=== PATIENT | male | born 1940 | race Caucasian/White ===

== ENCOUNTER → 2020-06-27 11:19 | Outpatient (BNVA) | payer OTHER, SELFPAY | PROVIDERS: PCP Emergency Medicine Emergency Medical Services; Visit Provider Surgery | DX: Z11.59 Encounter for screening for other viral diseases (principal); R10.9 Unspecified abdominal pain | CPT/HCPCS: 87635 ==

== ENCOUNTER 2020-07-01 06:14 | Day surgery (SDC) | payer OTHER, SELFPAY ==
[2020-06-26 10:47] VITALS: BMI 17.9
[2020-07-01 06:24] VITALS: BP 120/80; PULSE 84; RESP 18; TEMP 36.4; O2SAT 96
--- NOTE | 2020-07-01 06:37 | W.PM.OPSUD ---
Surgery/Procedure H&P Update DATE OF PROCEDURE: July 01, 2020 DATE H&P PERFORMED: 06/13/20 H&P UPDATE INFORMATION: I have reviewed H&P completed within last 30 days, I have examined patient prior to procedure and Changes to prior documentation as noted here CHANGES TO PREVIOUS DOCUMENTATION: Patient's spouse is reporting that her lost 20 pounds over the short period of time and he had history of nausea and vomiting and that is completely abnormal for the patient. PREOP DIAGNOSIS: Abdominal cramps PRIMARY INDICATION FOR PROCEDURE: In addition to nonintentional weight loss PLANNED PROCEDURE: Operation Date: 07/01/20 07:00 Proposed Procedures p Colonoscopy 11683 R10.9(Not Applicable) - Noah Davidson MD
[2020-07-01] MEDS: sodium chloride 0.9% 1,000 ML 30 ML IV (06:44)
--- NOTE | 2020-07-01 06:47 | P.ANESASSM_ITS ---
Pre-Anesthetic Assessment Pre-Anesthetic Assessment: Height/Weight: Height 1.78 m Weight 56.699 kg Temp Pulse Resp BP Pulse Ox 97.5 F L 84 18 120/80 96 07/01/20 06:24 07/01/20 06:24 07/01/20 06:24 07/01/20 06:24 07/01/20 06:24 Preop Diagnosis: Abdominal cramps Proposed Procedure: Operation Date: 07/01/20 07:00 Proposed Procedures p Colonoscopy 17249 R10.9(Not Applicable) - Noah Davidson MD Familial anesthetic complications: None Was Beta Dejon taken within 24 hours: N/A Last intake: Intake Last Liquid Date 06/30/20 Last Liquid Time 20:00 Last Solid Date 06/29/20 Last Solid Time 20:00 Social: Social History: No alcohol and No tobacco Exam: Pre-Anes Outpt Exam: alert, oriented x 3, clear to auscultation b ilaterally and regular rate & rhythm Airway: Cervical ROM: WNL MP: 2 Dentition: False Pulmonary: Pulmonary: COPD CV/HEM: Comments: patient has mitral valve repair In December he states he had fainting episode and wore 10-day holter monitor thereafter with no events other than some tachycardia while working on his deck. patient denies any further episodoes of SOB, chest pain, syncope Anesthetic Plan: ASA status: 3 Anesthesia: MAC Risk of > 500 ml blood loss (7ml/kg in children): No Meds/Allergies Current Medications: Current Medications Generic Name Dose Route Start Last Admin Trade Name Freq PRN Reason Stop Dose Admin Sodium Chloride 1,000 mls @ 30 ml s/hr 07/01/20 06:30 07/01/20 06:44 Sodium Chloride 0.9% IV 07/02/20 06:29 30 mls/hr .Q24H BALTA Administration PFSH Anesthesia PFSH: Family History Denies family history of Anesthesia complication Bleeding disorder Social History Smoking and tobacco status: former smoker Alcohol intake: never Data Anesthesia Cardiac Studies: No Data to Display
--- NOTE | 2020-07-01 06:50 | ECG_ITS ---
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 Measurements Intervals Stites Rate: 79 P: -84 DE: 149 QRS: 71 QRSD: 92 T: 80 QT: 402 QTc: 462 Interpretive Statements ECTOPIC ATRIAL RHYTHM WITH OCCASIONAL SUPRAVENTRICULAR PREMATURE COMPLEXES POSSIBLE RIGHT VENTRICULAR CONDUCTION DELAY [RSR (QR) IN V1/V2] ABNORMAL RHYTHM ECG No previous ECG available for comparison Electronically Signed On 07-01-2020 18:34:42 ALCOHOL AND DRUG COUNSELOR by Jah Valle M.D. [id number]
[2020-07-01 07:36] VITALS: BP 92/61; PULSE 78; RESP 18; TEMP 36.7; O2SAT 100
[2020-07-01 07:46] VITALS: BP 109/65; PULSE 81; RESP 18; O2SAT 97
[2020-07-01 08:09] LABS: Hematocrit 39.9 % (42.0-52.0); Mean Corpuscular HGB Conc 32.6 g/dL (30.0-36.0); Mean Corpuscular Volume 89.1 fL (80-94); Platelet Count 291 10^3/cmm (130-400); Red Blood Count 4.48 10^6/uL (4.1-5.3); Red Cell Distribution Width 13.8 % (12.1-15.1); White Blood Count 6.7 10^3/uL (4.0-10.0)
[2020-07-01 08:36] LABS: Carcinoembryonic Antigen 8.3 ng/mL (0.0-4.7)
[2020-07-01 08:39] LABS: Absolute Eosinophils 0.1 10^3/cmm (0.0-0.7); Absolute Segmented Neutrophil 5.2 10/cmm (1.6-7.1); Eosinophils 2 %; Lymphocytes 13 %; Monocytes Absolute 0.5 10^3/cmm (0.1-0.6); Segmented Neutrophils 78 %; Total Cells Counted 100 (0-100)
[2020-07-01 08:40] LABS: Platelet Estimate Normal (Normal)
[2020-07-01 08:47] LABS: Alanine Aminotransferase 14 U/L (0-41); Albumin Level 3.6 g/dL (3.5-5.2); Alkaline Phosphatase 49 IU/L (40-130); Anion Gap 10.9 (5-19); Aspartate Amino Transferase 19 U/L (0-40); Blood Urea Nitrogen 6 mg/dL (8-23); Calcium 8.8 mg/dL (8.5-10.5); Carbon Dioxide 28 mmol/L (22-29); Chloride 99 mmol/L (98-107); Globulin 2.2 g/dL (1.3-4.6); Glucose 94 mg/dL (65-115); Osmolality Calculated 275 mOsm/kg (285-295); Potassium 3.9 mmol/L (3.5-5.1); Sodium 134 mmol/L (136-145); Total Bilirubin 0.5 mg/dL (0.15-1.2); Total Protein 5.8 g/dL (6.6-8.7)
[2020-07-01 08:56] LABS: Absolute Neutrophil 5.2 10^3/cmm (1.4-6.5)
--- NOTE | 2020-07-01 14:11 | ANE.PACU2 ---
Inpatient post-anesthesia follow up: Airway intact: Yes Vital signs: Temperature 98.0 F Pulse Rate 81 Respiratory Rate 18 Blood Pressure 109/65 Pulse Oximetry 97 Oxygen Delivery Me thod Room Air Oxygen Flow Rate 3 Fraction of Inspir ed Oxygen Hydration adequate: Yes Nausea and vomiting: No Pain level: 1 Mental status: Baseline
[2020-07-02 07:03] LABS: H. Pylori / CLO Test Positive
--- NOTE | 2020-07-02 07:12 | PC.NURSE ---
Positive H Pylori results given verbally to Dr Davidson and called to ORESTES Daniels at clinic.
[2020-07-09 10:15] LABS: Miscellaneous Test See Scanned Lab Rpt
== END 2020-07-01 08:09 | disposition home or self-care (01) ==
PROVIDERS: PCP Emergency Medicine Emergency Medical Services; Visit Provider Surgery
PROC: 0DJD8ZZ Inspection of Lower Intestinal Tract, Via Natural or Artificial Opening Endoscopic (ICD-10-PCS; CPT 45378; principal; 2020-07-01 07:00)
PROC: 0DJ08ZZ Inspection of Upper Intestinal Tract, Via Natural or Artificial Opening Endoscopic (ICD-10-PCS; CPT 43235; 2020-07-01 07:00)
DX: C18.6 Malignant neoplasm of descending colon (principal); D12.8 Benign neoplasm of rectum; R10.9 Unspecified abdominal pain; R63.4 Abnormal weight loss; Z68.1 Body mass index [BMI] 19.9 or less, adult; J44.9 Chronic obstructive pulmonary disease, unspecified; Z87.891 Personal history of nicotine dependence; K57.30 Diverticulosis of large intestine without perforation or abscess without bleeding; K21.9 Gastro-esophageal reflux disease without esophagitis; K29.70 Gastritis, unspecified, without bleeding; Z79.82 Long term (current) use of aspirin
CPT/HCPCS: 12345; 43239; 45380; 45381; 45385; 80053; 82378; 85007; 85027; 87077; 88305; 93005; J2704; J7030

== ENCOUNTER 2020-07-02 12:57 | Outpatient (CLI) | payer OTHER, SELFPAY ==
[2020-07-02] MEDS: iohexol 300 mg/mL 50 mL Btl PO (13:10)
--- NOTE | 2020-07-02 14:30 | CT_ITS ---
WS: [id number] Exam: CT abdomen pelvis w con* [id number] Date/Time of Exam: 07/02/2020 1:02 PM Reason For Exam: K63.89 - Other specified diseases of intestine DLP: 838.[address] scans at [facility] use at least one of these dose optimization techniques: automat ed exposure control; mA and/or kV adjustment per patient size (includes targeted exams where dose is matched to clinical indication); or iterative reconstruction. Emphysematous changes noted in the lower lung zones. 1 cm cyst in the left lobe of the liver. Additio nal subcentimeter low-attenuation nodule in the right hepatic lobe too small to characterize. No calc ified stones in the gallbladder. The spleen and pancreas are unremarkable. There is marked wall thick ening of the stomach suggesting gastritis. The abdominal aorta is normal in caliber. The portal vein and IVC are patent. Unremarkable kidneys and adrenal glands. Small bowel loops are not dilated. No fr ee air. No lymphadenopathy. Retained stool throughout the large bowel. The visualized appendix is unr emarkable. No mass or lymphadenopathy in the pelvis. Intact urinary bladder. Large amount of stool in the rectum. Soft tissue calcifications are seen in the region of the scrotum. No destructive bone le sions. Marked degenerative changes at the lower lumbar spine. CT/CT abdomen pelvis w con* [id number] IMPRESSION: 1. No mass, lymphadenopathy or acute finding. 2. Marked wall thickening of the stomach suggesting gastritis. 3. Large amount retained stool in the colon.
[2020-07-02] MEDS: iohexol 300 mg/mL 100 mL Btl IV (14:37)
== END 2020-07-02 12:58 | disposition home or self-care (01) ==
LOC: RADWPI 13:00
PROVIDERS: PCP Emergency Medicine Emergency Medical Services; Visit Provider Surgery
DX: K63.89 Other specified diseases of intestine (principal)
CPT/HCPCS: 74177; Q9967

== ENCOUNTER → 2020-07-19 12:30 | Outpatient (BNVA) | payer OTHER, SELFPAY | PROVIDERS: PCP Emergency Medicine Emergency Medical Services; Visit Provider Surgery | DX: Z20.828 Contact with and (suspected) exposure to other viral communicable diseases (principal); C18.9 Malignant neoplasm of colon, unspecified | CPT/HCPCS: 87635 ==

== ENCOUNTER 2020-07-21 19:16 | Inpatient (IN) | payer OTHER, MEDICARE, SELFPAY ==
[2020-07-21] VITALS (30 sets, daily range): BP systolic 103–142; BP diastolic 60–100; PULSE 93–120; RESP 17–24; TEMP 36.4; O2SAT 87–100; BMI 15.5
--- NOTE | 2020-07-21 20:06 | CTR_ITS ---
PROCEDURE INFORMATION: Exam: CT Abdomen And Pelvis With Contrast Exam date and time: 07/21/2020 9:15 PM Age: 80 years old Clinical indication: Abdominal pain; Generalized; Prior surgery; Surgery date: 6+ months; Surgery type: Valve, appy; Patient HX: C/O abd pain and distention w HX of colon CA TECHNIQUE: Imaging protocol: Computed tomography of the abdomen and pelvis with intravenous contrast. Radiation optimization: All CT scans at this facility use at least one of these dose optimization techniques: automated exposure control; mA and/or kV adjustment per patient size (includes targeted exams where dose is matched to clinical indication); or iterative reconstruction. Contrast material: OMNI 300; Contrast volume: 75 ml; Contrast route: INTRAVENOUS (IV); COMPARISON: CT abdomen pelvis w con* [id number] 07/02/2020 2:34 PM RADIATION DOSE METRICS: Total DLP (mGy-cm): 183.57 FINDINGS: Lungs: Lung bases are clear. Liver: There is a simple hepatic cyst in the left lobe. There is an indeterminate 11 mm nodule in the right lobe. Gallbladder and bile ducts: The gallbladder is normal. There is no biliary dilation. Pancreas: There is marked atrophy of the pancreas. Spleen: Splenic size is normal. There are scattered calcifications consistent with healed granulomas. Adrenal glands: The adrenal glands are unremarkable. Kidneys and ureters: The kidneys are unremarkable. No hydronephrosis or stones. No ureteral dilation. Stomach and bowel: There is high-grade focal narrowing of the colon at the splenic flexure associated with short segment circumferential wall thickening consistent with a malignant neoplastic stricture (see axial series 2, image 19 through 29 and sagittal series 601, image 16). Proximal to the stricture the colon is dilated and fluid and gas filled. Distal to the stricture, the colon is decompressed. The stomach is unremarkable. The small bowel is diffusely dilated and filled with gas and fluid. Appendix: The appendix is not visible. Intraperitoneal space: There is no free air or significant intraperitoneal free fluid. Vasculature: There is moderate aortic atherosclerotic disease. The portal, splenic and superior mesenteric veins are patent. Lymph nodes: There is no lymphadenopathy in the retroperitoneum, mesentery, pelvis or inguinal regions. Urinary bladder: The urinary bladder is distended and thin walled. Reproductive: The prostate and seminal vesicles are unremarkable. Bones/joints: Bones are unremarkable. There is moderate degenerative disease in the lumbar spine. Soft tissues: The abdominal wall is intact. CT/CT abdomen pelvis w con* [id number] IMPRESSION: 1. 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 2. 11 mm nodule in the right lobe of the liver. Nonspecific. Possible metastasis. Radiation Dose CTDIVOL = (mGy): DLP = 183.57 (mGy-cm)
[2020-07-21] MEDS: sodium chloride 0.9% 1,000 ML 999 ML IV (20:25)
[2020-07-21] MEDS: morphine 4 mg/mL SDV 1 mL IVP (20:32)
[2020-07-21] MEDS: ondansetron 2 mg/ML SDV 2 mL 4 MG IVP (20:32)
--- NOTE | 2020-07-21 20:37 | PC.NURSE ---
PT TO ROOM 2 with
--- NOTE | 2020-07-21 20:40 | PC.NURSE ---
Pt received Morphine, noted a drop in 02 sat Placed 02 at 2L
[2020-07-21 20:43] LABS: Basophils % 0.5 %; Hematocrit 46.4 % (42.0-52.0); Hemoglobin 15.6 g/dL (11.7-16.6); Lymphocytes # 0.4 10^3/uL (0.8-4.8); Lymphocytes % 10.4 %; Mean Corpuscular HGB Conc 33.6 g/dL (30.0-36.0); Mean Corpuscular Hemoglobin 29.5 pg (28.0-34.0); Mean Corpuscular Volume 87.7 fL (80-94); Mean Platelet Volume 9.4 fL (7.4-10.4); Monocytes # 0.6 10^3/uL (0.2-0.9); Neutrophils # 2.89 10^3/uL (1.8-7.7); Neutrophils % 73.6 %; Nucleated Red Blood Cells % 0 %; Platelet Count 405 10^3/cmm (130-400); Red Blood Count 5.29 10^6/uL (4.1-5.3); White Blood Count 3.9 10^3/uL (4.0-10.0)
--- NOTE | 2020-07-21 20:43 | PC.NURSE ---
provider at bedside. Urinal at bedside
[2020-07-21 21:21] LABS: Lactate (Lactic Acid level) 2.1 mmol/L (0.5-2.2)
[2020-07-21 21:24] LABS: Alanine Aminotransferase 11 U/L (0-41); Albumin Level 3.8 g/dL (3.5-5.2); Alkaline Phosphatase 50 IU/L (40-130); Anion Gap 14.3 (5-19); Aspartate Amino Transferase 17 U/L (0-40); Blood Urea Nitrogen 36 mg/dL (8-23); C Reactive Protein 41.6 mg/L (0.0-4.9); Calcium 9.3 mg/dL (8.5-10.5); Carbon Dioxide 37 mmol/L (22-29); Chloride 91 mmol/L (98-107); Creatinine Clr Calc Pharmacy 47.0444; Globulin 2.8 g/dL (1.3-4.6); Glucose 167 mg/dL (65-115); Lipase 12 U/L (13-60); Osmolality Calculated 298 mOsm/kg (285-295); Potassium 4.3 mmol/L (3.5-5.1); Sodium 138 mmol/L (136-145); Total Bilirubin 0.6 mg/dL (0.15-1.2); Total Protein 6.6 g/dL (6.6-8.7)
[2020-07-21] MEDS: iohexol 300 mg/mL 100 mL Btl IV (21:56)
--- NOTE | 2020-07-21 22:36 | PC.NURSE ---
waiting for Urine sample
--- NOTE | 2020-07-21 22:58 | XR_ITS ---
WS: [id number] XR chest 1V portable [id number] REASON FOR EXAM: ng tube FINDINGS: Previous thoracotomy. Nasogastric tube in place the tip overlies the fundus of the stomach. A fractured segment of wire ove rlies the heart in the left chest. No prior examination for comparison. Mild tortuosity thoracic aorta. Normal heart size. No active pulmonary parenchymal or pleural disease noted. XR/XR chest 1V portable [id number] IMPRESSION: No acute chest abnormality.
--- NOTE | 2020-07-21 23:20 | PC.NURSE ---
NG placed and pt's stated No complaint
[2020-07-21 23:32] LABS: Add Urine Microscopic? NO
[2020-07-21 23:35] LABS: Bilirubin Urine 1+ (Negative); Blood Urine Neg (Negative); Glucose Urine UA Norm (Normal); Ketones Urine 1+ (Negative); Leukocyte Esterase Urine Negative (Negative); Nitrate Urine Negative (Negative); Protein Urine Neg (Negative); Urine Appearance Clear (CLEAR); Urine Color Dark Yellow (Yellow); Urobilinogen Urine 1 mg/dL (Negative); pH Urine 5 (5-7)
[2020-07-22] VITALS (28 sets, daily range): BP systolic 113–143; BP diastolic 59–91; PULSE 80–116; RESP 14–24; TEMP 36.2–36.7; O2SAT 93–99
--- NOTE | 2020-07-22 00:48 | W.ED.ABDPA2 ---
HPI - Abdominal Pain General: Chief Complaint: Abdominal Pain Stated Complaint: abd pain/swelling/has colon cancer Time Seen by Provider: 07/21/20 20:06 History of Present Illness: HPI narrative: 80-year-old gentleman with a history of a known mass to his splenic flexure of the colon. Has a surgery planned for Wednesday for colectomy with reanastomosis. He has been constipated for several days, and has had increased abdominal bloating and pain today. No fever. He has vomited. MD elicited complaint: abdominal pain Pertinent past history: constipation and other Onset (ago): day(s) Pain Consistency: constant Location: Diffuse Severity: moderate Quality: cramping and aching Radiation: none Migration to: no migration Associated Symptoms: Reports nausea and vomiting; Denies chills, fever(s) and hematuria Review of Systems Const: Denies: fever(s) or chills Eyes: Denies: change in vision ENMT: Denies: odynophagia or sinus pain Card: Denies: chest pain, palpitations or irregular heart rhythm Resp: Denies: dyspnea, productive cough, non-productive cough or wheezing GI: Reports: abdominal pain, nausea and vomiting; Denies: rectal pain : Denies: difficulty urinating or hematuria Musc: Reports: back pain; Denies: neck pain Skin/Breast: Denies: rash or erythema Neuro: Denies: headache(s), dizziness or vertigo Psych: Denies: anxiety PFSH ED PFSH: Family History Denies family history of Anesthesia complication Bleeding disorder Social History Smoking and tobacco status: former smoker Alcohol intake: never Physical Exam Const: GENERAL APPEARANCE: cooperative, ill appearing and frail appearing ORIENTATION/CONSCIOUSNESS: Yes oriented to person, Yes oriented to place and Yes oriented to time HENMT: COMMON NORMALS: normocephalic, external ears normal and Normal external nose present HEAD & SCALP: normocephalic FACE & SINUS: normal facial exam NOSE: Normal external nose present and No nasal discharge present EXTERNAL EAR: Yes external ears normal Eye: COMMON NORMALS: Equal, round and reactive pupils present, EOMs intact bilaterally and conjunctivae normal EYELID: eyelids normal CONJUNCTIVA: Yes conjunctivae normal PUPIL: Yes Equal, round and reactive pupils present Neck/C-Spine: GENERAL: No tracheal deviation Chest: COMMONS NORMALS: normal inspection of the chest CHEST: No tenderness Resp: COMMON NORMALS: clear to auscultation bilaterally EFFORT & INSPECTION: No tachypneic, No respiratory distress, No retractions, No uses accessory muscles and No tracheal deviation AUSCULTATION: clear to auscultation bilaterally, no rhonchi, no wheezes and lung sounds not diminished Cardio: COMMON NORMALS: regular rate and regular rhythm RATE: regular rate RHYTHM: regular rhythm HEART SOUNDS: no murmurs PERIPHERAL PULSES: radial pulses present GI: INSPECTION: No abdominal distension AUSCULTATION: No Hyperactive bowel sounds present and No Hypoactive bowel sounds present PALPATION: No Guarding due to palpation present (GI) and No Rigid due to palpation PERCUSSION: no dullness to percussion and no tympanic to percussion : COMMON NORMALS: Yes no CVA tenderness BLADDER/KIDNEY EXAM: Yes no CVA tenderness Back/Pelvis: COMMON NORMALS: no CVA tenderness Neuro: SENSORIUM/ORIENTATION: Yes oriented to person, Yes oriented to place and Yes oriented to time Psych: COMMON NORMALS: mental status grossly normal Skin: COMMON NORMALS: no rashes or lesions noted GENERAL SKIN EXAM: no rashes or lesions noted Course Consultations: Consultation #1: tim Consultation #2: donna Vital Signs: Vital signs: Vital Signs Temperature 97.6 F 07/21/20 19:28 Pulse Rate 99 07/22/20 01:20 Respiratory Rate 16 07/22/20 01:20 Blood Pressure 121/79 07/22/20 01:20 Pulse Oximetry 95 07/22/20 01:20 MDM - Abdominal Pain MDM Narrative: Medical decision making narrative: 80-year-old male with a known colonic mass. He presents with colonic obstruction. He has received IV fluid and some pain medication and is feeling better. His obstruction appears complete by CT. He has a surgery scheduled for Wednesday, but will be admitted currently. He has an NG tube in place, and is feeling better after it is placed to suction. Hospitalist is aware, surgery has been consulted. Lab Data: Labs: Lab Results 07/21/20 07/21/20 07/21/20 Range/Units 20:27 20:27 20:27 WBC 3.9 L (4.0-10.0) 10^3/ uL RBC 5.29 (4.1-5.3) 10^6/u L Hgb 15.6 (11.7-16.6) g/dL Hct 46.4 (42.0-52.0) % MCV 87.7 (80-94) fL MCH 29.5 (28.0-34.0) pg MCHC 33.6 (30.0-36.0) g/dL RDW 14.0 (12.1-15.1) % Plt Count 405 H (130-400) 10^3/c mm MPV 9.4 (7.4-10.4) fL Neut % (Auto) 73.6 % Lymph % (Auto) 10.4 % [place] % (Auto) 15.0 % Eos % (Auto) 0.0 % Baso % (Auto) 0.5 % Neut # (Auto) 2.89 (1.8-7.7) 10^3/u L Lymph # (Auto) 0.4 L (0.8-4.8) 10^3/u L [place] # (Auto) 0.6 (0.2-0.9) 10^3/u L Eos # (Auto) 0.0 (0.0-0.8) 10^3/u L Baso # (Auto) 0.0 (0.0-0.1) 10^3/u L Nucleated RBC % (a uto) 0 % Nucleated RBCs # 0.0 /100WBC Sodium 138 (136-145) mmol/L Potassium 4.3 (3.5-5.1) mmol/L Chloride 91 L (98-107) mmol/L Carbon Dioxide 37 H (22-29) mmol/L Anion Gap 14.3 (5-19) BUN 36 H (8-23) mg/dL Creatinine 0.9 (0.7-1.2) mg/dL GFR Calculation Not Reportable Glucose 167 H (65-115) mg/dL Calculated Osmolal ity 298 H (285-295) mOsm/k g Lactate 2.1 (0.5-2.2) mmol/L Calcium 9.3 (8.5-10.5) mg/dL Total Bilirubin 0.6 (0.15-1.2) mg/dL AST 17 (0-40) U/L ALT 11 (0-41) U/L Alkaline Phosphata se 50 (40-130) IU/L C-Reactive Protein 41.6 H (0.0-4.9) mg/L Total Protein 6.6 (6.6-8.7) g/dL Albumin 3.8 (3.5-5.2) g/dL Globulin 2.8 (1.3-4.6) g/dL Lipase 12 L (13-60) U/L Urine Color (Yellow) Urine Appearance (CLEAR) Urine pH (5-7) Ur Specific Gravit y (1.005-1.030) Urine Protein (Negative) Urine Glucose (UA) (Normal) Urine Ketones (Negative) Urine Blood (Negative) Urine Nitrate (Negative) Urine Bilirubin (Negative) Urine Urobilinogen (Negative) mg/dL Ur Leukocyte Carmenc[place] ase (Negative) 07/21/20 Range/Units 23:04 WBC (4.0-10.0) 10^3/ uL RBC (4.1-5.3) 10^6/u L Hgb (11.7-16.6) g/dL Hct (42.0-52.0) % MCV (80-94) fL MCH (28.0-34.0) pg MCHC (30.0-36.0) g/dL RDW (12.1-15.1) % Plt Count (130-400) 10^3/c mm MPV (7.4-10.4) fL Neut % (Auto) % Lymph % (Auto) % [place] % (Auto) % Eos % (Auto) % Baso % (Auto) % Neut # (Auto) (1.8-7.7) 10^3/u L Lymph # (Auto) (0.8-4.8) 10^3/u L [place] # (Auto) (0.2-0.9) 10^3/u L Eos # (Auto) (0.0-0.8) 10^3/u L Baso # (Auto) (0.0-0.1) 10^3/u L Nucleated RBC % (a uto) % Nucleated RBCs # /100WBC Sodium (136-145) mmol/L Potassium (3.5-5.1) mmol/L Chloride (98-107) mmol/L Carbon Dioxide (22-29) mmol/L Anion Gap (5-19) BUN (8-23) mg/dL Creatinine (0.7-1.2) mg/dL GFR Calculation Glucose (65-115) mg/dL Calculated Osmolal ity (285-295) mOsm/k g Lactate (0.5-2.2) mmol/L Calcium (8.5-10.5) mg/dL Total Bilirubin (0.15-1.2) mg/dL AST (0-40) U/L ALT (0-41) U/L Alkaline Phosphata se (40-130) IU/L C-Reactive Protein (0.0-4.9) mg/L Total Protein (6.6-8.7) g/dL Albumin (3.5-5.2) g/dL Globulin (1.3-4.6) g/dL Lipase (13-60) U/L Urine Color Dark yellow (Yellow) Urine Appearance Clear (CLEAR) Urine pH 5 (5-7) Ur Specific Gravit y 1.020 (1.005-1.030) Urine Protein Neg (Negative) Urine Glucose (UA) Norm (Normal) Urine Ketones 1+ H (Negative) Urine Blood Neg (Negative) Urine Nitrate Negative (Negative) Urine Bilirubin 1+ H (Negative) Urine Urobilinogen 1 H (Negative) mg/dL Ur Leukocyte Carmencita ase Negative (Negative) Discharge Plan Discharge Patient Disposition: Admitted As Inpatient Admit Provider: Sami Epps Clinical Impression: Colonic obstruction Condition: Stable Coding Level of Care Code ED Safety Relief Valve Technician for Alondra Fwd Exam Comprehensive
--- NOTE | 2020-07-22 01:22 | PC.NURSE ---
Pt waiting for admission physician. No needs.
--- NOTE | 2020-07-22 01:27 | PM.HP ---
Providers/Chief Complaint Primary Care Provider: Renard Elias DO Chief Complaint: abd pain/swelling/has colon cancer History of Present Illness Shabbir Galdamez is a 80 year old male with past medical history of H. pylori gastric, completed antibiotic course as well as known mass to his splenic flexure of the colon came in with chief complaint of worsening constipation for several days, as well as increasing generalized abdominal pain and bloating.He denies any nausea vomiting, fever, shortness of breath.He is giving history of significant weight loss in the last couple of months. He is planned for colectomy by Dr. Davidson on Wednesday. CT abdomen and pelvis was done today: 1. 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 2. 11 mm nodule in the right lobe of the liver. Nonspecific. Possible metastasis. Prior pertinent studies: left colonic mass , biopsy: ?Invasive adenocarcinoma, moderately differentiated. Prior EGD : Gastritis prior colonoscopy: In the distal descending colon partially obstructing large sized fungating friable malignant appearing 4 into 6 cm mass. ECA course: NG tube was placed, patient was kept n.p.o, was started on IV fluids. Review of Systems Const: Denies: fever(s), chills, body aches or diaphoresis Card: Denies: palpitations, edema, swelling of feet/ankles, dyspnea on exertion, orthopnea or leg pain with exertion Resp: Denies: productive cough, wheezing or pain on inspiration : Denies: flank pain or difficulty urinating Musc: Denies: back pain, extremity pain or extremity swelling Neuro: Denies: headache(s), difficulty walking or confusion Medications/Allergies Home Medications Medication Instructions Recorded Confirmed Last Taken Type pantoprazole [Protonix] 40 mg PO DAILY 30 Days #30 tab 07/01/20 07/22/20 1 Day Ago Rx ~07/21/20 Symbicort 80 mcg INHALATION PRN PRN 07/19/20 07/22/20 Unknown History Allergies Allergy/AdvReac Type Severity Reaction Status Date / Time No Known Allergies Allergy Verified 07/22/20 07:58 PFSH Acute PFSH: Family History Denies family history of Anesthesia complication Bleeding disorder Social History Smoking and tobacco status: former smoker Alcohol intake: never Vitals/I&O/Wt Last Vital Signs Temp 97.6 F 07/21/20 19:28 Pulse 99 07/22/20 01:20 Resp 16 07/22/20 01:20 BP 121/79 07/22/20 01:20 Pulse Ox 95 07/22/20 01:20 Weight last 48 hrs Weight 49.169 kg Physical Exam Const: COMMON NORMALS: patient oriented x3 HENMT: COMMON NORMALS: normocephalic and atraumatic HEAD & SCALP: normocephalic and atraumatic EXTERNAL EAR: Yes external ears normal Chest: COMMONS NORMALS: normal inspection of the chest CHEST: Yes Symmetrical chest wall rise Resp: COMMON NORMALS: normal respiratory effort and clear to auscultation bilaterally EFFORT & INSPECTION: Yes symmetric chest movement AUSCULTATION: clear to auscultation bilaterally Cardio: COMMON NORMALS: regular rate, regular rhythm, S1 normal heart sound present, S2 normal heart sound present, No gallops present (Cardio), No murmurs present (Cardio), No rub (Cardio) and Peripheral pulses 2+ throughout RATE: regular rate RHYTHM: regular rhythm HEART SOUNDS: S1 normal heart sound present and S2 normal heart sound present PERIPHERAL PULSES: Peripheral pulses 2+ throughout GI: INSPECTION: Yes abdominal distension AUSCULTATION: Yes Hyperactive bowel sounds present PALPATION: Yes Firmness to palpation present (GI) and Yes Rigid due to palpation RECTAL EXAM: Yes deferred Extremity: COMMON NORMALS: no clubbing, cyanosis or edema and no pedal edema Neuro: COMMON NORMALS: patient oriented x3 Data : 07/22/20 04:52 07/22/20 04:52 A&P Assessment and plan (1) 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 NG tube to suction Surgery consult: Due for: colectomy with reanastomosis. Status: Acute (2) Gastritis: H. pylori gastritis: Completed 14 day course of clarithromycin, amoxicillin, On Protonix for 30 days Status: Acute Additional A&P Information #DVT prophylaxis:On lovenox 40 mg sc daily #Code Status :Full code Attestations Medical Necessity Statement*: Patient needs to be in hospital for the management of large Bowel obstruction 2/2 to colonic mass.Anticipated length of stay greater then 2 midnights. Coding Level of Care Code Acute Offset Press Assistant for Chg Fwd Exam Detailed Diagnoses Colonic obstruction K56.609 Gastritis K29.70
--- NOTE | 2020-07-22 01:48 | PC.NURSE ---
Hospitalist at bedside.
[2020-07-22] MEDS: enoxaparin 40 mg/0.4 mL Syringe SUBCUT (02:13)
[2020-07-22] MEDS: sodium chloride 0.9% 1,000 ML 75 ML IV (02:14)
[2020-07-22] MEDS: pantoprazole 40 mg SDV IVP (02:14)
--- NOTE | 2020-07-22 02:23 | PC.NURSE ---
ADMIT NOTE Pt received to room from ER. Alert and oriented. NG tube intact via right nare. Hooked to LIS with immediate return of dark greem/brown liquid. Nurse from ER stated tube had not been draining like that in the ER. Position was verified by xray. Pt denies pain or nausea at present. Was given first doses of SQ Lovenox and IV Protonix. IV fluids started at 75ml/hr rate. Says he had known about mass for couple of weeks and was scheduled for surgery on this Wednesday. Started prep for surgery and bloating, abd distention and pain just kept getting worse. Abdomen is quite distended and firm. Some gen tenderness. Says last BM was this past Wednesday. Says couple episodes of nausea with dry heaves. O2 in place at 2l per NC. Reports his normal SOB with his COPD. RN completing admission assessment. VS check done. Oriented to room. Call light in reach. HOB up at 45 degrees
[2020-07-22 05:30] LABS: Basophils % 0.5 %; Eosinophils % 1.5 %; Hematocrit 43.1 % (42.0-52.0); Hemoglobin 14.1 g/dL (11.7-16.6); Lymphocytes # 0.6 10^3/uL (0.8-4.8); Lymphocytes % 27.6 %; Mean Corpuscular HGB Conc 32.7 g/dL (30.0-36.0); Mean Corpuscular Hemoglobin 28.9 pg (28.0-34.0); Mean Corpuscular Volume 88.3 fL (80-94); Mean Platelet Volume 9.5 fL (7.4-10.4); Monocytes # 0.4 10^3/uL (0.2-0.9); Monocytes % 18.2 %; Neutrophils # 1.06 10^3/uL (1.8-7.7); Neutrophils % 52.2 %; Nucleated Red Blood Cells % 0 %; Platelet Count 365 10^3/cmm (130-400); Red Blood Count 4.88 10^6/uL (4.1-5.3); Red Cell Distribution Width 14.1 % (12.1-15.1)
[2020-07-22] MEDS: morphine 4 mg/mL SDV 1 mL 2 MG IVP ×2 (05:46→18:53)
[2020-07-22 06:01] LABS: Alanine Aminotransferase 9 U/L (0-41); Albumin Level 3.5 g/dL (3.5-5.2); Alkaline Phosphatase 46 IU/L (40-130); Anion Gap 11.3 (5-19); Aspartate Amino Transferase 16 U/L (0-40); Blood Urea Nitrogen 34 mg/dL (8-23); Calcium 8.6 mg/dL (8.5-10.5); Carbon Dioxide 40 mmol/L (22-29); Chloride 94 mmol/L (98-107); Creatinine Clr Calc Pharmacy 47.0444; Globulin 2.5 g/dL (1.3-4.6); Glucose 130 mg/dL (65-115); Osmolality Calculated 301 mOsm/kg (285-295); Potassium 4.3 mmol/L (3.5-5.1); Sodium 141 mmol/L (136-145); Total Bilirubin 0.5 mg/dL (0.15-1.2)
--- NOTE | 2020-07-22 07:54 | P.CONIM_ITS ---
Providers/Reason For Consult Consulting Physican/Specialty*: Noah Davidson MD Reason for Consult*: Bowel obstruction associated with colonic mass Attending Physician: Karen Jonas Primary Care Provider: Renard Elias DO History of Present Illness History of Present Illness Chief Complaint: Abdominal pain History of present illness: Mr. 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 Patient was admitted to the hospitalist service after CT scan of the abdomen pelvis was done and showed: Liver: There is a simple hepatic cyst in the left lobe. There is an indeterminate 11 mm nodule in the right lobe. Gallbladder and bile ducts: The gallbladder is normal. There is no biliary dilation. Pancreas: There is marked atrophy of the pancreas. Spleen: Splenic size is normal. There are scattered calcifications consistent with healed granulomas. Adrenal glands: The adrenal glands are unremarkable. Kidneys and ureters: The kidneys are unremarkable. No hydronephrosis or stones. No ureteral dilation. Stomach and bowel: There is high-grade focal narrowing of the colon at the splenic flexure associated with short segment circumferential wall thickening consistent with a malignant neoplastic stricture (see axial series 2, image 19 through 29 and sagittal series 601, image 16). Proximal to the stricture the colon is dilated and fluid and gas filled. Distal to the stricture, the colon is decompressed. The stomach is unremarkable. The small bowel is diffusely dilated and filled with gas and fluid. Appendix: The appendix is not visible. Intraperitoneal space: There is no free air or significant intraperitoneal free fluid. Vasculature: There is moderate aortic atherosclerotic disease. The portal, splenic and superior mesenteric veins are patent. Lymph nodes: There is no lymphadenopathy in the retroperitoneum, mesentery, pelvis or inguinal regions. Urinary bladder: The urinary bladder is distended and thin walled. Reproductive: The prostate and seminal vesicles are unremarkable. Bones/joints: Bones are unremarkable. There is moderate degenerative disease in the lumbar spine. Soft tissues: The abdominal wall is intact. CT/CT abdomen pelvis w con* [id number] IMPRESSION: 1. 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 2. 11 mm nodule in the right lobe of the liver. Nonspecific. Possible metastasis. General surgery was consulted for further evaluation and management Patient was seen and evaluated as an inpatient, patient gives no history of vomiting yet he did have nausea and last bowel movement he did have was last Wednesday and his not passing gas. NG is placed to low intermittent wall suction and a total of 200 mL so far in the canister. Review of Systems General: Reports: 10 or more systems reviewed and unremarkable except in HPI and below Meds/Allergies Home Medications and Allergies Home Medications Medication Instructions Recorded Confirmed Last Taken Type pantoprazole [Protonix] 40 mg PO DAILY 30 Days #30 tab 07/01/20 07/22/20 1 Day Ago Rx ~07/21/20 Symbicort 80 mcg INHALATION PRN PRN 07/19/20 07/22/20 Unknown History Allergies Allergy/AdvReac Type Severity Reaction Status Date / Time No Known Allergies Allergy Verified 07/22/20 07:58 Current Medications Current Medications Generic Name Dose Route Start Last Admin Trade Name Freq PRN Reason Stop Dose Admin Enoxaparin Sodium 40 mg 07/22/20 02:00 07/22/20 02:13 Enoxaparin 40 Mg/0.4 Ml Syringe SUBCUT 40 mg Q24H BALTA Administration Morphine Sulfate 2 mg 07/22/20 01:02 07/22/20 05:46 Morphine 4 Mg/Ml Sdv 1 Ml IVP 2 mg Q4H PRN Administration SEVERE PAIN Pantoprazole Sodium 40 mg 07/22/20 02:00 07/22/20 02:14 Pantoprazole 40 Mg Sdv IVP 40 mg Q24H BALTA Administration PFSH Acute PFSH: Family History Denies family history of Anesthesia complication Bleeding disorder Social History Smoking and tobacco status: former smoker Alcohol intake: never Vitals/I&O/Wt Last Vital Signs Temp 97.1 F L 07/22/20 07:15 Pulse 97 07/22/20 07:15 Resp 18 07/22/20 07:16 BP 143/80 07/22/20 07:15 Pulse Ox 98 07/22/20 07:15 07/21/20 07/22/20 07/22/20 22:59 06:59 14:59 Intake Total 57.5 / 57.5 Output Total 200 / 200 Balance -142.5 / -142.5 Weight last 48 hrs Weight 108 lb 6.4 oz Physical Exam Narrative: EXAM NARRATIVE: Patient is conscious alert oriented X3 BMI 15.6 Patient looks cachectic Head and neck examination PERRLA no masses no cervical lymphadenopathy no jaundice, NG in place with gastric content Cardiac examination audible S1-S2 no murmurs no gallops no arrhythmias Chest is clear bilateral,abscence of Rhonchi or wheezes,no surgical emphysema Abdomen mildly tender moderately distended soft no organomegaly guarding or rigidity/no signs of peritonitis Extremities no cyanosis no clubbing no edema A&P Assessment and plan (1) Colonic obstruction: After further history taking physical examination and reviewing the CT scan images with my personal interpretation, we will plan to proceed tomorrow with surgery as scheduled in the form of laparoscopic left hemicolectomy possible open with possible flex sigmoidoscopy and possible colostomy. I did explain for the patient and his spouse at this point given the clinical picture of bowel obstruction there will be a lower threshold for conversion to open and because of the suboptimal colon prep if any likely the patient with antibiotic colostomy and a long Tanmay's. Patient and his both expressed their understanding and are willing to proceed accordingly Informed consent per chart Status: Acute Consult Attestations Medical Necessity Statement: Inpatient hospitalization for medical and surgical care Time Spent in Patient Care: (>than 50% of time spent in counselling and/or direct pt care on unit) . 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
--- NOTE | 2020-07-22 09:01 | PC.CHAP ---
Pastoral Care Encounter/Spiritual Assessment Type of Contact [] Declined rodeo performer visit [] Patient/Family/Request visit [] Outpatient visit [] Follow-up visit [] Physician referral [] Code/Alert [] Routine visit [] Staff referral [] Actively dying [] Patient sleeping [] Family support [] [] Out of room [] Palliative care [] [] Receiving care in room [] Pre-surgical visit [] Trauma [] Long length of stay [] ICU visit [] Other: Relational/Emotional Strength [x] Patient feels connected with others/family/visitors/staff [] Distress [] Loneliness/isolation [] Abandonment Spirituality of Patient [x] Person of Keri [] Attends Baptism of their Keri [] Believes in Prayer [] Reads Bible or Jehovah'S Witness materials [] There are Spiritual issues to be addressed Car Deliverer Interventions [x] Prayer [] Active listening [] Non-anxious presence [] Spiritual/emotional support [] Crisis/trauma care [] Spiritual counseling [] Bereavement support [] Provided bereavement packet [] Provided Bible/devotional materials [] Provided toy/stuffed animal, coloring book to patient or family member [] Provided Communion [] Anointing/[place] [] Salvation [x] Completed spiritual assessment [] Other: Impact on Illness or Injury [] Angry [] Fearful [] Anxious [] Often cries [] Exhaustion [] Unable to work [] Unable to attend taoism [] Unable to walk/stand [] Unable to read [] Unable to drive [] Unable to eat/drink [] Unable to sleep [] Unable to be with family [] Patient intubated [] Other: Summary lots of pain Time spent with patient 20 min
[2020-07-22] MEDS: sodium chloride 0.9% 1,000 ML 120 ML IV ×2 (12:04→19:44)
[2020-07-23] VITALS (37 sets, daily range): BP systolic 93–132; BP diastolic 52–98; PULSE 66–110; RESP 15–29; TEMP 34.7–37.2; O2SAT 91–100
[2020-07-23] MEDS: pantoprazole 40 mg SDV IVP (01:03)
[2020-07-23] MEDS: enoxaparin 40 mg/0.4 mL Syringe SUBCUT (01:03)
[2020-07-23] MEDS: sodium chloride 0.9% 1,000 ML 120 ML IV ×3 (05:10→22:01)
[2020-07-23 05:16] LABS: Hematocrit 42.2 % (42.0-52.0); Hemoglobin 13.5 g/dL (11.7-16.6); Mean Corpuscular Hemoglobin 29.2 pg (28.0-34.0); Mean Corpuscular Volume 91.3 fL (80-94); Mean Platelet Volume 9.7 fL (7.4-10.4); Platelet Count 347 10^3/cmm (130-400); Red Blood Count 4.62 10^6/uL (4.1-5.3); Red Cell Distribution Width 14.6 % (12.1-15.1); White Blood Count 2.3 10^3/uL (4.0-10.0)
[2020-07-23 05:25] LABS: INR 1.07 (0.8-1.2)
[2020-07-23 05:26] LABS: Partial Thromboplastin Time 33.8 SECONDS (23.9-36.7)
[2020-07-23 05:30] LABS: Alanine Aminotransferase 10 U/L (0-41); Albumin Level 3.4 g/dL (3.5-5.2); Alkaline Phosphatase 45 IU/L (40-130); Anion Gap 15.4 (5-19); Aspartate Amino Transferase 14 U/L (0-40); Blood Urea Nitrogen 34 mg/dL (8-23); Calcium 8.4 mg/dL (8.5-10.5); Carbon Dioxide 27 mmol/L (22-29); Chloride 103 mmol/L (98-107); Globulin 2.2 g/dL (1.3-4.6); Glucose 111 mg/dL (65-115); Magnesium 3.4 mg/dL (1.7-2.3); Osmolality Calculated 300 mOsm/kg (285-295); Phosphorus 3.6 mg/dL (2.5-4.5); Potassium 4.4 mmol/L (3.5-5.1); Sodium 141 mmol/L (136-145); Total Bilirubin 0.4 mg/dL (0.15-1.2); Total Protein 5.6 g/dL (6.6-8.7)
[2020-07-23 06:10] LABS: Slide Review Slide Review Perform
[2020-07-23 06:11] LABS: Absolute Neutrophil 1.5 10^3/cmm (1.4-6.5); Absolute Segmented Neutrophil 0.8 10/cmm (1.6-7.1); Band Neutrophils Absolute 0.7 10^3/cmm (0.0-1.2); Eosinophils 0 %; Lymphocytes 20 %; Monocytes Absolute 0.4 10^3/cmm (0.1-0.6); Platelet Estimate Normal (Normal); Segmented Neutrophils 34 %; Total Cells Counted 50 (0-100)
[2020-07-23] MEDS: sodium chloride 0.9% 1,000 ML 30 ML IV (06:54)
--- NOTE | 2020-07-23 07:06 | PC.NURSE ---
Report received from Jordin CARLISLE. Patient is currently in surgery.
--- NOTE | 2020-07-23 07:45 | P.PN_ITS ---
Subjective Subjective: Interval history: Patient overall is about the same, continues to have bowel obstruction no evidence of passage of flatus or bowel movements. Vitals/I&O/Wt Last Vital Signs Temp 98.3 F 07/23/20 06:43 Pulse 98 07/23/20 06:43 Resp 16 07/23/20 06:43 BP 132/98 07/23/20 06:43 Pulse Ox 99 07/23/20 06:43 07/22/20 07/23/20 07/23/20 22:59 06:59 14:59 Intake Total 920 / 1912.5 1000 / 2912.5 100 / 100 Output Total 250 / 550 250 / 800 Balance 670 / 1362.5 750 / 2112.5 100 / 100 Weight last 48 hrs Weight 108 lb 6.4 oz Physical Exam Narrative: EXAM NARRATIVE: Patient is conscious alert oriented X3 BMI 15.6 Head and neck examination PERRLA no masses no cervical lymphadenopathy no jaundice NG in place Abdomen mildly tender moderately distended soft no organomegaly guarding or rigidity/no signs of peritonitis Extremities no cyanosis no clubbing no edema Data : 07/23/20 04:58 07/23/20 04:58 A&P Assessment and plan (1) Colonic obstruction: We will plan to take the patient for surgery today in the form of laparoscopic left hemicolectomy possible open with possible colostomy and possible flexible endoscopy dingly Informed consent per chart Status: Acute Attestations Medical Necessity Statement*: Ongoing inpatient hospitalization for medical and surgical care Time Spent in Patient Care: (>than 50% of time spent in counselling and/or direct pt care on unit) . Coding Level of Care Code Acute Accounts Receivable Representative for Alondra Phillip Diagnoses Colonic obstruction K56.609
--- NOTE | 2020-07-23 07:49 | P.ANESUD_ITS ---
Pre-Anesthetic Update Pre-Anesthetic Assessment: Date of Surgery/Procedure: 07/23/20 Preop Kaia gnosis: Colon cancer Proposed Procedure: Operation Date: 07/23/20 07:20 Proposed Procedures p Laparoscopic Sigmoidectomy poss open [id number] C18.9(Not Applicable) - Noah Davidson MD s flex Sigmoidoscopy poss colectomy(Not Applicable) - Noah Davidson MD Any changes to Pre-Anesthetic Assessment?: Yes Changes from Pre-Anesthetic Assessment: Admitted for worsening bowel obstruction. NG placed. No significant changes otherwise Last Intake: Last Liquid Date 07/21/20 Last Liquid Time 19:00 Last Solid Date 07/17/20 Last Solid Time 19:00 Labs Last 48hrs: Laboratory Results - last 48 hr 07/21/20 07/21/20 07/21/20 20:27 20:27 20:27 WBC 3.9 L RBC 5.29 Hgb 15.6 Hct 46.4 MCV 87.7 MCH 29.5 MCHC 33.6 RDW 14.0 Plt Count 405 H MPV 9.4 Neut % (Auto) 73.6 Lymph % (Auto) 10.4 [place] % (Auto) 15.0 Eos % (Auto) 0.0 Baso % (Auto) 0.5 Neut # (Auto) 2.89 Lymph # (Auto) 0.4 L [place] # (Auto) 0.6 Eos # (Auto) 0.0 Baso # (Auto) 0.0 Nucleated RBC % (a uto) 0 Total Counted Atypical Lymphs % Absolute Neutrophi ls Segmented Neutroph ils Abs Segm Neuts (Ma n) Band Neutrophils Abs Band Neuts (Ma n) Lymphocytes (Manua l) Monocytes (Manual) Absolute Monocytes Eosinophils (Manua l) Absolute Eosinophi ls Basophils (Manual) Absolute Basophils Nucleated RBCs # 0.0 Platelet Estimate PT INR APTT Sodium 138 Potassium 4.3 Chloride 91 L Carbon Dioxide 37 H Anion Gap 14.3 BUN 36 H Creatinine 0.9 GFR Calculation Not Reportable Glucose 167 H Calculated Osmolal ity 298 H Lactic Acid Lactate 2.1 Calcium 9.3 Phosphorus Magnesium Total Bilirubin 0.6 AST 17 ALT 11 Alkaline Phosphata se 50 C-Reactive Protein 41.6 H Total Protein 6.6 Albumin 3.8 Globulin 2.8 Lipase 12 L Urine Color Urine Appearance Urine pH Ur Specific Gravit y Urine Protein Urine Glucose (UA) Urine Ketones Urine Blood Urine Nitrate Urine Bilirubin Urine Urobilinogen Ur Leukocyte Carmencita ase 07/21/20 07/22/20 07/22/20 23:04 04:52 04:52 WBC 2.0 L RBC 4.88 Hgb 14.1 Hct 43.1 MCV 88.3 MCH 28.9 MCHC 32.7 RDW 14.1 Plt Count 365 MPV 9.5 Neut % (Auto) 52.2 Lymph % (Auto) 27.6 [place] % (Auto) 18.2 Eos % (Auto) 1.5 Baso % (Auto) 0.5 Neut # (Auto) 1.06 L Lymph # (Auto) 0.6 L [place] # (Auto) 0.4 Eos # (Auto) 0.0 Baso # (Auto) 0.0 Nucleated RBC % (a uto) 0 Total Counted Atypical Lymphs % Absolute Neutrophi ls Segmented Neutroph ils Abs Segm Neuts (Ma n) Band Neutrophils Abs Band Neuts (Ma n) Lymphocytes (Manua l) Monocytes (Manual) Absolute Monocytes Eosinophils (Manua l) Absolute Eosinophi ls Basophils (Manual) Absolute Basophils Nucleated RBCs # 0.0 Platelet Estimate PT INR APTT Sodium 141 Potassium 4.3 Chloride 94 L Carbon Dioxide 40 H Anion Gap 11.3 BUN 34 H Creatinine 0.9 GFR Calculation Not Reportable Glucose 130 H Calculated Osmolal ity 301 H Lactic Acid Lactate Calcium 8.6 Phosphorus Magnesium Total Bilirubin 0.5 AST 16 ALT 9 Alkaline Phosphata se 46 C-Reactive Protein Total Protein 6.0 L Albumin 3.5 Globulin 2.5 Lipase Urine Color Dark yellow Urine Appearance Clear Urine pH 5 Ur Specific Gravit y 1.020 Urine Protein Neg Urine Glucose (UA) Norm Urine Ketones 1+ H Urine Blood Neg Urine Nitrate Negative Urine Bilirubin 1+ H Urine Urobilinogen 1 H Ur Leukocyte Carmencita ase Negative 07/23/20 07/23/20 07/23/20 04:58 04:58 04:58 WBC 2.3 L RBC 4.62 Hgb 13.5 Hct 42.2 MCV 91.3 MCH 29.2 MCHC 32.0 RDW 14.6 Plt Count 347 MPV 9.7 Neut % (Auto) Lymph % (Auto) Not Reportable [place] % (Auto) Not Reportable Eos % (Auto) Baso % (Auto) Neut # (Auto) Lymph # (Auto) Not Reportable [place] # (Auto) Not Reportable Eos # (Auto) Baso # (Auto) Nucleated RBC % (a uto) Total Counted 50 Atypical Lymphs % 0.0 Absolute Neutrophi ls 1.5 Segmented Neutroph ils 34 Abs Segm Neuts (Ma n) 0.8 L Band Neutrophils 30.0 Abs Band Neuts (Ma n) 0.7 Lymphocytes (Manua l) 20 Monocytes (Manual) 16.0 Absolute Monocytes 0.4 Eosinophils (Manua l) 0 Absolute Eosinophi ls 0.0 Basophils (Manual) 0.0 Absolute Basophils 0.0 Nucleated RBCs # Platelet Estimate Normal PT 14.20 INR 1.07 APTT 33.8 Sodium 141 Potassium 4.4 Chloride 103 Carbon Dioxide 27 Anion Gap 15.4 BUN 34 H Creatinine 0.8 GFR Calculation Not Reportable Glucose 111 Calculated Osmolal ity 300 H Lactic Acid Lactate Calcium 8.4 L Phosphorus 3.6 Magnesium 3.4 H Total Bilirubin 0.4 AST 14 ALT 10 Alkaline Phosphata se 45 C-Reactive Protein Total Protein 5.6 L Albumin 3.4 L Globulin 2.2 Lipase Urine Color Urine Appearance Urine pH Ur Specific Gravit y Urine Protein Urine Glucose (UA) Urine Ketones Urine Blood Urine Nitrate Urine Bilirubin Urine Urobilinogen Ur Leukocyte Carmencita ase 07/23/20 04:58 WBC RBC Hgb Hct MCV MCH MCHC RDW Plt Count MPV Neut % (Auto) Lymph % (Auto) [place] % (Auto) Eos % (Auto) Baso % (Auto) Neut # (Auto) Lymph # (Auto) [place] # (Auto) Eos # (Auto) Baso # (Auto) Nucleated RBC % (a uto) Total Counted Atypical Lymphs % Absolute Neutrophi ls Segmented Neutroph ils Abs Segm Neuts (Ma n) Band Neutrophils Abs Band Neuts (Ma n) Lymphocytes (Manua l) Monocytes (Manual) Absolute Monocytes Eosinophils (Manua l) Absolute Eosinophi ls Basophils (Manual) Absolute Basophils Nucleated RBCs # Platelet Estimate PT INR APTT Sodium Potassium Chloride Carbon Dioxide Anion Gap BUN Creatinine GFR Calculation Glucose Calculated Osmolal ity Lactic Acid 1.0 Lactate Calcium Phosphorus Magnesium Total Bilirubin AST ALT Alkaline Phosphata se C-Reactive Protein Total Protein Albumin Globulin Lipase Urine Color Urine Appearance Urine pH Ur Specific Gravit y Urine Protein Urine Glucose (UA) Urine Ketones Urine Blood Urine Nitrate Urine Bilirubin Urine Urobilinogen Ur Leukocyte Carmencita ase Vitals: Temperature 98.3 F 07/23/20 06:43 Temperature Source Temporal Artery S can 07/23/20 06:43 Pulse Rate 98 07/23/20 06:43 Pulse Rhythm 07/22/20 18:54 Pulse Strength 2+ Slightly Dimin ished 07/22/20 18:54 Respiratory Rate 16 07/23/20 06:43 Respiratory Effort Non-Labored 07/22/20 18:54 Respiratory Depth Normal 07/22/20 18:54 Respiratory Patter n 07/22/20 18:54 Blood Pressure 132/98 07/23/20 06:43 Blood Pressure Fifi n 109 07/23/20 06:43 Blood Pressure Pos ition Semi Fowlers 07/23/20 04:00 Pulse Oximetry 99 07/23/20 06:43 Oxygen Delivery Me thod 07/23/20 06:43 Oxygen Flow Rate 1 07/22/20 20:16 Sepsis Recent Feve r Within 48 Hours No 07/21/20 19:28 Sepsis New/Unexpla ined Change in Men molly Status No 07/21/20 19:28 Exam: Pre-Anes Outpt Exam: alert, oriented x 3, clear to auscultation bilaterally and regular rate & rhythm Cardiac Studies: No Data to Display
--- NOTE | 2020-07-23 07:51 | ANES.PROC ---
Anesthesia Procedures Procedure/Date: 07/23/20 Epidural: Time Out Performed: Yes Consents Signed: Procedure Consent Consent: requested by attending/covering physician, from patient, risks and benefits reviewed and patient agrees to proceed Lumbar Level: L3-L4 Epidural position: sitting Epidural procedure: sterile prep of area, 1% lidocaine to numb the area, 18 g needle, neg for paresthesia, test dose given, 1.5% xylocaine 1:200k epi, placed PCEA, no systemic response and sterile dressing applied Additional Comments: PASTORA at [address] place 2 cm into epid space. Test dose neg. Pt richelle well
[2020-07-23] MEDS: heparin 5,000 unit/mL INJ 1 mL 3000 UNIT SUBCUT (07:58)
[2020-07-23] MEDS: piperacillin-tazobactam 3.375 GM in sodium chloride 0.9% (plus) 50 ML IV ×2 (08:30→18:47)
--- NOTE | 2020-07-23 08:53 | PC.CHAP ---
Pastoral Care Encounter/Spiritual Assessment Type of Contact [] Declined cattery operator visit [] Patient/Family/Request visit [] Outpatient visit [] Follow-up visit [] Physician referral [] Code/Alert [] Routine visit [] Staff referral [] Actively dying [] Patient sleeping [] Family support [] [x] Out of room [] Palliative care [] [] Receiving care in room [] Pre-surgical visit [] Trauma [] Long length of stay [] ICU visit [] Other: Relational/Emotional Strength [] Patient feels connected with others/family/visitors/staff [] Distress [] Loneliness/isolation [] Abandonment Spirituality of Patient [] Person of Keri [] Attends Temple of their Keri [] Believes in Prayer [] Reads Bible or Scientology materials [] There are Spiritual issues to be addressed Wheel Of Fortune Dealer Interventions [] Prayer [] Active listening [] Non-anxious presence [] Spiritual/emotional support [] Crisis/trauma care [] Spiritual counseling [] Bereavement support [] Provided bereavement packet [] Provided Bible/devotional materials [] Provided toy/stuffed animal, coloring book to patient or family member [] Provided Communion [] Anointing/[place] [] Salvation [] Completed spiritual assessment [] Other: Impact on Illness or Injury [] Angry [] Fearful [] Anxious [] Often cries [] Exhaustion [] Unable to work [] Unable to attend yazidism [] Unable to walk/stand [] Unable to read [] Unable to drive [] Unable to eat/drink [] Unable to sleep [] Unable to be with family [] Patient intubated [] Other: Summary Time spent with patient
--- NOTE | 2020-07-23 09:40 | SUR.OPER ---
Failed attempt at inserting good catheter x2 per Adelfo Dunlap and Dr. Davidson. Dr. Pickett notified and came to OR. Cystoscopy performed and catheter placed per Dr. Pickett.
--- NOTE | 2020-07-23 11:23 | PC.NURSE ---
Report received that patient will be going to ICU.
--- NOTE | 2020-07-23 11:28 | PM.OP ---
Operative Report Date of procedure: July 23, 2020 Pre-op Diagnosis: Colon cancer Post-op diagnosis: other (Left colonic obstructive colon mass) Post-op Findings: Distended small bowel loops and proximal colon all the way to the splenic flexure Procedure Done: Attempted diagnostic laparoscopy converted to exploratory laparotomy Open left colectomy with long Tanmay's pouch and left-sided abdominal distal transverse colostomy Placement of intra-abdominal drain Implants: Large piece of Surgicel at the splenic bed Nathan-Schuster drain left upper quadrant Specimens removed/disposition: Left colectomy with suture marked proximal Staple line Surgeon: Noah Davidson Estimated blood loss (mL): 100 IV fluids (mL): 2,600 IV fluids: 250 mL of 5% albumin Urine output (mL): 40 Complications: Hematuria on attempt of placement of Wing catheter Condition: stable Disposition: ICU Procedure: The patient was brought to the operating room and was placed in a supine position on the operating room table. General endotracheal anesthesia was induced. Time-out was done verifying the patient's name/date of /planned procedure and destination after the procedure, all were in agreement. SCDs confirmed to be functioning, preoperative antibiotics administered per protocol, and beta lizbeth protocol was confirmed. The patient was then moved to a modified lithotomy position and all pressure points were padded appropriately.an attempt to place A Wing catheter was not successful by the circulating nurse followed that I attempted to place a coud? catheter but there was hematuria at that point. I did stop and consulted urology service Dr. Pickett and he was able to insert under direct visualization 18 [place] catheter please see separate dictation for urology service. Following the prep of the rectum with Betadine flushes was achieved,The abdomen and perineum were prepped and draped in a sterile fashion. Started by longitudinal skin incision supraumbilical using a Hughes trocar technique safe entry to the abdominal cavity was achieved verified by using 10 mm zero degree laparoscopy except for an inadvertent small enterotomy of a distended jejunal loop that I was able to recognize and fix with [id number]-ba-[id number] 3-0 silk with no contamination obviously appreciated. At that point I decided because of the bowel loops are remarkably distended that laparoscopic attempt would not be successful so I decided to convert to exploratory laparotomy where I extended the incision cephalad and caudad the direct visualization were safe entry into the abdominal cavity was achieved, it was pretty obvious that the patient has an obstructive lesion at the splenic flexure and distal to it the tattooing diana that was previously done by colonoscopy was evident. I started mobilizing the transverse colon distal part by opening the lesser sac and took down the splenic flexure and followed that mobilizing the descending colon, including the inked portion that signifies the site of the cancer proximally located towards the splenic flexure,through the line of Toldt using the Voyant energy device. There was no evidence of peritoneal carcinomatosis otherwise or malignant ascites or liver involvement. I was able to use sharp dissection to mobilize the descending colon, with the countertraction was achieved I was able to take down the mesentery of the involved segment of the colon using Vooyant device as a high ligation to maximize the lymph node basins of the specimen. At that point I continued dissection and mobilizing the left side of the colon up to the splenic flexure and distal transverse colon by opening the lesser sac At that point dissection was continued towards the proximal sigmoid colon, left ureter and retroperitoneal vasculature were intact. and I was able to free the splenic flexure completely without injuring the spleen. A blue Profilepasser RAFA 55 mm staplers were used to divide proximal and distal to the tumor with appropriate safety margin, 3-0 silk was applied to diana proximally the specimen. 3-0 Prolene suture were placed to identify along Carias's pouch followed by that I continue to free the distal part of the transverse colon was remarkably distended. Noticed to have some oozing from the retrogastric region and multiple [id number] 3-0 silk sutures were placed for hemostasis. The specimen was passed to the circulating nurse and gloves were changed Copious and thorough irrigation was achieved to the abdominal cavity with several liters of warm saline followed by application of a large piece of Surgicel at the bed of the spleen and I elected to leave a drain behind in the form of Nathan-Schuster that was brought about from the left lower quadrant. And was secured to the skin using 2-0 nylon. I ran the bowel from the ileocecal junction to the ligament of Treitz and the inadvertent enterotomy was revisited by additional seromuscular interrupted 3-0 silk and milking of the enteric content was done in a retrograde fashion towards the stomach were a drainage was appreciated per NG.was secured in place after I adjusted the in the stomach.The remaining of the viscera were normal I elected at this point to perform a colostomy and I was able to bring distal part of the transverse colon at appropriate spot towards the left side of the abdomen after excising a [place] of the skin and that portion was removed all the way to the subcutaneous layer and muscle-splitting was achieved, the opening allowed my 2 fingers to pass through with ease and then the distal part of the transverse colon was brought out for future fashioning of the colostomy. Appropriate irrigation was achieved and hemostasis and under direct visualization and after the count being completed I started closing the fascia under direct vision by looped PDS.Followed by skin candido and packing of the wound in between the candido using 1 inch Nu Gauze. Bilateral TAP (transversus abdominous plain peripheral nerve block )block using Exparel 20 mL Exparel 40 ml Normal saline 20 ml bupivacaine 0.25% 30 mL on each side injected 20 mL injected the port sites At this point I fashioned the colostomy in the form of interrupted 3-0 Vicryl from each port were from the mucosal to serosal and then subdermal stitch were applied at the 4 corners followed by interrupted 3-0 Vicryl and Natali scissor was used to remove the staple line was sent for permanent pathology the colostomy was then fashioned appropriately following that digitalization with my examining finger showed well patent stoma and maintained to be viable and a colostomy bag was applied by me at the end of the procedure. Appropriate and double counts of sponges,needles and instruments were completed at the end of the procedure. Patient tolerated the procedure well and got extubated and was taken to the ICU to continue resuscitation I was present for the whole entire procedure.
--- NOTE | 2020-07-23 12:38 | ANE.PACU2 ---
Inpatient post-anesthesia follow up: Airway intact: Yes Vital signs: Temperature 98.3 F Pulse Rate [Right Radial] 112 Pulse Rate 66 Respiratory Rate 16 Blood Pressure [Le ft Arm] 116/85 Blood Pressure 127/71 Pulse Oximetry 100 Oxygen Delivery Me thod Simple Mask Oxygen Flow Rate 8 Fraction of Inspir ed Oxygen Hydration adequate: No Nausea and vomiting: No Pain level: 2 Mental status: Altered Additional Comments: Sedated
--- NOTE | 2020-07-23 12:49 | PC.NURSE ---
1210 Placed warming blanket on patient next to skin.
[2020-07-23] MEDS: albumin 12.5 GM/250 ML VIAL IV (13:06)
[2020-07-23 13:35] LABS: Hematocrit 43.8 % (42.0-52.0); Hemoglobin 13.3 g/dL (11.7-16.6)
--- NOTE | 2020-07-23 14:26 | P.PN_ITS ---
Subjective Subjective: Interval history: 80-year-old male with a past medical history significant for gastritis, H pylori infection, and recent notation of left-sided colonic mass the biopsy which has shown invasive adenocarcinoma, moderately differentiated who was scheduled for a colectomy however after taking in the prep was readmitted for colonic obstruction. Upon admission CT abdomen pelvis was performed which showed high-grade colonic obstruction at the neoplastic stricture in the splenic flexure in addition to 11 mm nodule in the right lobe of liver. Patient did have a nasogastric tube placed. On 07/23/2020 was taken to the OR. Attempted diagnostic laparoscopy was converted to exploratory laparotomy. Open left colectomy with long Tanmay's pouch and left sided abdominal distal transverse colostomy placement. During procedure patient had a difficult Good insertion during which time Dr. Pickett was consulted an 18 Citizen Of [place] catheter was placed. In addition to this patient had epidural placed and continued postop. This is per Pain control. Subjective 07/23 Patient was seen in the postop. Transferred ICU. Extubated the time of my evaluation. Patient did have a colostomy placed. Good catheter was also inserted by Urology. This was due to difficult insertion. Additionally patient had epidural in place. Was awake alert. Vitals/I&O/Wt Last Vital Signs Temp 97.7 F 07/23/20 13:10 Pulse 81 07/23/20 14:00 Resp 15 07/23/20 14:00 BP 94/53 07/23/20 14:00 Pulse Ox 91 07/23/20 14:00 07/22/20 07/23/20 07/23/20 22:59 06:59 14:59 Intake Total 920 / 1912.5 1000 / 2912.5 2090 / 2090 Output Total 250 / 550 250 / 800 240 / 240 Balance 670 / 1362.5 750 / 2112.5 1850 / 1850 Weight last 48 hrs Weight 49.169 kg Physical Exam Narrative: EXAM NARRATIVE: General-awake alert HEENT -grossly unremarkable - NG in place Chest- nonlabored respiration CVS: Normal rate Abdomen- postop colostomy Extremities-no edema Urinary Catheter Management^: Good: Cath Placed During This Visit: yes Urinary Catheter Date of Insertion: 07/23/20 Urinary Catheter Time of Insertion: 08:57 Data : 07/23/20 13:30 07/23/20 04:58 A&P Assessment and plan (1) Colonic obstruction: Status: Acute (2) Colon cancer: Status: Acute (3) GERD (gastroesophageal reflux disease): Status: Acute 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 - POD 0 - NPO - Post op management per surgery - Monitor h/h - Repeat CBC in am - Epidural in place - management per anesthesia - NG tube in place - Will need close follow up with oncology - Monitoring in ICU Urinary obstruction - Urology consulted - 18 Citizen Of [place] Good placement - Flomax once resumed on oral intake - Will likely need to be discharge with good Leukopenia - WBC 2.3 - Likely malignancy related - Will monitor for infection Recent H-pylori infection - Dx on 06/21/2020 - Completed 14 course of clarithromycin/amoxicillin - Continue Protonix 40 mg IV BID DVT ppx - SCDS - Will start heparin once ok with surgery Attestations Medical Necessity Statement*: Will require further hospitalization for tiffany gement of postoperative care Time Spent in Patient Care: Greater than 35 minutes (>than 50% of time spent in counselling and/or direct pt care on unit) . Coding Level of Care Code Acute Tip Bander for Chg Fwd Diagnoses Colonic obstruction K56.609 Colon cancer C18.9 GERD (gastroesophageal reflux disease) K21.9
--- NOTE | 2020-07-23 14:58 | PC.NURSE ---
1158 Received patient via bed from surgery. Patient shakes head no when ask if he is in pain. Recovery vitals done, Abd dressing dry with pale drainage starting to show through, marked with pen. JUDSON drain present and compressed.
[2020-07-23] MEDS: morphine 4 mg/mL SDV 1 mL 2 MG IVP ×2 (16:55→21:27)
--- NOTE | 2020-07-23 17:04 | PM.CONSULT ---
Providers/Reason For Consult Consulting Physican/Specialty*: Urology/Daniel Reason for Consult*: Traumatic catheterization preoperatively Attending Physician: Karen Jonas Primary Care Provider: Renard Elias DO History of Present Illness History of Present Illness Shabbir Galdamez is a 80 year old male who I evaluated her emergently today while he was being prepared for colon surgery. Routine prep had been undertaken and anesthesia had been administered. Attempts at passing the Wing catheter were unsuccessful and bleeding was encountered. In order to avoid further trauma urology was consulted for evaluation. There was no preceding reports of TURP or significant voiding dysfunction. Review of Systems General: Reports: ROS unobtainable due to endotracheal tube and Other (Chart was reviewed) Meds/Allergies Home Medications and Allergies Home Medications Medication Instructions Recorded Confirmed Last Taken Type pantoprazole [Protonix] 40 mg PO DAILY 30 Days #30 tab 07/01/20 07/22/20 1 Day Ago Rx ~07/21/20 Symbicort 80 mcg INHALATION PRN PRN 07/19/20 07/22/20 Unknown History Allergies Allergy/AdvReac Type Severity Reaction Status Date / Time No Known Allergies Allergy Verified 07/22/20 07:58 Current Medications Current Medications Generic Name Dose Route Start Last Admin Trade Name Freq PRN Reason Stop Dose Admin Sodium Chloride 1,000 mls @ 120 mls/hr 07/22/20 02:18 07/23/20 13:00 Sodium Chloride 0.9% IV 120 mls/hr .Q8H20M BALTA Administration Morphine Sulfate 2 mg 07/22/20 01:02 07/23/20 16:55 Morphine 4 Mg/Ml Sdv 1 Ml IVP 2 mg Q4H PRN Administration SEVERE PAIN Pantoprazole Sodium 40 mg 07/22/20 02:00 07/23/20 01:03 Pantoprazole 40 Mg Sdv IVP 40 mg Q24H BALTA Administration PFSH Acute PFSH: Family History Denies family history of Anesthesia complication Bleeding disorder Social History Smoking and tobacco status: former smoker Alcohol intake: never Vitals/I&O/Wt Last Vital Signs Temp 97.7 F 07/23/20 15:00 Pulse 79 07/23/20 16:00 Resp 20 H 07/23/20 16:55 BP 108/52 07/23/20 16:00 Pulse Ox 94 07/23/20 16:55 07/23/20 07/23/20 07/23/20 06:59 14:59 22:59 Intake Total 1000 / 2912.5 2089 Output Total 250 / 800 330 / 330 160 / 490 Balance 750 / 2112.5 1760 / 1760 -160 / 1600 Weight last 48 hrs Weight 108 lb 6.4 oz Physical Exam Narrative: EXAM NARRATIVE: Upon arrival the patient was on the operating room intubated. He was in dorsal lithotomy position. Abdominal exam showed some distention. Bladder was nonpalpable. : No bloody discharge. Normal circumcised phallus. Normal-appearing scrotum with bilateral descended testicles. No masses. Normal perineum and anus. Skin no obvious jaundice rashes or lesions Urinary Catheter Management^: Wing: Cath Placed During This Visit: yes Urinary Catheter Date of Insertion: 07/23/20 Urinary Catheter Time of Insertion: 08:57 A&P Assessment and plan (1) Colon cancer: Status: Acute (2) Colonic mass: Status: Acute (3) Colonic obstruction: Status: Acute (4) Urethral bleeding: Catheter placement resulting in urethral trauma. Able to negotiate cystoscope past the false passage into the bladder. Catheter was placed. See operative report Status: Acute Consult Attestations Medical Necessity Statement: See attending Coding Level of Care Code Acute Director Of Instrumental Music for [facility] Fwd Diagnoses Colon cancer C18.9 Colonic mass K63.89 Colonic obstruction K56.609 Urethral bleeding N36.8
--- NOTE | 2020-07-23 17:14 | P.OP_ITS ---
Operative Report Date of procedure: July 23, 2020 Pre-op Diagnosis: Urethral injury, difficult catheter placement Post-op diagnosis: same Procedure Done: 1. Cystoscopy 2. Difficult catheter placement (over guidewire) Pathology: none sent Surgeon: Nieves Anesthesia: General Estimated blood loss: Minimal Urine output: Not measured Complications: None Findings: 1. Posterior false passage in the bulbar urethra. 2. Bypassed by cystoscopy with guidewire placement into the bladder and Wing catheter ([place] tip) passed over the guidewire 2. Chronic bladder light obstructive changes Condition: stable Disposition: other (Turned over to Dr. Davidson for his procedure) Brief History: The patient is a 80-year-old white male who I evaluated for the first time today emergently at the request of Dr. Davidson who was preparing for abdominal exploration from bowel obstruction. Placing the catheter were unsuccessful with significant bleeding. I was consulted for evaluation and treatment. Procedure: After emergent evaluation and examination the patient was already positioned in dorsolithotomy position. Prepped and draped in usual sterile fashion paying careful attention to avoiding pressure points. A 17 [place] cystoscope was advanced into the urethra. There was minimal bleeding within the urethra. In the deep bulbar urethra posteriorly and to the patient's right there was a false passage. There appeared to be clot within that and no severe active bleeding. The true lumen was identifiable and the scope was then passed into the bladder. The bladder was systematically examined and showed chronic obstructive changes including cellule formation trabeculation and small diverticuli A guidewire was passed through the scope and curled into the bladder and the scope was removed An 18 [place] Wing catheter was converted to a [place] tip catheter. The catheter was passed over the guidewire into the bladder the balloon inflated confirmed to be functioning and the wire removed. Catheter was placed to dependent drainage. Tolerated the procedure well without complications. He was then turned over to Dr. Davidson who was to continue his planned procedure. PLANS: 1. Maintain Wing catheter through discharge. 2. I had like to see him in my office in 10 to 14 days for reevaluation of the urethra and likely catheter removal. 3. I will be available if you have any needs regarding these issues prior to his discharge
--- NOTE | 2020-07-23 17:21 | PC.NURSE ---
1700 Dr alexandre here, ask me to call Dr. Joe in anesthesia about patient being in pain in addition to epideral CADD pump that has Ropivacaine 0.2% running at 6ml/hr per cadd pump. Dr. Alexandre notified of output of LORNE drain since surgery and Abd dressing has some more drainage on it and drainage around lorne drain. 1710 Dr. Joe here, gave ok of Morphine 2mg IVP in addition to epideral. And increase the epideral from 6ml/hour to 10ml/hour. 1720 Epideral CADD pump settings changed from 6ml/hour to 10ml/hour with assistance of pharmacy in room.
[2020-07-24] VITALS (22 sets, daily range): BP systolic 101–162; BP diastolic 64–96; PULSE 97–120; RESP 18–40; TEMP 36.5–37.2; O2SAT 91–100
[2020-07-24] MEDS: morphine 4 mg/mL SDV 1 mL 2 MG IVP ×3 (02:42→13:07)
[2020-07-24] MEDS: piperacillin-tazobactam 3.375 GM in sodium chloride 0.9% (plus) 50 ML IV ×3 (02:42→16:46)
[2020-07-24 03:41] LABS: Hematocrit 38.6 % (42.0-52.0); Hemoglobin 12.3 g/dL (11.7-16.6); Mean Corpuscular HGB Conc 31.9 g/dL (30.0-36.0); Mean Platelet Volume 9.9 fL (7.4-10.4); Platelet Count 337 10^3/cmm (130-400); Red Blood Count 4.24 10^6/uL (4.1-5.3); Red Cell Distribution Width 14.7 % (12.1-15.1); White Blood Count 5.6 10^3/uL (4.0-10.0)
[2020-07-24 04:10] LABS: Alanine Aminotransferase 8 U/L (0-41); Albumin Level 2.6 g/dL (3.5-5.2); Alkaline Phosphatase 31 IU/L (40-130); Anion Gap 13.2 (5-19); Aspartate Amino Transferase 14 U/L (0-40); Blood Urea Nitrogen 24 mg/dL (8-23); Calcium 7.6 mg/dL (8.5-10.5); Carbon Dioxide 24 mmol/L (22-29); Chloride 111 mmol/L (98-107); Globulin 1.8 g/dL (1.3-4.6); Glucose 95 mg/dL (65-115); Osmolality Calculated 302 mOsm/kg (285-295); Potassium 4.2 mmol/L (3.5-5.1); Sodium 144 mmol/L (136-145); Total Bilirubin 0.4 mg/dL (0.15-1.2); Total Protein 4.4 g/dL (6.6-8.7)
[2020-07-24 04:56] LABS: Absolute Neutrophil 4.5 10^3/cmm (1.4-6.5); Band Neutrophils Absolute 0.6 10^3/cmm (0.0-1.2); Eosinophils 0 %; Hypochromasia Trace; Lymphocytes 15 %; Monocytes Absolute 0.2 10^3/cmm (0.1-0.6); Platelet Estimate Normal (Normal); Segmented Neutrophils 71 %; Total Cells Counted 100 (0-100)
--- NOTE | 2020-07-24 05:49 | PM.PN ---
Subjective Subjective: Interval history: Patient is are overall stable, and pain is under control. Urine output about 550 Lab work shows no significant findings and stable H&H No acute events overnight Colostomy is producing abundance of stools yet patient does not feel that he is passing gas. NG in place with minimal output. Vitals/I&O/Wt Last Vital Signs Temp 98.2 F 07/24/20 05:36 Pulse 101 H 07/24/20 05:45 Resp 21 H 07/24/20 05:36 BP 130/75 07/24/20 05:36 Pulse Ox 93 07/24/20 05:36 07/23/20 07/23/20 07/24/20 14:59 22:59 06:59 Intake Total 2090 / 2090 1050 / 3140 50 / 3190 Output Total 330 / 330 1215 / 1545 890 / 2435 Balance 1760 / 1760 -165 / 1595 -840 / 755 Physical Exam Narrative: EXAM NARRATIVE: Patient is conscious alert oriented X3 BMI 15.6 Head and neck examination PERRLA no masses no cervical lymphadenopathy no jaundice NG in place with minimal gastric output Abdomen mildly tender at the incision site, not distended soft no organomegaly guarding or rigidity/no signs of peritonitis. Incision is clean dry and intact and dressing was changed bedside by me Left-sided colostomy is pink patent and functioning with abundance of stools in the bag mostly soft brown Left-sided drain in place with garcia colored output Wing catheter in place with clear urine Extremities no cyanosis no clubbing no edema Urinary Catheter Management^: Wing: Cath Placed During This Visit: yes Reason for Continuing Indwelling Catheter: Perioperative Use in Selected Surgeries Urinary Catheter Date of Insertion: 07/23/20 Urinary Catheter Time of Insertion: 08:57 Data : 07/24/20 03:00 07/24/20 03:00 A&P Assessment and plan (1) Colonic obstruction: Patient is a status post exploratory laparotomy for left colectomy with long Tanmay's and distal transverse colostomy 07/23/2020. PLAN OF CARE: CVS: Continue continuous cardiac monitoring, heart rate tachycardic I will defer beta-lizbeth to hospitalist service, responding well to resuscitation stable H&H PULMONARY: Continue weaning from oxygen Continue Aggressive pulmonary toilet Continue Incentive spirometer every hour GI: We will continue NG to low intermittent wall suction We will start the patient on ice chips and popsicles NUTRITION: We will hold on p.o. nutrition till patient starts passing gas RENAL: Continue monitoring kidney functions Strict I's and O's Continue electrolyte protocols for replacement including calcium potassium and magnesium INFECTIOUS DISEASE: DC antibiotics after second dose of Zosyn after surgery NEUROLOGY: No evidence of neurological deficit GCS 15 out of 15 MOBILITY: Continue physical therapy SKIN AND WOUND: Daily wet to dry dressing change for abdominal incision Continue colostomy care Continue left upper abdominal drain care Pain control; epidural catheter and IV analgesia in addition to IV Tylenol Family updated with regard to long-term rehabilitation if patient were to qualify,rehabilitation caseworker are and is looking into different options and continued to discuss with the patient and the family. Status: Resolved Attestations Medical Necessity Statement*: Ongoing inpatient hospitalization for medical and surgical care Time Spent in Patient Care: 16 - 35 minutes (>than 50% of time spent in counselling and/or direct pt care on unit). Coding Level of Care Code Acute Grades 9 Thru 12 Visiting Teacher for Alondra Phillip Diagnoses Colonic obstruction K56.609
--- NOTE | 2020-07-24 05:50 | XR_ITS ---
WS: [id number] CHEST, 1 view. HISTORY: Post-Op COMPARISON: 07/21/2020 Prior median sternotomy. Nasogastric tube is present with tip terminating in the stomach. Marked pulmonary hyperinflation. Minimal atelectasis at the lung bases. No pleural effusion or pneumo thorax. Cardiac size: Normal. Mediastinum/Aorta: Normal mediastinum. No osseous abnormality seen. XR/XR chest 1V [id number] IMPRESSION: 1. Nasogastric tube in good position. 2. Minimal bilateral subsegmental atelectasis.
--- NOTE | 2020-07-24 06:34 | ANE.PACU2 ---
Inpatient post-anesthesia follow up: Airway intact: Yes Vital signs: Temperature 98.2 F Pulse Rate [Right Radial] 112 Pulse Rate 101 Respiratory Rate 21 Blood Pressure [Le ft Arm] 116/85 Blood Pressure 130/75 Pulse Oximetry 93 Oxygen Delivery Me thod Nasal Cannula Oxygen Flow Rate 3 Fraction of Inspir ed Oxygen Hydration adequate: No Nausea and vomiting: No Pain level: 3 Mental status: Baseline Additional Comments: POD 1 Epidural became dislodged at some point in the evening, removed with tip intact.
[2020-07-24] MEDS: sodium chloride 0.9% 1,000 ML 120 ML IV ×2 (07:35→16:47)
--- NOTE | 2020-07-24 10:57 | PC.NURSE ---
Nurse Observed Stoma to have a darkened area in the 9, 10, and 11 o'clock position. Nurse alerted Dr Jonas and Dr Ayoub. Dr Ayoub came to assess. No new orders received at this time.
--- NOTE | 2020-07-24 15:12 | PC.NURSE ---
PT assisted patient to chair. Patient was up in chair for about 2 hours before nurse assisted patient back to bed.
--- NOTE | 2020-07-24 15:22 | P.PN_ITS ---
Subjective Subjective: Interval history: 80-year-old male with a past medical history significant for gastritis, H pylori infection, and recent notation of left-sided colonic mass the biopsy which has shown invasive adenocarcinoma, moderately differentiated who was scheduled for a colectomy however after taking in the prep was readmitted for colonic obstruction. Upon admission CT abdomen pelvis was performed which showed high-grade colonic obstruction at the neoplastic stricture in the splenic flexure in addition to 11 mm nodule in the right lobe of liver. Patient did have a nasogastric tube placed. On 07/23/2020 was taken to the OR. Attempted diagnostic laparoscopy was converted to exploratory laparotomy. Open left colectomy with long Tanmay's pouch and left sided abdominal distal transverse colostomy placement. During procedure patient had a difficult Good insertion during which time Dr. Pickett was consulted an 18 Russian catheter was placed. In addition to this patient had epidural placed and continued postop. This is per Pain control. Subjective 07/23 Patient was seen in the postop. Transferred ICU. Extubated the time of my evaluation. Patient did have a colostomy placed. Good catheter was also inserted by Urology. This was due to difficult insertion. Additionally patient had epidural in place. Was awake alert. 07/24 Patient stable overnight, pain under control. noted to be tachy. Vitals/I&O/Wt Last Vital Signs Temp 98 F 07/24/20 13:58 Pulse 120 H 07/24/20 13:58 Resp 18 07/24/20 13:58 BP 114/78 07/24/20 13:58 Pulse Ox 92 07/24/20 13:58 07/24/20 07/24/20 07/24/20 06:59 14:59 22:59 Intake Total 1050 / 4190 100 / 100 Output Total 890 / 2435 700 / 700 Balance 160 / 1755 -600 / -600 Physical Exam Narrative: EXAM NARRATIVE: General-awake alert HEENT -grossly unremarkable - NG in place Chest- nonlabored respiration CVS: Normal rate Abdomen- postop colostomy Extremities-no edema Urinary Catheter Management^: Good: Cath Placed During This Visit: yes Reason for Continuing Indwelling Catheter: Accurate Measurement of Urinary Output in Critically Ill Patients Urinary Catheter Date of Insertion: 07/23/20 Urinary Catheter Time of Insertion: 08:57 Data : 07/24/20 03:00 07/24/20 03:00 A&P Assessment and plan (1) Colonic obstruction: Status: Resolved (2) Colon cancer: Status: Acute (3) GERD (gastroesophageal reflux disease): Status: Acute 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 s/p L.Co lectomy/Colostomy placement - POD 1 - NPO - Post op management per surgery - Monitor h/h - Repeat CBC in am - Stable - Epidural was discontinued - NG tube in place to LIS - Will need close follow up with oncology - Monitoring in ICU Sinus Tachycardia - Likely due to overall condition/dehydration - Will hold off on adding b-lizbeth due to soft BP - Will continue to monitor - Continue IVF at currant rate. Urinary obstruction - Urology consulted - 18 Russian Good placement - Flomax once resumed on oral intake - Will likely need to be discharge with good Leukopenia - resolved - WBC 2.3 - 5.6 - Likely malignancy related - Will monitor for infection Recent H-pylori infection - Dx on 06/21/2020 - Completed 14 course of clarithromycin/amoxicillin - Continue Protonix 40 mg IV BID DVT ppx - SCDS - Will start heparin once ok with surgery Additional A&P Information #Code Status :Full code Attestations Medical Necessity Statement*: Patient require further hospitalization for postop management Coding Level of Care Code Acute Manager Critical Care Unit for g Fwd Diagnoses Colonic obstruction K56.609 Colon cancer C18.9 GERD (gastroesophageal reflux disease) K21.9
--- NOTE | 2020-07-24 18:44 | PC.NURSE ---
Patient told nurse that he is sometimes seeing things that he knows aren't real. He sees lights saying merry clifford moving around his room and he is seeing strange patterns on the doherty. Nurse notified Dr Power. Dr power would like us to continue to monitor and if symptoms worsen notify him.
[2020-07-25] VITALS (19 sets, daily range): BP systolic 92–126; BP diastolic 56–87; PULSE 98–122; RESP 14–35; TEMP 36.7–36.8; O2SAT 89–100
[2020-07-25] MEDS: sodium chloride 0.9% 1,000 ML 120 ML IV ×2 (00:37→09:05)
[2020-07-25] MEDS: piperacillin-tazobactam 3.375 GM in sodium chloride 0.9% (plus) 50 ML IV ×3 (00:39→17:09)
[2020-07-25] MEDS: pantoprazole 40 mg SDV IVP (02:48)
[2020-07-25 04:00] LABS: Eosinophils # 0.2 10^3/uL (0.0-0.8); Eosinophils % 4.6 %; Hematocrit 38.8 % (42.0-52.0); Hemoglobin 12.1 g/dL (11.7-16.6); Lymphocytes # 0.9 10^3/uL (0.8-4.8); Lymphocytes % 16.4 %; Mean Corpuscular HGB Conc 31.2 g/dL (30.0-36.0); Mean Corpuscular Hemoglobin 29.7 pg (28.0-34.0); Mean Corpuscular Volume 95.3 fL (80-94); Monocytes # 1.3 10^3/uL (0.2-0.9); Monocytes % 24.9 %; Neutrophils # 2.72 10^3/uL (1.8-7.7); Neutrophils % 52.6 %; Nucleated Red Blood Cells % 0 %; Platelet Count 283 10^3/cmm (130-400); Red Blood Count 4.07 10^6/uL (4.1-5.3); Red Cell Distribution Width 15.1 % (12.1-15.1); White Blood Count 5.2 10^3/uL (4.0-10.0)
[2020-07-25 04:22] LABS: Alanine Aminotransferase 12 U/L (0-41); Albumin Level 2.5 g/dL (3.5-5.2); Alkaline Phosphatase 39 IU/L (40-130); Anion Gap 12.8 (5-19); Aspartate Amino Transferase 19 U/L (0-40); Blood Urea Nitrogen 21 mg/dL (8-23); Carbon Dioxide 24 mmol/L (22-29); Chloride 115 mmol/L (98-107); Globulin 1.5 g/dL (1.3-4.6); Glucose 93 mg/dL (65-115); Osmolality Calculated 309 mOsm/kg (285-295); Potassium 3.8 mmol/L (3.5-5.1); Sodium 148 mmol/L (136-145); Total Bilirubin 0.3 mg/dL (0.15-1.2)
--- NOTE | 2020-07-25 05:29 | P.PN_ITS ---
Subjective Subjective: Interval history: No acute events overnight, minimal output per NG Vitals/I&O/Wt Last Vital Signs Temp 98.3 F 07/25/20 00:00 Pulse 110 H 07/25/20 03:00 Resp 14 07/25/20 03:00 BP 109/74 07/25/20 03:00 Pulse Ox 98 07/25/20 03:00 07/24/20 07/24/20 07/25/20 14:59 22:59 06:59 Intake Total 100 / 100 1050 / 1150 940 / 2090 Output Total 700 / 700 885 / 1585 450 / 2035 Balance -600 / -600 165 / -435 490 / 55 Physical Exam Narrative: EXAM NARRATIVE: Patient is conscious alert oriented X3 BMI 15.6 Head and neck examination PERRLA no masses no cervical lymphadenopathy no jaundice NG in place with minimal gastric output Abdomen mildly tender at the incision site, not distended soft no organomegaly guarding or rigidity/no signs of peritonitis. Dressings clean dry and intact Left-sided colostomy is pink patent and functioning with abundance of stools in the bag mostly soft brown Left-sided drain in place with serosanguineous output likely ascitic Wing catheter in place with clear urine Extremities no cyanosis no clubbing no edema Urinary Catheter Management^: Wing: Cath Placed During This Visit: yes Reason for Continuing Indwelling Catheter: Accurate Measurement of Urinary Output in Critically Ill Patients Urinary Catheter Date of Insertion: 07/23/20 Urinary Catheter Time of Insertion: 08:57 Data : 07/26/20 02:58 07/26/20 02:58 A&P Assessment and plan (1) Colonic obstruction: Patient is a status post exploratory laparotomy for left colectomy with long Tanmay's and distal transverse colostomy 07/23/2020. PLAN OF CARE: CVS: Continue continuous cardiac monitoring, heart rate tachycardic I will defer beta-lizbeth to hospitalist service, responding well to resuscitation stable H&H PULMONARY: Continue weaning from oxygen Continue Aggressive pulmonary toilet Continue Incentive spirometer every hour GI: We will discontinue NG tube and start the patient slowly on clear liquids and will provide protein shakes NUTRITION: Emphasis on protein shakes RENAL: Continue monitoring kidney functions Strict I's and O's Continue electrolyte protocols for replacement including calcium potassium and magnesium INFECTIOUS DISEASE: DC antibiotics after second dose of Zosyn after surgery NEUROLOGY: No evidence of neurological deficit GCS 15 out of 15 MOBILITY: Continue physical therapy SKIN AND WOUND: Daily wet to dry dressing change for abdominal incision Continue colostomy care Continue left upper abdominal drain care Pain control; epidural catheter and IV analgesia in addition to IV Tylenol Family updated with regard to long-term rehabilitation if patient were to qualify,patient case coordinator are and is looking into different options and continued to discuss with the patient and the family. Status: Resolved Attestations Medical Necessity Statement*: Ongoing inpatient hospitalization for medical and surgical care in the ICU setting Time Spent in Patient Care: 16 - 35 minutes (>than 50% of time spent in counselling and/or direct pt care on unit) . Coding Level of Care Code Acute Technical Support Internship for Alondra Phillip Diagnoses Colonic obstruction K56.609
--- NOTE | 2020-07-25 06:11 | PC.NURSE ---
MD at bedside, removed NGT at bedside. Dietary changes made per MD
--- NOTE | 2020-07-25 14:36 | PM.PN ---
Subjective Subjective: Interval history: 80-year-old male with a past medical history significant for gastritis, H pylori infection, and recent notation of left-sided colonic mass the biopsy which has shown invasive adenocarcinoma, moderately differentiated who was scheduled for a colectomy however after taking in the prep was readmitted for colonic obstruction. Upon admission CT abdomen pelvis was performed which showed high-grade colonic obstruction at the neoplastic stricture in the splenic flexure in addition to 11 mm nodule in the right lobe of liver. Patient did have a nasogastric tube placed. On 07/23/2020 was taken to the OR. Attempted diagnostic laparoscopy was converted to exploratory laparotomy. Open left colectomy with long Tanmay's pouch and left sided abdominal distal transverse colostomy placement. During procedure patient had a difficult Wing insertion during which time Dr. Pickett was consulted an 18 [place]ian catheter was placed. In addition to this patient had epidural placed and continued postop. This is per Pain control. Subjective 07/23 Patient was seen in the postop. Transferred ICU. Extubated the time of my evaluation. Patient did have a colostomy placed. Wing catheter was also inserted by Urology. This was due to difficult insertion. Additionally patient had epidural in place. Was awake alert. 07/24 Patient stable overnight, pain under control. noted to be tachy. 07/25 No new clinical events overnight. Patient was sitting in chair. NG tube was removed. Was started on clear liquid diet. Vitals/I&O/Wt Last Vital Signs Temp 98.1 F 07/25/20 04:00 Pulse 108 H 07/25/20 12:00 Resp 28 H 07/25/20 12:00 BP 123/78 07/25/20 12:00 Pulse Ox 100 07/25/20 12:00 07/24/20 07/25/20 07/25/20 22:59 06:59 14:59 Intake Total 1050 / 1150 990 / 2140 1240 / 1240 Output Total 885 / 1585 920 / 2505 170 / 170 Balance 165 / -435 70 / -365 1070 / 1070 Physical Exam Narrative: EXAM NARRATIVE: General-awake alert HEENT -grossly unremarkable - NG removed Chest- nonlabored respiration CVS: Normal rate Abdomen- postop colostomy Extremities-no edema Urinary Catheter Management^: Wing: Cath Placed During This Visit: yes Reason for Continuing Indwelling Catheter: Accurate Measurement of Urinary Output in Critically Ill Patients Urinary Catheter Date of Insertion: 07/23/20 Urinary Catheter Time of Insertion: 08:57 Data : 07/25/20 03:34 07/25/20 03:34 A&P Assessment and plan (1) Colonic obstruction: Status: Resolved (2) Colon cancer: Status: Acute (3) GERD (gastroesophageal reflux disease): Status: Acute 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 - POD 2 - Post op management per surgery - Monitor h/h - Repeat CBC in am - Stable - Epidural was discontinued - NG tube discontinued - Will need close follow up with oncology - Monitoring in ICU - Stared on CLD - Noted bowel movements Sinus Tachycardia - Likely due to overall condition/dehydration - Started on metoprolol 12.5 mg PO BID - Will continue to monitor Hypernatremia - Change IVF to 0.45NS decrease rate to 50 cc/hr - Repeat BMP in am Urinary obstruction - Urology consulted - 18 Bel[place]ian Wing placement - Flomax 0.4 mg po daily - Will likely need to be discharge with Wing Leukopenia - resolved - WBC 2.3 - 5.6 - 5.2 - Likely malignancy related - Will monitor for infection Recent H-pylori infection - Dx on 06/21/2020 - Completed 14 course of clarithromycin/amoxicillin - Continue Pepcid BID DVT ppx - SCDS - Will start heparin once ok with surgery Additional A&P Information Code Status :Full code Disposition: D.W case management, Will eval for SNF at discharge. Patient agreeable. Will consult PT/OT Attestations Medical Necessity Statement*: Will require further hospitalization for postop care. Time Spent in Patient Care: Greater than 35 minutes (>than 50% of time spent in counselling and/or direct pt care on unit). Coding Level of Care Code Acute Hypercil Core Transformer Assembler for Chg Fwd Diagnoses Colonic obstruction K56.609 Colon cancer C18.9 GERD (gastroesophageal reflux disease) K21.9
[2020-07-25] MEDS: sodium chloride 0.45% 1,000 ML 50 ML IV (17:07)
[2020-07-25] MEDS: metoprolol tartrate 25 mg Tablet 12.5 MG PO (17:08)
--- NOTE | 2020-07-25 18:49 | PC.NURSE ---
stoma cleansed with saline & 4x4's. sugar packets sprinkled over stoma to assist with edema.
[2020-07-26] VITALS (19 sets, daily range): BP systolic 76–117; BP diastolic 61–79; PULSE 92–121; RESP 17–28; TEMP 36.5–36.8; O2SAT 94–98
[2020-07-26] MEDS: piperacillin-tazobactam 3.375 GM in sodium chloride 0.9% (plus) 50 ML IV ×3 (01:19→17:44)
[2020-07-26] MEDS: pantoprazole 40 mg SDV IVP (01:20)
[2020-07-26 04:21] LABS: Basophils % 0.1 %; Eosinophils # 0.3 10^3/uL (0.0-0.8); Eosinophils % 3.3 %; Hematocrit 36.2 % (42.0-52.0); Hemoglobin 11.2 g/dL (11.7-16.6); Lymphocytes # 1.2 10^3/uL (0.8-4.8); Lymphocytes % 13.8 %; Mean Corpuscular HGB Conc 30.9 g/dL (30.0-36.0); Mean Corpuscular Hemoglobin 28.8 pg (28.0-34.0); Mean Corpuscular Volume 93.1 fL (80-94); Mean Platelet Volume 9.9 fL (7.4-10.4); Monocytes # 1.7 10^3/uL (0.2-0.9); Monocytes % 19.6 %; Neutrophils # 5.33 10^3/uL (1.8-7.7); Neutrophils % 61.5 %; Nucleated Red Blood Cells % 0.2 %; Platelet Count 316 10^3/cmm (130-400); Red Blood Count 3.89 10^6/uL (4.1-5.3); Red Cell Distribution Width 15.3 % (12.1-15.1); White Blood Count 8.7 10^3/uL (4.0-10.0)
[2020-07-26 04:49] LABS: Alanine Aminotransferase 14 U/L (0-41); Albumin Level 2.3 g/dL (3.5-5.2); Alkaline Phosphatase 43 IU/L (40-130); Anion Gap 11.5 (5-19); Aspartate Amino Transferase 20 U/L (0-40); Blood Urea Nitrogen 20 mg/dL (8-23); Calcium 7.9 mg/dL (8.5-10.5); Carbon Dioxide 26 mmol/L (22-29); Chloride 112 mmol/L (98-107); Glucose 109 mg/dL (65-115); Osmolality Calculated 305 mOsm/kg (285-295); Potassium 3.5 mmol/L (3.5-5.1); Sodium 146 mmol/L (136-145); Total Bilirubin 0.3 mg/dL (0.15-1.2); Total Protein 4.3 g/dL (6.6-8.7)
[2020-07-26 05:51] LABS: Slide Review Slide Review Perform
--- NOTE | 2020-07-26 06:01 | P.PN_ITS ---
Subjective Subjective: Interval history: Patient tolerating well p.o. intake in the form of clear liquids and protein shakes, colostomy continues to function well and patient does have adequate urine output. Patient reports that he is passing gas Vitals/I&O/Wt Last Vital Signs Temp 98.2 F 07/26/20 04:00 Pulse 103 H 07/26/20 05:43 Resp 21 H 07/26/20 05:00 BP 106/70 07/26/20 05:00 Pulse Ox 95 07/26/20 05:00 07/25/20 07/25/20 07/26/20 14:59 22:59 06:59 Intake Total 1290 / 1290 170 / 1460 Output Total 170 / 170 535 / 705 450 / 1155 Balance 1120 / 1120 -365 / 755 -450 / 305 Physical Exam Narrative: EXAM NARRATIVE: Patient is conscious alert oriented X3 BMI 15.6 Head and neck examination PERRLA no masses no cervical lymphadenopathy no jaundice Abdomen nontender, not distended soft no organomegaly guarding or rigidity/no signs of peritonitis. Dressings clean dry and intact Left-sided colostomy,some slough noticed towards the medial aspect of the that was peeled off by me bedside and sugar was added to decrease the noticed moderate swelling, otherwise colostomy is pink patent and functioning with abundance of stools in the bag mostly soft brown. Left-sided drain in place with serosanguineous output likely ascitic Wing catheter in place with clear urine Extremities no cyanosis no clubbing no edema Urinary Catheter Management^: Wing: Cath Placed During This Visit: yes Reason for Continuing Indwelling Catheter: Acute Urinary Retention or Obstruction Urinary Catheter Date of Insertion: 07/23/20 Urinary Catheter Time of Insertion: 08:57 Data : 07/26/20 02:58 07/26/20 02:58 A&P Assessment and plan (1) Colonic obstruction: Patient is a status post exploratory laparotomy for left colectomy with long Tanmay's and distal transverse colostomy 07/23/2020. PLAN OF CARE: CVS: Continue continuous cardiac monitoring, heart rate tachycardic I will defer beta-lizbeth to hospitalist service, responding well to resuscitation stable H&H PULMONARY: Continue weaning from oxygen Continue Aggressive pulmonary toilet Continue Incentive spirometer every hour GI: Advance to full liquid diet and continue protein shakes NUTRITION: Emphasis on protein shakes RENAL: Continue monitoring kidney functions Strict I's and O's Continue electrolyte protocols for replacement including calcium potassium and magnesium INFECTIOUS DISEASE: DC antibiotics after second dose of Zosyn after surgery NEUROLOGY: No evidence of neurological deficit GCS 15 out of 15 MOBILITY: Continue physical therapy SKIN AND WOUND: Daily wet to dry dressing change for abdominal incision Continue colostomy care Continue left upper abdominal drain care Pain control. Switch to p.o. pain medications Family updated with regard to long-term rehabilitation if patient were to qualify,caser in are and is looking into different options and continued to discuss with the patient and the family. From surgical standpoint of view patient can be transferred to the floor on an intermediate care capacity with continuous cardiac monitoring. Status: Resolved (2) Urethral bleeding: Maintain Wing catheter care per urology service Upon discharge patient will need to follow-up with Dr. Pickett for voiding trial prior to discontinuation of Wing catheter Shall the patient is transferred to long-term rehab a Urology follow-up should be placed prior to Wing catheter discontinuation Assurance and education All questions have been answered and all concerns have been addressed to andrew farnsworth's satisfaction. Status: Acute Attestations Medical Necessity Statement*: Ongoing inpatient hospitalization for medical and surgical care Time Spent in Patient Care: 16 - 35 minutes (>than 50% of time spent in counselling and/or direct pt care on unit) . Coding Level of Care Code Acute Oil Burner Journeyman for Alondra Phillip Diagnoses Colonic obstruction K56.609 Urethral bleeding N36.8
--- NOTE | 2020-07-26 06:26 | PC.NURSE ---
MD to bedside, sugar applied to stoma, patient possible transfer pending hospitalist's final decision
[2020-07-26] MEDS: metoprolol tartrate 25 mg Tablet 12.5 MG PO ×2 (10:36→17:44)
--- NOTE | 2020-07-26 16:16 | PM.PN ---
Subjective Subjective: Interval history: 80-year-old male with a past medical history significant for gastritis, H pylori infection, and recent notation of left-sided colonic mass the biopsy which has shown invasive adenocarcinoma, moderately differentiated who was scheduled for a colectomy however after taking in the prep was readmitted for colonic obstruction. Upon admission CT abdomen pelvis was performed which showed high-grade colonic obstruction at the neoplastic stricture in the splenic flexure in addition to 11 mm nodule in the right lobe of liver. Patient did have a nasogastric tube placed. On 07/23/2020 was taken to the OR. Attempted diagnostic laparoscopy was converted to exploratory laparotomy. Open left colectomy with long Tanmay's pouch and left sided abdominal distal transverse colostomy placement. During procedure patient had a difficult Wing insertion during which time Dr. Pickett was consulted an 18 [place] Islander catheter was placed. In addition to this patient had epidural placed and continued postop. This is per Pain control. Subjective 07/23 Patient was seen in the postop. Transferred ICU. Extubated the time of my evaluation. Patient did have a colostomy placed. Wing catheter was also inserted by Urology. This was due to difficult insertion. Additionally patient had epidural in place. Was awake alert. 07/24 Patient stable overnight, pain under control. noted to be tachy. 07/25 No new clinical events overnight. Patient was sitting in chair. NG tube was removed. Was started on clear liquid diet. 07/26 Continued to improve overnight. No fever, chills, nausea or vomiting. Vitals/I&O/Wt Last Vital Signs Temp 98.3 F 07/26/20 20:00 Pulse 92 07/26/20 20:00 Resp 21 H 07/26/20 20:00 BP 97/71 07/26/20 20:00 Pulse Ox 97 07/26/20 20:00 07/26/20 07/26/20 07/26/20 06:59 14:59 22:59 Intake Total 50 / 2460 590 / 590 Output Total 450 / 1155 530 / 530 920 / 1450 Balance -400 / 1305 60 / 60 -920 / -860 Physical Exam Narrative: EXAM NARRATIVE: General-awake alert HEENT -grossly unremarkable - NG removed Chest- nonlabored respiration CVS: Normal rate Abdomen- postop colostomy Extremities-no edema Urinary Catheter Management^: Wing: Cath Placed During This Visit: yes Reason for Continuing Indwelling Catheter: Accurate Measurement of Urinary Output in Critically Ill Patients Urinary Catheter Date of Insertion: 07/23/20 Urinary Catheter Time of Insertion: 08:57 Data : 07/26/20 02:58 07/26/20 02:58 A&P Assessment and plan (1) Colonic obstruction: Status: Resolved (2) Colon cancer: Status: Acute (3) GERD (gastroesophageal reflux disease): Status: Acute 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 - POD 3 - Post op management per surgery - Monitor h/h - Repeat CBC in am - Stable - Epidural was discontinued - NG tube discontinued - Will need close follow up with oncology - Monitoring in ICU - Stared on FLD today - Noted bowel movements - Was started on IV zosyn - d/c as per surgery note Sinus Tachycardia vs P. Atrial fibrillation - Increase metoprolol 12.5 mg PO Q8hr - Will continue to monitor Hypernatremia - Change IVF to 0.45NS at 50 cc/hr - Repeat BMP in am Urinary obstruction - Urology consulted - 18 [place] Island[place] Wing placement - Flomax 0.4 mg po daily - Will likely need to be discharge with Wing Leukopenia - resolved - WBC 2.3 - 5.6 - 5.2 - 8.7 - Likely malignancy related - Will monitor for infection Recent H-pylori infection - Dx on 06/21/2020 - Completed 14 course of clarithromycin/amoxicillin - Continue Pepcid BID DVT ppx - SCDS - Surgery cleared Lovenox 30 mg SQ daily Additional A&P Information Code Status :Full code Disposition: D.W case management working on SNF placement Continue PT/OT Attestations Medical Necessity Statement*: Will likely require additional 2 to 3 days in hospital for postoperative management and discharge placement arrangements. Time Spent in Patient Care: Greater than 35 minutes (>than 50% of time spent in counselling and/or direct pt care on unit). Coding Level of Care Code Acute Elementary Assistant Principal for Chg Fwd Diagnoses Colonic obstruction K56.609 Colon cancer C18.9 GERD (gastroesophageal reflux disease) K21.9
--- NOTE | 2020-07-26 23:34 | PC.NURSE ---
Addendum entered by Tabby Canchola RN 07/27/20 00:29: Notified Physician communication analyst Dr. Hong regarding stoma. Dr. Hong explained Dr. Alexandre is on for his own patients. Dr. alexandre attempted to notify via phone and left message. No answer. Original Note: Stoma Majority of stoma is beefy red. During assessment upper side portion of stoma is black with some white slough. Bowel sounds are active. Pouch changed at this time due to 1/2 full, effluent is loose and brown.
[2020-07-27] VITALS (18 sets, daily range): BP systolic 86–113; BP diastolic 52–73; PULSE 96–123; RESP 15–44; TEMP 36.6–36.9; O2SAT 90–98
--- NOTE | 2020-07-27 00:31 | PC.NURSE ---
Attempted to notify Dr. Davidson again by phone regarding stoma. No answer, attempted to notify Dr. Hong a second time with no answer.
[2020-07-27] MEDS: enoxaparin 30 mg/0.3 mL Syringe SUBCUT ×2 (00:35→19:10)
[2020-07-27] MEDS: sodium chloride 0.45% 1,000 ML 50 ML IV ×2 (00:44→20:27)
[2020-07-27] MEDS: metoprolol tartrate 25 mg Tablet 12.5 MG PO ×3 (02:22→20:19)
[2020-07-27] MEDS: pantoprazole 40 mg SDV IVP (02:26)
[2020-07-27 04:52] LABS: Basophils % 0.1 %; Eosinophils # 0.3 10^3/uL (0.0-0.8); Eosinophils % 3.1 %; Hematocrit 36.5 % (42.0-52.0); Hemoglobin 11.6 g/dL (11.7-16.6); Lymphocytes # 1.3 10^3/uL (0.8-4.8); Lymphocytes % 13.4 %; Mean Corpuscular HGB Conc 31.8 g/dL (30.0-36.0); Mean Corpuscular Hemoglobin 28.9 pg (28.0-34.0); Mean Platelet Volume 10.3 fL (7.4-10.4); Monocytes # 1.8 10^3/uL (0.2-0.9); Monocytes % 17.7 %; Neutrophils # 6.39 10^3/uL (1.8-7.7); Neutrophils % 64.2 %; Nucleated Red Blood Cells % 0.3 %; Platelet Count 313 10^3/cmm (130-400); Red Blood Count 4.01 10^6/uL (4.1-5.3); Red Cell Distribution Width 15.3 % (12.1-15.1)
[2020-07-27 05:15] LABS: Alanine Aminotransferase 15 U/L (0-41); Albumin Level 2.1 g/dL (3.5-5.2); Alkaline Phosphatase 52 IU/L (40-130); Anion Gap 10.1 (5-19); Aspartate Amino Transferase 18 U/L (0-40); Blood Urea Nitrogen 17 mg/dL (8-23); Calcium 8.1 mg/dL (8.5-10.5); Carbon Dioxide 29 mmol/L (22-29); Chloride 110 mmol/L (98-107); Globulin 2.1 g/dL (1.3-4.6); Glucose 110 mg/dL (65-115); Osmolality Calculated 304 mOsm/kg (285-295); Potassium 3.1 mmol/L (3.5-5.1); Sodium 146 mmol/L (136-145); Total Bilirubin 0.3 mg/dL (0.15-1.2); Total Protein 4.2 g/dL (6.6-8.7)
--- NOTE | 2020-07-27 06:34 | PM.PN ---
Subjective Subjective: Interval history: Some dusky changes at the medial aspect of the colostomy,functioning well otherwise.Tolerating well PO intake and continues to pass gas per stoma and passing normal colored stools per stoma. Stabe H&H. No acute events overnight Vitals/I&O/Wt Last Vital Signs Temp 98.5 F 07/27/20 06:00 Pulse 109 H 07/27/20 06:00 Resp 20 H 07/27/20 06:00 BP 99/66 07/27/20 06:00 Pulse Ox 90 07/27/20 06:00 07/26/20 07/26/20 07/27/20 14:59 22:59 06:59 Intake Total 1590 / 1590 100 / 1690 Output Total 530 / 530 1120 / 1650 610 / 2260 Balance 1060 / 1060 -1120 / -60 -510 / -570 Physical Exam Narrative: EXAM NARRATIVE: Patient is conscious alert oriented X3 BMI 15.6 Head and neck examination PERRLA no masses no cervical lymphadenopathy no jaundice Abdomen nontender, not distended soft no organomegaly guarding or rigidity/no signs of peritonitis. Incision is clean dry and intact Left-sided colostomy, stable slough noticed towards the medial aspect of the colostomy, otherwise colostomy is pink patent and functioning with abundance of stools in the bag mostly soft brown. Left-sided drain in place with mostly serous output Wing catheter in place with clear urine Extremities no cyanosis no clubbing no edema Urinary Catheter Management^: Wing: Cath Placed During This Visit: yes Reason for Continuing Indwelling Catheter: Accurate Measurement of Urinary Output in Critically Ill Patients Urinary Catheter Date of Insertion: 07/23/20 Urinary Catheter Time of Insertion: 08:57 Data : 07/27/20 03:51 07/27/20 03:51 A&P Assessment and plan (1) Colonic obstruction: Patient is a status post exploratory laparotomy for left colectomy with long Tanmay's and distal transverse colostomy 07/23/2020. PLAN OF CARE: CVS: Continue continuous cardiac monitoring stable H&H Resume Lovenox subcutaneous daily 30 mg once a day. PULMONARY: Continue weaning from oxygen Continue Aggressive pulmonary toilet Continue Incentive spirometer every hour GI: Continue full liquid diet/focus on protein shakes NUTRITION: Emphasis on higher protein intake/nutrition consultation RENAL: Continue monitoring kidney functions Strict I's and O's Potassium replacement per hospitalist service INFECTIOUS DISEASE: DC antibiotics after second dose of Zosyn after surgery NEUROLOGY: No evidence of neurological deficit GCS 15 out of 15 MOBILITY: Continue physical therapy SKIN AND WOUND: Daily wet to dry dressing change for abdominal incision Continue colostomy care which includes paint with Betadine the medial aspect twice or thrice a day Have the Patient in bed towards the right side to prevent shearing effect of a full colostomy bag on the colostomy itself Continue left upper abdominal drain care Pain control. Switch to p.o. pain medications From surgical standpoint of view patient can go to the floor on an intermediate care capacity with continuous cardiac monitoring. Status: Resolved (2) Urethral bleeding: Maintain Wing catheter care per urology service Upon discharge patient will need to follow-up with Dr. Pickett for voiding trial prior to discontinuation of Wing catheter Shall the patient is transferred to long-term rehab a Urology follow-up should be placed prior to Wing catheter discontinuation Assurance and education All questions have been answered and all concerns have been addressed to patient's satisfaction. Status: Acute Attestations Medical Necessity Statement*: Patient continues to require inpatient hospitalization for medical and surgical care, meanwhile awaiting placement for long-term rehab. Time Spent in Patient Care: Greater than 35 minutes (>than 50% of time spent in counselling and/or direct pt care on unit). 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
--- NOTE | 2020-07-27 09:22 | PC.NURSE ---
Dr Alexandre at bedside Stoma evaluated by dr alexandre, slough removed from the right lateral and anterior margins of the stoma and the remainder of the stoma was cleansed. Dr. Alexandre applied betadine to the slough area of the stoma and ordered that we could apply the betadine twice a day to that area as indicated. Wafer for the stoma changed by dr alexandre. Incision site visualized with HCP and nurse. no s/s of infection noted at this time.
[2020-07-27] MEDS: tamsulosin 0.4 mg Capsule PO (09:58)
[2020-07-27] MEDS: potassium chloride premix 100 ML 25 MEQ IV (13:56)
--- NOTE | 2020-07-27 15:09 | P.PN_ITS ---
Subjective Subjective: Interval history: 80-year-old male with a past medical history significant for gastritis, H pylori infection, and recent notation of left-sided colonic mass the biopsy which has shown invasive adenocarcinoma, moderately differentiated who was scheduled for a colectomy however after taking in the prep was readmitted for colonic obstruction. Upon admission CT abdomen pelvis was performed which showed high-grade colonic obstruction at the neoplastic stricture in the splenic flexure in addition to 11 mm nodule in the right lobe of liver. Patient did have a nasogastric tube placed. On 07/23/2020 was taken to the OR. Attempted diagnostic laparoscopy was converted to exploratory laparotomy. Open left colectomy with long Tanmay's pouch and left sided abdominal distal transverse colostomy placement. During procedure patient had a difficult Wing insertion during which time Dr. Pickett was consulted an 18 Canadian catheter was placed. In addition to this patient had epidural placed and continued postop. This is per Pain control. Subjective 07/23 Patient was seen in the postop. Transferred ICU. Extubated the time of my evaluation. Patient did have a colostomy placed. Wing catheter was also inserted by Urology. This was due to difficult insertion. Additionally patient had epidural in place. Was awake alert. 07/24 Patient stable overnight, pain under control. noted to be tachy. 07/25 No new clinical events overnight. Patient was sitting in chair. NG tube was removed. Was started on clear liquid diet. 07/26 Continued to improve overnight. No fever, chills, nausea or vomiting. 07/27 Patient did not have any acute clinical events overnight. Was weaned off oxygen. No reported respiratory distress. Denied chest pain, fever, chills, nausea or vomiting. Tolerated oral intake. Ostomy output was noted. Vitals/I&O/Wt Last Vital Signs Temp 98.5 F 07/27/20 06:00 Pulse 102 H 07/27/20 12:00 Resp 23 H 07/27/20 12:00 BP 86/57 07/27/20 12:00 Pulse Ox 90 07/27/20 12:00 07/27/20 07/27/20 07/27/20 06:59 14:59 22:59 Intake Total 100 / 1690 Output Total 610 / 2260 270 / 270 Balance -510 / -570 -270 / -270 Physical Exam Narrative: EXAM NARRATIVE: General-awake alert HEENT -grossly unremarkable - NG removed Chest- nonlabored respiration CVS: Normal rate Abdomen- postop colostomy Extremities-no edema Urinary Catheter Management^: Wing: Cath Placed During This Visit: yes Reason for Continuing Indwelling Catheter: Accurate Measurement of Urinary Output in Critically Ill Patients Urinary Catheter Date of Insertion: 07/23/20 Urinary Catheter Time of Insertion: 08:57 Data : 07/27/20 03:51 07/27/20 03:51 A&P Assessment and plan (1) Colonic obstruction: Status: Resolved (2) Colon cancer: Status: Acute (3) GERD (gastroesophageal reflux disease): Status: Acute 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 - POD 3 - Post op management per surgery - Monitor h/h - Repeat CBC in am - Stable - Epidural was discontinued - NG tube discontinued - Will need close follow up with oncology - Monitoring in ICU - Stared on FLD today - Noted bowel movements - Was started on IV zosyn - d/c as per surgery note Sinus Tachycardia vs P. Atrial fibrillation - Metoprolol 12.5 mg PO Q8hr - Will continue to monitor Hypernatremia / Hyperchloremic / Hypokalemia - Change IVF to d5w at 30cc/hr - Increase oral free water intake - Replace K today - Repeat BMP in am Urinary obstruction - Urology consulted - 18 Canadian Wing placement - Flomax 0.4 mg po daily - Will likely need to be discharge with Wing Leukopenia - resolved - WBC 2.3 - 5.6 - 5.2 - 8.7 - Likely malignancy related - Will monitor for infection Recent H-pylori infection - Dx on 06/21/2020 - Completed 14 course of clarithromycin/amoxicillin - Continue Pepcid BID DVT ppx - SCDS - Surgery cleared Lovenox 30 mg SQ daily Additional A&P Information Code Status :Full code Disposition: D.W case management working on SNF placement Continue PT/OT Attestations Medical Necessity Statement*: Will require further hospitalization form management of postop care and electrolyte abnormalities. 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
--- NOTE | 2020-07-27 20:49 | PC.NURSE ---
Stoma Large stoma with moderate edema. Majority of stoma beefy red. Side upper portion of stoma is black with sousa slough. Physician aware. No few findings from previous assessment.
[2020-07-28] VITALS (19 sets, daily range): BP systolic 78–128; BP diastolic 51–84; PULSE 80–117; RESP 13–30; TEMP 36.6–37.1; O2SAT 90–100
[2020-07-28] MEDS: pantoprazole 40 mg SDV IVP (01:51)
[2020-07-28 04:33] LABS: Basophils # 0.1 10^3/uL (0.0-0.1); Basophils % 0.9 %; Eosinophils # 0.2 10^3/uL (0.0-0.8); Eosinophils % 1.3 %; Hematocrit 34.5 % (42.0-52.0); Hemoglobin 11.1 g/dL (11.7-16.6); Lymphocytes # 1.4 10^3/uL (0.8-4.8); Lymphocytes % 11.3 %; Mean Corpuscular HGB Conc 32.2 g/dL (30.0-36.0); Mean Corpuscular Hemoglobin 29.3 pg (28.0-34.0); Monocytes # 1.9 10^3/uL (0.2-0.9); Monocytes % 15.6 %; Neutrophils # 8.41 10^3/uL (1.8-7.7); Neutrophils % 69.7 %; Nucleated Red Blood Cells % 0.2 %; Platelet Count 312 10^3/cmm (130-400); Red Blood Count 3.79 10^6/uL (4.1-5.3); Red Cell Distribution Width 15.2 % (12.1-15.1); White Blood Count 12.1 10^3/uL (4.0-10.0)
[2020-07-28 05:15] LABS: Anion Gap 11.1 (5-19); Blood Urea Nitrogen 15 mg/dL (8-23); Calcium 7.9 mg/dL (8.5-10.5); Carbon Dioxide 28 mmol/L (22-29); Chloride 107 mmol/L (98-107); Glucose 117 mg/dL (65-115); Osmolality Calculated 298 mOsm/kg (285-295); Potassium 3.1 mmol/L (3.5-5.1); Sodium 143 mmol/L (136-145)
--- NOTE | 2020-07-28 06:17 | XRR_ITS ---
PROCEDURE INFORMATION: Exam: XR Chest, 1 View Exam date and time: 07/28/2020 6:29 AM Age: 80 years old Clinical indication: Shortness of breath; Additional info: Shortness of breath and lecucytosis TECHNIQUE: Imaging protocol: XR of the chest Views: 1 view. COMPARISON: 1. CR XR chest 1V [id number] 07/24/2020 5:[address] abdomen pelvis w con* [id number] 07/21/2020 9:46:50 PM FINDINGS: Tubes, catheters and devices: Nasogastric tube removed. Wirelike density overlies the lower chest/heart and seen on prior examination along the lower heart border. Lungs: Lungs are hyperexpanded. There is minimal opacity in lung bases likely small amount atelectasis or scarring. There is area of new opacity in left retrocardiac region lateral to aortic shadow suggesting an area of consolidation and possible pneumonia. Pleural space: No significant visible pleural effusion. No pneumothorax. Heart/Mediastinum: No enlargement of cardiac silhouette. Bones/joints: No acute finding. Prior median sternotomy. XR/XR chest 1V portable [id number] IMPRESSION: New area of consolidation in left medial lung base concerning for area of pneumonia.
--- NOTE | 2020-07-28 06:18 | PM.PN ---
Subjective Subjective: Interval history: Trending up leukocytosis and shortness of breath, marginal urine output and continues to tolerate p.o. intake. Colostomy appearance stable with sloughy material appreciated circumferential Vitals/I&O/Wt Last Vital Signs Temp 98.4 F 07/28/20 02:00 Pulse 109 H 07/28/20 05:51 Resp 20 H 07/28/20 04:00 BP 88/51 07/28/20 04:00 Pulse Ox 97 07/28/20 04:00 07/27/20 07/27/20 07/28/20 14:59 22:59 06:59 Intake Total 1135.833 / 1135.833 Output Total 370 / 370 715 / 1085 560 / 1645 Balance -370 / -370 420.833 / 50.833 -560 / -509.167 Physical Exam Narrative: EXAM NARRATIVE: Patient is conscious alert oriented X3 BMI 15.6 Head and neck examination PERRLA no masses no cervical lymphadenopathy no jaundice Cardiac examination audible S1-S2 no murmurs no gallops no arrhythmias Chest is clear bilateral,abscence of Rhonchi or wheezes,no surgical emphysema Abdomen nontender nondistended soft no organomegaly guarding or rigidity/no signs of peritonitis Incision is clean dry and intact and colostomy is patent and pink with some sloughy material appreciated circumferentially Left upper quadrant drain shows serous fluid Wing catheter in place Extremities no cyanosis no clubbing no edema Urinary Catheter Management^: Wing: Cath Placed During This Visit: yes Reason for Continuing Indwelling Catheter: Accurate Measurement of Urinary Output in Critically Ill Patients Urinary Catheter Date of Insertion: 07/23/20 Urinary Catheter Time of Insertion: 08:57 Data : 07/28/20 03:33 07/28/20 03:33 A&P Assessment and plan (1) Colonic obstruction: Patient is a status post exploratory laparotomy for left colectomy with long Tanmay's and distal transverse colostomy 07/23/2020. PLAN OF CARE: CVS: Continue continuous cardiac monitoring stable H&H Resume Lovenox subcutaneous daily 30 mg once a day. PULMONARY: Continue weaning from oxygen Continue Aggressive pulmonary toilet Continue Incentive spirometer every hour Chest x-ray done today concerning for pneumonia/continue coordination with GI: Will advance to soft GI diet/focus on protein shakes We will follow on pathology report and coordinate care with oncology services Will switch to Pepcid po instead of Protonix IV. NUTRITION: Emphasis on higher protein intake/nutrition consultation to follow on recommendation RENAL: Continue monitoring kidney functions Strict I's and O's P.o. potassium 40 mEq KCl was ordered by me today INFECTIOUS DISEASE: We will defer antibiotic therapy for NEUROLOGY: No evidence of neurological deficit GCS 15 out of 15 MOBILITY: Continue physical therapy SKIN AND WOUND: Daily wet to dry dressing change for abdominal incision Continue colostomy care which includes paint with Betadine circumferentially twice or thrice a day Have the Patient in bed towards the right side to prevent shearing effect of a full colostomy bag on the colostomy itself Continue left upper abdominal drain care and will follow on amylase level for potential discontinue the drain at some point. Pain control. Continue p.o. pain medications We will continue coordinating with hospitalist service and update the family Status: Resolved (2) Urethral bleeding: Maintain Wing catheter care per urology service Upon discharge patient will need to follow-up with Dr. Pickett for voiding trial prior to discontinuation of Wing catheter Shall the patient is transferred to long-term rehab a Urology follow-up should be placed prior to Wing catheter discontinuation Assurance and education All questions have been answered and all concerns have been addressed to patient's satisfaction. Status: Acute Attestations Medical Necessity Statement*: Patient requires inpatient hospitalization for medical and surgical care Time Spent in Patient Care: 16 - 35 minutes (>than 50% of time spent in counselling and/or direct pt care on unit). Coding Level of Care Code Acute Operations Research Director for [facility] Fwd Diagnoses Colonic obstruction K56.609 Urethral bleeding N36.8
[2020-07-28] MEDS: potassium chloride ER 20 mEq Tablet 40 MEQ PO (06:27)
[2020-07-28 07:06] LABS: Amylase 36 U/L (28-100)
[2020-07-28 07:21] LABS: Amylase Peritoneal Fluid 11 U/L (88-109)
[2020-07-28] MEDS: tamsulosin 0.4 mg Capsule PO (09:56)
[2020-07-28] MEDS: metoprolol tartrate 25 mg Tablet 12.5 MG PO ×2 (09:56→20:06)
[2020-07-28] MEDS: famotidine 20 mg Tablet PO ×2 (09:56→18:34)
--- NOTE | 2020-07-28 09:58 | ECG_ITS ---
[facility] Test Date: 2020-07-28 Pat Name: Shabbir Galdamez Department: Room: ICU04 Gender: Male Custom Grinder: : 1940 Requested By: Karen Jonas Order Number: [id number] Reading MD: UBALDO MOSES Measurements Intervals [place] Rate: 108 P: SC: QRS: 54 QRSD: 102 T: 78 QT: 368 QTc: 495 Interpretive Statements ATRIAL FIBRILLATION WITH RAPID VENTRICULAR RESPONSE POSSIBLE RIGHT VENTRICULAR CONDUCTION DELAY [RSR (QR) IN V1/V2] MODERATE ST DEPRESSION [0.05+ mV ST DEPRESSION] Compared to ECG 07/19/2020 12:19:04 ST (T wave) deviation now present Ectopic atrial tachycardia, multifocal no longer present Electronically Signed On 07-28-2020 20:14:13 HOUSEKEEPING/LAUNDRY by UBALDO MOSES [email or web address] [email or web address] [id number]
[2020-07-28] MEDS: sodium chloride 0.9% 250 ML IV (10:38)
--- NOTE | 2020-07-28 17:34 | PM.PN ---
Subjective Subjective: Interval history: 80-year-old male with a past medical history significant for gastritis, H pylori infection, and recent notation of left-sided colonic mass the biopsy which has shown invasive adenocarcinoma, moderately differentiated who was scheduled for a colectomy however after taking in the prep was readmitted for colonic obstruction. Upon admission CT abdomen pelvis was performed which showed high-grade colonic obstruction at the neoplastic stricture in the splenic flexure in addition to 11 mm nodule in the right lobe of liver. Patient did have a nasogastric tube placed. On 07/23/2020 was taken to the OR. Attempted diagnostic laparoscopy was converted to exploratory laparotomy. Open left colectomy with long Tanmay's pouch and left sided abdominal distal transverse colostomy placement. During procedure patient had a difficult Wing insertion during which time Dr. Pickett was consulted an 18 Peruvian catheter was placed. In addition to this patient had epidural placed and continued postop. This is per Pain control. Subjective 07/23 Patient was seen in the postop. Transferred ICU. Extubated the time of my evaluation. Patient did have a colostomy placed. Wing catheter was also inserted by Urology. This was due to difficult insertion. Additionally patient had epidural in place. Was awake alert. 07/24 Patient stable overnight, pain under control. noted to be tachy. 07/25 No new clinical events overnight. Patient was sitting in chair. NG tube was removed. Was started on clear liquid diet. 07/26 Continued to improve overnight. No fever, chills, nausea or vomiting. 07/27 Patient did not have any acute clinical events overnight. Was weaned off oxygen. No reported respiratory distress. Denied chest pain, fever, chills, nausea or vomiting. Tolerated oral intake. Ostomy output was noted. 07/28 Patient was noted to have shortness of breath with exertion. Was placed on 1L of o2 via NC. Denied any respiratory symptoms at rest. Noted intermittent cough. increase output from ostomy. Remain afebrile. No nausea or vomiting. Vitals/I&O/Wt Last Vital Signs Temp 97.9 F 07/28/20 12:00 Pulse 107 H 07/28/20 16:00 Resp 30 H 07/28/20 16:00 BP 113/74 07/28/20 16:00 Pulse Ox 100 07/28/20 16:00 07/28/20 07/28/20 07/28/20 06:59 14:59 22:59 Intake Total 1159.167 / 1159.167 0 / 1159.167 Output Total 560 / 1645 220 / 220 400 / 620 Balance -560 / -509.167 939.167 / 939.167 -400 / 539.167 Physical Exam Narrative: EXAM NARRATIVE: General-awake alert HEENT -grossly unremarkable - NG removed Chest- nonlabored respiration on 1L via NC CVS: Normal rate Abdomen- postop colostomy Extremities-no edema Urinary Catheter Management^: Wing: Cath Placed During This Visit: yes Reason for Continuing Indwelling Catheter: Accurate Measurement of Urinary Output in Critically Ill Patients Urinary Catheter Date of Insertion: 07/23/20 Urinary Catheter Time of Insertion: 08:57 Data : 07/28/20 03:33 07/28/20 03:33 A&P Assessment and plan (1) Colonic obstruction: Status: Resolved (2) Colon cancer: Status: Acute (3) GERD (gastroesophageal reflux disease): Status: Acute 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 - POD 4 - Post op management per surgery - Monitor h/h - currently stable - Epidural was discontinued - NG tube discontinued - Will need close follow up with oncology - Monitoring in ICU - Advance diet as per surgery recommendation - Noted bowel movements Leukocytosis possible new L.Pneumonia - Chest x-ray 07/27 - new consolidation in left middle lung base - Obtain sputum gram stain and culture - WBC increased to 12.1 - Will resume zosyn 3.375g IV q8hr - Repeat CBC in am - Check Pro-calcitonin in AM - Tylenol prn for fever ( afebrile ) Multi-Focal Atrial tachycardia - Metoprolol 12.5 mg PO Q8hr - Will continue to monitor - Repeat EKG today - disagree with atrial fib auto-read - Increase beta lizbeth if BP tolerates Hypokalemia - Hypernatremia / Hyperchloremic - resolved - 0.45 NS at 30 cc/hr - Increase oral free water intake - Repeat BMP in am Urinary obstruction due to BPH - Urology consulted in OR - 18 Peruvian Wing placement - Flomax 0.4 mg po daily - Will likely need to be discharge with Wing Recent H-pylori infection - Dx on 06/21/2020 - Completed 14 course of clarithromycin/amoxicillin - Continue Pepcid BID DVT ppx - SCDS - Lovenox 30 mg SQ daily Additional A&P Information Code Status :Full code Disposition: D.W case management working on SNF vs [facility] placement Continue PT/OT Attestations Medical Necessity Statement*: Will require further hospitalization for postop management and IV antibiotics Coding Level of Care Code Acute 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
[2020-07-28] MEDS: enoxaparin 30 mg/0.3 mL Syringe SUBCUT (18:34)
[2020-07-28] MEDS: piperacillin-tazobactam 3.375 GM in sodium chloride 0.9% (plus) 50 ML IV (18:34)
[2020-07-28] MEDS: HYDROcodone-acetaminophen 5-325 mg Tablet 1 TAB PO (20:06)
[2020-07-28] MEDS: sodium chloride 0.45% 1,000 ML 30 ML IV (23:03)
[2020-07-29] VITALS (25 sets, daily range): BP systolic 81–114; BP diastolic 52–80; PULSE 85–114; RESP 15–28; TEMP 36.4–37.1; O2SAT 93–100
[2020-07-29] MEDS: piperacillin-tazobactam 3.375 GM in sodium chloride 0.9% (plus) 50 ML IV ×3 (02:18→18:17)
[2020-07-29 04:12] LABS: Basophils # 0.1 10^3/uL (0.0-0.1); Basophils % 0.7 %; Eosinophils # 0.4 10^3/uL (0.0-0.8); Eosinophils % 3.1 %; Hematocrit 34.5 % (42.0-52.0); Hemoglobin 10.7 g/dL (11.7-16.6); Lymphocytes # 1.4 10^3/uL (0.8-4.8); Lymphocytes % 12.6 %; Mean Corpuscular Hemoglobin 28.9 pg (28.0-34.0); Mean Corpuscular Volume 93.2 fL (80-94); Mean Platelet Volume 9.8 fL (7.4-10.4); Monocytes # 1.6 10^3/uL (0.2-0.9); Monocytes % 13.7 %; Neutrophils # 7.73 10^3/uL (1.8-7.7); Neutrophils % 68.1 %; Nucleated Red Blood Cells % 0 %; Platelet Count 281 10^3/cmm (130-400); Red Cell Distribution Width 15.4 % (12.1-15.1); White Blood Count 11.4 10^3/uL (4.0-10.0)
[2020-07-29 04:39] LABS: Blood Urea Nitrogen 12 mg/dL (8-23); Carbon Dioxide 30 mmol/L (22-29); Chloride 106 mmol/L (98-107); Glucose 108 mg/dL (65-115); Osmolality Calculated 292 mOsm/kg (285-295); Sodium 141 mmol/L (136-145)
[2020-07-29 04:53] LABS: Anion Gap 8.3 (5-19); Potassium 3.3 mmol/L (3.5-5.1)
--- NOTE | 2020-07-29 05:52 | PM.PN ---
Subjective Subjective: Interval history: Overall patient is doing well and had good urine output, continues to have ascitic-like fluid from the left sided abdominal drain. Amylase came back normal per serum and drain fluid. Tolerating p.o. intake. Trending down and leukocytosis and responding to Zosyn based on findings of pneumonia on the chest x-ray. Nutrition recommendations encourage p.o. intake Vitals/I&O/Wt Last Vital Signs Temp 97.6 F 07/29/20 04:00 Pulse 96 07/29/20 04:00 Resp 21 H 07/29/20 04:00 BP 86/56 07/29/20 04:00 Pulse Ox 97 07/29/20 04:00 07/28/20 07/28/20 07/29/20 14:59 22:59 06:59 Intake Total 1159.167 / 1159.167 333 / 1492.167 0 / 1492.167 Output Total 220 / 220 1000 / 1220 685 / 1905 Balance 939.167 / 939.167 -667 / 272.167 -685 / -412.833 Physical Exam Narrative: EXAM NARRATIVE: Patient is conscious alert oriented X3 BMI 15.6 Head and neck examination PERRLA no masses no cervical lymphadenopathy no jaundice Cardiac examination audible S1-S2 no murmurs no gallops no arrhythmias Chest fair air entry bilateral Abdomen nontender nondistended soft no organomegaly guarding or rigidity/no signs of peritonitis Colostomy stable with superficial necrotic tissue was appreciated more towards the medial side that was peeled off by me bedside. Otherwise pink and patent and functioning well without complications. Left upper drain in place with serous fluid Incision is clean dry and intact with dry dressing Wing catheter in place with clear urine Extremities no cyanosis no clubbing no edema Urinary Catheter Management^: Wing: Cath Placed During This Visit: yes Reason for Continuing Indwelling Catheter: Acute Urinary Retention or Obstruction Urinary Catheter Date of Insertion: 07/23/20 Urinary Catheter Time of Insertion: 08:57 Data : 07/29/20 04:03 07/29/20 04:03 A&P Assessment and plan (1) Colonic obstruction: Patient is a status post exploratory laparotomy for left colectomy with long Tanmay's and distal transverse colostomy 07/23/2020. PLAN OF CARE: CVS: Continue continuous cardiac monitoring stable H&H Continue pharmacologic DVT and SCDs PULMONARY: Continue weaning from oxygen Continue Aggressive pulmonary toilet Continue Incentive spirometer every hour, patient is getting flutter valve now GI: Will advance diet as tolerated with focus on protein shakes We will follow on pathology report and coordinate care with oncology services Continue PO PPI NUTRITION: Emphasis on higher protein intake RENAL: Continue monitoring kidney functions Strict I's and O's Electrolyte replacement per hospitalist service INFECTIOUS DISEASE: We will defer antibiotic therapy for and treatment of Pneumonia NEUROLOGY: No evidence of neurological deficit GCS 15 out of 15 MOBILITY: 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 Continue p.o. pain medications We will continue coordinating with hospitalist service and update the family Status: Resolved (2) Urethral bleeding: Maintain Wing catheter care per urology service Upon discharge patient will need to follow-up with Dr. Pickett for voiding trial prior to discontinuation of Wing catheter Shall the patient is transferred to long-term rehab a Urology follow-up should be placed prior to Wing catheter discontinuation Assurance and education All questions have been answered and all concerns have been addressed to patient's satisfaction. Status: Acute Attestations Medical Necessity Statement*: Patient requiring inpatient hospitalization for medical and surgical care Time Spent in Patient Care: 16 - 35 minutes (>than 50% of time spent in counselling and/or direct pt care on unit). Coding Level of Care Code Acute Financial Risk Manager for [facility] Fwd Diagnoses Colonic obstruction K56.609 Urethral bleeding N36.8
--- NOTE | 2020-07-29 06:43 | PC.NURSE ---
MD at bedside, removed excess slothing off of colostomy, applied betadine with swab. changed colostomy wafer and utilized stoma paste. PAtient tolerated well.
[2020-07-29] MEDS: famotidine 20 mg Tablet PO ×2 (08:09→18:18)
[2020-07-29] MEDS: metoprolol tartrate 25 mg Tablet 12.5 MG PO (08:09)
[2020-07-29] MEDS: tamsulosin 0.4 mg Capsule PO (08:09)
--- NOTE | 2020-07-29 09:23 | PC.CHAP ---
Pastoral Care Encounter/Spiritual Assessment Type of Contact [] Declined escrow officer visit [] Patient/Family/Request visit [] Outpatient visit [] Follow-up visit [] Physician referral [] Code/Alert [] Routine visit [] Staff referral [] Actively dying [] Patient sleeping [] Family support [] [] Out of room [] Palliative care [] [] Receiving care in room [] Pre-surgical visit [] Trauma [] Long length of stay [x] ICU visit [] Other: Relational/Emotional Strength [] Patient feels connected with others/family/visitors/staff [] Distress [] Loneliness/isolation [] Abandonment Spirituality of Patient [] Person of Keri [] Attends Moravian of their Keri [] Believes in Prayer [] Reads Bible or Restorationist materials [] There are Spiritual issues to be addressed Accounting Systems Manager Interventions [x] Prayer [] Active listening [] Non-anxious presence [] Spiritual/emotional support [] Crisis/trauma care [] Spiritual counseling [] Bereavement support [] Provided bereavement packet [] Provided Bible/devotional materials [] Provided toy/stuffed animal, coloring book to patient or family member [] Provided Communion [] Anointing/[place] [] Salvation [x] Completed spiritual assessment [] Other: Impact on Illness or Injury [] Angry [] Fearful [] Anxious [] Often cries [] Exhaustion [] Unable to work [] Unable to attend voodoo [] Unable to walk/stand [] Unable to read [] Unable to drive [] Unable to eat/drink [] Unable to sleep [] Unable to be with family [] Patient intubated [] Other: Summary Time spent with patient
[2020-07-29] MEDS: potassium chloride ER 20 mEq Tablet PO (10:23)
--- NOTE | 2020-07-29 10:53 | PC.SOCIAL ---
Pg 2 IMM Explained to pt Pg 2 IMM. No questions voiced. Provided pt a copy & left on pt's bedside table. Signed, dated, & timed a copy & placed in chart.
--- NOTE | 2020-07-29 16:58 | P.PN_ITS ---
Subjective Subjective: Interval history: 80-year-old male with a past medical history significant for gastritis, H pylori infection, and recent notation of left-sided colonic mass the biopsy which has shown invasive adenocarcinoma, moderately differentiated who was scheduled for a colectomy however after taking in the prep was readmitted for colonic obstruction. Upon admission CT abdomen pelvis was performed which showed high-grade colonic obstruction at the neoplastic stricture in the splenic flexure in addition to 11 mm nodule in the right lobe of liver. Patient did have a nasogastric tube placed. On 07/23/2020 was taken to the OR. Attempted diagnostic laparoscopy was converted to exploratory laparotomy. Open left colectomy with long Tanmay's pouch and left sided abdominal distal transverse colostomy placement. During procedure patient had a difficult Wing insertion during which time Dr. Pickett was consulted an 18 [place]gasque catheter was placed. In addition to this patient had epidural placed and continued postop. This is per Pain control. Subjective 07/23 Patient was seen in the postop. Transferred ICU. Extubated the time of my evaluation. Patient did have a colostomy placed. Wing catheter was also inserted by Urology. This was due to difficult insertion. Additionally patient had epidural in place. Was awake alert. 07/24 Patient stable overnight, pain under control. noted to be tachy. 07/25 No new clinical events overnight. Patient was sitting in chair. NG tube was removed. Was started on clear liquid diet. 07/26 Continued to improve overnight. No fever, chills, nausea or vomiting. 07/27 Patient did not have any acute clinical events overnight. Was weaned off oxygen. No reported respiratory distress. Denied chest pain, fever, chills, nausea or vomiting. Tolerated oral intake. Ostomy output was noted. 07/28 Patient was noted to have shortness of breath with exertion. Was placed on 1L of o2 via NC. Denied any respiratory symptoms at rest. Noted intermittent cough. increase output from ostomy. Remain afebrile. No nausea or vomiting. 07/29 No new clinical events overnight, Patient continues to have poor po intake. Feeling weak. No fever, chill, nausea or vomiting. Vitals/I&O/Wt Last Vital Signs Temp 98.6 F 07/29/20 12:00 Pulse 111 H 07/29/20 18:00 Resp 24 H 07/29/20 18:00 BP 105/55 07/29/20 18:00 Pulse Ox 98 07/29/20 18:00 07/29/20 07/29/20 07/29/20 06:59 14:59 22:59 Intake Total 50 / 5191.544 8032.5 / 1056.5 350 / 1406.5 Output Total 685 / 1905 350 / 350 75 / 425 Balance -635 / -362.833 706.5 / 706.5 275 / 981.5 Physical Exam Narrative: EXAM NARRATIVE: General-awake alert HEENT -grossly unremarkable - NG removed Chest- nonlabored respiration on 1L via NC CVS: Normal rate Abdomen- postop colostomy Extremities-no edema Urinary Catheter Management^: Wing: Cath Placed During This Visit: yes Reason for Continuing Indwelling Catheter: Acute Urinary Retention or Obstruction Urinary Catheter Date of Insertion: 07/23/20 Urinary Catheter Time of Insertion: 08:57 Data : 07/29/20 04:03 07/29/20 04:03 Micro: Microbiology 07/28/20 06:34 Sputum Culture - Preliminary Sputum - Expectorated Sputum Gram Negative Rods A&P Assessment and plan (1) Colonic obstruction: Status: Resolved (2) Colon cancer: Status: Acute (3) GERD (gastroesophageal reflux disease): Status: Acute 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 - POD 5 - Post op management per surgery - Monitor h/h - currently stable - Epidural was discontinued - NG tube discontinued - Will need close follow up with oncology - Monitoring in ICU - Advance diet as per surgery recommendation - Inadequate oral intake - D/w surgery considering PICC line and initiation of clinimix until improved. - Noted bowel movements LLL pneumonia possible aspiration - Chest x-ray 07/27 - new consolidation in left middle lung base - Sputum gram stain and culture - no growth - WBC increased to 12.1 - 11 - Continue zosyn 3.375g IV q8hr - Repeat CBC in am - Check Pro-calcitonin - pending - Tylenol prn for fever ( afebrile ) Multi-Focal Atrial tachycardia - Metoprolol 12.5 mg PO Q8hr - Will continue to monitor - Repeat EKG today - disagree with atrial fib auto-read - Increase beta lizbeth if BP tolerates Hypokalemia - Hypernatremia / Hyperchloremic - resolved - KCl 20 meq PO x 1 today - Increase oral free water intake as tolerated - Repeat BMP in am Urinary obstruction due to BPH - Urology consulted in OR - 18 Monegasque Wing placement - Flomax 0.4 mg po daily - Will likely need to be discharge with Wing Recent H-pylori infection - Dx on 06/21/2020 - Completed 14 course of clarithromycin/amoxicillin - Continue Pepcid BID DVT ppx - SCDS - Lovenox 30 mg SQ daily Additional A&P Information Code Status :Full code Disposition: D.W case management working on SNF vs [facility] placement Continue PT/OT Attestations Medical Necessity Statement*: Will require further hospitalization for management of pneumonia on iv abx, poor po intake, and placement. Ok to transfer to [facility] Time Spent in Patient Care: Greater than 35 minutes (>than 50% of time spent in counselling and/or direct pt care on unit) . Coding Level of Care Code Acute Plating And Point Assembly Supervisor for Chg Fwd Diagnoses Colonic obstruction K56.609 Colon cancer C18.9 GERD (gastroesophageal reflux disease) K21.9
[2020-07-29] MEDS: enoxaparin 30 mg/0.3 mL Syringe SUBCUT (18:18)
--- NOTE | 2020-07-29 20:58 | PC.NURSE ---
Orders received for patient transfer to [facility]-surg. Bed room received, awaiting for room to be cleaned at this time. patient provided with wound care and bath.
--- NOTE | 2020-07-29 21:36 | PC.NURSE ---
Report given to Netta CARLISLE. Patient transferred to Med/surg 275 with all belongings. No signs of distress transferred via wheelchair.
[2020-07-30] VITALS (10 sets, daily range): BP systolic 92–131; BP diastolic 53–76; PULSE 85–112; RESP 16–18; TEMP 36.3–36.6; O2SAT 90–97
[2020-07-30] MEDS: piperacillin-tazobactam 3.375 GM in sodium chloride 0.9% (plus) 50 ML IV ×3 (01:14→17:05)
[2020-07-30 05:06] LABS: Basophils # 0.1 10^3/uL (0.0-0.1); Basophils % 0.8 %; Eosinophils # 0.4 10^3/uL (0.0-0.8); Eosinophils % 2.8 %; Hematocrit 32.5 % (42.0-52.0); Hemoglobin 10.6 g/dL (11.7-16.6); Lymphocytes # 1.9 10^3/uL (0.8-4.8); Lymphocytes % 14.4 %; Mean Corpuscular HGB Conc 32.6 g/dL (30.0-36.0); Mean Platelet Volume 10.2 fL (7.4-10.4); Monocytes # 1.8 10^3/uL (0.2-0.9); Neutrophils # 8.68 10^3/uL (1.8-7.7); Neutrophils % 66.2 %; Nucleated Red Blood Cells % 0 %; Platelet Count 345 10^3/cmm (130-400); Red Blood Count 3.65 10^6/uL (4.1-5.3); Red Cell Distribution Width 14.9 % (12.1-15.1); White Blood Count 13.1 10^3/uL (4.0-10.0)
[2020-07-30 05:28] LABS: Anion Gap 10.1 (5-19); Blood Urea Nitrogen 10 mg/dL (8-23); Calcium 7.8 mg/dL (8.5-10.5); Carbon Dioxide 32 mmol/L (22-29); Chloride 101 mmol/L (98-107); Glucose 101 mg/dL (65-115); Osmolality Calculated 289 mOsm/kg (285-295); Potassium 3.1 mmol/L (3.5-5.1); Sodium 140 mmol/L (136-145)
--- NOTE | 2020-07-30 06:12 | P.PN_ITS ---
Subjective Subjective: Interval history: No acute events overnight and patient was transferred from the ICU to surgical floor. Marginal urine output. Medications: Reviewed: Yes Vitals/I&O/Wt Last Vital Signs Temp 97.6 F 07/30/20 04:30 Pulse 107 H 07/30/20 06:00 Resp 18 07/30/20 04:30 BP 131/76 07/30/20 04:30 Pulse Ox 94 07/30/20 04:30 07/29/20 07/29/20 07/30/20 14:59 22:59 06:59 Intake Total 1056.5 / 1056.5 400 / 1456.5 Output Total 350 / 350 115 / 465 420 / 885 Balance 706.5 / 706.5 285 / 991.5 -420 / 571.5 Physical Exam Narrative: EXAM NARRATIVE: Patient is conscious alert oriented X3 BMI 15.6 Head and neck examination PERRLA no masses no cervical lymphadenopathy no jaundice Abdomen nontender nondistended soft no organomegaly guarding or rigidity/no signs of peritonitis Colostomy stable.Otherwise pink and patent and functioning well without complications. Left upper drain in place with serous fluid Incision is clean dry and intact with dry dressing Wing catheter in place with clear urine Extremities no cyanosis no clubbing no edema Urinary Catheter Management^: Wing: Cath Placed During This Visit: yes Reason for Continuing Indwelling Catheter: Acute Urinary Retention or Obstruction Urinary Catheter Date of Insertion: 07/23/20 Urinary Catheter Time of Insertion: 08:57 Data : 07/30/20 04:13 07/30/20 04:13 Micro: Microbiology 07/28/20 06:34 Sputum Culture - Preliminary Sputum - Expectorated Sputum Gram Negative Rods A&P Assessment and plan (1) Colonic obstruction: Patient is a status post exploratory laparotomy for left colectomy with long Tanmay's and distal transverse colostomy 07/23/2020. PLAN OF CARE: Emphasis on maximizing nutrition and PICC line with TPN would be a potential option versus a feeding tube with enteric nutrition with the concern of worsening patient's lung condition. Continue physical therapy Continue respiratory therapy with appropriate pulmonary toilet From surgical standpoint of view patient is stable yet nutrition should be optimized to help with healing and recovery, will advance to regular diet. Continue stoma and drain care We will continue coordinating with hospitalist service and update the family Status: Resolved (2) Urethral bleeding: Maintain Wing catheter care per urology service Upon discharge patient will need to follow-up with Dr. Pickett for voiding trial prior to discontinuation of Wing catheter Shall the patient is transferred to long-term rehab a Urology follow-up should be placed prior to Wing catheter discontinuation Assurance and education All questions have been answered and all concerns have been addressed to patient's satisfaction. Status: Acute Attestations Medical Necessity Statement*: Inpatient hospitalization for medical and surgical care Time Spent in Patient Care: (>than 50% of time spent in counselling and/or direct pt care on unit) . Coding Level of Care Code Acute Window Assembler for g Fwd Diagnoses Colonic obstruction K56.609 Urethral bleeding N36.8
[2020-07-30] MEDS: metoprolol tartrate 25 mg Tablet 12.5 MG PO ×2 (09:11→21:49)
[2020-07-30] MEDS: tamsulosin 0.4 mg Capsule PO (09:11)
[2020-07-30] MEDS: famotidine 20 mg Tablet PO ×2 (09:11→17:06)
[2020-07-30] MEDS: potassium chloride ER 20 mEq Tablet 40 MEQ PO (10:17)
[2020-07-30 10:35] LABS: Procalcitonin 0.15 ng/mL (0-0.5)
--- NOTE | 2020-07-30 11:48 | P.PN_ITS ---
Subjective Subjective: Interval history: 07/23 Patient was seen in the postop. Transferred ICU. Extubated the time of my evaluation. Patient did have a colostomy placed. Wing catheter was also inserted by Urology. This was due to difficult insertion. Additionally patient had epidural in place. Was awake alert. 07/24 Patient stable overnight, pain under control. noted to be tachy. 07/25 No new clinical events overnight. Patient was sitting in chair. NG tube was removed. Was started on clear liquid diet. 07/26 Continued to improve overnight. No fever, chills, nausea or vomiting. 07/27 Patient did not have any acute clinical events overnight. Was weaned off oxygen. No reported respiratory distress. Denied chest pain, fever, chills, nausea or vomiting. Tolerated oral intake. Ostomy output was noted. 07/28 Patient was noted to have shortness of breath with exertion. Was placed on 1L of o2 via NC. Denied any respiratory symptoms at rest. Noted intermittent cough. increase output from ostomy. Remain afebrile. No nausea or vomiting. 07/29 No new clinical events overnight, Patient continues to have poor po intake. Feeling weak. No fever, chill, nausea or vomiting. 07/30 No new clinical events overnight. Remained stable. No respiratory distress. Was able to get his dentures. Over 50 % of breakfast and supplemental shake this am. No nausea, vomiting. No fever or chills. Vitals/I&O/Wt Last Vital Signs Temp 97.4 F L 07/30/20 08:00 Pulse 101 H 07/30/20 08:00 Resp 18 07/30/20 08:00 BP 99/56 07/30/20 08:00 Pulse Ox 90 07/30/20 08:00 07/29/20 07/30/20 07/30/20 22:59 06:59 14:59 Intake Total 400 / 1456.5 50 / 1506.5 Output Total 115 / 465 420 / 885 370 / 370 Balance 285 / 991.5 -370 / 621.5 -370 / -370 Physical Exam Narrative: EXAM NARRATIVE: General-awake alert HEENT -grossly unremarkable - NG removed Chest- nonlabored respiration on 1L via NC CVS: Sinus tachycardia Abdomen- postop colostomy / JUDSON drain in place Extremities-no edema Urinary Catheter Management^: Wing: Cath Placed During This Visit: yes Reason for Continuing Indwelling Catheter: Acute Urinary Retention or Obstruction Urinary Catheter Date of Insertion: 07/23/20 Urinary Catheter Time of Insertion: 08:57 Data : 07/30/20 04:13 07/30/20 04:13 Micro: Microbiology 07/28/20 06:34 Sputum Culture - Preliminary Sputum - Expectorated Sputum Gram Negative Rods A&P Assessment and plan (1) Colonic obstruction: Status: Resolved (2) Colon cancer: Status: Acute (3) GERD (gastroesophageal reflux disease): Status: Acute 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 s/p L.Co lectomy/Colostomy placement - POD 6 - Post op management per surgery - Monitor h/h - currently stable - Epidural was discontinued - Will need close follow up with oncology - Advanced diet to regular - D/w surgery considering PICC line and initiation of TPN for ppor po intake - Noted bowel movements - JUDSON drain in place with continued output - Colostomy stable - multiple BM - stable LLL pneumonia possible aspiration pneumonitis - Chest x-ray 07/27 - new consolidation in left middle lung base - Sputum gram stain and culture - no growth - WBC increased to 12.1 - 11 - increased to 13 today - Continue zosyn 3.375g IV q8hr - Repeat CBC in am - Check Pro-calcitonin - pending - Tylenol prn for fever ( afebrile ) Sinus tacycardia with PACs - Metoprolol 12.5 mg PO Q12hr - EKG 07/28 - Sinus tach with PACs - Due to soft BP - Digoxin 125mcg PO daily added today - No reported atrial fib seen. - Continue on tele - Can follow up with cardiology outpatient. Hypokalemia - Hypernatremia / Hyperchloremic - resolved - K 3.2 today - > KCl 40 meq PO x 1 today - Repeat BMP in am Urinary obstruction due to BPH - Urology consulted in OR - 18 [place] Wing placement in O2 - Flomax 0.4 mg po daily - Will likely need to be discharge with Wing Recent H-pylori infection - Dx on 06/21/2020 - Completed 14 course of clarithromycin/amoxicillin - Continue Pepcid BID DVT ppx - SCDS - Lovenox 30 mg SQ daily Additional A&P Information Code Status :Full code Disposition: D.W case management working on SNF vs [facility] placement Continue PT/OT Attestations Medical Necessity Statement*: Will require further hospitalization for ma nagment of tachycardia, increasing leukocytosis on IV abx and post op management. Coding Level of Care Code Acute Pharmaceutical Sales Specialist for Chg Fwd Diagnoses Colonic obstruction K56.609 Colon cancer C18.9 GERD (gastroesophageal reflux disease) K21.9
--- NOTE | 2020-07-30 11:56 | PM.PN ---
Subjective Subjective: Interval history: This is a addendum to my EKG reading on June 28, please correct patient was not atrial fibrillation patient has sinus rhythm with PACs. Vitals/I&O/Wt Last Vital Signs Temp 97.4 F L 07/30/20 08:00 Pulse 101 H 07/30/20 08:00 Resp 18 07/30/20 08:00 BP 99/56 07/30/20 08:00 Pulse Ox 90 07/30/20 08:00 07/29/20 07/30/20 07/30/20 22:59 06:59 14:59 Intake Total 400 / 1456.5 50 / 1506.5 Output Total 115 / 465 420 / 885 370 / 370 Balance 285 / 991.5 -370 / 621.5 -370 / -370 Physical Exam Urinary Catheter Management^: Wing: Cath Placed During This Visit: yes Reason for Continuing Indwelling Catheter: Acute Urinary Retention or Obstruction Urinary Catheter Date of Insertion: 07/23/20 Urinary Catheter Time of Insertion: 08:57 Data : 07/30/20 04:13 07/30/20 04:13 Micro: Microbiology 07/28/20 06:34 Sputum Culture - Preliminary Sputum - Expectorated Sputum Gram Negative Rods Attestations Medical Necessity Statement*: As per medicine Coding Level of Care Code Acute Assistant Family Teacher for Alondra Phillip
[2020-07-30] MEDS: digoxin 125 mcg Tablet PO (12:02)
[2020-07-30] MEDS: enoxaparin 30 mg/0.3 mL Syringe SUBCUT (17:05)
--- NOTE | 2020-07-30 17:49 | PC.NURSE ---
SHIFT SUMMARY PATIENT HAS DONE WELL TODAY. PATIENT AMBULATED IN THE [facility]YKIN AND SAT IN THE CHAIR FOR SEVERAL HOURS TODAY. THIS NURSE CHANGED PATIENT'S SURGICAL INCISION DRESSING WELL OSTOMY. PATIENT HAD 300ML OF URINE OUTPUT. PATIENT HAS GOOD PO INTAKE. REQUIRING 1L OF OXYGEN. CONTINUE TO ENCOURAGE COUGH AND DEEP BREATHING.
[2020-07-31] VITALS (13 sets, daily range): BP systolic 88–122; BP diastolic 49–76; PULSE 88–107; RESP 12–18; TEMP 36.4–37.1; O2SAT 92–96
[2020-07-31] MEDS: piperacillin-tazobactam 3.375 GM in sodium chloride 0.9% (plus) 50 ML IV ×3 (02:24→17:03)
[2020-07-31 02:33] LABS: Basophils % 0.3 %; Eosinophils # 0.5 10^3/uL (0.0-0.8); Eosinophils % 3.8 %; Hematocrit 32.1 % (42.0-52.0); Hemoglobin 10.4 g/dL (11.7-16.6); Lymphocytes % 16.3 %; Mean Corpuscular HGB Conc 32.4 g/dL (30.0-36.0); Mean Corpuscular Hemoglobin 29.1 pg (28.0-34.0); Mean Corpuscular Volume 89.7 fL (80-94); Mean Platelet Volume 9.9 fL (7.4-10.4); Monocytes # 1.9 10^3/uL (0.2-0.9); Monocytes % 15.2 %; Neutrophils # 7.74 10^3/uL (1.8-7.7); Neutrophils % 63.1 %; Nucleated Red Blood Cells % 0 %; Platelet Count 351 10^3/cmm (130-400); Red Blood Count 3.58 10^6/uL (4.1-5.3); Red Cell Distribution Width 14.7 % (12.1-15.1); White Blood Count 12.3 10^3/uL (4.0-10.0)
[2020-07-31 02:55] LABS: Alanine Aminotransferase 16 U/L (0-41); Albumin Level 2.2 g/dL (3.5-5.2); Alkaline Phosphatase 55 IU/L (40-130); Aspartate Amino Transferase 21 U/L (0-40); Blood Urea Nitrogen 10 mg/dL (8-23); Calcium 7.8 mg/dL (8.5-10.5); Carbon Dioxide 32 mmol/L (22-29); Chloride 100 mmol/L (98-107); Globulin 2.1 g/dL (1.3-4.6); Glucose 100 mg/dL (65-115); Osmolality Calculated 285 mOsm/kg (285-295); Sodium 138 mmol/L (136-145); Total Bilirubin 0.2 mg/dL (0.15-1.2); Total Protein 4.3 g/dL (6.6-8.7)
--- NOTE | 2020-07-31 03:21 | PC.NURSE ---
Colostomy wafer changed. Betadine swabs used to clean stoma. Stoma beefy red and edemous. Patient tolerated well.
--- NOTE | 2020-07-31 04:30 | PC.NURSE ---
Colostomy wafer changed. Stoma beefy red and edemous. Surrounding skin pink and irritated. Patient tolerated well.
--- NOTE | 2020-07-31 07:02 | PM.PN ---
Subjective Subjective: Interval history: Patient seems to be more motivated and being encouraged for more p.o. intake with particular focus on protein. Trending down and leukocytosis. Otherwise there has been some leakage around the stoma appliance and that was managed by the nurse overnight. No acute events overnight other than mentioned. Vitals/I&O/Wt Last Vital Signs Temp 97.7 F 07/31/20 04:42 Pulse 90 07/31/20 06:00 Resp 17 07/31/20 04:42 BP 112/70 07/31/20 04:42 Pulse Ox 95 07/31/20 04:42 07/30/20 07/31/20 07/31/20 22:59 06:59 14:59 Intake Total 290 / 1000 Output Total 1500 / 1870 660 / 2530 Balance -1210 / -870 -660 / -1530 Physical Exam Narrative: EXAM NARRATIVE: Patient is conscious alert oriented X3 BMI 15.6 Head and neck examination PERRLA no masses no cervical lymphadenopathy no jaundice Abdomen nontender nondistended soft no organomegaly guarding or rigidity/no signs of peritonitis Colostomy stable.Otherwise pink and patent and functioning well without complications. Left upper drain in place with serous fluid Incision is clean dry and intact with dry dressing Wing catheter in place with clear urine Extremities no cyanosis no clubbing no edema Urinary Catheter Management^: Wing: Cath Placed During This Visit: yes Reason for Continuing Indwelling Catheter: Acute Urinary Retention or Obstruction Urinary Catheter Date of Insertion: 07/23/20 Urinary Catheter Time of Insertion: 08:57 Data : 07/31/20 01:40 07/31/20 01:40 Micro: Microbiology 07/28/20 06:34 Sputum Culture - Final Sputum - Expectorated Sputum Enterobacter aerogenes A&P Assessment and plan (1) Colonic obstruction: Patient is a status post exploratory laparotomy for left colectomy with long Tanmay's and distal transverse colostomy 07/23/2020. PLAN OF CARE: Encourage p.o. intake with special focus on protein we will have the patient back on soft GI diet as he have problems with his ill fitting dentures Continue physical therapy Continue respiratory therapy with appropriate pulmonary toilet From surgical standpoint of view patient is stable yet nutrition should be optimized to help with healing and recovery, will advance to regular diet. Continue stoma and drain care We will continue coordinating with hospitalist service and update the family Continue focus on optimizing nutrition, mobility and breathing. As of now our business case analyst is working hard to have the patient appropriate placement and has been updating patient's spouse on daily basis. Pathology came back today showed Left colon, left colectomy: 1. Moderately differentiated invasive adenocarcinoma 2. Tumor size 3.5cm 3. Tumor invades through muscularis into subserosa 4. 12 benign pericolonic lymph nodes with no tumor seen (0/12) 5. Surgical resection margins widely free of tumor Colon segment, staple line, resection: 1. Benign colonic mucosa 2. No tumor seen Patient and his spouse were updated with the pathology findings and will defer further care at this point oncology service Status: Resolved (2) Urethral bleeding: Maintain Wing catheter care per urology service Upon discharge patient will need to follow-up with Dr. Pickett for voiding trial prior to discontinuation of Wing catheter Shall the patient is transferred to long-term rehab a Urology follow-up should be placed prior to Wing catheter discontinuation Assurance and education All questions have been answered and all concerns have been addressed to patient's satisfaction. Status: Acute Attestations Medical Necessity Statement*: Inpatient hospitalization for medical and surgical care. Time Spent in Patient Care: (>than 50% of time spent in counselling and/or direct pt care on unit). Coding Level of Care Code Acute Slide Forming Machine Tender for Alondra Clemented Diagnoses Colonic obstruction K56.609 Urethral bleeding N36.8
[2020-07-31] MEDS: famotidine 20 mg Tablet PO ×2 (08:33→17:02)
[2020-07-31] MEDS: tamsulosin 0.4 mg Capsule PO (08:33)
[2020-07-31] MEDS: metoprolol tartrate 25 mg Tablet 12.5 MG PO ×2 (08:33→20:18)
[2020-07-31] MEDS: digoxin 125 mcg Tablet PO (08:33)
--- NOTE | 2020-07-31 11:12 | PC.NURSE ---
Patient had a low blood pressure reading primary nurse notified.
--- NOTE | 2020-07-31 11:15 | PC.SOCIAL ---
IMM Update Pg. 2 of IMM updated and reviewed with patient, copy provided.
--- NOTE | 2020-07-31 11:23 | PC.OT ---
OT TREATMENT ATTEMPTED THIS A.M. PATIENT REPORTS THAT HE IS TOO TIRED AND SORE THIS MORNING. WISHES TO WAIT UNTIL P.M. FOR TREATMENT.
--- NOTE | 2020-07-31 11:56 | PM.PN ---
Subjective Subjective: Interval history: No acute events overnight. Patient has remained afebrile, other vitals are stable.He is tolerating diet well. Medications: Reviewed: Yes Vitals/I&O/Wt Last Vital Signs Temp 97.5 F L 07/31/20 11:03 Pulse 105 H 07/31/20 11:03 Resp 12 07/31/20 11:03 BP 100/58 07/31/20 11:19 Pulse Ox 96 07/31/20 11:03 07/30/20 07/31/20 07/31/20 22:59 06:59 14:59 Intake Total 290 / 1000 50 / 1050 Output Total 1500 / 1870 660 / 2530 Balance -1210 / -870 -610 / -1480 Physical Exam Const: COMMON NORMALS: patient oriented x3 HENMT: COMMON NORMALS: normocephalic and atraumatic HEAD & SCALP: normocephalic and atraumatic Chest: COMMONS NORMALS: normal inspection of the chest CHEST: Yes Symmetrical chest wall rise Resp: COMMON NORMALS: normal respiratory effort and clear to auscultation bilaterally AUSCULTATION: clear to auscultation bilaterally Cardio: COMMON NORMALS: regular rate, regular rhythm, S1 normal heart sound present, S2 normal heart sound present and Peripheral pulses 2+ throughout RATE: regular rate RHYTHM: regular rhythm HEART SOUNDS: S1 normal heart sound present and S2 normal heart sound present PERIPHERAL PULSES: Peripheral pulses 2+ throughout GI: AUSCULTATION: Yes normoactive bowel sounds RECTAL EXAM: Yes deferred OTHER: postop colostomy / JUDSON drain in place Extremity: COMMON NORMALS: no clubbing, cyanosis or edema and no pedal edema Neuro: COMMON NORMALS: patient oriented x3 Urinary Catheter Management^: Wing: Cath Placed During This Visit: yes Reason for Continuing Indwelling Catheter: Acute Urinary Retention or Obstruction Urinary Catheter Date of Insertion: 07/23/20 Urinary Catheter Time of Insertion: 08:57 Data : 07/31/20 01:40 07/31/20 01:40 Micro: Microbiology 07/28/20 06:34 Sputum Culture - Final Sputum - Expectorated Sputum Enterobacter aerogenes A&P Assessment and plan (1) Colonic obstruction: Status: Resolved (2) Colon cancer: Status: Acute (3) GERD (gastroesophageal reflux disease): Status: Acute 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 - POD 6 - Post op management per surgery - Monitor h/h - currently stable - Epidural was discontinued - Will need close follow up with oncology - Advanced diet to regular - D/w surgery considering PICC line and initiation of TPN for ppor po intake - Noted bowel movements - JUDSON drain in place with continued output - Colostomy stable - multiple BM - stable LLL pneumonia possible aspiration pneumonitis - Chest x-ray 07/27 - new consolidation in left middle lung base - Sputum gram stain and culture - no growth - WBC increased to 12.1 - 11 - increased to 13 today - Continue zosyn 3.375g IV q8hr - Repeat CBC in am - Check Pro-calcitonin -0.15 - Tylenol prn for fever ( afebrile ) Sinus tacycardia with PACs - Metoprolol 12.5 mg PO Q12hr - EKG 07/28 - Sinus tach with PACs - Digoxin 125mcg PO daily has been discontinued. We will continue to titrate metoprolol as needed. - No reported atrial fib seen. - Continue on tele - Can follow up with cardiology outpatient. Hypokalemia - Hypernatremia / Hyperchloremic - resolved - K 3.0 today - > KCl 40 meq PO x 1 today - Repeat BMP in am Urinary obstruction due to BPH - Urology consulted in [place] - 18 [place] Wing placement in O2 - Flomax 0.4 mg po daily - Will likely need to be discharge with Wing Recent H-pylori infection - Dx on 06/21/2020 - Completed 14 course of clarithromycin/amoxicillin - Continue Pepcid BID DVT ppx - SCDS - Lovenox 30 mg SQ daily Additional A&P Information Code Status :Full code Disposition: D.W case management working on SNF vs [facility] placement Continue PT/OT Attestations Medical Necessity Statement*: Patient is to be in hospital for management of leukocytosis, currently on IV antibiotics as well as for postop care Coding Level of Care Code Acute Dye Jig Operator for [facility] Fwd Diagnoses Colonic obstruction K56.609 Colon cancer C18.9 GERD (gastroesophageal reflux disease) K21.9
--- NOTE | 2020-07-31 15:37 | PC.OT ---
OT NOTE: OT TREATMENT ATTEMPTED AGAIN THIS P.M. PATIENT REPORTS THAT HE DID WALK (WITH THERAPY OR NURSING UNSURE) EARLIER AND WAS JUST TOO TIRED TO PARTICIPATE IN OT THIS AFTERNOON..
[2020-07-31] MEDS: enoxaparin 30 mg/0.3 mL Syringe SUBCUT (17:02)
--- NOTE | 2020-07-31 19:38 | PC.NURSE ---
Colostomy wafer changed. Stoma beefy red and edemous. Surrounding skin pink and irritated with minute skin tear left lateral of stoma. Cleaned with NS, stoma cleaned with betadine. Patient tolerated well.
[2020-07-31] MEDS: potassium chloride ER 20 mEq Tablet 40 MEQ PO (20:17)
[2020-08-01] VITALS (9 sets, daily range): BP systolic 103–127; BP diastolic 64–77; PULSE 75–95; RESP 16–20; TEMP 36.4–36.7; O2SAT 94–97
[2020-08-01] MEDS: piperacillin-tazobactam 3.375 GM in sodium chloride 0.9% (plus) 50 ML IV ×3 (01:15→17:12)
--- NOTE | 2020-08-01 07:50 | PM.PN ---
Subjective Subjective: Interval history: No acute events overnight, in depth discussion with the patient and his spouse about pathology details and further planning to have the patient follow-up with oncology services after hospitalization. Encouraged patient to have more p.o. intake to help healing and ordered the soft GI diet back instead of regular as the patient has ill denture fitting. With emphasis on Ensure for protein shakes. Vitals/I&O/Wt Last Vital Signs Temp 97.6 F 08/01/20 04:12 Pulse 86 08/01/20 06:00 Resp 17 08/01/20 04:12 BP 104/64 08/01/20 04:12 Pulse Ox 94 08/01/20 04:12 07/31/20 08/01/20 08/01/20 22:59 06:59 14:59 Intake Total 527 / 817 50 / 867 Output Total 1185 / 1185 580 / 1765 90 / 90 Balance -658 / -368 -530 / -898 -90 / -90 Physical Exam Narrative: EXAM NARRATIVE: Patient is conscious alert oriented X3 BMI 15.6 Head and neck examination PERRLA no masses no cervical lymphadenopathy no jaundice Abdomen nontender nondistended soft no organomegaly guarding or rigidity/no signs of peritonitis Colostomy stable.Otherwise pink and patent and functioning well without complications. Left upper drain in place with serous fluid Incision is clean dry and intact with dry dressing Wing catheter in place with clear urine Extremities no cyanosis no clubbing no edema Urinary Catheter Management^: Wing: Cath Placed During This Visit: yes Reason for Continuing Indwelling Catheter: Acute Urinary Retention or Obstruction Urinary Catheter Date of Insertion: 07/23/20 Urinary Catheter Time of Insertion: 08:57 Data : 07/31/20 01:40 07/31/20 01:40 A&P Assessment and plan (1) Colonic obstruction: Patient is a status post exploratory laparotomy for left colectomy with long Tanmay's and distal transverse colostomy 07/23/2020. PLAN OF CARE: 1-nutrition optimization 2-wound care in the form of packing daily with wet-to-dry using quarter inch Nu Gauze and covered by ABD 3-management of medical comorbidities per hospitalist service 4-continue physical therapy 5-colostomy and drain care(likely will DC drain prior to discharge) 6-awaiting placement 7-defer to urology service for further voiding trials 8-oncology consultation in place for outpatient follow-up 9-defer the course of antimicrobial therapy to hospitalist service 10-assurance and education. All questions have been answered and all concerns have been addressed to patient's satisfaction. Status: Resolved (2) Urethral bleeding: Maintain Wing catheter care per urology service Upon discharge patient will need to follow-up with Dr. Pickett for voiding trial prior to discontinuation of Wing catheter Shall the patient is transferred to long-term rehab a Urology follow-up should be placed prior to Wing catheter discontinuation Assurance and education All questions have been answered and all concerns have been addressed to patient's satisfaction. Status: Acute Attestations Medical Necessity Statement*: Continue inpatient hospitalization for medical and surgical care Time Spent in Patient Care: (>than 50% of time spent in counselling and/or direct pt care on unit). Coding Level of Care Code Acute Supervisor Prep for [facility] Fwd Diagnoses Colonic obstruction K56.609 Urethral bleeding N36.8
[2020-08-01] MEDS: tamsulosin 0.4 mg Capsule PO (08:38)
[2020-08-01] MEDS: famotidine 20 mg Tablet PO ×2 (08:38→17:12)
[2020-08-01] MEDS: metoprolol tartrate 25 mg Tablet 12.5 MG PO ×2 (08:38→20:19)
--- NOTE | 2020-08-01 09:37 | P.PN_ITS ---
Subjective Subjective: Interval history: Patient is resting comfortably.tolerating diet well.Has remained afebrile. Vitals stable. Medications: Reviewed: Yes Vitals/I&O/Wt Last Vital Signs Temp 98.0 F 08/01/20 08:00 Pulse 94 08/01/20 08:00 Resp 17 08/01/20 08:00 BP 127/73 08/01/20 08:00 Pulse Ox 94 08/01/20 08:00 07/31/20 08/01/20 08/01/20 22:59 06:59 14:59 Intake Total 527 / 817 50 / 867 120 / 120 Output Total 1185 / 1185 580 / 1765 590 / 590 Balance -658 / -368 -530 / -898 -470 / -470 Physical Exam Const: COMMON NORMALS: patient oriented x3 HENMT: COMMON NORMALS: normocephalic, atraumatic, hearing grossly normal bilaterally and external ears normal HEAD & SCALP: normocephalic and atraumatic EXTERNAL EAR: Yes external ears normal Eye: COMMON NORMALS: no scleral icterus GENERAL EYE: appearance normal, both eyes and all related structures Chest: COMMONS NORMALS: normal inspection of the chest and normal palpation of entire chest wall CHEST: Yes Symmetrical chest wall rise Resp: COMMON NORMALS: normal respiratory effort, No retractions, No use of accessory muscles and clear to auscultation bilaterally EFFORT & INSPECTION: Yes symmetric chest movement AUSCULTATION: clear to auscultation bilaterally Cardio: COMMON NORMALS: regular rate, regular rhythm, S1 normal heart sound present, S2 normal heart sound present, No gallops present (Cardio), No murmurs present (Cardio), No rub (Cardio) and Peripheral pulses 2+ throughout RATE: regular rate RHYTHM: regular rhythm HEART SOUNDS: S1 normal heart sound present and S2 normal heart sound present PERIPHERAL PULSES: Peripheral pulses 2+ throughout GI: COMMON NORMALS: Normal to inspection, nondistended, normoactive bowel sounds present, Soft to palpation, non-tender and no masses INSPECTION: Yes abdominal distension AUSCULTATION: Yes normoactive bowel sounds PALPATION: Yes Soft to palpation RECTAL EXAM: Yes deferred OTHER: no signs of peritonitis.Colostomy stable.Otherwise pink and patent and functioning well without complications. Left upper drain in place with serous fluid. Incision is clean dry and intact with dry dressing. : COMMON NORMALS: Yes no CVA tenderness BLADDER/KIDNEY EXAM: Yes no CVA tenderness Back/Pelvis: COMMON NORMALS: no CVA tenderness Extremity: COMMON NORMALS: no clubbing, cyanosis or edema and no pedal edema Neuro: COMMON NORMALS: patient oriented x3 Urinary Catheter Management^: Wing: Cath Placed During This Visit: yes Reason for Continuing Indwelling Catheter: Acute Urinary Retention or O bstruction Urinary Catheter Date of Insertion: 07/23/20 Urinary Catheter Time of Insertion: 08:57 Data : 07/31/20 01:40 07/31/20 01:40 A&P Assessment and plan (1) Colonic obstruction: Status: Resolved (2) Colon cancer: Status: Acute (3) GERD (gastroesophageal reflux disease): Status: Acute 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 - POD 6 - Post op management per surgery - Monitor h/h - currently stable - Epidural was discontinued - Will need close follow up with oncology - Advanced diet to regular - D/w surgery considering PICC line and initiation of TPN for ppor po intake - Noted bowel movements - JUDSON drain in place with continued output - Colostomy stable - multiple BM - stable LLL pneumonia possible aspiration pneumonitis - Chest x-ray 07/27 - new consolidation in left middle lung base - Sputum gram stain and culture - no growth - WBC increased to 12.1 - 11 - increased to 13 today - Continue zosyn 3.375g IV q8hr will complete 7 da course and discotinue ( 07/28-08/03) - Repeat CBC in am - Pro-calcitonin -0.15 - Tylenol prn for fever ( afebrile ) Sinus tacycardia with PACs - Metoprolol 12.5 mg PO Q12hr - EKG 07/28 - Sinus tach with PACs - Digoxin 125mcg PO daily has been discontinued. We will continue to titrate metoprolol as needed. - No reported atrial fib seen. - Continue on tele - Can follow up with cardiology outpatient. Urinary obstruction due to BPH - Urology consulted in [place] - 18 [place] Wing placement in O2 - Flomax 0.4 mg po daily - Will likely need to be discharge with Wing Recent H-pylori infection - Dx on 06/21/2020 - Completed 14 course of clarithromycin/amoxicillin - Continue Pepcid BID DVT ppx - SCDS - Lovenox 30 mg SQ daily Additional A&P Information Code Status :Full code Disposition: D.W case management working on SNF vs [facility] placement Continue PT/OT Attestations Medical Necessity Statement*: Patient is to be in hospital for management of leukocytosis, currently on IV antibiotics as well as for postop care. Coding Level of Care Code Acute Pss Delivery Professional for [facility] Fwd Diagnoses Colonic obstruction K56.609 Colon cancer C18.9 GERD (gastroesophageal reflux disease) K21.9
--- NOTE | 2020-08-01 13:22 | PC.NURSE ---
Wet to dry dressing change completed with nu-gauze to abdominal incision. see Wound care note for further details.
--- NOTE | 2020-08-01 15:42 | P.PN_ITS ---
Subjective Subjective: Interval history: Urology follow-up. Catheter functioning well. No problems with bleeding. Had one episode of poor drainage due to twisting of the tubes but that has since resolved. Reviewed the findings intraoperatively and plans going forward. Originally plan was to perform cystoscopy for evaluation of adequate healing in approximately 2 weeks. There will be a good chance that he will still be in the hospital at that time and we will get that done before he is discharged to halfway facility. If the urethra has healed adequately we will leave the catheter out. If the urethra is not adequately healed for trial of voiding it will be replaced and follow-up on outpatient basis scheduled. Reviewed with Dr. Davidson and Dr. Epps. Vitals/I&O/Wt Last Vital Signs Temp 97.6 F 08/01/20 12:00 Pulse 92 08/01/20 14:00 Resp 16 08/01/20 12:00 BP 112/66 08/01/20 12:00 Pulse Ox 97 08/01/20 12:00 08/01/20 08/01/20 08/01/20 06:59 14:59 22:59 Intake Total 50 / 867 240 / 240 Output Total 580 / 1765 670 / 670 Balance -530 / -898 -430 / -430 Physical Exam Const: COMMON NORMALS: no acute distress, alert and well nourished GENERAL APPEARANCE: well kempt and well developed ORIENTATION/CONSCIOUSNESS: not confused HENMT: COMMON NORMALS: normocephalic and atraumatic HEAD & SCALP: normocephalic and atraumatic Eye: COMMON NORMALS: conjunctivae normal and no scleral icterus CONJUNCTIVA: Yes conjunctivae normal Resp: COMMON NORMALS: normal respiratory effort EFFORT & INSPECTION: No labored and No Actively coughing Neuro: SENSORIUM/ORIENTATION: Yes alert Psych: COMMON NORMALS: mental status grossly normal APPEARANCE: Yes grossly normal and Yes well kempt ATTITUDE: Yes calm and Yes engaged Urinary Catheter Management^: Wing: Cath Placed During This Visit: yes Reason for Continuing Indwelling Catheter: Acute Urinary Retention or Obstruction Urinary Catheter Date of Insertion: 07/23/20 Urinary Catheter Time of Insertion: 08:57 Data : 07/31/20 01:40 07/31/20 01:40 A&P Assessment and plan (1) Urethral injury: Doing well with indwelling Wing catheter for facilitation of healing of urethral injury related to traumatic catheterization. He will be due for surveillance cystoscopy for healing adequate to leave the catheter out soon. Will try to accomplish that before he leaves the hospital or make plans for outpatient follow-up. Status: Acute Attestations Medical Necessity Statement*: See attending Coding Level of Care Code Acute Supervisor Pipeline Maintenance for Alondra Phillip Diagnoses Urethral injury S37.30XA
[2020-08-01] MEDS: enoxaparin 30 mg/0.3 mL Syringe SUBCUT (18:06)
[2020-08-02] VITALS (11 sets, daily range): BP systolic 93–119; BP diastolic 49–73; PULSE 82–105; RESP 16–20; TEMP 36.3–36.6; O2SAT 92–97
[2020-08-02] MEDS: piperacillin-tazobactam 3.375 GM in sodium chloride 0.9% (plus) 50 ML IV ×2 (01:34→09:19)
[2020-08-02 03:13] LABS: Anion Gap 8.6 (5-19); Blood Urea Nitrogen 10 mg/dL (8-23); Calcium 7.9 mg/dL (8.5-10.5); Carbon Dioxide 34 mmol/L (22-29); Chloride 101 mmol/L (98-107); Glucose 82 mg/dL (65-115); Osmolality Calculated 288 mOsm/kg (285-295); Potassium 3.6 mmol/L (3.5-5.1); Sodium 140 mmol/L (136-145)
--- NOTE | 2020-08-02 04:27 | PC.NURSE ---
10 ml from JUDSON drain
--- NOTE | 2020-08-02 04:28 | PC.NURSE ---
from JUDSON drain
[2020-08-02] MEDS: lidocaine 1% INJ 20 mL INJECTION (06:34)
--- NOTE | 2020-08-02 06:35 | PM.PN ---
Subjective Subjective: Interval history: No acute events overnight and patient continues to tolerate p.o. intake and good urine output and appropriate colostomy functioning. Patient was seen by Dr. Pickett yesterday to discuss future planning about potential voiding trials and exchanging the catheter. Discussed with Dr. Epps yesterday about placing the patient on prostate medications and also discussed with the patient and the spouse about potential follow-ups as an outpatient Vitals/I&O/Wt Last Vital Signs Temp 97.5 F L 08/02/20 04:00 Pulse 86 08/02/20 05:46 Resp 20 H 08/02/20 04:00 BP 114/72 08/02/20 04:00 Pulse Ox 95 08/02/20 04:00 08/01/20 08/01/20 08/02/20 14:59 22:59 06:59 Intake Total 290 / 290 170 / 460 50 / 510 Output Total 670 / 670 850 / 1520 705 / 2225 Balance -380 / -380 -680 / -1060 -655 / -1715 Physical Exam Narrative: EXAM NARRATIVE: Patient is conscious alert oriented X3 BMI 15.6 Head and neck examination PERRLA no masses no cervical lymphadenopathy no jaundice Abdomen nontender nondistended soft no organomegaly guarding or rigidity/no signs of peritonitis Colostomy stable.Otherwise pink and patent and functioning well without complications. Left upper drain in place with serous fluid Incision is clean dry and intact with dry dressing Wing catheter in place with clear urine Extremities no cyanosis no clubbing no edema Urinary Catheter Management^: Wing: Cath Placed During This Visit: yes Reason for Continuing Indwelling Catheter: Acute Urinary Retention or Obstruction Urinary Catheter Date of Insertion: 07/23/20 Urinary Catheter Time of Insertion: 08:57 Data : 07/31/20 01:40 08/02/20 02:10 A&P Assessment and plan (1) Colonic obstruction: Patient is a status post exploratory laparotomy for left colectomy with long Tanmay's and distal transverse colostomy 07/23/2020. PLAN OF CARE: 1-nutrition optimization 2-wound care in the form of packing daily with wet-to-dry using quarter inch Nu Gauze and covered by ABD, drain was discontinued bedside by me and a figure of eight 2-0 nylon was placed to prevent ascitic fistula. DC skin candido and Steri-Strips were applied. 3-management of medical comorbidities per hospitalist service 4-continue physical therapy 5-colostomy care 6-awaiting placement 7-defer to urology service for further voiding trials 8-oncology consultation in place for outpatient follow-up 9-defer the course of antimicrobial therapy to hospitalist service 10-assurance and education. All questions have been answered and all concerns have been addressed to patient's satisfaction. We will check out to Dr. Hong to continue follow-up on the patient while I am gone as he kindly agreed. Status: Resolved (2) Urethral bleeding: Maintain Wing catheter care per urology service Upon discharge patient will need to follow-up with Dr. Pickett for voiding trial prior to discontinuation of Wing catheter Shall the patient is transferred to long-term rehab a Urology follow-up should be placed prior to Wing catheter discontinuation Assurance and education All questions have been answered and all concerns have been addressed to patient's satisfaction. Status: Resolved Attestations Medical Necessity Statement*: Continue inpatient hospitalization for medical and surgical care, awaiting placement Time Spent in Patient Care: (>than 50% of time spent in counselling and/or direct pt care on unit). Coding Level of Care Code Acute Cell Tuber Hand for g Fwd Diagnoses Colonic obstruction K56.609 Urethral bleeding N36.8
--- NOTE | 2020-08-02 06:35 | PC.NURSE ---
Assist Dr Davidson with removal of JUDSON drain. Numbed with 1% Lidocaine, drain removed, closed with stitches. Pt tolerated well. Physician covered with betadine swab and wound is under colostomy wafer. Kingsley removed from abd incision by physician and secured with steri strips. Pt tolerated well. Covered with abd pad.
--- NOTE | 2020-08-02 07:18 | PC.SOCIAL ---
IMM Update Pg.2 of IMM updated and reviewed with patient who verbalized understanding. Copy provided.
[2020-08-02] MEDS: tamsulosin 0.4 mg Capsule PO (09:12)
[2020-08-02] MEDS: famotidine 20 mg Tablet PO ×2 (09:12→18:45)
[2020-08-02] MEDS: metoprolol tartrate 25 mg Tablet 12.5 MG PO ×2 (09:18→21:09)
--- NOTE | 2020-08-02 09:40 | P.PN_ITS ---
Subjective Subjective: Interval history: In the last 24 hours, patient is having liquid stool, smells like C. difficile. Has remained afebrile, no acute events.Drain was discontinued bedside and a figure of eight 2-0 nylon was placed to prevent ascitic fistula. Medications: Reviewed: Yes Vitals/I&O/Wt Last Vital Signs Temp 97.8 F 08/02/20 08:00 Pulse 104 H 08/02/20 08:00 Resp 18 08/02/20 08:00 BP 111/73 08/02/20 08:00 Pulse Ox 92 08/02/20 08:00 08/01/20 08/02/20 08/02/20 22:59 06:59 14:59 Intake Total 170 / 460 50 / 510 120 / 120 Output Total 850 / 1520 705 / 2225 Balance -680 / -1060 -655 / -1715 120 / 120 Physical Exam Const: COMMON NORMALS: patient oriented x3 HENMT: COMMON NORMALS: normocephalic and atraumatic HEAD & SCALP: normocephalic and atraumatic Chest: COMMONS NORMALS: normal inspection of the chest CHEST: Yes Symmetrical chest wall rise Resp: COMMON NORMALS: normal respiratory effort and clear to auscultation bilaterally EFFORT & INSPECTION: Yes symmetric chest movement AUSCULTATION: clear to auscultation bilaterally Cardio: COMMON NORMALS: regular rate, regular rhythm, S1 normal heart sound present, S2 normal heart sound present and No rub (Cardio) RATE: regular rate RHYTHM: regular rhythm HEART SOUNDS: S1 normal heart sound present and S2 normal heart sound present GI: AUSCULTATION: Yes normoactive bowel sounds RECTAL EXAM: Yes deferred OTHER: Abdomen nontender nondistended soft no organomegaly guarding or rigidity/no signs of peritonitis Colostomy stable.Otherwise pink and patent and functioning well without complications. Incision is clean dry and intact with dry dressing. 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 - POD 6 - Post op management per surgery - Monitor h/h - currently stable - Epidural was discontinued - Will need close follow up with oncology - Advanced diet to regular - D/w surgery considering PICC line and initiation of TPN for ppor po intake - Noted bowel movements - JUDSON drain in place with continued output - Colostomy stable - multiple BM - stable LLL pneumonia possible aspiration pneumonitis (resolved) - Chest x-ray 07/27 - new consolidation in left middle lung base - Sputum gram stain and culture - no growth - WBC increased to 12.1 - 11 - increased to 13 today -Patient was zosyn 3.375g IV q8hr from ( 07/28-08/02) - Repeat CBC in am - Pro-calcitonin -0.15 - Tylenol prn for fever ( afebrile ) Sinus tacycardia with PACs - Metoprolol 12.5 mg PO Q12hr - EKG 07/28 - Sinus tach with PACs - Digoxin 125mcg PO daily has been discontinued. We will continue to titrate metoprolol as needed. - No reported atrial fib seen. - Continue on tele - Can follow up with cardiology outpatient. #Urethral injury: Doing well with indwelling Wing catheter for facilitation of healing of urethral injury related to traumatic catheterization.He will be due for surveillance cystoscopy for healing adequate to leave the catheter out soon. Urology on board. Rec appreciated #Urinary obstruction due to BPH - Urology consulted in [place] - 18 [place] Wing placement in O2 - Flomax 0.4 mg po daily Recent H-pylori infection - Dx on 06/21/2020 - Completed 14 course of clarithromycin/amoxicillin - Continue Pepcid BID DVT ppx - SCDS - Lovenox 30 mg SQ daily Additional A&P Information Code Status :Full code Disposition: D.W case management working on SNF vs [facility] placement Continue PT/OT Attestations Medical Necessity Statement*: Patient needs to be in hospital for management of, status post left colectomy/colostomy placement.Awaiting placement. Coding Level of Care Code Acute Nuclear Chemistry Technician for g Fwd Diagnoses Colonic obstruction K56.609 Colon cancer C18.9 GERD (gastroesophageal reflux disease) K21.9
--- NOTE | 2020-08-02 15:33 | PC.NURSE ---
Emptied patient's colostomy bag. 400ml output noted. Stool is bright yellow and watery with some foam
--- NOTE | 2020-08-02 17:09 | PC.NURSE ---
Dr. Davidson at bedside
[2020-08-02] MEDS: enoxaparin 30 mg/0.3 mL Syringe SUBCUT (18:45)
--- NOTE | 2020-08-02 18:56 | PC.NURSE ---
Shift summary Patient has been calm and cooperative during the whole shift. Patient's colostomy did leak at one point, so we changed his appliance. Patient did have an abdominal drain, but drain was removed today by Dr. Davidson. One suture in place. Cdiff collected due to foul smelling stool earlier this afternoon, but stool now normal.
--- NOTE | 2020-08-02 19:01 | PC.NURSE ---
Per Dr. Davidson, patient's good catheter was placed by Dr. Pickett and is NOT to be removed without Dr. Pickett's approval.
[2020-08-03] VITALS (8 sets, daily range): BP systolic 77–128; BP diastolic 50–79; PULSE 71–91; RESP 16–20; TEMP 36.1–36.7; O2SAT 95–98
[2020-08-03] MEDS: tamsulosin 0.4 mg Capsule PO (08:07)
[2020-08-03] MEDS: metoprolol tartrate 25 mg Tablet 12.5 MG PO ×2 (08:07→20:38)
[2020-08-03] MEDS: famotidine 20 mg Tablet PO ×2 (08:07→18:09)
--- NOTE | 2020-08-03 11:07 | PM.PN ---
Subjective Subjective: Interval history: Patient denies any significant abdominal pain, ostomy is functioning, tolerating GI soft diet Vitals/I&O/Wt Last Vital Signs Temp 98.1 F 08/03/20 07:25 Pulse 83 08/03/20 07:25 Resp 18 08/03/20 07:25 BP 127/73 08/03/20 07:25 Pulse Ox 96 08/03/20 07:25 08/02/20 08/03/20 08/03/20 22:59 06:59 14:59 Intake Total 0 / 390 30 / 390 120 / 120 Output Total 651 / 1701 550 / 1701 Balance -651 / -1311 -520 / -1311 120 / 120 Physical Exam Narrative: EXAM NARRATIVE: Abdomen: Soft, nondistended, tender, incision clean dry and intact, ostomy functioning Urinary Catheter Management^: Wing: Cath Placed During This Visit: yes Reason for Continuing Indwelling Catheter: Acute Urinary Retention or Obstruction Urinary Catheter Date of Insertion: 07/23/20 Urinary Catheter Time of Insertion: 08:57 Data : 07/31/20 01:40 08/02/20 02:10 A&P Assessment and plan (1) Colonic obstruction: Patient is a status post exploratory laparotomy for left colectomy with long Tanmay's and distal transverse colostomy 07/23/2020. Continue wet-to-dry dressing change twice daily with new gauze Awaiting placement Wing management as per Dr. Pickett Encourage ambulation Status: Resolved (2) Urethral bleeding: Maintain Wing catheter care per urology service Upon discharge patient will need to follow-up with Dr. Pickett for voiding trial prior to discontinuation of Wing catheter Shall the patient is transferred to long-term rehab a Urology follow-up should be placed prior to Wing catheter discontinuation Assurance and education All questions have been answered and all concerns have been addressed to patient's satisfaction. Status: Resolved Attestations Medical Necessity Statement*: Status post left hemicolectomy Coding Level of Care Code Acute Administrative Appeals Tribunal Member for g Fwd Diagnoses Colonic obstruction K56.609 Urethral bleeding N36.8
--- NOTE | 2020-08-03 12:13 | PM.PN ---
Subjective Subjective: Interval history: No acute events overnight. No active complaints. Vitals stable. Medications: Reviewed: Yes Vitals/I&O/Wt Last Vital Signs Temp 96.9 F L 08/03/20 12:00 Pulse 76 08/03/20 12:00 Resp 18 08/03/20 12:00 BP 77/50 08/03/20 12:00 Pulse Ox 96 08/03/20 12:00 08/02/20 08/03/20 08/03/20 22:59 06:59 14:59 Intake Total 0 / 360 30 / 390 120 / 120 Output Total 651 / 1151 550 / 1701 Balance -651 / -791 -520 / -1311 120 / 120 Physical Exam Const: COMMON NORMALS: patient oriented x3 HENMT: COMMON NORMALS: normocephalic and atraumatic HEAD & SCALP: normocephalic and atraumatic Resp: COMMON NORMALS: normal respiratory effort Cardio: COMMON NORMALS: regular rate, regular rhythm, S1 normal heart sound present, S2 normal heart sound present, No gallops present (Cardio), No murmurs present (Cardio), No rub (Cardio) and Peripheral pulses 2+ throughout RATE: regular rate RHYTHM: regular rhythm HEART SOUNDS: S1 normal heart sound present and S2 normal heart sound present PERIPHERAL PULSES: Peripheral pulses 2+ throughout GI: AUSCULTATION: Yes normoactive bowel sounds RECTAL EXAM: Yes deferred OTHER: Abdomen: Soft, nondistended, tender, incision clean dry and intact, ostomy functioning 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 - POD 6 - Post op management per surgery - Monitor h/h - currently stable - Epidural was discontinued - Will need close follow up with oncology - Advanced diet to regular - D/w surgery considering PICC line and initiation of TPN for ppor po intake - Noted bowel movements - JUDSON drain in place with continued output - Colostomy stable - multiple BM - stable LLL pneumonia possible aspiration pneumonitis (resolved) - Chest x-ray 07/27 - new consolidation in left middle lung base - Sputum gram stain and culture - no growth - WBC increased to 12.1 - 11 - increased to 13 today -Patient was zosyn 3.375g IV q8hr from ( 07/28-08/02) - Repeat CBC in am - Pro-calcitonin -0.15 - Tylenol prn for fever ( afebrile ) Sinus tacycardia with PACs - Metoprolol 12.5 mg PO Q12hr - EKG 07/28 - Sinus tach with PACs - Digoxin 125mcg PO daily has been discontinued. We will continue to titrate metoprolol as needed. - No reported atrial fib seen. - Continue on tele - Can follow up with cardiology outpatient. #Urethral injury: Doing well with indwelling Wing catheter for facilitation of healing of urethral injury related to traumatic catheterization.He will be due for surveillance cystoscopy for healing adequate to leave the catheter out soon. Urology on board. Rec appreciated #Urinary obstruction due to BPH - Urology consulted in [place] - 18 [place] Wing placement in O2 - Flomax 0.4 mg po daily Recent H-pylori infection - Dx on 06/21/2020 - Completed 14 course of clarithromycin/amoxicillin - Continue Pepcid BID DVT ppx - SCDS - Lovenox 30 mg SQ daily Additional A&P Information Code Status :Full code Disposition: D.W case management working on SNF vs [facility] placement Continue PT/OT Attestations Medical Necessity Statement*: Patient needs to be in hospital for management of, status post left colectomy/colostomy placement.Awaiting placement Coding Level of Care Code Acute Knitting Machine Mechanic for Chg Fwd Diagnoses Colonic obstruction K56.609 Colon cancer C18.9 GERD (gastroesophageal reflux disease) K21.9
[2020-08-03] MEDS: enoxaparin 30 mg/0.3 mL Syringe SUBCUT (18:09)
[2020-08-04] VITALS (8 sets, daily range): BP systolic 97–118; BP diastolic 53–72; PULSE 83–102; RESP 16–18; TEMP 36.3–36.6; O2SAT 93–96
[2020-08-04] MEDS: famotidine 20 mg Tablet PO ×2 (08:31→18:40)
[2020-08-04] MEDS: tamsulosin 0.4 mg Capsule PO (08:31)
[2020-08-04] MEDS: metoprolol tartrate 25 mg Tablet 12.5 MG PO ×2 (08:31→22:27)
--- NOTE | 2020-08-04 11:18 | PC.OT ---
OT tx attempted at this time with pt declining. Pt lying in bed and states I'm doing awful. They had trouble changing my bag and I just need to lay here and rest . Pt is agreeable for therapist to return after lunch for possible engagement in tx.
--- NOTE | 2020-08-04 11:56 | PC.SOCIAL ---
IMM Updated Updated pt on Pg 2 IMM, via phone. No questions voiced. Signed, dated, & timed copy in chart.
--- NOTE | 2020-08-04 12:18 | P.PN_ITS ---
Subjective Subjective: Interval history: patient doing well, no significant pain, no nausea, vomiting, ostomy is functioning Medications: Reviewed: Yes Vitals/I&O/Wt Last Vital Signs Temp 97.3 F L 08/04/20 07:50 Pulse 97 08/04/20 07:50 Resp 16 08/04/20 07:50 BP 110/72 08/04/20 07:50 Pulse Ox 93 08/04/20 07:50 08/03/20 08/04/20 08/04/20 22:59 06:59 14:59 Intake Total 240 / 600 540 / 540 Output Total 450 / 750 300 / 750 50 / 50 Balance -210 / -150 -300 / -150 490 / 490 Physical Exam Narrative: EXAM NARRATIVE: Abdomen: Soft, wound is packed, no cellulitis, ostomy pink and functioning Urinary Catheter Management^: Wing: Cath Placed During This Visit: yes Reason for Continuing Indwelling Catheter: Acute Urinary Retention or Obstruction Urinary Catheter Date of Insertion: 07/23/20 Urinary Catheter Time of Insertion: 08:57 Data : 07/31/20 01:40 08/02/20 02:10 A&P Assessment and plan (1) Colonic obstruction: Patient is a status post exploratory laparotomy for left colectomy with long Tanmay's and distal transverse colostomy 07/23/2020. Continue wet-to-dry dressing change once daily with Nu gauze Diet Awaiting placement patient's is adamant about him going to LTAC or home though I do not think he needs an LTAC anymore waiting on a peer to peer review Wing management as per Dr. Pickett Encourage ambulation Status: Resolved (2) Urethral bleeding: Maintain Wing catheter care per urology service Upon discharge patient will need to follow-up with Dr. Pickett for voiding trial prior to discontinuation of Wing catheter Shall the patient is transferred to long-term rehab a Urology follow-up should be placed prior to Wing catheter discontinuation Assurance and education All questions have been answered and all concerns have been addressed to patient's satisfaction. Status: Resolved Attestations Medical Necessity Statement*: Status post colostomy doing well awaiting placement Coding Level of Care Code Acute Stove Tender for [facility] Diagnoses Colonic obstruction K56.609 Urethral bleeding N36.8
[2020-08-04] MEDS: enoxaparin 30 mg/0.3 mL Syringe SUBCUT (18:40)
--- NOTE | 2020-08-04 19:40 | PC.NURSE ---
WTD Drsg changed to 2 areas on abd wtd with nuqauze and covered with abd and papertape.
--- NOTE | 2020-08-04 20:44 | P.PN_ITS ---
Subjective Subjective: Interval history: No acute events overnight. Patient is tolerating diet.no significant pain, no nausea, vomiting, ostomy is functioning. Medications: Reviewed: Yes Vitals/I&O/Wt Last Vital Signs Temp 97.8 F 08/04/20 19:44 Pulse 95 08/04/20 19:44 Resp 17 08/04/20 19:44 BP 104/64 08/04/20 19:44 Pulse Ox 96 08/04/20 19:44 08/04/20 08/04/20 08/04/20 06:59 14:59 22:59 Intake Total 1020 / 1020 240 / 1260 Output Total 300 / 750 750 / 750 450 / 1200 Balance -300 / -150 270 / 270 -210 / 60 Physical Exam Const: COMMON NORMALS: patient oriented x3 HENMT: COMMON NORMALS: normocephalic and atraumatic HEAD & SCALP: normocephalic and atraumatic Chest: COMMONS NORMALS: normal inspection of the chest CHEST: Yes Symmetrical chest wall rise Resp: COMMON NORMALS: normal respiratory effort and clear to auscultation bilaterally EFFORT & INSPECTION: Yes symmetric chest movement AUSCULTATION: clear to auscultation bilaterally Cardio: COMMON NORMALS: regular rate, regular rhythm, S1 normal heart sound present, S2 normal heart sound present, No gallops present (Cardio), No murmurs present (Cardio), No rub (Cardio) and Peripheral pulses 2+ throughout RATE: regular rate RHYTHM: regular rhythm HEART SOUNDS: S1 normal heart sound present and S2 normal heart sound present PERIPHERAL PULSES: Peripheral pulses 2+ throughout GI: AUSCULTATION: Yes normoactive bowel sounds RECTAL EXAM: Yes deferred OTHER: Abdomen: Soft, wound is packed, no cellulitis, ostomy pink and functioning 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 - POD 6 - Post op management per surgery - Monitor h/h - currently stable - Epidural was discontinued - Will need close follow up with oncology - Advanced diet to regular - D/w surgery considering PICC line and initiation of TPN for ppor po intake - Noted bowel movements - JUDSON drain in place with continued output - Colostomy stable - multiple BM - stable LLL pneumonia possible aspiration pneumonitis (resolved) - Chest x-ray 07/27 - new consolidation in left middle lung base - Sputum gram stain and culture - no growth - WBC increased to 12.1 - 11 - increased to 13 today -Patient was zosyn 3.375g IV q8hr from ( 07/28-08/02) - Repeat CBC in am - Pro-calcitonin -0.15 - Tylenol prn for fever ( afebrile ) Sinus tacycardia with PACs - Metoprolol 12.5 mg PO Q12hr - EKG 07/28 - Sinus tach with PACs - Digoxin 125mcg PO daily has been discontinued. We will continue to titrate metoprolol as needed. - No reported atrial fib seen. - Continue on tele - Can follow up with cardiology outpatient. #Urethral injury: Doing well with indwelling Wing catheter for facilitation of healing of urethral injury related to traumatic catheterization.He will be due for surveillance cystoscopy for healing adequate to leave the catheter out soon. Urology on board. Rec appreciated #Urinary obstruction due to BPH - Urology consulted in [place] - 18 [place] Wing placement in O2 - Flomax 0.4 mg po daily Recent H-pylori infection - Dx on 06/21/2020 - Completed 14 course of clarithromycin/amoxicillin - Continue Pepcid BID DVT ppx - SCDS - Lovenox 30 mg SQ daily Additional A&P Information Code Status :Full code Disposition: D.W case management working on SNF vs [facility] placement Continue PT/OT Attestations Medical Necessity Statement*: Status post colostomy doing well awaiting placement Coding Level of Care Code Acute Biomedical Electronics Technician for Chg Fwd Diagnoses Colonic obstruction K56.609 Colon cancer C18.9 GERD (gastroesophageal reflux disease) K21.9
[2020-08-05] VITALS (12 sets, daily range): BP systolic 95–115; BP diastolic 61–73; PULSE 80–91; RESP 16–17; TEMP 36.4–36.7; O2SAT 95–98
[2020-08-05] MEDS: famotidine 20 mg Tablet PO ×2 (08:31→17:39)
[2020-08-05] MEDS: tamsulosin 0.4 mg Capsule PO (08:31)
[2020-08-05] MEDS: metoprolol tartrate 25 mg Tablet 12.5 MG PO ×2 (08:31→21:03)
--- NOTE | 2020-08-05 14:13 | P.PN_ITS ---
Subjective Subjective: Interval history: Shabbir reports he is doing okay. He has been up and about the room. History and physical and progress notes were reviewed Medications: Reviewed: Yes Vitals/I&O/Wt Last Vital Signs Temp 97.7 F 08/05/20 12:00 Pulse 91 08/05/20 12:00 Resp 17 08/05/20 12:00 BP 100/62 08/05/20 12:00 Pulse Ox 97 08/05/20 12:00 08/04/20 08/05/20 08/05/20 22:59 06:59 14:59 Intake Total 240 / 1260 360 / 360 Output Total 550 / 1300 250 / 1550 Balance -310 / -40 -250 / -290 360 / 360 Physical Exam Narrative: EXAM NARRATIVE: General exam no apparent distress Cardiovascular regular rate and rhythm without murmur Lungs clear Abdomen is soft with positive bowel sounds. Ostomy pink and viable in stool was in bag. Extremities no cyanosis clubbing or edema Urinary Catheter Management^: Wing: Cath Placed During This Visit: yes Reason for Continuing Indwelling Catheter: Acute Urinary Retention or Obstruction Urinary Catheter Date of Insertion: 07/23/20 Urinary Catheter Time of Insertion: 08:57 Data : 07/31/20 01:40 08/02/20 02:10 A&P Assessment and plan (1) Colonic obstruction: Status: Resolved (2) Colon cancer: Status: Acute (3) GERD (gastroesophageal reflux disease): Status: Acute Additional A&P Information 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 s/p L .Colectomy/Colostomy placement, postoperative day #13 Colostomy functioning well Left-sided pneumonia Now off antibiotics Urethral injury. Continue Flomax. Continue Wing. Outpatient follow-up with urology. Recent H. pylori infection. Treatment has been completed Lovenox for DVT prophylaxis Full code Attestations Medical Necessity Statement*: Needs continued hospitalization pending arrangement for disposition. Coding Level of Care Code Acute Balance Wheel Screw Hole Tapper for Alondra Phillip Diagnoses Colonic obstruction K56.609 Colon cancer C18.9 GERD (gastroesophageal reflux disease) K21.9
--- NOTE | 2020-08-05 16:41 | P.PN_ITS ---
Subjective Subjective: Interval history: Patient doing well, tolerating regular diet, ostomy functioning Vitals/I&O/Wt Last Vital Signs Temp 97.5 F L 08/05/20 15:46 Pulse 82 08/05/20 15:46 Resp 17 08/05/20 15:46 BP 96/65 08/05/20 15:46 Pulse Ox 96 08/05/20 15:46 08/05/20 08/05/20 08/05/20 06:59 14:59 22:59 Intake Total 360 / 360 Output Total 250 / 1550 Balance -250 / -290 360 / 360 Physical Exam Narrative: EXAM NARRATIVE: Abdomen: Soft Urinary Catheter Management^: Wing: Cath Placed During This Visit: yes Reason for Continuing Indwelling Catheter: Acute Urinary Retention or Obstruction Urinary Catheter Date of Insertion: 07/23/20 Urinary Catheter Time of Insertion: 08:57 Data : 07/31/20 01:40 08/02/20 02:10 A&P Assessment and plan (1) Colonic obstruction: Patient is a status post exploratory laparotomy for left colectomy with long Tanmay's and distal transverse colostomy 07/23/2020. Continue wet-to-dry dressing change once daily with Nu gauze Working on getting the patient home since he has been refused LTAC insurance company and patient's family does not want him to go to a half-way Wing management as per Dr. Pickett Encourage ambulation Status: Resolved (2) Urethral bleeding: Maintain Wing catheter care per urology service Upon discharge patient will need to follow-up with Dr. Pickett for voiding trial prior to discontinuation of Wing catheter Shall the patient is transferred to long-term rehab a Urology follow-up should be placed prior to Wing catheter discontinuation Assurance and education All questions have been answered and all concerns have been addressed to p jackson's satisfaction. Status: Resolved Attestations Medical Necessity Statement*: Status post left hemicolectomy waiting for discharge Coding Level of Care Code Acute Special Investigation Unit Investigator for g Fwd Diagnoses Colonic obstruction K56.609 Urethral bleeding N36.8
[2020-08-05] MEDS: enoxaparin 30 mg/0.3 mL Syringe SUBCUT (18:50)
[2020-08-06] VITALS (9 sets, daily range): BP systolic 95–120; BP diastolic 59–74; PULSE 72–83; RESP 16–18; TEMP 36.7; O2SAT 94–96
--- NOTE | 2020-08-06 07:17 | P.PN_ITS ---
Subjective Subjective: Interval history: Urology follow-up: No significant urologic complaints. His urine was maintained clear. Catheter is functioning well and he is tolerating it well. No gross hematuria. No flank pain. Has had some diarrhea. Denies chest pain. According to the patient he is being prepared for discharge to home instead of custodial facility. Nursing staff stated that he is being tested for C. difficile. If he is correct I would send him home with a Wing catheter in place with both leg and night bag and then follow-up next week for a cystoscopy voiding trial in my office. If at that point the urethra has completely healed I will leave the catheter out. I reviewed that with the patient and he seemed comfortable with that. Vitals/I&O/Wt Last Vital Signs Temp 98.1 F 08/06/20 04:00 Pulse 78 08/06/20 06:00 Resp 16 08/06/20 04:00 BP 111/66 08/06/20 04:00 Pulse Ox 94 08/06/20 04:00 08/05/20 08/06/20 08/06/20 22:59 06:59 14:59 Intake Total 240 / 600 Output Total 850 / 850 625 / 1475 Balance -610 / -250 -625 / -875 Physical Exam Const: COMMON NORMALS: no acute distress, alert and well nourished GENERAL APPEARANCE: well kempt and well developed HENMT: COMMON NORMALS: normocephalic and atraumatic HEAD & SCALP: normocephalic and atraumatic Neck/C-Spine: COMMON NORMALS: full ROM GENERAL: Yes normal visual inspection Resp: COMMON NORMALS: normal respiratory effort EFFORT & INSPECTION: No labored and No Actively coughing : OTHER: Catheter functioning well. Urine is clear. Neuro: SENSORIUM/ORIENTATION: Yes alert Psych: APPEARANCE: Yes well kempt ATTITUDE: Yes calm and Yes engaged Urinary Catheter Management^: Wing: Cath Placed During This Visit: yes Reason for Continuing Indwelling Catheter: Acute Urinary Retention or Obstruction Urinary Catheter Date of Insertion: 07/23/20 Urinary Catheter Time of Insertion: 08:57 Data : 07/31/20 01:40 08/02/20 02:10 A&P Assessment and plan (1) Urethral injury: Should be nearing complete healing. We will plan on leaving catheter in and follow-up next week with cystoscopy and voiding trial if it is completely healed. Will replace catheter if not completely healed at that point. Status: Acute Attestations Medical Necessity Statement*: See attending Coding Level of Care Code Acute Cat Scan Technologist for Alondra Phillip Diagnoses Urethral injury S37.30XA
[2020-08-06] MEDS: metoprolol tartrate 25 mg Tablet 12.5 MG PO (09:04)
[2020-08-06] MEDS: famotidine 20 mg Tablet PO (09:04)
[2020-08-06] MEDS: tamsulosin 0.4 mg Capsule PO (09:05)
--- NOTE | 2020-08-06 10:53 | PC.SOCIAL ---
IMM Update Pg.2 of IMM updated and reviewed with patient, who verbalized understanding. Copy provided.
--- NOTE | 2020-08-06 11:44 | PM.DCS ---
Discharge Providers Date of Admission: 07/22/20 01:02 Date of Discharge: August 06, 2020 Attending Provider at Admission: Sami Epps MD Attending Provider at Discharge: Rolly Doshi MD Primary Care Provider: Renard Elias DO Diagnoses at Discharge Discharge Diagnosis (1) Urethral injury: Status: Acute Reason for Visit Reason for Visit: abd pain/swelling/has colon cancer Hospital Course Hospital Course 80-year-old male with a past medical history significant for gastritis, H pylori infection, and recent notation of left-sided colonic mass the biopsy which has shown invasive adenocarcinoma, moderately differentiated who was scheduled for a colectomy however after taking in the prep was readmitted for colonic obstruction. Upon admission CT abdomen pelvis was performed which showed high-grade colonic obstruction at the neoplastic stricture in the splenic flexure in addition to 11 mm nodule in the right lobe of liver. Patient did have a nasogastric tube placed. On 07/23/2020 was taken to the OR. Attempted diagnostic laparoscopy was converted to exploratory laparotomy. Open left colectomy with long Tanmay's pouch and left sided abdominal distal transverse colostomy placement. During procedure patient had a difficult Wing insertion during which time Dr. Pickett was consulted an 18 Kazakh catheter was placed. In addition to this patient had epidural placed and continued postop for a short period. Diet was advanced slowly to regular. Patient was noted to have a poor appetite and minimal intake which he attributed to not having his dentures. Oral intake did improve on the once he was able to get his dentures. If this did not continue general surgery was considering initiating TPN. Was mildly hypernatremic however this resolved. Required daily potassium replacement. Post operative course was also complicated by hypotension and tachycardia which initially appeared to be multi-focal atrial tach. He started on metoprolol 12.5 mg PO BID. Repeat EKG on 07/28 showed sinus tachycardia with PACs. Rate ranged from 110 to 120s. Digoxin was then added on to regimen. Remain afebrile however did have wet productive cough. Chest x-ray was repeated which showed new left middle and lower lobe infiltrates. He was previously on zosyn 3.375 g IV q8hr which was stopped 2 days post op however in light of this new finding he was restarted on zosyn due to suspected aspiration pneumonitis. Leukocytosis had slightly increased as well. Respiratory status remained stable he intermittently required 1-2 L of o2 however this was weaned off. O2 saturation remained above 92 on RA. JUDSON continued to have drainage and was left in place. Colostomy remained in place with multiple bowel movements. During the rest of his hospital stay he did quite well. He got stronger with therapy. It became apparent from surgery standpoint that he did not need long-term care hospitalization. Family refused long term placement for rehabilitation. By August 06 it was thought he could discharge home after the and had training in ostomy care and Wing care. Home health will be initiated with home physical therapy as well. He will follow-up with urology for possible removal of Wing. He will be maintained on Flomax during his time at home. He will follow-up with oncology, general surgery and his primary care provider. At discharge he was stable, able to ambulate slowly around his room, and ostomy was functioning well. He requires physical therapy as well as home health. He will need a hospital bed to keep his head of bed elevated. He also has some arthritis, and weakness requiring a walker to prevent falls. COPD complicates his recovery. Physical Exam Narrative: EXAM NARRATIVE: General exam is no apparent distress Cardiovascular regular rate and rhythm without murmur Lungs clear Abdomen demonstrates ostomy with stool Extremities no cyanosis clubbing or edema Urinary Catheter Management^: Wing: Cath Placed During This Visit: yes Reason for Continuing Indwelling Catheter: Acute Urinary Retention or Obstruction Urinary Catheter Date of Insertion: 07/23/20 Urinary Catheter Time of Insertion: 08:57 Discharge Data Data Completed and Pending: Completed Studies During Hospitalization Category Date Time Status CT abdomen pelvis w con* [id number] Urge nt Cat Scan 07/21/20 20:06 Completed XR chest 1V [id number] Routine Exams 07/24/20 05:50 Completed XR chest 1V josue ble [id number] Stat Exams 07/21/20 22:58 Completed XR chest 1V josue ble [id number] Stat Exams 07/28/20 06:17 Completed Pathology: Surgic al [PTH] Routine Pth 07/23/20 11:27 Completed Pending at discharge Category Date Time Status ES surgery / GI i mages Routine Exams 07/23/20 07:04 Taken C DIFF [Clostridi oides Difficile PC R] Routine Lab 08/02/20 18:15 Received Vitals: Last Vital Signs Temp 98.0 F 08/06/20 11:30 Pulse 77 08/06/20 11:30 Resp 18 08/06/20 11:30 BP 95/59 08/06/20 11:30 Pulse Ox 96 08/06/20 11:30 Discharge Plan Discharge Patient Disposition: Home Health Service Condition: Stable Prescriptions: New tamsulosin 0.4 mg Capsule 0.4 mg PO DAILY Qty: 30 RF: 0 metoprolol tartrate 25 mg Tablet 12.5 mg PO BID@0900,2100 Qty: 30 RF: 0 Continued pantoprazole [Protonix] 40 mg tablet,delayed release (DR/EC) 40 mg PO DAILY 30 Days Qty: 30 RF: 2 Symbicort aerosol 80 mcg inhalation PRN PRN (Reason: Shortness Of Breath) RF: 0 Discharge Orders: Discharge Order (Routine); Ordered 08/06/20 Ordered By: Emanuel Pickett Other Ambulatory Orders: DME: Hospital Bed (Order) Location: None Selected Ordered By: Rolly Doshi DME: Walker (Order) Location: None Selected Ordered By: Rolly Doshi Referrals: Noah Davidson MD [Physician] - 7-10 days Emanuel Pickett MD [Physician] - 08/12/20 (Cystoscopy, voiding trial DR YANCEY OFFICE WILL CALL WITH A TIME ON ) Discharge Diet: As Directed Discharge Activity: Increase activity as tolerated Activity Restrictions/Additional Instructions: Referral to oncology, as soon as possible in the next 7 to 14 days for follow-up colon cancer resection Diet and wound care as per surgery Follow-up with primary care provider in approximately 1 week, sooner for any concerns Discharge Attestations Time Spent in Discharge Care*: greater than 30 min Quality Metrics Clinical Quality Measures During this hospital stay, did patient experience: None 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
--- NOTE | 2020-08-06 14:25 | P.PN_ITS ---
Subjective Subjective: Interval history: Patient doing well tolerating regular diet, ostomy functioning Vitals/I&O/Wt Last Vital Signs Temp 98.0 F 08/06/20 11:30 Pulse 77 08/06/20 11:30 Resp 18 08/06/20 11:30 BP 95/59 08/06/20 11:30 Pulse Ox 96 08/06/20 11:30 08/05/20 08/06/20 08/06/20 22:59 06:59 14:59 Intake Total 240 / 600 300 / 300 Output Total 850 / 1475 625 / 1475 Balance -610 / -875 -625 / -875 300 / 300 Physical Exam Narrative: EXAM NARRATIVE: Abdomen: Soft, nondistended, minimally tender, incision healing well, wound on the laparotomy scar healing, packing no longer required Urinary Catheter Management^: Wing: Cath Placed During This Visit: yes Reason for Continuing Indwelling Catheter: Acute Urinary Retention or Obst ruction Urinary Catheter Date of Insertion: 07/23/20 Urinary Catheter Time of Insertion: 08:57 Data : 07/31/20 01:40 08/02/20 02:10 A&P Assessment and plan (1) History of left hemicolectomy: Overall doing well DC home today No further packing required Follow-up 2 weeks Status: Acute Attestations Medical Necessity Statement*: Status post left hemicolectomy, DC home today Coding Level of Care Code Acute Director Clinical Operations for Alondra Phillip Diagnoses History of left hemicolectomy Z90.49
--- NOTE | 2020-08-06 17:00 | PC.NURSE ---
Reviewed patient discharge with patient at this time. Patient verbalized understanding of how to empty and change his colostomy and bag. Patient demonstrated how to empty his colostomy bag. Patient verbalized understanding of how to change is Wing Catheter bag to a leg bag and how to empty his Wing Catheter bag. Patient was discharged with 5 Colostomy kits and a bag of blue pads/chucks, gloves. Patient verbalized understanding of his medications and follow up appointments. IV removed intact. Patient was also sent home with Stoma prep. Patient is A&Ox3. Respirations even and non-labored on room air. Patient wheel chaired to private car.
== END 2020-08-06 17:00 | disposition home health service (06) | DRG 329 ==
LOC: ER 20:06 → MEDSURG 07-22 01:41 → ICU 07-23 11:20 → MEDSURG 07-29 21:32
PROVIDERS: Anesthesiology; Hospitalist; Surgery; Urology; Admitting Provider Internal Medicine; Emergency Provider Emergency Medicine; PCP Emergency Medicine Emergency Medical Services; Visit Provider Internal Medicine
PROC: 0DTN4ZZ Resection of Sigmoid Colon, Percutaneous Endoscopic Approach (ICD-10-PCS; CPT 44204; principal; 2020-07-23 07:20)
PROC: 0TJB8ZZ Inspection of Bladder, Via Natural or Artificial Opening Endoscopic (ICD-10-PCS; CPT 52000; 2020-07-23 07:20)
PROC: 0DTG0ZZ Resection of Left Large Intestine, Open Approach (ICD-10-PCS; 2020-07-23 07:20)
PROC: 0DTG0ZZ Resection of Left Large Intestine, Open Approach (ICD-10-PCS; CPT 44320; 2020-07-23 07:20)
DX: C18.6 Malignant neoplasm of descending colon (principal); J69.0 Pneumonitis due to inhalation of food and vomit; S37.39XA Other injury of urethra, initial encounter; K59.00 Constipation, unspecified; Z87.891 Personal history of nicotine dependence; N13.9 Obstructive and reflux uropathy, unspecified; X58.XXXA Exposure to other specified factors, initial encounter; R00.0 Tachycardia, unspecified; E86.0 Dehydration; E87.6 Hypokalemia; J44.9 Chronic obstructive pulmonary disease, unspecified; I95.9 Hypotension, unspecified
CPT/HCPCS: 01996; 12345; 36415; 51702; 62326; 71045; 74177; 80048; 80053; 81003; 82150; 83605; 83690; 83735; 84100; 84145; 85007; 85014; 85018; 85025; 85610; 85730; 86140; 87070; 87077; 87186; 87493; 88309; 93005; 94640; 96372; 96375; 97110; 97116; 97163; 97167; 97530; 97535; 99284; C9113; C9290; J0131; J1644; J1650; J2270; J2405; J2543; J2704; J2795; J3010; J3480; J3490; J7030; J7050; P9041; P9047; Q9967

== ENCOUNTER 2020-08-16 12:40 | Inpatient (IN) | payer OTHER, MEDICARE, SELFPAY ==
[2020-08-16] VITALS (10 sets, daily range): BP systolic 101–117; BP diastolic 60–89; PULSE 75–99; RESP 14–20; TEMP 36.4–36.6; O2SAT 88–99; BMI 15.5
--- NOTE | 2020-08-16 12:53 | XR_ITS ---
WS: [id number] Exam: XR chest 1V portable [id number] Date/Time of Exam: 08/16/2020 12:58 PM Reason For Exam: dyspnea/cough Comparison 07/28/2020. Mild bibasal pulmonary infiltrates are noted. Remaining lung hillman are clear. The lungs are hyperinf lated with emphysematous change. Heart size is normal. Signs of median sternotomy. No pneumothorax. N o pleural effusion. The mediastinum is not widened. XR/XR chest 1V portable [id number] IMPRESSION: 1. Mild bibasal infiltrate suspicious for pneumonia. 2. Pulmonary hyperinflation and findings of bullous emphysema.
--- NOTE | 2020-08-16 13:07 | ED_ITS ---
HPI - Altered Mental Status General: Chief Complaint: Altered Mental Status Stated Complaint: confusion Time Seen by Provider: 08/16/20 12:44 History of Present Illness: HPI narrative: 80-year-old male presents emergency room via EMS. He recently had colon resection with placement of a colostomy. He was with his family and they thought his speech became slurred. He had a stroke score of 0 in the field when the EMS got there they said his speech seemed fine and he was awake and alert seem to answer questions well. He is similar here when he arrives he denies any pain or difficulty anywhere however he does require oxygen and is mildly hypoxic with sats on room air at 88%. This corrects with supplemental oxygen at 2 to 3 L/min. She denies any recent cough or shortness of breath. MD complaint: confusion and decreased responsiveness Onset (ago): minute(s) Timing confirmed by: family member Severity: mild Associated symptoms: Deny auditory hallucinations, visual hallucinations, delusions, depression, homicidal ideation, racing thoughts or suicidal ideation Treatments prior to arrival: oxygen Review of Systems Const: Denies: fever(s), chills, body aches, change in appetite, fatigue or malaise ENMT: Denies: throat pain, ear or mastoid pain, nasal discharge or nasal congestion Card: Denies: chest pain, edema, dyspnea on exertion or orthopnea Resp: Denies: dyspnea, productive cough or non-productive cough GI: Denies: abdominal pain, nausea, vomiting, hematemesis, coffee ground emesis, diarrhea, constipation, bloating, hematochezia or melena : Denies: flank pain, dysuria, urinary frequency or urinary urgency Skin/Breast: Denies: rash or pruritus Psych: Denies: depression, visual hallucinations, auditory hallucinations, suicidal ideation or homicidal ideation [facility] ED PFSH: Medical History Anemia Colon cancer COPD (chronic obstructive pulmonary disease) Urethral injury Surgical History History of back surgery History of hemorrhoidectomy History of left hemicolectomy History of mitral valve repair Family History Father Accident Mother , IN HER 50'S Cancer Denies family history of Anesthesia complication Bleeding disorder Social History Smoking and tobacco status: former smoker Alcohol intake: never Marital status: Current occupational status: retired History of recent travel: No Physical Exam Const: COMMON NORMALS: no acute distress GENERAL APPEARANCE: cooperative and comfortable ORIENTATION/CONSCIOUSNESS: Yes awake, Yes oriented to person, Yes oriented to place and Yes oriented to time HENMT: COMMON NORMALS: normocephalic, atraumatic and hearing grossly normal bilaterally HEAD & SCALP: normocephalic and atraumatic Neck/C-Spine: COMMON NORMALS: no JVD Resp: COMMON NORMALS: normal respiratory effort, No retractions, No use of accessory muscles and clear to auscultation bilaterally AUSCULTATION: clear to auscultation bilaterally Cardio: COMMON NORMALS: no JVD, regular rate, regular rhythm and No murmurs present (Cardio) RATE: regular rate RHYTHM: regular rhythm GI: COMMON NORMALS: Soft to palpation and No hepatosplenomegaly present AUSCULTATION: Yes normoactive bowel sounds PALPATION: Yes Soft to palpation, No Tenderness to palpation present (GI), No Guarding due to palpation present (GI) and Yes No hepatosplenomegaly present Extremity: COMMON NORMALS: normal to inspection, capillary refill normal, no clubbing, cyanosis or edema, no calf tenderness and no pedal edema Neuro: SENSORIUM/ORIENTATION: Yes oriented to person, Yes oriented to place and Yes oriented to time Psych: THOUGHT CONTENT: No delusions Skin: COMMON NORMALS: no rashes or lesions noted GENERAL SKIN EXAM: no rashes or lesions noted Course Vital Signs: Vital signs: Vital Signs Temperature 97.7 F 08/16/20 16:56 Pulse Rate 79 08/16/20 16:56 Respiratory Rate 15 08/16/20 16:56 Blood Pressure 117/75 08/16/20 16:56 Pulse Oximetry 99 08/16/20 16:56 MDM - Altered Mental Status MDM Narrative: Medical decision making narrative: Asael with hypoxia after recent hospitalization. Very mild UTI and do not believe that contribute significantly to his presenting issues of altered mental status today discussed Dr. Cavanaugh Lab Data: Labs: Lab Results 01/01/21 01/01/21 01/01/21 Range/Units 13:30 13:30 13:30 WBC 7.7 (4.0-10.0) 10^3/ uL RBC 3.79 L (4.1-5.3) 10^6/u L Hgb 10.7 L (11.7-16.6) g/dL Hct 33.4 L (42.0-52.0) % MCV 88.1 (80-94) fL MCH 28.2 (28.0-34.0) pg MCHC 32.0 (30.0-36.0) g/dL RDW 14.7 (12.1-15.1) % Plt Count 535 H (130-400) 10^3/c mm MPV 8.9 (7.4-10.4) fL Neut % (Auto) 77.5 % Lymph % (Auto) 14.2 % [place] % (Auto) 7.0 % Eos % (Auto) 0.4 % Baso % (Auto) 0.5 % Neut # (Auto) 5.96 (1.8-7.7) 10^3/u L Lymph # (Auto) 1.1 (0.8-4.8) 10^3/u L [place] # (Auto) 0.5 (0.2-0.9) 10^3/u L Eos # (Auto) 0.0 (0.0-0.8) 10^3/u L Baso # (Auto) 0.0 (0.0-0.1) 10^3/u L Nucleated RBC % (a uto) 0 % Nucleated RBCs # 0.0 /100WBC D-Dimer (0-0.59) ug/mIFE U Specimen Type Sample Site ABG pH (7.35-7.45) ABG pCO2 (35-45) mmHg ABG pO2 (80.0-100.0) mmH g ABG HCO3 (22-26) mmol/L ABG O2 Saturation ABG Base Excess (-2.0-2.0) mmol/ L Hal Test A-a O2 Gradient (5-10) mmHg Hematocrit (42-52) % Hgb O2 Saturation (95-100) % Carboxyhemoglobin (0.4-20.1) %THgb Methemoglobin (0.4-1.5) % Total Hemoglobin (14-18) g/dL Ionized Calcium (1.1-1.4) mmol/L O2 Delivery Device O2 Liters/Min % FiO2 % Assembler Production Line ID Sodium 138 (136-145) mmol/L Potassium 3.9 (3.5-5.1) mmol/L Chloride 101 (98-107) mmol/L Carbon Dioxide 29 (22-29) mmol/L Anion Gap 11.9 (5-19) BUN 13 (8-23) mg/dL Creatinine 0.6 L (0.7-1.2) mg/dL GFR Calculation Not Reportable Glucose 113 (65-115) mg/dL Calculated Osmolal ity 287 (285-295) mOsm/k g Calcium 8.6 (8.5-10.5) mg/dL Total Bilirubin 0.3 (0.15-1.2) mg/dL AST 18 (0-40) U/L ALT 16 (0-41) U/L Alkaline Phosphata se 89 (40-130) IU/L Creatine Kinase 80 (39-308) U/L Total Protein 5.8 L (6.6-8.7) g/dL Albumin 2.8 L (3.5-5.2) g/dL Globulin 3.0 (1.3-4.6) g/dL Urine Color (Yellow) Urine Appearance (CLEAR) Urine pH (5-7) Ur Specific Gravit y (1.005-1.030) Urine Protein (Negative) Urine Glucose (UA) (Normal) Urine Ketones (Negative) Urine Blood (Negative) Urine Nitrate (Negative) Urine Bilirubin (Negative) Urine Urobilinogen (Negative) mg/dL Ur Leukocyte Carmencita ase (Negative) Urine RBC (0-2) /hpf Urine WBC (0-5) /hpf Ur Squamous Epith Cells (0-5) /hpf Amorphous Sediment Urine Bacteria (NONE) /hpf Urine Mucus /hpf SARS-CoV-2 Ag (Rap id) Negative (Negative) 08/16/20 08/16/20 08/16/20 Range/Units 13:30 13:38 14:05 WBC (4.0-10.0) 10^3/ uL RBC (4.1-5.3) 10^6/u L Hgb (11.7-16.6) g/dL Hct (42.0-52.0) % MCV (80-94) fL MCH (28.0-34.0) pg MCHC (30.0-36.0) g/dL RDW (12.1-15.1) % Plt Count (130-400) 10^3/c mm MPV (7.4-10.4) fL Neut % (Auto) % Lymph % (Auto) % [place] % (Auto) % Eos % (Auto) % Baso % (Auto) % Neut # (Auto) (1.8-7.7) 10^3/u L Lymph # (Auto) (0.8-4.8) 10^3/u L [place] # (Auto) (0.2-0.9) 10^3/u L Eos # (Auto) (0.0-0.8) 10^3/u L Baso # (Auto) (0.0-0.1) 10^3/u L Nucleated RBC % (a uto) % Nucleated RBCs # /100WBC D-Dimer 3.09 H (0-0.59) ug/mIFE U Specimen Type Arterial Sample Site Brachial, left ABG pH 7.41 (7.35-7.45) ABG pCO2 44.3 (35-45) mmHg ABG pO2 95.9 (80.0-100.0) mmH g ABG HCO3 28.1 H (22-26) mmol/L ABG O2 Saturation 97.8 ABG Base Excess 3.0 H (-2.0-2.0) mmol/ L Hal Test N/a A-a O2 Gradient 6.0 (5-10) mmHg Hematocrit 31.2 L (42-52) % Hgb O2 Saturation 96.4 (95-100) % Carboxyhemoglobin 1.0 (0.4-20.1) %THgb Methemoglobin 0.5 (0.4-1.5) % Total Hemoglobin 10.2 L (14-18) g/dL Ionized Calcium 1.2 (1.1-1.4) mmol/L O2 Delivery Device Nc O2 Liters/Min 2.0 % FiO2 28.0 % Assembler Production Line ID glc Sodium 136.0 (136-145) mmol/L Potassium 3.7 (3.5-5.1) mmol/L Chloride (98-107) mmol/L Carbon Dioxide (22-29) mmol/L Anion Gap (5-19) BUN (8-23) mg/dL Creatinine (0.7-1.2) mg/dL GFR Calculation Glucose 100.0 (65-115) mg/dL Calculated Osmolal ity (285-295) mOsm/k g Calcium (8.5-10.5) mg/dL Total Bilirubin (0.15-1.2) mg/dL AST (0-40) U/L ALT (0-41) U/L Alkaline Phosphata se (40-130) IU/L Creatine Kinase (39-308) U/L Total Protein (6.6-8.7) g/dL Albumin (3.5-5.2) g/dL Globulin (1.3-4.6) g/dL Urine Color Yellow (Yellow) Urine Appearance Hazy A (CLEAR) Urine pH 5 (5-7) Ur Specific Gravit y 1.030 (1.005-1.030) Urine Protein Neg (Negative) Urine Glucose (UA) Norm (Normal) Urine Ketones Negative (Negative) Urine Blood 2+ H (Negative) Urine Nitrate Positive H (Negative) Urine Bilirubin Neg (Negative) Urine Urobilinogen Norm (Negative) mg/dL Ur Leukocyte Carmencita ase Trace H (Negative) Urine RBC 5-10 H (0-2) /hpf Urine WBC 10-15 H (0-5) /hpf Ur Squamous Epith Cells Rare (0-5) /hpf Amorphous Sediment Not Reportable Urine Bacteria 4+ H (NONE) /hpf Urine Mucus 2+ /hpf SARS-CoV-2 Ag (Rap id) (Negative) Discharge Plan Discharge Patient Disposition: Admitted As Inpatient Admit Provider: Kayleigh Cavanaugh Clinical Impression: Pneumonia, Cystitis, Colon cancer, Colostomy present, AMS (altered mental status) Condition: Stable Coding Level 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
[2020-08-16 13:50] LABS: ABG PCO2 44.3 mmHg (35-45); ABG PH Result 7.41 (7.35-7.45); Arterial Blood Gas Hematocrit 31.2 % (42-52); Blood Gas Operator Identificat glc; Blood Gas Sample Site Brachial, left; Blood Gas Sample Type Arterial; HCO3 ABG 28.1 mmol/L (22-26); HGB O2 Sat 96.4 % (95-100); Ionized Calcium Level - ABG 1.2 mmol/L (1.1-1.4); Methemoglobin 0.5 % (0.4-1.5); Oxygen Device NC; Oxygen Saturation ABG 97.8; PO2 ABG 95.9 mmHg (80.0-100.0); Potassium Level - ABG 3.7 mmol/L (3.5-5.0); Total Hemoglobin 10.2 g/dL (14-18)
[2020-08-16 13:53] LABS: Basophils % 0.5 %; Eosinophils % 0.4 %; Hematocrit 33.4 % (42.0-52.0); Hemoglobin 10.7 g/dL (11.7-16.6); Lymphocytes # 1.1 10^3/uL (0.8-4.8); Lymphocytes % 14.2 %; Mean Corpuscular Hemoglobin 28.2 pg (28.0-34.0); Mean Corpuscular Volume 88.1 fL (80-94); Mean Platelet Volume 8.9 fL (7.4-10.4); Monocytes # 0.5 10^3/uL (0.2-0.9); Neutrophils # 5.96 10^3/uL (1.8-7.7); Neutrophils % 77.5 %; Nucleated Red Blood Cells % 0 %; Platelet Count 535 10^3/cmm (130-400); Red Blood Count 3.79 10^6/uL (4.1-5.3); Red Cell Distribution Width 14.7 % (12.1-15.1); White Blood Count 7.7 10^3/uL (4.0-10.0)
[2020-08-16 14:08] LABS: Alanine Aminotransferase 16 U/L (0-41); Albumin Level 2.8 g/dL (3.5-5.2); Alkaline Phosphatase 89 IU/L (40-130); Anion Gap 11.9 (5-19); Aspartate Amino Transferase 18 U/L (0-40); Blood Urea Nitrogen 13 mg/dL (8-23); Calcium 8.6 mg/dL (8.5-10.5); Carbon Dioxide 29 mmol/L (22-29); Chloride 101 mmol/L (98-107); Creatine Phosphokinase 80 U/L (39-308); Glucose 113 mg/dL (65-115); Osmolality Calculated 287 mOsm/kg (285-295); Potassium 3.9 mmol/L (3.5-5.1); Sodium 138 mmol/L (136-145); Total Bilirubin 0.3 mg/dL (0.15-1.2); Total Protein 5.8 g/dL (6.6-8.7)
[2020-08-16 14:31] LABS: SARS Covid-2 Antigen Negative (Negative)
[2020-08-16 14:59] LABS: Add Urine Microscopic? YES; Bilirubin Urine Neg (Negative); Blood Urine 2+ (Negative); Glucose Urine UA Norm (Normal); Ketones Urine Negative (Negative); Leukocyte Esterase Urine Trace (Negative); Nitrate Urine Positive (Negative); Protein Urine Neg (Negative); Urine Appearance Hazy (CLEAR); Urine Color Yellow (Yellow); Urobilinogen Urine Norm (Negative); pH Urine 5 (5-7)
[2020-08-16 15:01] LABS: Bacteria Urine 4+ /hpf; Mucus Urine 2+ /hpf; Squamous Epithelial Cell Urine RARE /hpf (0-5)
[2020-08-16 15:02] LABS: Add Urine Culture? Yes
[2020-08-16] MEDS: piperacillin-tazobactam 3.375 GM in sodium chloride 0.9% (plus) 50 ML IV ×2 (15:37→22:22)
[2020-08-16] MEDS: levofloxacin-dextrose 5 % 750 MG/150 ML PREMIX 100 MG IV (15:37)
[2020-08-16] MEDS: dexamethasone 4 mg/mL INJ 6 MG IVP (15:37)
[2020-08-16 16:14] LABS: D Dimer 3.09 ug/mIFEU (0-0.59)
--- NOTE | 2020-08-16 17:21 | P.HP_ITS ---
Providers/Chief Complaint Admitting Physician: Kayleigh Cavanaugh MD Primary Care Provider: Renard Elias DO Chief Complaint: confusion History of Present Illness Shabbir Galdamez is a 80 year old male with a past medical history significant for gastritis, H pylori infection, and recent notation of left-sided colonic mass the biopsy which has shown invasive adenocarcinoma, moderately differentiated who was scheduled for a colectomy however after taking in the prep was readmitted for colonic obstruction. Upon admission CT abdomen pelvis was performed which showed high-grade colonic obstruction at the neoplastic stricture in the splenic flexure in addition to 11 mm nodule in the right lobe of liver. Patient did have a nasogastric tube placed. On 07/23/2020 was taken to the OR. Attempted diagnostic laparoscopy was converted to exploratory laparotomy. Open left colectomy with long Tanmay's pouch and left sided abdominal distal transverse colostomy placement. During procedure patient had a difficult Wing insertion during which time Dr. Pickett was consulted an 18 Czech catheter was placed. In addition to this patient had epidural placed and continued postop for a short period. Post operative course was also complicated by hypotension and tachycardia which initially appeared to be multi-focal atrial tach. He started on metoprolol 12.5 mg PO BID. Repeat EKG on 07/28 showed sinus tachycardia with PACs. Chest x-ray was repeated which showed new left middle and lower lobe infiltrates. By August 06 it was thought he could discharge home after the and had training in ostomy care and Wing care. Wing was removed 08/08. He returned to ER today with confusion, family noted his speech to be slurred, upon EMS arrival in ER arrival NIHSS was 0. He was noted to be hypoxic with O2 sat of 88% on room air. This improved with supplementation of 2 to 3 L/min. Chest x-ray was performed in the ER which showed bilateral lower lobe infiltrates, per radiology possible developing pneumonia. I did not see of gross change control analyst x-ray from July 28. D-dimer is positive at 3. There is no past D-dimer to compare this to. Review of Systems General: Reports: 10 or more systems reviewed and unremarkable except in HPI and below Const: Denies: fever(s), chills or body aches Eyes: Denies: change in vision, blurry vision or photophobia ENMT: Reports: hoarseness; Denies: throat pain, enlarged tonsils, odynophagia or nasal congestion Card: Denies: chest pain, palpitations, irregular heart rhythm, edema, swelling of feet/ankles, lightheadedness, pre-syncope, dyspnea on exertion or orthopnea Resp: Denies: dyspnea, productive cough, non-productive cough, wheezing, stridor, pain on inspiration, change in phlegm color, hemoptysis or chest conge stion GI: Denies: abdominal pain, nausea, vomiting, hematemesis, coffee ground emesis, dysphagia, heartburn, diarrhea, constipation, GI cramping, change in stool character, hematochezia or melena : Denies: flank pain, dysuria, urinary frequency, urinary urgency, urinary hesitancy or hematuria Musc: Denies: neck pain, back pain, extremity pain, joint swelling, joint warmth or deformity Neuro: Denies: headache(s), numbness in extremities, weakness in extremities, sensory changes, difficulty walking, frequent falls, dizziness, vertigo, behavioral changes, Slurred speech present or seizure-like activity Psych: Denies: anxiety, depression, suicidal ideation or homicidal ideation Endo: Denies: polyuria, polydipsia, tired all the time, cold intolerance or hot flashes Mark/Lymph: Denies: easy bruising or easy bleeding Medications/Allergies Home Medications Medication Instructions Recorded Confirmed Last Taken Type pantoprazole [Protonix] 40 mg PO DAILY 30 Days #30 tab 07/01/20 08/16/20 1 Day Ago Rx ~07/21/20 metoprolol tartrate 12.5 mg PO BID@09,2099 #30 tab 08/06/20 08/16/20 08/15/20 Rx budesonide-formoterol HFA 80 2 puff INHALATION BID@0900,2100 08/15/20 08/16/20 08/15/20 History mcg-4.5 mcg/actuation aerosol inhaler tamsulosin 0.4 mg PO DAILY@19 08/16/20 08/16/20 08/15/20 History Allergies Allergy/AdvReac Type Severity Reaction Status Date / Time morphine Allergy Unknown Hallucinati Unverified 08/16/20 08:57 on PFSH Acute PFSH: Medical History Anemia Colon cancer COPD (chronic obstructive pulmonary disease) Urethral injury Surgical History History of back surgery History of hemorrhoidectomy History of left hemicolectomy History of mitral valve repair Family History Father Accident Mother , IN HER 50'S Cancer Denies family history of Anesthesia complication Bleeding disorder Social History Smoking and tobacco status: former smoker Alcohol intake: never Marital status: Current occupational status: retired History of recent travel: No Vitals/I&O/Wt Last Vital Signs Temp 97.7 F 08/16/20 16:56 Pulse 79 08/16/20 16:56 Resp 15 08/16/20 16:56 BP 117/75 08/16/20 16:56 Pulse Ox 99 08/16/20 16:56 08/16/20 08/16/20 08/16/20 06:59 14:59 22:59 Intake Total 50 / 50 Balance 50 / 50 Weight last 48 hrs Weight 48.988 kg Physical Exam Const: COMMON NORMALS: no acute distress and patient oriented x3 HENMT: COMMON NORMALS: normocephalic and atraumatic HEAD & SCALP: normocephalic and atraumatic Eye: COMMON NORMALS: Equal, round and reactive pupils present, EOMs intact bilaterally, conjunctivae normal and no scleral icterus CONJUNCTIVA: Yes conjunctivae normal PUPIL: Yes Equal, round and reactive pupils present Neck/C-Spine: COMMON NORMALS: no JVD Resp: COMMON NORMALS: normal respiratory effort, No retractions, No use of accessory muscles, clear to auscultation bilaterally and percussion normal AUSCULTATION: clear to auscultation bilaterally PERCUSSION: percussion normal Cardio: COMMON NORMALS: no JVD, regular rate, regular rhythm, S1 normal heart sound present, S2 normal heart sound present, No gallops present (Cardio), No clicks present (Cardio), No murmurs present (Cardio), No rub (Cardio) and Peripheral pulses 2+ throughout RATE: regular rate RHYTHM: regular rhythm HEART SOUNDS: S1 normal heart sound present and S2 normal heart sound present PERIPHERAL PULSES: Peripheral pulses 2+ throughout GI: COMMON NORMALS: Normal to inspection, nondistended, normoactive bowel sounds present, Soft to palpation, non-tender, No hepatosplenomegaly present, no masses and no bruits PALPATION: Yes Soft to palpation and Yes No hepatosplenomegaly present Extremity: COMMON NORMALS: normal to inspection, full ROM, capillary refill normal, no joint enlargement, no clubbing, cyanosis or edema, no calf tenderness and no pedal edema Neuro: COMMON NORMALS: patient oriented x3, CN's II-XII intact bilaterally, moves all extremities, no focal motor deficits, no sensory deficits noted, deep tendon reflexes 2+ bilaterally and gait normal SENSORIUM/ORIENTATION: Yes alert Psych: COMMON NORMALS: mental status grossly normal, Normal thought process present, cooperative, normal affect, speech normal, activity/motor behavior normal, denies hallucinations, denies homicidal ideation and denies suicidal ideation SPEECH: Yes normal speech THOUGHT PROCESS: Normal thought process present Skin: COMMON NORMALS: no rashes or lesions noted, no wounds, turgor normal, no jaundice, no petechiae and no mottling GENERAL SKIN EXAM: no rashes or lesions noted and turgor normal Data : 08/16/20 13:30 08/16/20 13:30 Micro: Microbiology 08/16/20 13:38 Blood Culture - Preliminary Blood SPECIMEN COLLECTED 08/16/20 13:30 Blood Culture - Preliminary Blood SPECIMEN COLLECTED A&P Assessment and plan (1) History of left hemicolectomy: Status: Acute (2) UTI (urinary tract infection): Status: Acute (3) Elevated d-dimer: Status: Acute (4) Hypoxia: Status: Acute (5) AMS (altered mental status): Status: Acute Additional A&P Information Admit to [facility]. Patient noted to be hypoxic with O2 sat of 88% on room air, now improved with supplemental oxygen. Chest x-ray is being read by radiology as bilateral lower lobe infiltrates, however I do not see much change compared to July 28, 2020 at which time he was treated for pneumonia. Given positive D-dimer at 3 and history of malignancy I would want to rule out a pulmonary embolism for which CT of the chest has been ordered. Also due to reported confusion, will evaluate with CT of the head to exclude any metastatic disease to the brain. Start Zosyn empirically Patient appears to be quite cachectic and dehydrated, in addition to GI soft diet will additionally start IV fluid resuscitation with D5 NS at 100 cc an hour. No gross signs of fluid overload at this present time Recent history also of urethral injury during surgery, catheter was recently removed by Dr. Pickett. Denies any urinary retention however UA noted to be positive for nitrate and leukoesterase. Zosyn empirically also to cover for possible UTI. Check urine culture. COVID-19 rapid antigen is negative, PCR has been sent out. DVT prophylaxis Lovenox Full code Attestations Medical Necessity Statement*: Admitted for hypoxia, evaluation for CTA, UTI needing IV antibiotics, possible pneumonia anticipate greater than 2 midnight admission Coding Level of Care Code Acute Tank Builder And Erector for g Fwd Diagnoses History of left hemicolectomy Z90.49 UTI (urinary tract infection) N39.0 Elevated d-dimer R79.89 Hypoxia R09.02 AMS (altered mental status) R41.82
[2020-08-16] MEDS: D5-NS 0.45% + KCL 20 mEq 20 MEQ/1,000 ML BAG 100 MEQ IV (17:35)
--- NOTE | 2020-08-16 17:36 | CTR_ITS ---
PROCEDURE INFORMATION: Exam: CT Angiography Chest With Contrast Exam date and time: 08/16/2020 6:04 PM Age: 80 years old Clinical indication: Dyspnea; Prior surgery; Surgery date: 6+ months; Surgery type: Cabg, mitral valve; Additional info: Hypoxia, evalute for pe TECHNIQUE: Imaging protocol: Computed tomographic angiography of the chest with intravenous contrast. 3D rendering (Not supervised by radiologist): MIP and/or 3D reconstructed images were created by the technologist. Radiation optimization: All CT scans at this facility use at least one of these dose optimization techniques: automated exposure control; mA and/or kV adjustment per patient size (includes targeted exams where dose is matched to clinical indication); or iterative reconstruction. Contrast material: OMNI 350; Contrast volume: 95 ml; Contrast route: INTRAVENOUS (IV); COMPARISON: CR XR chest 1V portable [id number] 08/16/2020 1:05 PM RADIATION DOSE METRICS: Total DLP (mGy-cm): 465.49 FINDINGS: Pulmonary arteries: Pulmonary arteries are well opacified. Pulmonary arteries are normal in caliber. No filling defects are demonstrated. No evidence of pulmonary embolism. Aorta: Dilated ascending aorta measuring 4.3 cm in transverse diameter. No aortic dissection. Lungs: Severe centrilobular emphysema throughout both lungs. Pulmonary fibrosis and calcification noted in the upper thorax. No consolidative pulmonary infiltrates are noted. Pleural space: Small bilateral pleural effusions. Heart: No cardiomegaly. No pericardial effusion. Lymph nodes: Unremarkable. No enlarged lymph nodes. Spleen: Calcified splenic granulomas are noted. Inhomogeneous enhancement of the spleen. There is an area of hypoenhancement in the anterior spleen measuring 5 x 3 cm. 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 Bones/joints: Degenerative spine changes. No acute fracture. Soft tissues: Lack of subcutaneous fat suggesting cachexia. CT/CT angio chest PE protcl [id number] IMPRESSION: 1. No evidence of pulmonary embolism. 2. Dilated ascending aorta measuring 4.3 cm in transverse diameter. No aortic dissection. Recommend clinical assessment and follow-up. 3. Severe centrilobular emphysema throughout both lungs. Pulmonary fibrosis and calcification noted in the upper thorax. No consolidative pulmonary infiltrates are noted. 4. Small bilateral pleural effusions. 5. 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 Radiation Dose CTDIVOL = (mGy): DLP = 465.49 (mGy-cm)
--- NOTE | 2020-08-16 17:36 | CTR_ITS ---
PROCEDURE INFORMATION: Exam: CT Head Without Contrast Exam date and time: 08/16/2020 6:04 PM Age: 80 years old Clinical indication: Altered mental status/memory loss; Additional info: AMS TECHNIQUE: Imaging protocol: Computed tomography of the head without contrast. Radiation optimization: All CT scans at this facility use at least one of these dose optimization techniques: automated exposure control; mA and/or kV adjustment per patient size (includes targeted exams where dose is matched to clinical indication); or iterative reconstruction. COMPARISON: No relevant prior studies available. RADIATION DOSE METRICS: Total DLP (mGy-cm): 735.59 FINDINGS: Brain: Mild parenchymal volume loss noted. No intracranial hemorrhage noted. No parenchymal edema identified. Cerebral ventricles: The ventricles are proportional to the sulci. No hydrocephalus is noted. Bones/joints: No fracture or other acute osseous abnormality. Paranasal sinuses: The paranasal sinuses, as demonstrated, appear clear. Mastoid air cells: The mastoid air cells are clear bilaterally. Soft tissues: The soft tissues appear unremarkable. CT/CT head wo con* [id number] IMPRESSION: No acute intracranial abnormality demonstrated. Radiation Dose CTDIVOL = (mGy): DLP = 735.59 (mGy-cm)
[2020-08-16] MEDS: enoxaparin 30 mg/0.3 mL Syringe SUBCUT (17:48)
[2020-08-16] MEDS: tamsulosin 0.4 mg Capsule PO (17:50)
[2020-08-16] MEDS: iohexol 350 mg/mL 100 mL Btl IV (18:20)
[2020-08-17] VITALS (8 sets, daily range): BP systolic 93–108; BP diastolic 60–68; PULSE 72–102; RESP 15–20; TEMP 36.5–37.1; O2SAT 91–98
[2020-08-17] MEDS: piperacillin-tazobactam 3.375 GM in sodium chloride 0.9% (plus) 50 ML IV ×3 (04:16→20:58)
[2020-08-17 04:57] LABS: Basophils % 0.3 %; Hematocrit 30.9 % (42.0-52.0); Lymphocytes # 1.1 10^3/uL (0.8-4.8); Lymphocytes % 17.7 %; Mean Corpuscular HGB Conc 32.4 g/dL (30.0-36.0); Mean Corpuscular Hemoglobin 28.3 pg (28.0-34.0); Mean Corpuscular Volume 87.5 fL (80-94); Mean Platelet Volume 9.1 fL (7.4-10.4); Monocytes # 0.6 10^3/uL (0.2-0.9); Neutrophils # 4.37 10^3/uL (1.8-7.7); Neutrophils % 71.5 %; Nucleated Red Blood Cells % 0 %; Platelet Count 480 10^3/cmm (130-400); Red Blood Count 3.53 10^6/uL (4.1-5.3); Red Cell Distribution Width 14.6 % (12.1-15.1); White Blood Count 6.1 10^3/uL (4.0-10.0)
[2020-08-17 05:27] LABS: Alanine Aminotransferase 12 U/L (0-41); Albumin Level 2.4 g/dL (3.5-5.2); Alkaline Phosphatase 74 IU/L (40-130); Anion Gap 9.2 (5-19); Aspartate Amino Transferase 12 U/L (0-40); Blood Urea Nitrogen 13 mg/dL (8-23); Calcium 8.5 mg/dL (8.5-10.5); Carbon Dioxide 29 mmol/L (22-29); Chloride 98 mmol/L (98-107); Globulin 2.5 g/dL (1.3-4.6); Glucose 154 mg/dL (65-115); Osmolality Calculated 277 mOsm/kg (285-295); Potassium 4.2 mmol/L (3.5-5.1); Sodium 132 mmol/L (136-145); Total Bilirubin 0.2 mg/dL (0.15-1.2); Total Protein 4.9 g/dL (6.6-8.7)
[2020-08-17] MEDS: metoprolol tartrate 25 mg Tablet 12.5 MG PO (09:25)
[2020-08-17] MEDS: pantoprazole DR 40 mg Tablet PO (09:25)
--- NOTE | 2020-08-17 12:31 | PC.OT ---
Patient was independent with Physical therapy, no issues at home with ADLs, no occupational therapy indicated at this time. Please send new orders if change in status is noted.
[2020-08-17] MEDS: D5-NS 0.45% + KCL 20 mEq 20 MEQ/1,000 ML BAG 100 MEQ IV (12:42)
--- NOTE | 2020-08-17 16:56 | P.PN_ITS ---
Subjective Subjective: Interval history: No acute overnight events. Patient feels improved compared to yesterday. He has been weaned down to room air today, saturating well. CTA chest without evidence of pulmonary embolism. Dilated ascending aorta 4.3 cm noted no evidence of aortic dissection. Severe centrilobular emphysema in both lungs with pulmonary fibrosis. 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[employer]: no focal neuro deficits Data : 08/17/20 04:15 08/17/20 04:15 Micro: Microbiology 08/16/20 13:30 Blood Culture - Preliminary Blood NEGATIVE TO DATE 08/16/20 13:38 Blood Culture - Preliminary Blood NEGATIVE TO DATE 08/16/20 14:05 Urine Culture - Preliminary Urine,Clean Catch Staphylococcus species A&P Assessment and plan (1) History of left hemicolectomy: Status: Acute (2) UTI (urinary tract infection): Status: Acute (3) Elevated d-dimer: Status: Acute (4) Hypoxia: Status: Acute (5) AMS (altered mental status): Status: Acute Additional A&P Information Patient noted to be hypoxic with O2 sat of 88% on room air, now improved with supplemental oxygen. This morning he was able to be weaned down to room air. Chest x-ray is being read by radiology as bilateral lower lobe infiltrates, CTA chest does not demonstrate any evidence of consolidation. Additionally no PE noted. Bilateral severe emphysematous disease with pulmonary fibrosis is noted. We will do a home oxygen evaluation tomorrow to see if patient is needing oxygen on exertion. Dehydration is improved today, discontinue IV fluids, GI soft diet, add Ensure. No gross signs of fluid overload at this present time Recent history also of urethral injury during surgery, catheter was recently removed by Dr. Pickett. UA is positive, urine culture is showing Staphylococcus species, will await final speciation. Has a recent history of indwelling Wing which was removed on August 08, urine output noted to be 350 cc over last 24 hours, will check bladder scan and assess for urinary retention. Continue Zosyn in the interim COVID-19 rapid antigen is negative, PCR has been sent out,, remains pending at this time DVT prophylaxis Lovenox Full code Attestations Medical Necessity Statement*: Ongoing need for IV antibiotics, urine culture awaiting final identification, plan for discharge in the upcoming 24 to 48 hours if remains afebrile and hemodynamically stable. Coding Level of Care Code Acute Cogeneration Technician for [facility] Fwd Diagnoses History of left hemicolectomy Z90.49 UTI (urinary tract infection) N39.0 Elevated d-dimer R79.89 Hypoxia R09.02 AMS (altered mental status) R41.82
[2020-08-17] MEDS: enoxaparin 30 mg/0.3 mL Syringe SUBCUT (17:57)
[2020-08-17] MEDS: tamsulosin 0.4 mg Capsule PO (18:01)
[2020-08-18] VITALS (9 sets, daily range): BP systolic 100–118; BP diastolic 63–78; PULSE 50–112; RESP 15–18; TEMP 36.3–36.9; O2SAT 82–96
[2020-08-18] MEDS: piperacillin-tazobactam 3.375 GM in sodium chloride 0.9% (plus) 50 ML IV ×2 (05:29→11:47)
[2020-08-18 08:28] LABS: Quest SARS-CoV-2 RNA NOT DETECTED (NOT DETECTED)
[2020-08-18] MEDS: metoprolol tartrate 25 mg Tablet 12.5 MG PO (09:44)
[2020-08-18] MEDS: pantoprazole DR 40 mg Tablet PO (09:45)
--- NOTE | 2020-08-18 11:24 | P.DS_ITS ---
Discharge Providers Date of Admission: 08/16/20 15:10 Date of Discharge: August 18, 2020 Attending Provider at Admission: Kayleigh Cavanaugh MD Attending Provider at Discharge: Kayleigh Cavanaugh MD Primary Care Provider: Renard Elias DO Diagnoses at Discharge Discharge Diagnosis (1) History of left hemicolectomy: Status: Acute (2) UTI (urinary tract infection): Status: Acute (3) Elevated d-dimer: Status: Acute (4) Hypoxia: Status: Acute (5) AMS (altered mental status): Status: Acute Reason for Visit Reason for Visit: confusion Hospital Course Hospital Course Shabbir Galdamez is a 80 year old male with a past medical history significant for gastritis, H pylori infection, and recent adenocarcinoma diagnosis s/p Open left colectomy with long Tanmay's pouch and left sided abdominal distal transverse colostomy placement on 07/23/2020. Course also notable for uretheral injusry on last admission for which he had Wing placed , eventually removed in the office on 08/08. He presented to ER on 08/16/2019 with confusion, family noted his speech to be slurred, upon EMS arrival in ER arrival NIHSS was 0. He was noted to be hypoxic with O2 sat of 88% on room air. This improved with supplementation of 2 to 3 L/min. Chest x-ray was performed in the ER which showed bilateral lower lobe infiltrates. Underwent CTA chest which eventually did not show presence of any PE or consolidation. Bilateral severe emphysematous disease with pulmonary fibrosis is noted, which ccould be the ex planation for hypoxia. He underwent home 02 eval priro to discharge . Urine cx returned with staph epidermidis, unclear significance given tis is a common colonizer, however with recent uretehral trauma and porlonged Wing with + UA, could not exclude cystitis. Patient did not have any urinary retention or dysuria during admission course. Based on susceptibility data, he is being discharged on 4 remaining days of Levofloxacin. He received empiric Zosyn during course of admission, remained afebrile and hemodynamically stable. 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 deficits Discharge Data Data Completed and Pending: Completed Studies During Hospitalization Category Date Time Status CT angio chest PE protcl [id number] Rout ine Cat Scan 08/16/20 17:[address] head wo con* 7 0450 Routine Cat Scan 08/16/20 17:36 Completed XR chest 1V josue ble [id number] Stat Exams 08/16/20 12:53 Completed Pending at discharge Category Date Time Status Blood Culture Sta t Lab 08/16/20 13:38 Results Labs from last 24 hours 08/16/20 15:45 SARS-CoV-2 RNA (RT -PCR) Not detected Vitals: Last Vital Signs Temp 97.3 F L 08/18/20 08:00 Pulse 54 L 08/18/20 08:48 Resp 15 08/18/20 08:48 BP 108/66 08/18/20 08:00 Pulse Ox 96 08/18/20 08:48 Discharge Plan Discharge Patient Disposition: Home Condition: Stable Prescriptions: New levofloxacin 750 mg tablet 750 mg PO DAILY 4 Days RF: 0 Continued budesonide-formoterol [Symbicort] 80-4.5 mcg/actuation HFA aerosol inhaler 2 puff inhalation BID@0900,2100 RF: 0 pantoprazole [Protonix] 40 mg tablet,delayed release (DR/EC) 40 mg PO DAILY 30 Days Qty: 30 RF: 2 metoprolol tartrate 25 mg Tablet 12.5 mg PO BID@0900,2100 Qty: 30 RF: 0 tamsulosin 0.4 mg capsule 0.4 mg PO DAILY@19 RF: 0 Discharge Orders: Discharge Order (Routine); Ordered 08/18/20 Ordered By: Kayleigh Cavanaugh Referrals: Emanuel Pickett MD [Physician] - Discharge Diet: Usual diet and As Directed Discharge Activity: Resume usual activity Patient Instructions: Pneumonia Stoplight, Pneumonia - Viral Discharge Attestations Time Spent in Discharge Care*: greater than 30 min Specific Discharge Activities: educating patient, educating and/or supporting family/caregiver, documenting/other paperwork and evaluating patient/reviewing data Quality Metrics Clinical Quality Measures During this hospital stay, did patient experience: None Coding Level of Care Code Acute Blister Pack Operator for [facility] Fwd Diagnoses History of left hemicolectomy Z90.49 UTI (urinary tract infection) N39.0 Elevated d-dimer R79.89 Hypoxia R09.02 AMS (altered mental status) R41.82
--- NOTE | 2020-08-18 17:36 | PC.NURSE ---
Patient discharged at this time in stable condition. Pt's IV was removed, tip intact, pressure dressing applied. Patient tolerated well. Discharge instruction went over and given to patient and , all questions answered.
--- NOTE | 2020-08-19 14:35 | PC.RESP ---
Pulmonary Rehab information sent to patient.
== END 2020-08-18 17:37 | disposition home or self-care (01) | DRG 690 ==
LOC: ER 13:29 → MEDSURG 16:08
PROVIDERS: Admitting Provider Student in an Organized Health Care Education/Training Program; Emergency Provider Family Medicine; PCP Emergency Medicine Emergency Medical Services; Visit Provider Student in an Organized Health Care Education/Training Program
DX: N39.0 Urinary tract infection, site not specified (principal); C18.5 Malignant neoplasm of splenic flexure; R41.82 Altered mental status, unspecified; K76.9 Liver disease, unspecified; Z90.49 Acquired absence of other specified parts of digestive tract; Z93.3 Colostomy status; D64.9 Anemia, unspecified; Z87.891 Personal history of nicotine dependence; R09.02 Hypoxemia; Z87.01 Personal history of pneumonia (recurrent); E86.0 Dehydration; J43.2 Centrilobular emphysema; J84.10 Pulmonary fibrosis, unspecified; D73.5 Infarction of spleen
CPT/HCPCS: 12345; 36415; 36600; 51798; 70450; 71045; 71275; 80051; 80053; 81001; 82330; 82550; 82805; 83605; 85025; 85378; 87040; 87077; 87086; 87186; 87426; 87635; 94640; 96372; 97161; 99283; J1100; J1650; J1956; J2543; Q9967

== ENCOUNTER 2020-08-26 12:15 | Outpatient (CLI) | payer OTHER, MEDICARE, SELFPAY ==
--- NOTE | 2020-08-26 14:55 | ONC CON_ITS ---
Dr. Willard New Patient Note Patient: Shabbir Galdamez Unit #: [id number]: 1940 Dicatated By: Joshua Willard M.D.Date of Visit: Aug 26, 2020 Onc MED New Patient/Consult Referring Physician: Dr. ISABELLA ZUNIGA M.D. History of Present Illness: Mr. Shabbir Galdamez, is a 80-year-old gentleman with history of progressive constipation underwent colonoscopy on July 01, 2020 which showed in the distal descending colon a partially obstructing large sized fungating, friable, malignant appearing 4 cm x 6 cm mass biopsy was obtained which confirmed invasive adenocarcinoma moderately differentiated and polyps were also removed from rectum showed tubular adenoma. Subsequently on July 23, 2020 patient underwent left colectomy and final pathology report came back moderately differentiated invasive adenocarcinoma tumor size 3.5 cm, tumor invades through muscularis into subserosa. 0 out of 12 lymph node showed metastatic disease and there was no evidence of lymphovascular invasion and perineural invasion, pT3 ,pN0 and CT scan of abdomen done on July 21, 2020 showed there is an indeterminate 11 mm nodule in the right lobe of the liver nonspecific possible metastatic disease., Patient tolerated procedure well, as per family patient was in the hospital for 17 days and he lost about 40 pounds e.g. 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 Patient denies any nausea vomiting, denies any diarrhea or constipation denies any abdominal pain, tolerating orally well now gaining weight. Denies any melena or hematochezia denies any hemoptysis or hematemesis denies any jaundice. History of smoking in the distant past, quit 35 years ago. Past Medical History: Mr. Galdamez's medical history consists of chronic obstructive pulmonary disease and hyperglycemia. Past Surgical History: Mr. Galdamez's surgical/procedural history consists of mitral valve repair. Medications: Pantoprazole Sodium 1 Tablet (of 40 mg) Tablet, enteric coated Oral daily, Symbicort 2 Puff(s) (of 80-4.5 mcg/act) Aerosol Inhalation daily, Tamsulosin HCl 0.5 Tablet (of 0.4 mg) Capsule Oral b.i.d. Allergies: No Known Allergies. Social History: Mr. Galdamez is . Mr. Galdamez no longer smokes. He has no history of drinking. Family History: There is no documented family history. Review Of Symptoms: Constitutional - Appetite is good and weight is declining. No fever, night sweats, or hot flashes. Energy level is fair, ENMT - No sinus congestion/drainage. No mouth sores. No sore throat or difficulty swallowing, Hematologic/Lymphatic - No abnormal bruising or bleeding, Respiratory - Positive for shortness of breath. No cough. No pleuritic pain or hemoptysis, Cardiovascular - No angina pain. No palpitations, Gastrointestinal - No nausea or vomiting. No heartburn or acid reflux. No diarrhea or constipation. No blood in the stool or black stools, Genitourinary (M) - No dysuria or hematuria. Positive for urinary frequency. No urgency or incontinence, Musculoskeletal - Positive for back pain, Neurologic - No headache or dizziness. No numbness or tingling. No other focal neurologic symptoms, Psychiatric - No anxiety or depression. No insomnia. Vital Signs: Performed on Aug 26, 2020 13:55: 0, 15.35 (LOW), 1.60 sq.m, 70 in, 96 %, 69 /min, 16 /min, 122/77 mm(hg), 97.9 F (LOW), and 107 lbs (HIGH). Performance Status: 2 - Ambulatory/capable of all self-care, unable to perform any work activities. Up and about more than 50% of waking hours. (ECOG) Physical Examination: ENMT - No mouth sores no thrush, no jaundice, Respiratory - Lungs are clear to auscultation, Cardiovascular - Regular rate and rhythm of heart, Abdomen - Soft, bowel sounds present, colostomy bag, functioning well, Extremities - No visible edema. Lab/Imaging: Most recent lab results are not available for this patient. 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 Plan: Discussed with patient regarding his disease status and further treatment options, clinically patient has stage IIA disease e.g. (T3, N0) with a favorable features except: Obstruction at the time of presentation and MSI MMR is intact But there was a concern regarding liver lesion seen on the CT scan prior to the surgery, if confirmed then he will upgrade stage to stage IV At this point will consider CT PET scan to assess disease status especially liver lesion and if it shows increased uptake, will consider CT-guided biopsy and then plan accordingly on the other hand if his negative then as per discussion with family, patient being elderly and now with poor performance status due to significant weight loss and not too keen to consider adjuvant chemotherapy, if considered. Patient will return to clinic after CT PET scan with CBC CMP and CEA level and then after reviewing CT PET scan will make further recommendations Patient was advised to continue with a high calorie diet and maintain hydration and avoid public places and maintain social distancing and wear mask to avoid COVID-19. Signed By: Joshua Willard M.D. <<Signature on File>>
== END 2020-08-26 12:16 | disposition home or self-care (01) ==
LOC: ONCMED 12:22
PROVIDERS: PCP Emergency Medicine Emergency Medical Services; Visit Provider Internal Medicine Hematology & Oncology
DX: C18.6 Malignant neoplasm of descending colon (principal); K76.9 Liver disease, unspecified; R63.4 Abnormal weight loss
CPT/HCPCS: 99204

== ENCOUNTER → 2020-09-09 11:14 | Outpatient (BNVA) | payer OTHER, MEDICARE, SELFPAY | PROVIDERS: PCP Emergency Medicine Emergency Medical Services; Visit Provider Urology | DX: N30.90 Cystitis, unspecified without hematuria (principal) | CPT/HCPCS: 81003 ==

== ENCOUNTER 2020-09-13 07:50 | Outpatient (CLI) | payer OTHER, MEDICARE, SELFPAY ==
[2020-09-13 12:17] LABS: Basophils # 0.1 10^3/uL (0.0-0.1); Eosinophils # 0.4 10^3/uL (0.0-0.8); Eosinophils % 4.8 %; Hematocrit 37.6 % (42.0-52.0); Hemoglobin 11.8 g/dL (11.7-16.6); Lymphocytes # 1.9 10^3/uL (0.8-4.8); Lymphocytes % 25.8 %; Mean Corpuscular HGB Conc 31.4 g/dL (30.0-36.0); Mean Corpuscular Hemoglobin 28.6 pg (28.0-34.0); Mean Corpuscular Volume 91.3 fL (80-94); Mean Platelet Volume 9.4 fL (7.4-10.4); Monocytes # 0.7 10^3/uL (0.2-0.9); Monocytes % 9.5 %; Neutrophils # 4.28 10^3/uL (1.8-7.7); Neutrophils % 58.6 %; Nucleated Red Blood Cells % 0 %; Platelet Count 461 10^3/cmm (130-400); Red Blood Count 4.12 10^6/uL (4.1-5.3); Red Cell Distribution Width 15.2 % (12.1-15.1); White Blood Count 7.3 10^3/uL (4.0-10.0)
[2020-09-13 12:42] LABS: Alanine Aminotransferase 27 U/L (0-41); Albumin Level 3.8 g/dL (3.5-5.2); Alkaline Phosphatase 88 IU/L (40-130); Anion Gap 14.5 (5-19); Aspartate Amino Transferase 22 U/L (0-40); Blood Urea Nitrogen 15 mg/dL (8-23); Calcium 9.2 mg/dL (8.5-10.5); Carbon Dioxide 29 mmol/L (22-29); Chloride 100 mmol/L (98-107); Globulin 2.9 g/dL (1.3-4.6); Glucose 174 mg/dL (65-115); Osmolality Calculated 293 mOsm/kg (285-295); Potassium 4.5 mmol/L (3.5-5.1); Sodium 139 mmol/L (136-145); Total Bilirubin 0.3 mg/dL (0.15-1.2); Total Protein 6.7 g/dL (6.6-8.7)
[2020-09-13 13:44] LABS: Carcinoembryonic Antigen 21.8 ng/mL (0.0-4.7)
== END 2020-09-13 07:51 | disposition home or self-care (01) ==
LOC: ONCMED 12:23
PROVIDERS: PCP Emergency Medicine Emergency Medical Services; Visit Provider Internal Medicine Hematology & Oncology
DX: C18.6 Malignant neoplasm of descending colon (principal)
CPT/HCPCS: 80053; 82378; 85025

== ENCOUNTER 2020-09-16 05:37 | Outpatient (CLI) | payer OTHER, MEDICARE, SELFPAY ==
--- NOTE | 2020-09-17 15:00 | ONC FU_ITS ---
Dr. Willard follow up note Patient: Shabbir Galdamez Unit #: [id number]: 1940 Dicatated By: Joshua Willard M.D.Date of Visit:Sep 16, 2020 Onc Med Follow-up/Prog Note History of Present Illness: Mr. Shabbir Galdamez, is a 80-year-old gentleman with history of progressive constipation underwent colonoscopy on July 01, 2020 which showed in the distal descending colon a partially obstructing large sized fungating, friable, malignant appearing 4 cm x 6 cm mass biopsy was obtained which confirmed invasive adenocarcinoma moderately differentiated and polyps were also removed from rectum showed tubular adenoma. Subsequently on July 23, 2020 patient underwent left colectomy and final pathology report came back moderately differentiated invasive adenocarcinoma tumor size 3.5 cm, tumor invades through muscularis into subserosa. 0 out of 12 lymph node showed metastatic disease and there was no evidence of lymphovascular invasion and perineural invasion, pT3 ,pN0 and CT scan of abdomen done on July 21, 2020 showed there is an indeterminate 11 mm nodule in the right lobe of the liver nonspecific possible metastatic disease., Patient tolerated procedure well, as per family patient was in the hospital for 17 days and he lost about 40 pounds e.g. 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 Patient denies any nausea vomiting, denies any diarrhea or constipation denies any abdominal pain, tolerating orally well now gaining weight. Denies any melena or hematochezia denies any hemoptysis or hematemesis denies any jaundice. History of smoking in the distant past, quit 35 years ago .Follow-up CT PET scan done on August 31, 2020 shows a left lower quadrant ostomy colostomy is noted there are at least 4 sites of hepatic metastatic disease or in the right hepatic lobe with a dominant lesion measured 1.6 cm with SUV of 7.7 and CEA level checked on September 13, 2020 was 21.8 Came for follow-up, denies any specific complaints, no fever chills, no nausea or vomiting, no diarrhea or constipation, no abdominal pain, no hemoptysis or hematemesis, no jaundice, no new bony pains. As per , patient is not gaining much weight probably losing too much fluid and stool through colostomy and now considering colostomy reversal and scheduled see Dr. Davidson today. Medications: Lasix 1 Tablet (of 20 mg) Oral b.i.d., Pantoprazole Sodium 1 Tablet (of 40 mg) Tablet, enteric coated Oral daily, Symbicort 2 Puff(s) (of 80-4.5 mcg/act) Aerosol Inhalation daily, Tamsulosin HCl 0.5 Tablet (of 0.4 mg) Capsule Oral b.i.d. Allergies: No Known Allergies. Review of Systems: Constitutional - Appetite is fair and weight is declining. No fever, night sweats, or hot flashes. Energy level is fair, ENMT - No sinus congestion/drainage. No mouth sores. No sore throat or difficulty swallowing, Hematologic/Lymphatic - No abnormal bruising or bleeding, Respiratory - Positive for shortness of breath. No cough. No pleuritic pain or hemoptysis, Cardiovascular - No angina pain. No palpitations, Gastrointestinal - No nausea or vomiting. No heartburn or acid reflux. No diarrhea or constipation. No blood in the stool or black stools, Genitourinary (M) - No dysuria or hematuria. Positive for urinary frequency. No urgency or incontinence, Musculoskeletal - Positive for back pain, Neurologic - No headache or dizziness. No numbness or tingling. No other focal neurologic symptoms, Psychiatric - No anxiety or depression. No insomnia. Vital Signs: Performed on Sep 16, 2020 08:47 Height - 70.00 in Weight - 110.6 lbs (HIGH) BSA - 1.62 sq.m BMI - 15.87 (LOW) Temperature - 98 F (LOW) Pulse - 87 /min Respiration - 18 /min BP - 103/59 mm(hg) O2 Sat - 97 % Pain - 0 Fatigue - 6 Performance Status: 2 - Ambulatory/capable of all self-care, unable to perform any work activities. Up and about more than 50% of waking hours. (ECOG) Physical Examination: ENMT - No mouth sores, no thrush, no jaundice, Respiratory - Lungs are clear to auscultation, Cardiovascular - Regular rate and rhythm of heart, Abdomen - Soft, bowel sounds present, colostomy bag functioning fine, Extremities - No visible edema. Lab/Imaging: Most recent lab results are not available for this patient. 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 status post left colectomy done on July 23, 2020 showed 3.5 cm mass in the descending colon, moderately differentiated, tumor invades through muscularis propria into pericolorectal tissue, pT3, 12 lymph nodes were examined, 0 lymph node showed metastatic disease pN0, CT scan of abdomen done on July 21, 2020 showed 11 mm nodule in the right lobe of the liver, nonspecific, possible metastasis and there is simple hepatic cyst in the left lobe.Subsequently underwent CT PET scan on August 31, 2020 which showed at least 4 sites of hepatic metastatic disease present, all in the right hepatic lobe and dominant lesion 1.6 cm with SUV of 7.7 CEA checked on September 13, 2020 was 21.8 Clinically consistent with metastatic colon cancer e.g. stage IV Plan: Discussed with patient and his regarding his labs white blood count 7.3 hemoglobin 11.8 hematocrit 37.6 platelets 461,000 CMP within normal limits except glucose 174 and CEA 21.[address] PET scan done on August 31, 2020 showed at least 4 sites of hepatic metastatic disease all in the right hepatic lobe Clinically, patient is doing well, now recovering, more energetic, still not gaining weight, is considering colostomy reversal and she will talk to surgeon this morning. His CT PET scan showed multifocal liver mets with CEA being 21.8, clinically it appears patient has metastatic colorectal cancer but recently done left colectomy and 12 lymph nodes showed no involvement of lymph nodes so concern was whether patient has second primary with mets to the liver but CT PET scan shows no abnormality anywhere else except in the liver. Case was discussed with Dr. Davidson, as patient is considering colostomy reversal and if bladder biopsy is possible during the procedure, as per Dr. Davidson I did see some abnormality on the CT scan of abdomen prior to surgery but during surgery he did not feel any lesion in the liver. Moreover because of patient's poor performance status, he is not considering colostomy reversal but he will discuss with patient. In the meantime we will check MSI/MMR status, if intact, Will consider oral Xeloda 2 weeks on 1 week off and repeat scan after 4 cycles , patient to think about and he will return to clinic in 1 week for further discussion. All the side effects possible benefits associated with Xeloda were discussed briefly including but not limited to bone marrow suppression, mouth sores, jaundice, diarrhea, hand-foot syndrome were mentioned. Signed By: Joshua Willard M.D. <<Signature on File>>
== END 2020-09-16 05:38 | disposition home or self-care (01) ==
LOC: ONCMED 05:38
PROVIDERS: PCP Emergency Medicine Emergency Medical Services; Visit Provider Internal Medicine Hematology & Oncology
DX: C18.6 Malignant neoplasm of descending colon (principal); C78.7 Secondary malignant neoplasm of liver and intrahepatic bile duct; Z90.49 Acquired absence of other specified parts of digestive tract
CPT/HCPCS: 99214

== ENCOUNTER → 2020-09-23 09:49 | Outpatient (BNVA) | payer OTHER, MEDICARE, SELFPAY | PROVIDERS: PCP Emergency Medicine Emergency Medical Services; Visit Provider Internal Medicine Hematology & Oncology | DX: C18.6 Malignant neoplasm of descending colon (principal) | CPT/HCPCS: 80053; 85025 ==

== ENCOUNTER 2020-09-25 05:50 | Outpatient (CLI) | payer OTHER, MEDICARE, SELFPAY ==
--- NOTE | 2020-09-25 13:46 | ONC FU_ITS ---
Dr. Willard follow up note Patient: Shabbir Galdamez Unit #: [id number]: 1940 Dicatated By: Joshua Willard M.D.Date of Visit:Sep 25, 2020 Onc Med Follow-up/Prog Note History of Present Illness: Mr. Shabbir Galdamez, is a 80-year-old gentleman with history of progressive constipation underwent colonoscopy on July 01, 2020 which showed in the distal descending colon a partially obstructing large sized fungating, friable, malignant appearing 4 cm x 6 cm mass biopsy was obtained which confirmed invasive adenocarcinoma moderately differentiated and polyps were also removed from rectum showed tubular adenoma. Subsequently on July 23, 2020 patient underwent left colectomy and final pathology report came back moderately differentiated invasive adenocarcinoma tumor size 3.5 cm, tumor invades through muscularis into subserosa. 0 out of 12 lymph node showed metastatic disease and there was no evidence of lymphovascular invasion and perineural invasion, pT3 ,pN0 and CT scan of abdomen done on July 21, 2020 showed there is an indeterminate 11 mm nodule in the right lobe of the liver nonspecific possible metastatic disease., Patient tolerated procedure well, as per family patient was in the hospital for 17 days and he lost about 40 pounds e.g. 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 Patient denies any nausea vomiting, denies any diarrhea or constipation denies any abdominal pain, tolerating orally well now gaining weight. Denies any melena or hematochezia denies any hemoptysis or hematemesis denies any jaundice. History of smoking in the distant past, quit 35 years ago .Follow-up CT PET scan done on August 31, 2020 shows a left lower quadrant ostomy colostomy is noted there are at least 4 sites of hepatic metastatic disease or in the right hepatic lobe with a dominant lesion measured 1.6 cm with SUV of 7.7 and CEA level checked on September 13, 2020 was 21.8 Discussed with patient via telephone, patient denies any specific complaints, no nausea or vomiting no diarrhea or constipation, no abdominal pain, no jaundice, no fever chills, appetite is good, no melena or hematochezia. Medications: Lasix 1 Tablet (of 20 mg) Oral b.i.d., Pantoprazole Sodium 1 Tablet (of 40 mg) Tablet, enteric coated Oral daily, Symbicort 2 Puff(s) (of 80-4.5 mcg/act) Aerosol Inhalation daily, Tamsulosin HCl 0.5 Tablet (of 0.4 mg) Capsule Oral b.i.d. Allergies: No Known Allergies. Review of Systems: Review of Systems is not available for this patient. Vital Signs: Vitals are not available for this patient. Performance Status: 2 - Ambulatory/capable of all self-care, unable to perform any work activities. Up and about more than 50% of waking hours. (ECOG) Physical Examination: ENMT - Patient denies any mouth sores thrush or jaundiceSinuses are nontender. No oral exudates, ulcers, masses, thrush or mucositis. Oropharynx clear. Tongue normal, Respiratory - Patient denies any shortness of breath or wheezing, Cardiovascular - Patient denies any palpitation, Abdomen - Denies any abdominal pain, Extremities - Denies any lower extremity edema. Lab/Imaging: Most recent lab results are not available for this patient. 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 status post left colectomy done on July 23, 2020 showed 3.5 cm mass in the descending colon, moderately differentiated, tumor invades through muscularis propria into pericolorectal tissue, pT3, 12 lymph nodes were examined, 0 lymph node showed metastatic disease pN0, CT scan of abdomen done on July 21, 2020 showed 11 mm nodule in the right lobe of the liver, nonspecific, possible metastasis and there is simple hepatic cyst in the left lobe.Subsequently underwent CT PET scan on August 31, 2020 which showed at least 4 sites of hepatic metastatic disease present, all in the right hepatic lobe and dominant lesion 1.6 cm with SUV of 7.7 CEA checked on September 13, 2020 was 21.8 Clinically consistent with metastatic colon cancer e.g. stage IV Plan: Discussed with patient regarding his MSI/MMR report result came back intact expression, in that case, considering patient's performance status and comorbid condition, we can try oral Xeloda, will modify dose to 850 mg per metered squared twice daily 14 days on and repeat every 21 days, will follow with CEA level and CBC CMP after each cycle and consider follow-up CT PET scan after 3-4 cycles to assess the response, if there is no response, will consider liver biopsy, hopefully by that time patient's overall performance status may improve too., Will obtain approval from his insurance prior to the treatment,'s all the side effects possible benefits associated with oral Xeloda were discussed in detail previously and mention again further teaching will done by chemotherapy nurse prior to the treatment. Patient will return to clinic 2 weeks after initiation of Xeloda with CBC CMP. Signed By: Joshua Willard M.D. <<Signature on File>>
== END 2020-09-25 05:51 | disposition home or self-care (01) ==
LOC: ONCMED 05:52
PROVIDERS: PCP Emergency Medicine Emergency Medical Services; Visit Provider Internal Medicine Hematology & Oncology
DX: C18.6 Malignant neoplasm of descending colon (principal); C78.7 Secondary malignant neoplasm of liver and intrahepatic bile duct; Z79.899 Other long term (current) drug therapy
CPT/HCPCS: 99215

== ENCOUNTER 2020-10-07 05:43 | Outpatient (CLI) | payer OTHER, MEDICARE, SELFPAY ==
[2020-10-07 15:58] LABS: Basophils # 0.1 10^3/uL (0.0-0.1); Eosinophils # 0.3 10^3/uL (0.0-0.8); Eosinophils % 4.2 %; Hematocrit 36.8 % (42.0-52.0); Hemoglobin 11.7 g/dL (11.7-16.6); Lymphocytes % 24.1 %; Mean Corpuscular HGB Conc 31.8 g/dL (30.0-36.0); Mean Corpuscular Hemoglobin 28.3 pg (28.0-34.0); Mean Corpuscular Volume 88.9 fL (80-94); Mean Platelet Volume 9.1 fL (7.4-10.4); Monocytes # 1.1 10^3/uL (0.2-0.9); Monocytes % 13.1 %; Neutrophils # 4.63 10^3/uL (1.8-7.7); Neutrophils % 57.1 %; Nucleated Red Blood Cells % 0 %; Platelet Count 389 10^3/cmm (130-400); Red Blood Count 4.14 10^6/uL (4.1-5.3); Red Cell Distribution Width 14.8 % (12.1-15.1); White Blood Count 8.1 10^3/uL (4.0-10.0)
[2020-10-07 16:29] LABS: Alanine Aminotransferase 38 U/L (0-41); Albumin Level 3.8 g/dL (3.5-5.2); Alkaline Phosphatase 138 IU/L (40-130); Anion Gap 13.2 (5-19); Aspartate Amino Transferase 37 U/L (0-40); Blood Urea Nitrogen 21 mg/dL (8-23); Calcium 9.1 mg/dL (8.5-10.5); Carbon Dioxide 28 mmol/L (22-29); Chloride 100 mmol/L (98-107); Globulin 3.1 g/dL (1.3-4.6); Glucose 82 mg/dL (65-115); Osmolality Calculated 286 mOsm/kg (285-295); Potassium 4.2 mmol/L (3.5-5.1); Sodium 137 mmol/L (136-145); Total Bilirubin 0.2 mg/dL (0.15-1.2); Total Protein 6.9 g/dL (6.6-8.7)
--- NOTE | 2020-10-13 19:28 | ONC FU_ITS ---
[facility] Patient Note Patient: Shabbir Galdamez Unit #: [id number]: [id number] Dictated By: Alexandro PiresDate of Visit: Oct 07, 2020 Onc MED Follow-Up/Prog Note Chief Complaint: Colon cancer History of Present Illness: Mr. Galdamez is a 80-year-old gentleman with history of progressive constipation. He underwent colonoscopy on July 01, 2020 which showed a partially obstructing large sized fungating, friable, malignant appearing 4 cm x 6 cm mass in the distal descending colon. A biopsy was obtained which confirmed invasive adenocarcinoma moderately differentiated. Polyps were also removed from rectum showed tubular adenoma. Subsequently on July 23, 2020 patient underwent left colectomy. The final pathology report reported moderately differentiated invasive adenocarcinoma. The tumor size was 3.5 cm and invaded through muscularis into subserosa. 0 out of 12 lymph node showed metastatic disease and there was no evidence of lymphovascular invasion and perineural invasion, pT3 ,pN0. CT scan of abdomen done on July 21, 2020 showed there is an indeterminate 11 mm nodule in the right lobe of the liver, nonspecific possible metastatic disease. His family reported that he was in the hospital for 17 days and he lost about 40 pounds (e.g. from 147 pounds prior to admission about 107 pounds at the time of discharge). 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 He has had assistance with care of the colostomy by home health. History of smoking in the distant past, quit 35 years ago A follow-up PET/CT on August 31, 2020 reported a left lower quadrant ostomy. It was noted there were at least 4 sites of hepatic metastatic disease, all in the right hepatic lobe with a dominant lesion measured 1.6 cm with SUV of 7.7 and CEA level checked on September 13, 2020 was 21.8. Mr Galdamez is here today for follow-up. Given the PET CT findings from August 31, 2020. Is been recommended that he pursue treatment with capecitabine/Xeloda. He is here today to initiate his first cycle. He is accompanied by his . He denies any new concerns today. He has been gaining weight since his last visit. He has gained 7.4 pounds by our scales. He states that he is eating better and his states that she has been really working with him trying to get him to gain weight. His normal weight is typically around 140-150. He states he continues to have problems changing his colostomy bag as his left shoulder is locked up and he has limited range of motion. He states he cannot reach the ostomy bag to change it properly and cannot get it sealed so that is not leak. Mrs. Galdamez verbalizes no intent on helping or maintaining the ostomy or assisting him with the bag. She states that is why the nurses from [facility] come out and its not her job to deal with the ostomy that is what insurance is for . She is very active and caring for him otherwise and that she is working with him with his nutrition and encouraging mild exercise/limited to getting up and moving around the house and in the yard when weather is appropriate. He states that he has had no concerns with the ostomy other than the care and applying the bag. He does have generalized weakness and his mobility is still limited and that he requires assistance from his to do difficult activities of daily living and he is not able to drive or get himself to the car without assistance. He denies any fever or chills. He denies mouth sores, sore throat or difficulty swallowing. He said no skin changes. He denies any loose or frequent stools and that he does not to change the bag any more than what has been normal for him since discharge. He denies any lower extremity edema. He denies any current pain. His ECOG is 2-3. Past Medical History: Chronic obstructive pulmonary disease Hyperglycemia Past Surgical History: Mitral valve repair Allergies: No Known Allergies. Medications: Lasix 1 Tablet (of 20 mg) Oral b.i.d. Pantoprazole Sodium 1 Tablet (of 40 mg) Tablet, enteric coated Oral daily Symbicort 2 Puff(s) (of 80-4.5 mcg/act) Aerosol Inhalation daily Tamsulosin HCl 0.5 Tablet (of 0.4 mg) Capsule Oral b.i.d. Family History: Social History: Mr. Galdamez is . Mr. Galdamez no longer smokes. He has no history of drinking. Review Of Symptoms: Constitutional Denies fevers, chills, night sweats, excessive fatigue or recent weight loss. Allergic/Immunologic No reactions. Eyes Denies significant visual changes. No diplopia. No amaurosis. ENMT Denies changes in hearing, sore throat, mouth sores, difficulty or changes in swallowing ability, and/or sinus drainage. Hematologic/Lymphatic Denies easy bruising or bleeding. The patient denies any tender or palpable lymph nodes. Respiratory Denies dyspnea on exertion, chest pain, cough or hemoptysis. Denies orthopnea. Cardiovascular Denies anginal chest pain, palpitations or orthopnea. Gastrointestinal Denies nausea, vomiting, diarrhea, GI bleeding, or constipation. Denies change in bowel habits and/or stool color, no heartburn or early satiety. He describes difficulty obtaining a good seal with his colostomy due to limited shoulder/arm motion on the left side. Genitourinary (M) Denies hematuria, dysuria, increased frequency, urgency, hesitancy or incontinence. Musculoskeletal Denies joint pain, swelling or redness. No decreased range of motion. Integumentary Denies chronic rashes, inflammation, ulcerations or skin changes. Neurologic Denies headache, blurred vision, and no areas of focal weakness or numbness. Normal gait. No sensory problems. Psychiatric Denies insomnia, depression, joel or mood swings. Vital Signs: Performed on Oct 07, 2020 14:09 Height - 70.00 in Weight - 118 lbs (HIGH) BSA - 1.67 sq.m BMI - 16.93 (LOW) Temperature - 98.0 F (LOW) Pulse - 94 /min Respiration - 17 /min BP - 123/66 mm(hg) O2 Sat - 96 % Pain - 0,2 - Ambulatory/capable of all self-care, unable to perform any work activities. Up and about more than 50% of waking hours. (ECOG) Physical Examination: Constitutional Alert, oriented, no acute distress. Skin pink, warm and dry. Head Normocephalic; atraumatic. Eyes Conjunctivae and sclerae are clear and without icterus. Pupils are reactive and equal. ENMT No oral exudates, ulcers, masses, thrush or mucositis. Oropharynx clear. Tongue normal. Hematologic/Lymphatic No petechiae or purpura. Respiratory Lungs are clear to auscultation without rhonchi or wheezing. Cardiovascular Regular rate and rhythm of heart without murmurs,clicks, gallops or rubs. Abdomen Non-tender, non-distended, no masses or ascites. Good bowel sounds noted in all quads. No guarding or rebound tenderness. No pulsatile masses. Back/Spine Non-tender to palpation. Extremities No visible deformities, no cyanosis, clubbing or edema. Musculoskeletal No tenderness or swelling, normal range of motion without obvious weakness. Integumentary No rashes or lesions. Neurologic No sensory or motor deficits, normal cerebellar function, slow gait. Psychiatric Alert and oriented times three. Coherent speech. Verbalizes understanding of our discussions today. Laboratory:Test performed on Oct 07, 2020 15:36 Sodium 137 mmol/L Potassium 4.2 mmol/L Chloride 100 mmol/L CO2 28 mmol/L Anion Gap 13.2 BUN 21 mg/dL Creatinine 0.7 mg/dL Cr Clearance (Est) 65.8400 mL/min Glucose 82 mg/dL Osmolality - Calculated 286 mOsm/kg Calcium 9.1 mg/dL Protein, Total 6.9 g/dL Albumin 3.8 g/dL Globulin 3.1 g/dL Bilirubin, Total 0.2 mg/dL ALT (SGPT) 38 U/L AST (SGOT) 37 U/L Alkaline Phosphatase 138 IU/L WBC 8.1 10 3/uL RBC 4.14 10 6/uL HGB 11.7 g/dL HCT 36.8 % MCV 88.9 fL MCH 28.3 pg MCHC 31.8 g/dL RDW 14.8 % Platelet Count 389 10 3/cmm MPV 9.1 fL Neutrophils 4.63 10 3/uL Lymphocytes 2.0 10 3/uL Monocytes 1.1 10 3/uL Eosinophils 0.3 10 3/uL Basophils 0.1 10 3/uL Neutrophil % 57.1 % Lymphocyte % 24.1 % Monocyte % 13.1 % Eosinophil % 4.2 % Basophils % 1.0 % NRBC % 0 % CEA 142.0 ng/mL 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 status post left colectomy done on July 23, 2020 showed 3.5 cm mass in the descending colon, moderately differentiated, tumor invades through muscularis propria into pericolorectal tissue, pT3, 12 lymph nodes were examined, 0 lymph node showed metastatic disease pN0, CT scan of abdomen done on July 21, 2020 showed 11 mm nodule in the right lobe of the liver, nonspecific, possible metastasis and there is simple hepatic cyst in the left lobe.Subsequently underwent CT PET scan on August 31, 2020 which showed at least 4 sites of hepatic metastatic disease present, all in the right hepatic lobe and dominant lesion 1.6 cm with SUV of 7.7 CEA checked on September 13, 2020 was 21.8 Clinically consistent with metastatic colon cancer e.g. stage IV Plan: PROBLEMS ADDRESSED TODAY 1. Metastatic colon cancer-moderately differentiated invasive adeno carcinoma involving the left descending colon status post left colectomy on 07/23/2020 with hepatic metastatic disease noted on PET CT August 31, 2020. Was all noted to be in the right hepatic lobe. A. His MSI/MMR report was noted to be intact expression therefore he has been offered oral chemotherapy with capecitabine/Xeloda at 150 mg per metered squared twice daily for 14 days on and [address] Willard's note indicates that he will plan for PET/CT follow-up after 3-4 cycles of the capecitabine to assess improvement. C. We will plan for Mr. Galdamez to start the Xeloda at 1300 mg twice daily for 14 days on 7 days off. He will start this tomorrow on October 08. D. The patient and family were informed of chemotherapy plan and specific drugs were discussed. We also discussed how chemotherapy works and identified common side effects including alopecia; myelosuppression-including neutropenia, anemia, thrombocytopenia; peripheral neuropathy; fatigue; nausea; diarrhea; constipation; bleeding or bruising; skin changes-rash/dryness; mouth sores; drug hypersensitivity/allergic reactions or anaphylaxis and increased risk of blood clots. They have also been informed how to contact the clinic with side effects or symptoms, including but not limited to fever greater than 100.4???, chills, sore throat, bleeding or bruising that is not explained or mouth sores, cough, nasal discharge, diarrhea, constipation, nausea and/or vomiting not relieved with medications on hand at home, as well as any other concern or question they may have. Our hours are 8:00 a.m. to 4:30 p.m. on Wednesday through and 8-12:00 on Wednesday. However, someone is oncology pharmacist 24 hours per day and they have been advised to contact the [facility] at if it is after hours. We have also discussed potential long-term side effects of chemotherapy including secondary cancers, infertility, pulmonary complications, cardiac complications, and again peripheral neuropathy. We have discussed that they certainly need to let us know before taking any antioxidants or herbal or further dietary supplements, as we are unsure of how these agents react with chemotherapy and we request that they avoid these products for now. They were informed that it is okay to take multivitamins at normal doses. They verbally state that they understand to take all medications as directed by their healthcare provider unless otherwise indicated. Instructions for oral care with baking soda and salt water rinses as well as a guide for use of [id number] medication were provided with the treatment plan. They have been given a written patient treatment plan, of which a copy is in the chart, as well as specific drug information. They have no questions and verbalized understanding and are willing to proceed with chemotherapy at this time. E. He was given authorization for temporary disabled license plate as he cannot walk more than 50 feet due to deconditioning and shortness of breath. He is stil recovering slowly from his colectomy and significant weight loss in July 2020. 2. Followup Plan: A. I requested the assistance of home health to draw weekly CBC CMP in the home as his mobility is limited. Would also like weekly weights if possible for persistent weight loss and nutrition monitoring. He may benefit from physical therapy if agreeable to help improve his generalized weakness. At 's request I have asked for ostomy bag changed twice weekly as she has made it clear that she has no intent on learning or assisting him with this task. B. We will ask for him for follow-up in 3 weeks with CBC CMP. He will need a CEA with that visit as well. I did ask for baseline labs today to include a CBC CMP and a CEA. This was obtained after his visit. C. Mr. and Mrs.Plomteaux were encouraged to contact us in the interim should questions or problems arise. D. He was given nutritional supplementation with Ensure today due to his nutritional deficit. He is slowly regaining his weight loss during his recent surgery from July 2020. The majority of this visit was spent in face to face communication with this patient and/or his/her family in regards to plan of care, side effect identification and management but also included review of patient record's prior to the appointment; creating treatment plan education packet and post visit documentation. Time spent with the patient, his and as noted above was greater than 60 minutes. Signed By: Alexandro Pires-, AOCNP Joshua Willard MD <<Signature on File>>
== END 2020-10-07 05:44 | disposition home or self-care (01) ==
LOC: ONCMED 05:45
PROVIDERS: PCP Emergency Medicine Emergency Medical Services; Visit Provider Nurse Practitioner
DX: C18.6 Malignant neoplasm of descending colon (principal); C78.7 Secondary malignant neoplasm of liver and intrahepatic bile duct; R63.4 Abnormal weight loss; R06.02 Shortness of breath; Z90.49 Acquired absence of other specified parts of digestive tract; Z79.899 Other long term (current) drug therapy; Z87.891 Personal history of nicotine dependence; Z98.890 Other specified postprocedural states
CPT/HCPCS: 36415; 80053; 82378; 85025; 99215

== ENCOUNTER 2020-10-15 11:58 | Outpatient (CLI) | payer OTHER, MEDICARE, SELFPAY ==
[2020-10-15 16:03] LABS: Basophils # 0.1 10^3/uL (0.0-0.1); Basophils % 0.7 %; Eosinophils # 0.4 10^3/uL (0.0-0.8); Eosinophils % 3.4 %; Hematocrit 36.8 % (42.0-52.0); Hemoglobin 11.8 g/dL (11.7-16.6); Lymphocytes # 2.2 10^3/uL (0.8-4.8); Lymphocytes % 20.6 %; Mean Corpuscular HGB Conc 32.1 g/dL (30.0-36.0); Mean Corpuscular Hemoglobin 28.7 pg (28.0-34.0); Mean Corpuscular Volume 89.5 fL (80-94); Mean Platelet Volume 9.6 fL (7.4-10.4); Monocytes # 1.2 10^3/uL (0.2-0.9); Monocytes % 11.5 %; Neutrophils # 6.72 10^3/uL (1.8-7.7); Neutrophils % 63.1 %; Nucleated Red Blood Cells % 0 %; Platelet Count 454 10^3/cmm (130-400); Red Blood Count 4.11 10^6/uL (4.1-5.3); Red Cell Distribution Width 14.9 % (12.1-15.1); White Blood Count 10.6 10^3/uL (4.0-10.0)
[2020-10-15 16:59] LABS: Alanine Aminotransferase 25 U/L (0-41); Albumin Level 3.8 g/dL (3.5-5.2); Alkaline Phosphatase 122 IU/L (40-130); Anion Gap 14.3 (5-19); Aspartate Amino Transferase 29 U/L (0-40); Blood Urea Nitrogen 17 mg/dL (8-23); Calcium 8.7 mg/dL (8.5-10.5); Carbon Dioxide 27 mmol/L (22-29); Chloride 98 mmol/L (98-107); Globulin 2.9 g/dL (1.3-4.6); Glucose 71 mg/dL (65-115); Osmolality Calculated 280 mOsm/kg (285-295); Potassium 4.3 mmol/L (3.5-5.1); Sodium 135 mmol/L (136-145); Total Bilirubin 0.3 mg/dL (0.15-1.2); Total Protein 6.7 g/dL (6.6-8.7)
== END 2020-10-15 11:59 | disposition home or self-care (01) ==
LOC: ONCMED 10-16 08:02
PROVIDERS: PCP Emergency Medicine Emergency Medical Services; Visit Provider Nurse Practitioner
DX: C18.6 Malignant neoplasm of descending colon (principal); C78.7 Secondary malignant neoplasm of liver and intrahepatic bile duct
CPT/HCPCS: 80053; 85025

== ENCOUNTER 2020-10-28 05:24 | Outpatient (RCR) | payer OTHER, MEDICARE, SELFPAY ==
[2020-10-24 09:59] LABS: Basophils # 0.1 10^3/uL (0.0-0.1); Eosinophils # 0.4 10^3/uL (0.0-0.8); Eosinophils % 4.3 %; Hematocrit 35.9 % (42.0-52.0); Hemoglobin 11.6 g/dL (11.7-16.6); Lymphocytes # 1.8 10^3/uL (0.8-4.8); Lymphocytes % 20.6 %; Mean Corpuscular HGB Conc 32.3 g/dL (30.0-36.0); Mean Corpuscular Hemoglobin 29.1 pg (28.0-34.0); Mean Corpuscular Volume 90.2 fL (80-94); Mean Platelet Volume 9.2 fL (7.4-10.4); Monocytes % 11.2 %; Neutrophils # 5.44 10^3/uL (1.8-7.7); Nucleated Red Blood Cells % 0 %; Platelet Count 457 10^3/cmm (130-400); Red Blood Count 3.98 10^6/uL (4.1-5.3); Red Cell Distribution Width 16.2 % (12.1-15.1); White Blood Count 8.8 10^3/uL (4.0-10.0)
[2020-10-24 10:30] LABS: Alanine Aminotransferase 17 U/L (0-41); Albumin Level 3.7 g/dL (3.5-5.2); Alkaline Phosphatase 96 IU/L (40-130); Anion Gap 11.5 (5-19); Aspartate Amino Transferase 20 U/L (0-40); Blood Urea Nitrogen 15 mg/dL (8-23); Carbon Dioxide 28 mmol/L (22-29); Chloride 98 mmol/L (98-107); Globulin 2.7 g/dL (1.3-4.6); Glucose 104 mg/dL (65-115); Osmolality Calculated 279 mOsm/kg (285-295); Potassium 3.5 mmol/L (3.5-5.1); Sodium 134 mmol/L (136-145); Total Bilirubin 0.3 mg/dL (0.15-1.2); Total Protein 6.4 g/dL (6.6-8.7)
--- NOTE | 2020-10-28 16:42 | ONC FU_ITS ---
Dr. Willard follow up note Patient: Shabbir Galdamez Unit #: [id number]: 1940 Dicatated By: Joshua Willard M.D.Date of Visit:Oct 28, 2020 Onc Med Follow-up/Prog Note History of Present Illness: Mr. Galdamez is a 80-year-old gentleman with history of progressive constipation. He underwent colonoscopy on July 01, 2020 which showed a partially obstructing large sized fungating, friable, malignant appearing 4 cm x 6 cm mass in the distal descending colon. A biopsy was obtained which confirmed invasive adenocarcinoma moderately differentiated. Polyps were also removed from rectum showed tubular adenoma. Subsequently on July 23, 2020 patient underwent left colectomy. The final pathology report reported moderately differentiated invasive adenocarcinoma. The tumor size was 3.5 cm and invaded through muscularis into subserosa. 0 out of 12 lymph node showed metastatic disease and there was no evidence of lymphovascular invasion and perineural invasion, pT3 ,pN0. CT scan of abdomen done on July 21, 2020 showed there is an indeterminate 11 mm nodule in the right lobe of the liver, nonspecific possible metastatic disease. His family reported that he was in the hospital for 17 days and he lost about 40 pounds (e.g. from 147 pounds prior to admission about 107 pounds at the time of discharge). 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 He has had assistance with care of the colostomy by home health. History of smoking in the distant past, quit 35 years ago A follow-up PET/CT on August 31, 2020 reported a left lower quadrant ostomy. It was noted there were at least 4 sites of hepatic metastatic disease, all in the right hepatic lobe with a dominant lesion measured 1.6 cm with SUV of 7.7 and CEA level checked on September 13, 2020 was 21.8. Given the PET CT findings from August 31, 2020. Is been recommended that he pursue treatment with capecitabine/Xeloda. Which was started on October 08, 2020 and completed first cycle on October 22, 2020 Came for follow-up, denies any specific complaints, no fever chills, no nausea or vomiting, no diarrhea or constipation, no mouth sores, no skin rash, no jaundice, no diarrhea, no discomfort or no palm or sole skin changes. Tolerated first cycle of oral Xeloda for 2 weeks well completed on October 22, 2020 and now due for second to weekly oral Xeloda cycle in the morning Medications: Pantoprazole Sodium 1 Tablet (of 40 mg) Tablet, enteric coated Oral daily, Symbicort 2 Puff(s) (of 80-4.5 mcg/act) Aerosol Inhalation daily Allergies: No Known Allergies. Review of Systems: Review of Systems is not available for this patient. Vital Signs: Performed on Oct 28, 2020 12:44 Height - 70.00 in Weight - 122 lbs (HIGH) BSA - 1.69 sq.m BMI - 17.51 (LOW) Temperature - 99.0 F (HIGH) Pulse - 92 /min Respiration - 18 /min BP - 112/66 mm(hg) O2 Sat - 97 % Pain - 0 Performance Status: 1 - No physically strenuous activity, but ambulatory and able to carry out light or sedentary work (e.g. office work, light house work). (ECOG) Physical Examination: ENMT - No mouth sores, no thrush, no jaundice, Respiratory - Lungs are clear to auscultation, Cardiovascular - Regular rate and rhythm of heart, Abdomen - Soft, bowel sounds present, Extremities - No visible edema. Lab/Imaging: Test performed on Oct 24, 2020 07:57 Sodium 134 mmol/L Potassium 3.5 mmol/L Chloride 98 mmol/L CO2 28 mmol/L Anion Gap 11.5 BUN 15 mg/dL Creatinine 0.6 mg/dL Cr Clearance (Est) 76.8200 mL/min Glucose 104 mg/dL Osmolality - Calculated 279 mOsm/kg Calcium 9.0 mg/dL Protein, Total 6.4 g/dL Albumin 3.7 g/dL Globulin 2.7 g/dL Bilirubin, Total 0.3 mg/dL ALT (SGPT) 17 U/L AST (SGOT) 20 U/L Alkaline Phosphatase 96 IU/L WBC 8.8 10 3/uL RBC 3.98 10 6/uL HGB 11.6 g/dL HCT 35.9 % MCV 90.2 fL MCH 29.1 pg MCHC 32.3 g/dL RDW 16.2 % Platelet Count 457 10 3/cmm MPV 9.2 fL Neutrophils 5.44 10 3/uL Lymphocytes 1.8 10 3/uL Monocytes 1.0 10 3/uL Eosinophils 0.4 10 3/uL Basophils 0.1 10 3/uL Neutrophil % 62.0 % Lymphocyte % 20.6 % Monocyte % 11.2 % Eosinophil % 4.3 % Basophils % 1.0 % NRBC % 0 % Test performed on Oct 07, 2020 15:36 CEA 142.0 ng/mL 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 status post left colectomy done on July 23, 2020 showed 3.5 cm mass in the descending colon, moderately differentiated, tumor invades through muscularis propria into pericolorectal tissue, pT3, 12 lymph nodes were examined, 0 lymph node showed metastatic disease pN0, CT scan of abdomen done on July 21, 2020 showed 11 mm nodule in the right lobe of the liver, nonspecific, possible metastasis and there is simple hepatic cyst in the left lobe.Subsequently underwent CT PET scan on August 31, 2020 which showed at least 4 sites of hepatic metastatic disease present, all in the right hepatic lobe and dominant lesion 1.6 cm with SUV of 7.7 CEA checked on September 13, 2020 was 21.8 Clinically consistent with metastatic colon cancer e.g. stage IV Started on oral Xeloda 2 weeks on 1 week off on October 08, 2020, CEA checked on October 07, 2020 was 142 compared to 21.8 on September 13, 2020 Plan: Discussed with patient regarding his labs white blood count 8.8 hemoglobin 11.6 hematocrit 35.9 platelets 457,000 CMP within normal limits except sodium 134 Clinically, patient is doing well, with no new signs symptoms, tolerated first cycle of 2 weekly oral Xeloda well. His blood counts including CBC CMP 1 week after completion of first cycle of oral Xeloda is in desirable range, patient was advised to start his second 2 weekly oral Xeloda cycle in the morning. And then we will see him back in 3 weeks with CBC CMP and CEA Signed By: Joshua Willard M.D. <<Signature on File>>
== END 2020-11-13 23:59 | disposition home or self-care (01) ==
LOC: ONCMED 05:24
PROVIDERS: Nurse Practitioner; PCP Emergency Medicine Emergency Medical Services; Visit Provider Internal Medicine Hematology & Oncology
DX: C18.6 Malignant neoplasm of descending colon (principal); C78.7 Secondary malignant neoplasm of liver and intrahepatic bile duct; K76.0 Fatty (change of) liver, not elsewhere classified; Z79.899 Other long term (current) drug therapy
CPT/HCPCS: 80053; 85025; 99214

== ENCOUNTER 2020-11-22 14:12 | Emergency (ER) | payer OTHER, MEDICARE, SELFPAY ==
[2020-11-22 14:21] VITALS: BP 131/81; PULSE 88; RESP 18; TEMP 36.7; O2SAT 97; BMI 17.0
[2020-11-22 14:59] VITALS: BP 129/75; PULSE 89; RESP 16; O2SAT 99
--- NOTE | 2020-11-22 15:19 | USR_ITS ---
PROCEDURE INFORMATION: Exam: US Duplex Left Lower Extremity Veins, Limited Exam date and time: 11/22/2020 4:07 PM Age: 80 years old Clinical indication: Swelling (edema) of limb; Lower extremity, left; Additional info: Pain swelling TECHNIQUE: Imaging protocol: Real-time Duplex ultrasound of the Left Lower Extremity with 2-D carvajal scale, color Doppler flow and spectral waveform analysis with image documentation. Limited exam focused on the left lower extremity veins. COMPARISON: No relevant prior studies available. FINDINGS: Left deep veins: Unremarkable. The common femoral, femoral, proximal profunda femoral and popliteal veins are patent without thrombus. Normal Doppler waveforms. Normal compressibility and/or augmentation response. Left superficial veins: Unremarkable. Saphenofemoral junction is patent without thrombus. Soft tissues: Unremarkable. US/CV venous duplex [facility] [id number] IMPRESSION: No evidence of deep vein thrombosis.
--- NOTE | 2020-11-22 15:19 | XR_ITS ---
WS: [id number] Left ankle, 3 views, 11/22/2020 Clinical Data: pain Comparison: None. Findings: No fractures or dislocations are seen. The ankle mortise is normal. The talus and calcaneus are unrem arkable. No soft tissue swelling over the medial or lateral malleolus is seen. XR/XR ankle LT min 3V* [id number] Impression: Negative left ankle.
--- NOTE | 2020-11-22 15:46 | ED_ITS ---
HPI - Extremity Problem General: Chief complaint: Extremity Injury, Lower Stated complaint: LLE PAIN, [facility] RN STATES POSS BLOOD CLOT Time Seen by Provider: 11/22/20 14:53 History of Present Illness: HPI Narrative: 72-year-old male presents emergency room complaining of left lower extremity pain and swelling. Began several days ago he states about a week ago he was working outside he caught something on his foot as he turned and felt like a twisting popping sensation in his lower leg. The following day he had some swelling and discomfort became progressively worse. Home health nursing him today and stated that he had swelling with calf tenderness sent him to the emergency room. Patient denied any chest pain or shortness of breath. MD Complaint: extremity pain and extremity swelling Onset (ago): day(s) Pain Consistency: constant Location: left and lower extremity Quality: aching Radiation: none Relieving factors: immobilization Exacerbating factors: range of motion, weight bearing and palpation Associated symptoms: Deny arthralgias, chest pain, fever(s), myalgias, rash or short of breath Review of Systems Const: Denies: fever(s) ENMT: Denies: throat pain, ear or mastoid pain, nasal discharge or nasal conge stion Card: Denies: chest pain Resp: Denies: dyspnea, productive cough or non-productive cough GI: Denies: abdominal pain, nausea, vomiting, hematemesis, coffee ground emesis, diarrhea, constipation, bloating, hematochezia or melena : Denies: flank pain, dysuria, urinary frequency or urinary urgency Skin/Breast: Denies: rash PFSH ED PFSH: Medical History Anemia Colon cancer COPD (chronic obstructive pulmonary disease) Urethral injury Surgical History History of back surgery History of hemorrhoidectomy History of left hemicolectomy History of mitral valve repair Family History Father Accident Mother , IN HER 50'S Cancer Denies family history of Anesthesia complication Bleeding disorder Social History Smoking and tobacco status: former smoker Alcohol intake: never Marital status: Current occupational status: retired History of recent travel: No Physical Exam Const: COMMON NORMALS: no acute distress GENERAL APPEARANCE: cooperative and comfortable ORIENTATION/CONSCIOUSNESS: Yes awake, Yes oriented to person, Yes oriented to place and Yes oriented to time HENMT: COMMON NORMALS: normocephalic, atraumatic and hearing grossly normal bilaterally HEAD & SCALP: normocephalic and atraumatic Neck/C-Spine: COMMON NORMALS: no JVD Resp: COMMON NORMALS: normal respiratory effort, No retractions, No use of accessory muscles and clear to auscultation bilaterally AUSCULTATION: clear to auscultation bilaterally Cardio: COMMON NORMALS: no JVD, regular rate, regular rhythm and No murmurs present (Cardio) RATE: regular rate RHYTHM: regular rhythm GI: COMMON NORMALS: Soft to palpation and No hepatosplenomegaly present AUSCULTATION: Yes normoactive bowel sounds PALPATION: Yes Soft to palpation, No Tenderness to palpation present (GI), No Guarding due to palpation present (GI) and Yes No hepatosplenomegaly present Extremity: NARRATIVE EXTREMITY EXAM: Pain at the left ankle with moderate swelling pain in the calf pain with compression of the calf muscle as well no significant joint effusion or pain at the knee with manipulation. Does have some popliteal space discomfort with palpation no significant swelling in the popliteal space. Neuro: SENSORIUM/ORIENTATION: Yes oriented to person, Yes oriented to place and Yes oriented to time Skin: COMMON NORMALS: no rashes or lesions noted GENERAL SKIN EXAM: no rashes or lesions noted Course Vital Signs: Vital signs: Vital Signs Temperature 98.0 F 11/22/20 14:21 Pulse Rate 86 11/22/20 16:03 Respiratory Rate 18 11/22/20 16:03 Blood Pressure 148/79 11/22/20 16:03 Pulse Oximetry 97 11/22/20 16:03 MDM - Extremity (Nontraumatic) MDM Narrative: Medical decision making narrative: Duplex negative. Left ankle negative. Can manipulate the knee without any significant pain no deformity with varus or valgus strain. There is no joint effusion. He has been using Tylenol at home he tells me he has been able to walk we will give him some diclofenac to use as needed ice follow-up with his primary care if not improving. Discharge Plan Discharge Patient Disposition: Home Clinical Impression: Gastrocnemius muscle strain Condition: Stable Prescriptions: New diclofenac sodium 75 mg tablet,delayed release (DR/EC) 75 mg PO Q12H PRN (Reason: pain) Qty: 20 RF: 0 No Action budesonide-formoterol [Symbicort] 80-4.5 mcg/actuation HFA aerosol inhaler 2 puff inhalation BID@0900,2100 RF: 0 sulfamethoxazole-trimethoprim [Bactrim DS] 800-160 mg tablet 1 tab PO BID 7 Days Qty: 14 RF: 0 Discharge Orders: Discharge ED (Routine); Ordered 11/22/20 Ordered By: Teo Lima Referrals: Renard Elias, [Primary Care Provider] - Discharge Diet: Usual diet Discharge Activity: Resume usual activity Patient Instructions: Opioid Safety Coding Level of Care Code ED Dental Equipment Technician for Alondra Fwd Exam Detailed
[2020-11-22 16:03] VITALS: BP 148/79; PULSE 86; RESP 18; O2SAT 97
== END 2020-11-22 16:39 | disposition home or self-care (01) ==
PROVIDERS: Emergency Provider Family Medicine; PCP Emergency Medicine Emergency Medical Services
DX: S86.112A Strain of other muscle(s) and tendon(s) of posterior muscle group at lower leg level, left leg, initial encounter (principal); Z87.891 Personal history of nicotine dependence; X58.XXXA Exposure to other specified factors, initial encounter
CPT/HCPCS: 73610; 93971; 99283

== ENCOUNTER 2020-12-09 05:29 | Outpatient (RCR) | payer OTHER, MEDICARE, SELFPAY ==
[2020-11-14 09:11] LABS: Basophils # 0.1 10^3/uL (0.0-0.1); Basophils % 0.7 %; Eosinophils # 0.6 10^3/uL (0.0-0.8); Eosinophils % 6.8 %; Hematocrit 35.6 % (42.0-52.0); Hemoglobin 11.7 g/dL (11.7-16.6); Mean Corpuscular HGB Conc 32.9 g/dL (30.0-36.0); Mean Corpuscular Hemoglobin 29.5 pg (28.0-34.0); Mean Corpuscular Volume 89.9 fL (80-94); Mean Platelet Volume 9.4 fL (7.4-10.4); Monocytes # 0.8 10^3/uL (0.2-0.9); Monocytes % 9.3 %; Neutrophils # 5.22 10^3/uL (1.8-7.7); Neutrophils % 59.3 %; Nucleated Red Blood Cells % 0.2 %; Platelet Count 321 10^3/cmm (130-400); Red Blood Count 3.96 10^6/uL (4.1-5.3); Red Cell Distribution Width 18.8 % (12.1-15.1); White Blood Count 8.8 10^3/uL (4.0-10.0)
[2020-11-14 09:38] LABS: Carcinoembryonic Antigen 9.8 ng/mL (0.0-4.7)
[2020-11-14 09:49] LABS: Alanine Aminotransferase 15 U/L (0-41); Albumin Level 3.8 g/dL (3.5-5.2); Alkaline Phosphatase 77 IU/L (40-130); Anion Gap 12.6 (5-19); Aspartate Amino Transferase 18 U/L (0-40); Blood Urea Nitrogen 16 mg/dL (8-23); Calcium 8.8 mg/dL (8.5-10.5); Carbon Dioxide 26 mmol/L (22-29); Chloride 98 mmol/L (98-107); Globulin 2.5 g/dL (1.3-4.6); Glucose 174 mg/dL (65-115); Osmolality Calculated 281 mOsm/kg (285-295); Potassium 3.6 mmol/L (3.5-5.1); Sodium 133 mmol/L (136-145); Total Bilirubin 0.4 mg/dL (0.15-1.2); Total Protein 6.3 g/dL (6.6-8.7)
--- NOTE | 2020-11-29 23:09 | ONC FU_ITS ---
[facility] Patient Note Patient: Shabbir Galdamez Unit #: [id number]: 1940 Dictated By: Alexandro PiresDate of Visit: Nov 18, 2020 Onc MED Follow-Up/Prog Note Chief Complaint: Colon cancer History of Present Illness: Mr. Galdamez is a 80-year-old gentleman with history of progressive constipation. He underwent colonoscopy on July 01, 2020 which showed a partially obstructing large sized fungating, friable, malignant appearing 4 cm x 6 cm mass in the distal descending colon. A biopsy was obtained which confirmed invasive adenocarcinoma moderately differentiated. Polyps were also removed from rectum showed tubular adenoma. Subsequently on July 23, 2020 patient underwent left colectomy. The final pathology report reported moderately differentiated invasive adenocarcinoma. The tumor size was 3.5 cm and invaded through muscularis into subserosa. 0 out of 12 lymph node showed metastatic disease and there was no evidence of lymphovascular invasion and perineural invasion, pT3 ,pN0. CT scan of abdomen done on July 21, 2020 showed there is an indeterminate 11 mm nodule in the right lobe of the liver, nonspecific possible metastatic disease. His family reported that he was in the hospital for 17 days and he lost about 40 pounds (e.g. from 147 pounds prior to admission about 107 pounds at the time of discharge). 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 He has had assistance with care of the colostomy by home health. History of smoking in the distant past, quit 35 years ago A follow-up PET/CT on August 31, 2020 reported a left lower quadrant ostomy. It was noted there were at least 4 sites of hepatic metastatic disease, all in the right hepatic lobe with a dominant lesion measured 1.6 cm with SUV of 7.7 and CEA level checked on September 13, 2020 was 21.8. Given the PET CT findings from August 31, 2020, it was recommended that Mr Galdamez pursue treatment with capecitabine/Xeloda. He began his first cycle on October 08, 2020 and completed the first cycle on October 22, 2020. He was evaluated by Dr Willard prior to cycle 2. He has tolerated treatment well thus far. Mr Galdamez Is here today for follow-up. He states overall he is doing well. He is more talkative and interactive today. He is accompanied by his . She states overall he is doing great. He continues to gain weight. His weight is up to 124.4 today. He denies any new concerns. He denies any mouth sores, sore throat or difficulty swallowing. He denies any rash or skin changes. He has had no changes in his hands or feet. He is utilizing moisturizer lotion once or twice daily regularly. He denies any fever or chills. He states his bowel habits are about the same for him. He obviously has a colostomy but has not noted that he has had to empty it any more frequent. Is still requiring assistance with the colostomy as his range of motion is very limited and he cannot maneuver the bag maintenance by himself. He denies any nausea or vomiting. He denies any lower extremity edema. His ECOG is 2. His performance status is improving. Past Medical History: Chronic obstructive pulmonary disease Hyperglycemia Past Surgical History: Mitral valve repair Left colectomy with Left colostomy in 2019 Allergies: No Known Allergies. Medications: Beano Tablet Oral Capecitabine 2 Tablet (of 150 mg) Oral b.i.d. Capecitabine 2 Tablet (of 500 mg) Oral b.i.d. Furosemide 1 - 2 Tablet (of 20 mg) Oral daily PRN Prochlorperazine Maleate 1 Tablet (of 10 mg) Oral q 4 hours PRN Sulfamethoxazole-Trimethoprim 1 Tablet (of 800-160 mg) Oral b.i.d. for 7 days Symbicort 2 Puff(s) (of 80-4.5 mcg/act) Aerosol Inhalation daily Tamsulosin HCl 1 Capsule (of 0.4 mg) Oral daily Vitamin C 1 Capsule (of 500 mg) Oral daily Family History: Social History: Mr. Galdamez is . Mr. Galdamez no longer smokes. He has no history of drinking. Review Of Symptoms: Vital Signs: Performed on Nov 18, 2020 15:00 Height - 70.00 in Weight - 124.4 lbs (HIGH) BSA - 1.71 sq.m BMI - 17.85 (LOW) Temperature - 99.0 F (HIGH) Pulse - 74 /min Respiration - 17 /min BP - 137/64 mm(hg) O2 Sat - 96 % Pain - 0,2 - Ambulatory/capable of all self-care, unable to perform any work activities. Up and about more than 50% of waking hours. (ECOG) Physical Examination: Constitutional Alert, oriented, no acute distress. Skin pink, warm and dry. Head Normocephalic; atraumatic. Eyes Conjunctivae and sclerae are clear and without icterus. Pupils are reactive and equal. ENMT No oral exudates, ulcers, masses, thrush or mucositis. Oropharynx clear. Tongue normal. Hematologic/Lymphatic No petechiae or purpura. Respiratory Lungs are clear to auscultation without rhonchi or wheezing. Cardiovascular Regular rate and rhythm of heart without murmurs,clicks, gallops or rubs. Abdomen Non-tender, non-distended, no masses or ascites. Good bowel sounds noted in all quads. No guarding or rebound tenderness. No pulsatile masses. Back/Spine Non-tender to palpation. Extremities No visible deformities, no cyanosis, clubbing or edema. Musculoskeletal No tenderness or swelling, normal range of motion without obvious weakness. Integumentary No rashes or lesions. Neurologic No sensory or motor deficits, normal cerebellar function, slow gait. Psychiatric Alert and oriented times three. Coherent speech. Verbalizes understanding of our discussions today. Laboratory:Test performed on Oct 24, 2020 07:57 Sodium 134 mmol/L Potassium 3.5 mmol/L Chloride 98 mmol/L CO2 28 mmol/L Anion Gap 11.5 BUN 15 mg/dL Creatinine 0.6 mg/dL Cr Clearance (Est) 76.8200 mL/min Glucose 104 mg/dL Osmolality - Calculated 279 mOsm/kg Calcium 9.0 mg/dL Protein, Total 6.4 g/dL Albumin 3.7 g/dL Globulin 2.7 g/dL Bilirubin, Total 0.3 mg/dL ALT (SGPT) 17 U/L AST (SGOT) 20 U/L Alkaline Phosphatase 96 IU/L WBC 8.8 10 3/uL RBC 3.98 10 6/uL HGB 11.6 g/dL HCT 35.9 % MCV 90.2 fL MCH 29.1 pg MCHC 32.3 g/dL RDW 16.2 % Platelet Count 457 10 3/cmm MPV 9.2 fL Neutrophils 5.44 10 3/uL Lymphocytes 1.8 10 3/uL Monocytes 1.0 10 3/uL Eosinophils 0.4 10 3/uL Basophils 0.1 10 3/uL Neutrophil % 62.0 % Lymphocyte % 20.6 % Monocyte % 11.2 % Eosinophil % 4.3 % Basophils % 1.0 % NRBC % 0 % Test performed on Oct 07, 2020 15:36 CEA 142.0 ng/mL 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 status post left colectomy done on July 23, 2020 showed 3.5 cm mass in the descending colon, moderately differentiated, tumor invades through muscularis propria into pericolorectal tissue, pT3, 12 lymph nodes were examined, 0 lymph node showed metastatic disease pN0, CT scan of abdomen done on July 21, 2020 showed 11 mm nodule in the right lobe of the liver, nonspecific, possible metastasis and there is simple hepatic cyst in the left lobe.Subsequently underwent CT PET scan on August 31, 2020 which showed at least 4 sites of hepatic metastatic disease present, all in the right hepatic lobe and dominant lesion 1.6 cm with SUV of 7.7 CEA checked on September 13, 2020 was 21.8 Clinically consistent with metastatic colon cancer e.g. stage IV Plan: PROBLEMS ADDRESSED TODAY 1. Metastatic colon cancer-moderately differentiated invasive adeno carcinoma involving the left descending colon status post left colectomy on 07/23/2020 with hepatic metastatic disease noted on PET CT August 31, 2020. Was all noted to be in the right hepatic lobe. A. His MSI/MMR report was noted to be intact expression therefore he has been offered oral chemotherapy with capecitabine/Xeloda at 850 mg per metered squared twice daily for 14 days on and [address] Willard's note indicates that he will plan for PET/CT follow-up after 3-4 cycles of the capecitabine to assess improvement. C. Proceed with cycle 3 Xeloda at 1300 mg twice daily for 14 days on 7 days off. He will resume the same dose of Xeloda on November 20, 2020. D. AVOID GRAPEFRUIT PRODUCTS WITH XELODA E. Labs from November 14, 2000 were reviewed in detail and discussed with Mr. Mrs. Galdamez and a copy was given to them. WBC 8.8, hemoglobin 11.7, platelets. 21,000, ANC is 5220. Potassium 3.6 random glucose 174 creatinine 0.8 and LFTs are normal. His CEA is 9.8 compared to October 07, 2020 at which time it was 142 and noted to be 21.8 on September 13, 2020. 2. Followup Plan: A. I requested the assistance of home health to draw CBC CMP, CEA in the home in 3 weeks as his mobility is limited. Would also like weekly weights if possible for persistent weight loss and nutrition monitoring. B. We will ask for him for follow-up in 3 weeks with CBC CMP. He will need a CEA with that visit as well. C. and were encouraged to contact us in the interim should questions or problems arise. D. He was given nutritional supplementation with Ensure today due to his nutritional deficit. He is slowly regaining his weight loss during his recent surgery from July 2020. Signed By: Alexandro Pires-, [facility] Joshua Willard MD <<Signature on File>>
[2020-12-05 09:09] LABS: Basophils # 0.1 10^3/uL (0.0-0.1); Basophils % 0.7 %; Eosinophils # 0.8 10^3/uL (0.0-0.8); Eosinophils % 10.4 %; Hematocrit 35.6 % (42.0-52.0); Hemoglobin 11.8 g/dL (11.7-16.6); Lymphocytes # 1.7 10^3/uL (0.8-4.8); Lymphocytes % 22.5 %; Mean Corpuscular HGB Conc 33.1 g/dL (30.0-36.0); Mean Corpuscular Volume 90.6 fL (80-94); Mean Platelet Volume 9.2 fL (7.4-10.4); Monocytes # 0.5 10^3/uL (0.2-0.9); Monocytes % 7.1 %; Neutrophils # 4.31 10^3/uL (1.8-7.7); Neutrophils % 58.6 %; Nucleated Red Blood Cells % 0 %; Platelet Count 337 10^3/cmm (130-400); Red Blood Count 3.93 10^6/uL (4.1-5.3); Red Cell Distribution Width 21.2 % (12.1-15.1); White Blood Count 7.3 10^3/uL (4.0-10.0)
[2020-12-05 09:34] LABS: Carcinoembryonic Antigen 5.4 ng/mL (0.0-4.7)
[2020-12-05 09:46] LABS: Alanine Aminotransferase 13 U/L (0-41); Alkaline Phosphatase 75 IU/L (40-130); Anion Gap 13.7 (5-19); Aspartate Amino Transferase 15 U/L (0-40); Blood Urea Nitrogen 13 mg/dL (8-23); Calcium 8.8 mg/dL (8.5-10.5); Carbon Dioxide 26 mmol/L (22-29); Chloride 98 mmol/L (98-107); Globulin 2.2 g/dL (1.3-4.6); Glucose 167 mg/dL (65-115); Osmolality Calculated 282 mOsm/kg (285-295); Potassium 3.7 mmol/L (3.5-5.1); Sodium 134 mmol/L (136-145); Total Bilirubin 0.8 mg/dL (0.15-1.2); Total Protein 6.2 g/dL (6.6-8.7)
--- NOTE | 2020-12-22 01:20 | ONC FU_ITS ---
[facility] Patient Note Patient: Shabbir Galdamez Unit #: [id number]: 1940 Dictated By: Alexandro PiresDate of Visit: Dec 09, 2020 Onc MED Follow-Up/Prog Note Chief Complaint: Colon cancer History of Present Illness: Mr. Galdamez is a 80-year-old gentleman with history of progressive constipation. He underwent colonoscopy on July 01, 2020 which showed a partially obstructing large sized fungating, friable, malignant appearing 4 cm x 6 cm mass in the distal descending colon. A biopsy was obtained which confirmed invasive adenocarcinoma moderately differentiated. Polyps were also removed from rectum showed tubular adenoma. Subsequently on July 23, 2020 patient underwent left colectomy. The final pathology report reported moderately differentiated invasive adenocarcinoma. The tumor size was 3.5 cm and invaded through muscularis into subserosa. 0 out of 12 lymph node showed metastatic disease and there was no evidence of lymphovascular invasion and perineural invasion, pT3 ,pN0. CT scan of abdomen done on July 21, 2020 showed there is an indeterminate 11 mm nodule in the right lobe of the liver, nonspecific possible metastatic disease. His family reported that he was in the hospital for 17 days and he lost about 40 pounds (e.g. from 147 pounds prior to admission about 107 pounds at the time of discharge). 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 He has had assistance with care of the colostomy by home health. History of smoking in the distant past, quit 35 years ago A follow-up PET/CT on August 31, 2020 reported a left lower quadrant ostomy. It was noted there were at least 4 sites of hepatic metastatic disease, all in the right hepatic lobe with a dominant lesion measured 1.6 cm with SUV of 7.7 and CEA level checked on September 13, 2020 was 21.8. Given the PET CT findings from August 31, 2020, it was recommended that Mr Galdamez pursue treatment with capecitabine/Xeloda. He began his first cycle on October 08, 2020 and completed the first cycle on October 22, 2020. He was evaluated by Dr Willard prior to cycle 2. He has tolerated treatment well thus far. Mr Galdamez is here today for follow-up. He states overall he is doing well. He is accompanied by his . She states overall he is doing great. He continues to gain weight. His weight is up to 124.4 today. He denies any new concerns. He denies any mouth sores, sore throat or difficulty swallowing. It is noted that his hands are peeling and he has significant fissures in mutliple finger tips. He has had no changes in his hands or feet. He is utilizing moisturizer lotion once or twice daily regularly. He denies any fever or chills. He deies any mouth sores. He states his bowel habits are about the same for him. He obviously has a colostomy but has not noted that he has had to empty it any more frequent. He requires assistance with the colostomy as his range of motion is very limited and he cannot maneuver the bag maintenance by himself. He denies any nausea or vomiting. He denies any lower extremity edema. His ECOG is 1. Past Medical History: Chronic obstructive pulmonary disease Hyperglycemia Past Surgical History: Mitral valve repair Left colectomy with Left colostomy in 2019 Allergies: No Known Allergies. Medications: Beano Tablet Oral Capecitabine 2 Tablet (of 150 mg) Oral b.i.d. Capecitabine 2 Tablet (of 500 mg) Oral b.i.d. Furosemide 1 - 2 Tablet (of 20 mg) Oral daily PRN Prochlorperazine Maleate 1 Tablet (of 10 mg) Oral q 4 hours PRN Sulfamethoxazole-Trimethoprim 1 Tablet (of 800-160 mg) Oral b.i.d. for 7 days Symbicort 2 Puff(s) (of 80-4.5 mcg/act) Aerosol Inhalation daily Tamsulosin HCl 1 Capsule (of 0.4 mg) Oral daily Vitamin C 1 Capsule (of 500 mg) Oral daily Family History: Social History: Mr. Galdamez is . Mr. Galdamez no longer smokes. He has no history of drinking. Review Of Symptoms: see above Vital Signs: Performed on Dec 09, 2020 13:48 Height - 70.00 in Weight - 123.2 lbs (LOW) BSA - 1.70 sq.m BMI - 17.68 (LOW) Temperature - 98.4 F Pulse - 87 /min Respiration - 18 /min BP - 122/67 mm(hg) O2 Sat - 94 % (LOW) Pain - 0 Fatigue - 2,1 - No physically strenuous activity, but ambulatory and able to carry out light or sedentary work (e.g. office work, light house work). (ECOG) Physical Examination: Constitutional Alert, oriented, no acute distress. Skin pink, warm and dry. Head Normocephalic; atraumatic. Eyes Conjunctivae and sclerae are clear and without icterus. Pupils are reactive and equal. ENMT No oral exudates, ulcers, masses, thrush or mucositis. Oropharynx clear. Tongue normal. Hematologic/Lymphatic No petechiae or purpura. Respiratory Lungs are clear to auscultation without rhonchi or wheezing. Cardiovascular Regular rate and rhythm of heart without murmurs,clicks, gallops or rubs. Abdomen Non-tender, non-distended, no masses or ascites. Good bowel sounds noted in all quads. No guarding or rebound tenderness. No pulsatile masses. Back/Spine Non-tender to palpation. Extremities No visible deformities, no cyanosis, clubbing or edema. Musculoskeletal No tenderness or swelling, normal range of motion without obvious weakness. Integumentary Significant skin changes on his hands bilaterally. He has fissures in multiple fingers bilaterally. Most that they are at the tips of his fingers and around the nailbeds that are noted to be split but healing well. There is no current exudate or odor. There is no redness or warmth at the fissure sites. He has multiple layers of skin peeling on his fingers and palms of his hands. Again there is no exudate, odor or warmth. However there is significant skin changes compared to the last visit. Neurologic No sensory or motor deficits, normal cerebellar function, slow gait. Psychiatric Alert and oriented times three. Coherent speech. Verbalizes understanding of our discussions today. Laboratory:see flow sheet 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 status post left colectomy done on July 23, 2020 showed 3.5 cm mass in the descending colon, moderately differentiated, tumor invades through muscularis propria into pericolorectal tissue, pT3, 12 lymph nodes were examined, 0 lymph node showed metastatic disease pN0, CT scan of abdomen done on July 21, 2020 showed 11 mm nodule in the right lobe of the liver, nonspecific, possible metastasis and there is simple hepatic cyst in the left lobe.Subsequently underwent CT PET scan on August 31, 2020 which showed at least 4 sites of hepatic metastatic disease present, all in the right hepatic lobe and dominant lesion 1.6 cm with SUV of 7.7 CEA checked on September 13, 2020 was 21.8 Clinically consistent with metastatic colon cancer e.g. stage IV Plan: PROBLEMS ADDRESSED TODAY 1. Metastatic colon cancer-moderately differentiated invasive adeno carcinoma involving the left descending colon status post left colectomy on 07/23/2020 with hepatic metastatic disease noted on PET CT August 31, 2020. Was all noted to be in the right hepatic lobe. A. His MSI/MMR report was noted to be intact expression therefore he has been offered oral chemotherapy with capecitabine/Xeloda at 850 mg per metered squared twice daily for 14 days on and [address] Willard's note indicates that he will plan for PET/CT follow-up after 3-4 cycles of the capecitabine to assess improvement. C. HOLD cycle 4 Xeloda do to significant skin peeling and fissures of mutlple finger tips. D. Labs from December 05, 2020 were reviewed in detail discussed with Mr. Mrs. Galdamez and a copy was given to them. WBC 7.3, hemoglobin 11.8, platelets 3 37,000, ANC is 4310. Potassium 3.7. Random glucose 167 creatinine 0.7 LFTs are normal. CEA is 5.4 compared to 9.8 on November 14, 2020. His weight is stable at 123.2. E. Pursue restaging PET CT as soon as PA has been obtained and the PET/CT can be scheduled. 2. Followup Plan: A. His follow-up will be determined after we see the PET CT results. B. He is due for follow-up with Dr. Bruce today and let him know that we are doing the PET/CT as well. C. and were encouraged to contact us in the interim should questions or problems arise. D. He was given nutritional supplementation with Ensure today due to his nutritional deficit. He is slowly regaining his weight loss during his recent surgery from July 2020. Signed By: Alexandro Pires-, AOCNP Joshua Willard MD <<Signature on File>>
== END 2020-12-13 23:59 | disposition home or self-care (01) ==
LOC: ONCMED 05:29
PROVIDERS: Internal Medicine Hematology & Oncology; PCP Emergency Medicine Emergency Medical Services; Visit Provider Nurse Practitioner
DX: C18.6 Malignant neoplasm of descending colon (principal); C78.7 Secondary malignant neoplasm of liver and intrahepatic bile duct; J44.9 Chronic obstructive pulmonary disease, unspecified; R73.9 Hyperglycemia, unspecified; Z79.899 Other long term (current) drug therapy
CPT/HCPCS: 36415; 80053; 82378; 85025; 99214

== ENCOUNTER 2020-12-24 07:55 | Outpatient (RCR) | payer OTHER, MEDICARE, SELFPAY ==
--- NOTE | 2020-12-25 09:19 | ONC FU_ITS ---
Dr. Willard follow up note Patient: Shabbir Galdamez Unit #: [id number]: 1940 Dicatated By: Joshua Willard M.D.Date of Visit:December 24, 2020 Onc Med Follow-up/Prog Note History of Present Illness: Mr. Galdamez is a 80-year-old gentleman with history of progressive constipation. He underwent colonoscopy on July 01, 2020 which showed a partially obstructing large sized fungating, friable, malignant appearing 4 cm x 6 cm mass in the distal descending colon. A biopsy was obtained which confirmed invasive adenocarcinoma moderately differentiated. Polyps were also removed from rectum showed tubular adenoma. Subsequently on July 23, 2020 patient underwent left colectomy. The final pathology report reported moderately differentiated invasive adenocarcinoma. The tumor size was 3.5 cm and invaded through muscularis into subserosa. 0 out of 12 lymph node showed metastatic disease and there was no evidence of lymphovascular invasion and perineural invasion, pT3 ,pN0. CT scan of abdomen done on July 21, 2020 showed there is an indeterminate 11 mm nodule in the right lobe of the liver, nonspecific possible metastatic disease. His family reported that he was in the hospital for 17 days and he lost about 40 pounds (e.g. from 147 pounds prior to admission about 107 pounds at the time of discharge). 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 He has had assistance with care of the colostomy by home health. History of smoking in the distant past, quit 35 years ago A follow-up PET/CT on August 31, 2020 reported a left lower quadrant ostomy. It was noted there were at least 4 sites of hepatic metastatic disease, all in the right hepatic lobe with a dominant lesion measured 1.6 cm with SUV of 7.7 and CEA level checked on September 13, 2020 was 21.8. Given the PET CT findings from August 31, 2020, it was recommended that Mr Galdamez pursue treatment with capecitabine. He began his first cycle on October 08, 2020 CT PET scan done After 3 cycles of oral Xeloda on December 14, 2020 shows hepatic metastatic disease seen on prior study done on August 31, 2020 is resolved indicating a complete response of therapy. Came for follow-up, complaining of generalized weakness and fatigue, chronic left shoulder pain, now cortisone injection is not helping and orthopedics has recommended surgery but would not consider while he is on chemotherapy, patient is also frustrated with his colostomy bag although there is no leakage but emotionally and socially, he feel isolated and wants reversal. His hand and foot rash which was due to oral Xeloda, is improving, sensations are improving, patient denies any mouth sores, denies any diarrhea, denies any abdominal pain, denies any melena or hematochezia, patient completed last cycle of oral Xeloda on November 30, 2020, now here to discuss about his follow-up CT PET scan finding and further planning Medications: Beano Tablet Oral, Capecitabine 2 Tablet (of 150 mg) Oral b.i.d., Capecitabine 2 Tablet (of 500 mg) Oral b.i.d., Furosemide 1 - 2 Tablet (of 20 mg) Oral daily PRN, Prochlorperazine Maleate 1 Tablet (of 10 mg) Oral q 4 hours PRN, Sulfamethoxazole-Trimethoprim 1 Tablet (of 800-160 mg) Oral b.i.d. for 7 days, Symbicort 2 Puff(s) (of 80-4.5 mcg/act) Aerosol Inhalation daily, Tamsulosin HCl 1 Capsule (of 0.4 mg) Oral daily, Vitamin C 1 Capsule (of 500 mg) Oral daily Allergies: No Known Allergies. Review of Systems: Review of Systems is not available for this patient. Vital Signs: Performed on December 24, 2020 08:29 Height - 70.00 in Weight - 119.8 lbs (LOW) BSA - 1.68 sq.m BMI - 17.19 (LOW) Temperature - 98.1 F (LOW) Pulse - 102 /min (HIGH) Respiration - 18 /min BP - 115/73 mm(hg) O2 Sat - 95 % (LOW) Pain - 0 Fatigue - 0 Performance Status: 1 - No physically strenuous activity, but ambulatory and able to carry out light or sedentary work (e.g. office work, light house work). (ECOG) Physical Examination: ENMT - No mouth sores, no thrush, no jaundice no cervical lymphadenopathy, Respiratory - Lungs are clear to auscultation, Cardiovascular - Regular rate and rhythm of heart, Abdomen - Soft, bowel sounds present, Extremities - No visible edema but mild erythema involving bilateral palms and soles with peeling of skin, nontender. Lab/Imaging: Test performed on Oct 24, 2020 07:57 Sodium 134 mmol/L Potassium 3.5 mmol/L Chloride 98 mmol/L CO2 28 mmol/L Anion Gap 11.5 BUN 15 mg/dL Creatinine 0.6 mg/dL Cr Clearance (Est) 76.8200 mL/min Glucose 104 mg/dL Osmolality - Calculated 279 mOsm/kg Calcium 9.0 mg/dL Protein, Total 6.4 g/dL Albumin 3.7 g/dL Globulin 2.7 g/dL Bilirubin, Total 0.3 mg/dL ALT (SGPT) 17 U/L AST (SGOT) 20 U/L Alkaline Phosphatase 96 IU/L WBC 8.8 10 3/uL RBC 3.98 10 6/uL HGB 11.6 g/dL HCT 35.9 % MCV 90.2 fL MCH 29.1 pg MCHC 32.3 g/dL RDW 16.2 % Platelet Count 457 10 3/cmm MPV 9.2 fL Neutrophils 5.44 10 3/uL Lymphocytes 1.8 10 3/uL Monocytes 1.0 10 3/uL Eosinophils 0.4 10 3/uL Basophils 0.1 10 3/uL Neutrophil % 62.0 % Lymphocyte % 20.6 % Monocyte % 11.2 % Eosinophil % 4.3 % Basophils % 1.0 % NRBC % 0 % Test performed on Oct 07, 2020 15:36 CEA 142.0 ng/mL 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 status post left colectomy done on July 23, 2020 showed 3.5 cm mass in the descending colon, moderately differentiated, tumor invades through muscularis propria into pericolorectal tissue, pT3, 12 lymph nodes were examined, 0 lymph node showed metastatic disease pN0, CT scan of abdomen done on July 21, 2020 showed 11 mm nodule in the right lobe of the liver, nonspecific, possible metastasis and there is simple hepatic cyst in the left lobe.Subsequently underwent CT PET scan on August 31, 2020 which showed at least 4 sites of hepatic metastatic disease present, all in the right hepatic lobe and dominant lesion 1.6 cm with SUV of 7.7 CEA checked on September 13, 2020 was 21.8 On October 09, 2020 it was 142, patient was started on oral Xeloda on October 08, 2020 and follow-up CT PET scan done after 3 cycles of oral Xeloda on December 14, 2020 shows complete resolution of hepatic metastatic disease and his CEA level was down to 5.4, patient did develop hand-foot syndrome due to oral Xeloda which improved with supportive care and Xeloda dose modification 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 As he was concerned about hand-foot syndrome, which can be managed with dose modification and supportive care but patient and his , are reluctant to continue further chemotherapy with oral Xeloda, knowing the excellent response confirmed by follow-up CT PET scan, knowing the risk involved of stopping treatment prematurely. Patient and his was advised to think over and decide, was offered second opinion or referral to tertiary care center but patient and declined, as per their priority is left shoulder surgery and colostomy reversal. Case was discussed with Dr. Davidson this morning and again, it was suggested that patient should continue oral Xeloda for 3 more cycles and then repeat CT PET scan to confirm the complete remission, and he agreed to postpone colostomy reversal for the time being. Patient and his will discuss, whether to continue systemic chemotherapy at this point and then they will let us know, if patient decided not to pursue further chemotherapy or decided not to pursue second opinion, and make decision AGAINST MEDICAL ADVICE regarding discontinuing systemic chemotherapy despite of excellent response seen in follow-up CT PET scan, then as per patient's wishes, we will discontinue his chemotherapy and follow him with a follow-up CT scan of abdomen pelvis in 3 months along with tumor marker CEA. Patient was again made aware regarding risk involved with stopping treatment prematurely, as he is at high risk for recurrence of disease progression. Patient and expressed full understanding regarding the risk involved. Signed By: Joshua Willard M.D. <<Signature on File>>
== END 2021-01-13 23:59 | disposition home or self-care (01) ==
LOC: ONCMED 07:55
PROVIDERS: PCP Emergency Medicine Emergency Medical Services; Visit Provider Internal Medicine Hematology & Oncology
DX: C18.6 Malignant neoplasm of descending colon (principal); C78.7 Secondary malignant neoplasm of liver and intrahepatic bile duct; N28.1 Cyst of kidney, acquired; L27.1 Localized skin eruption due to drugs and medicaments taken internally; Z79.899 Other long term (current) drug therapy; Z92.21 Personal history of antineoplastic chemotherapy
CPT/HCPCS: 99214

== ENCOUNTER 2021-02-05 09:12 | Outpatient (CLI) | payer OTHER, SELFPAY ==
--- NOTE | 2021-02-05 09:15 | FL_ITS ---
WS: [id number] Barium enema, 02/05/2021 Clinical Data: Z93.3 - Colostomy status Comparison: None. Fluoroscopy time: 4 minutes. Findings: The barium entered the rectum in a retrograde fashion. The barium ended in a pouch in the left lower quadrant. The more proximal descending colon has been removed and there is a left lower quadrant colo stomy. There are numerous sigmoid and descending colon diverticula. There is no extravasation. FL/FL barium enema [id number] Impression: Satisfactory filling of distal descending colon, sigmoid colon and rectum with no extravasation.
--- NOTE | 2021-02-05 10:22 | FL_ITS ---
WS: [id number] Barium enema, 02/05/2021 Clinical Data: COLOSTOMY STATUS Comparison: None. Fluoroscopy time: 7 minutes. Findings: The proximal colon was filled with barium via the colostomy. Because of vigorous peristalsis the cecu m was never visualized. However the transverse colon and descending colon showed fecal material and s zoila peristalsis. No extravasation or obstruction was seen. FL/FL barium enema [id number] Impression: Partial filling of proximal colon into the ascending colon
== END 2021-02-05 09:13 | disposition home or self-care (01) ==
LOC: RAD 09:14
PROVIDERS: PCP Emergency Medicine Emergency Medical Services; Visit Provider Surgery
DX: Z43.3 Encounter for attention to colostomy (principal); C18.9 Malignant neoplasm of colon, unspecified
CPT/HCPCS: 74270; 74280

== ENCOUNTER → 2021-02-27 10:57 | Outpatient (BNVA) | payer OTHER, SELFPAY | PROVIDERS: PCP Emergency Medicine Emergency Medical Services; Visit Provider Surgery | DX: C18.9 Malignant neoplasm of colon, unspecified (principal); Z93.3 Colostomy status; Z20.822 Contact with and (suspected) exposure to COVID-19 | CPT/HCPCS: 87635 ==

== ENCOUNTER 2021-03-03 06:01 | Day surgery (SDC) | payer OTHER, SELFPAY ==
--- NOTE | 2021-03-03 06:25 | W.PM.OPSUD ---
Surgery/Procedure H&P Update DATE OF PROCEDURE: March 03, 2021 DATE H&P PERFORMED: 02/06/21 H&P UPDATE INFORMATION: I have reviewed H&P completed within last 30 days, I have examined patient prior to procedure and No changes to prior documentation PREOP DIAGNOSIS: Colon cancer PRIMARY INDICATION FOR PROCEDURE: The same PLANNED PROCEDURE: Operation Date: 03/03/21 07:00 Proposed Procedures p Colonoscopy 87449 z93.3 c18.9(Not Applicable) - Noah Davidson MD
[2021-03-03 06:32] VITALS: BP 140/83; PULSE 91; RESP 18; TEMP 36.6; O2SAT 95
[2021-03-03] MEDS: sodium chloride 0.9% 1,000 ML 30 ML IV (06:38)
--- NOTE | 2021-03-03 07:11 | ANES.PREANE2 ---
Pre-Anesthetic Assessment Pre-Anesthetic Assessment: Height/Weight: Height 1.78 m Weight 58.513 kg Temp Pulse Resp BP Pulse Ox 98 F 91 18 140/83 95 03/03/21 06:32 03/03/21 06:32 03/03/21 06:32 03/03/21 06:32 03/03/21 06:32 Preop Diagnosis: Colon cancer Proposed Procedure: Operation Date: 03/03/21 07:00 Proposed Procedures p Colonoscopy 09872 z93.3 c18.9(Not Applicable) - Noah Davidson MD Was Beta Dejon taken within 24 hours: N/A Was Clonidine taken within 24 hours: N/A Last intake: Intake Last Liquid Date 03/02/21 Last Liquid Time 22:00 Last Solid Date 03/01/21 Last Solid Time 20:00 Social: Social History: No alcohol and No tobacco Exam: Pre-Anes Outpt Exam: alert, oriented x 3, clear to auscultation bilaterally and regular rate & rhythm Airway: Submandibular: WNL Cervical ROM: WNL MP: 2 Dentition: False History/ROS: No significant history except as noted and No significant complaints Pulmonary: Pulmonary: COPD and SOB CV/HEM: CV/HEM: Murmur Comments: Mitral valve repair 2001 : : None reported Hepatic: Hepatic: None reported GI: GI: None reported Metabolic: Metabolic: None reported Musc/skel: Musc/skel: None reported Neuropsych: Neuropsych: None reported Anesthetic Plan: ASA status: 3 Anesthesia: MAC Meds/Allergies Current Medications: Current Medications Generic Name Dose Route Start Last Admin Trade Name Freq PRN Reason Stop Dose Admin Sodium Chloride 1,000 mls @ 30 ml s/hr 03/03/21 06:15 03/03/21 06:38 Sodium Chloride 0.9% IV 03/04/21 06:14 30 mls/hr .Q24H BALTA Administration PFSH Anesthesia PFSH: Medical History Abscess of abdominal wall Anemia Colon cancer COPD (chronic obstructive pulmonary disease) Urethral injury Surgical History History of back surgery History of hemorrhoidectomy History of left hemicolectomy History of mitral valve repair Family History Father Accident Mother , IN HER 50'S Cancer Denies family history of Anesthesia complication Bleeding disorder Social History Smoking and tobacco status: never smoked Alcohol intake: never Marital status: Current occupational status: retired History of recent travel: No Data Anesthesia Cardiac Studies: No Data to Display
[2021-03-03 08:17] VITALS: BP 101/66; PULSE 77; RESP 16; TEMP 36.1; O2SAT 99
[2021-03-03 09:17] LABS: Basophils # 0.1 10^3/uL (0.0-0.1); Eosinophils # 0.3 10^3/uL (0.0-0.8); Eosinophils % 3.9 %; Hemoglobin 14.2 g/dL (11.7-16.6); Lymphocytes # 1.4 10^3/uL (0.8-4.8); Lymphocytes % 18.6 %; Mean Corpuscular HGB Conc 31.6 g/dL (30.0-36.0); Mean Platelet Volume 9.5 fL (7.4-10.4); Monocytes # 0.9 10^3/uL (0.2-0.9); Monocytes % 12.2 %; Neutrophils # 4.86 10^3/uL (1.8-7.7); Neutrophils % 63.9 %; Nucleated Red Blood Cells % 0 %; Platelet Count 300 10^3/cmm (130-400); Red Blood Count 4.89 10^6/uL (4.1-5.3); Red Cell Distribution Width 16.6 % (12.1-15.1); White Blood Count 7.6 10^3/uL (4.0-10.0)
[2021-03-03 10:16] LABS: Alanine Aminotransferase 24 U/L (0-41); Albumin Level 4.1 g/dL (3.5-5.2); Alkaline Phosphatase 68 IU/L (40-130); Anion Gap 15.8 (5-19); Aspartate Amino Transferase 29 U/L (0-40); Blood Urea Nitrogen 8 mg/dL (8-23); Calcium 8.6 mg/dL (8.5-10.5); Carbon Dioxide 20 mmol/L (22-29); Chloride 103 mmol/L (98-107); Creatinine Clr Calc Pharmacy 62.9827; Globulin 2.9 g/dL (1.3-4.6); Glucose 91 mg/dL (65-115); Osmolality Calculated 276 mOsm/kg (285-295); Potassium 4.8 mmol/L (3.5-5.1); Sodium 134 mmol/L (136-145); Total Bilirubin 0.7 mg/dL (0.15-1.2)
[2021-03-03 10:55] LABS: Carcinoembryonic Antigen 6.2 ng/mL (0.0-4.7)
--- NOTE | 2021-03-03 15:11 | ANE.PACU2 ---
Inpatient post-anesthesia follow up: Airway intact: Yes Vital signs: Temperature 97.0 F Pulse Rate 77 Respiratory Rate 16 Blood Pressure 101/66 Pulse Oximetry 99 Oxygen Delivery Me thod Room Air Oxygen Flow Rate Fraction of Inspir ed Oxygen Hydration adequate: Yes Nausea and vomiting: No Pain level: 2 Mental status: Baseline
== END 2021-03-03 09:00 | disposition home or self-care (01) ==
PROVIDERS: PCP Emergency Medicine Emergency Medical Services; Visit Provider Surgery
PROC: 0DJD8ZZ Inspection of Lower Intestinal Tract, Via Natural or Artificial Opening Endoscopic (ICD-10-PCS; CPT 45378; principal; 2021-03-03 07:00)
DX: C18.9 Malignant neoplasm of colon, unspecified (principal); Z93.3 Colostomy status; D12.8 Benign neoplasm of rectum; D12.3 Benign neoplasm of transverse colon; K57.30 Diverticulosis of large intestine without perforation or abscess without bleeding; K56.41 Fecal impaction; J44.9 Chronic obstructive pulmonary disease, unspecified
CPT/HCPCS: 44392; 45338; 80053; 82378; 85025; 88305; 96360; 96361; J2704; J7030

== ENCOUNTER 2021-03-05 16:59 | Inpatient (IN) | payer OTHER, SELFPAY ==
[2021-03-03 06:56] VITALS: BMI 18.3
[2021-03-05] VITALS (16 sets, daily range): BP systolic 107–150; BP diastolic 65–82; PULSE 73–101; RESP 16–26; TEMP 36.3–37.2; O2SAT 94–100
--- NOTE | 2021-03-05 | SCC_ITS ---
Procedure Done: 1. Cystoscopy, left ureteral stent placement (8.5 Armenian by 28 cm double- pigtail with string attached distally) 2. Wing catheter placement 15.5 seconds of fluoroscopic guidance, for a cumulative dose of 1.9 mGy, was provided to Dr. Pickett by the radiology department. C-arm images of the abdomen were saved for the patient's permanent record. [id number]
--- NOTE | 2021-03-05 09:38 | SC_ITS ---
WS: [id number] C-arm fluoroscopy for ureteral stent, 03/05/2021 Clinical Data: Left ureteral stent placement Comparison: None. Findings: The left ureteral stent appears to curl in the left renal pelvis. SC/C-arm FL for Urology Impression: Left ureteral stent placement.
[2021-03-05] MEDS: heparin 5,000 unit/mL INJ 1 mL 2000 UNIT SUBCUT (10:06)
--- NOTE | 2021-03-05 10:14 | ANES.PREANE2 ---
Pre-Anesthetic Assessment Pre-Anesthetic Assessment: Height/Weight: Height 1.78 m Weight 58.06 kg Temp Pulse Resp BP Pulse Ox 97.8 F 101 H 18 107/78 95 03/05/21 10:10 03/05/21 10:10 03/05/21 10:10 03/05/21 10:10 03/05/21 10:10 Preop Diagnosis: Colon cancer Proposed Procedure: Operation Date: 03/05/21 11:00 Proposed Procedures p laparoscopic colostomy reversal and colocolic anastomosis possible open 91938 z93.3 c18.9(Not Applicable) - Noah Davidson MD Familial anesthetic complications: none Was Beta Dejon taken within 24 hours: N/A Was Clonidine taken within 24 hours: N/A Last intake: Intake Last Liquid Date 03/04/21 Last Liquid Time 21:30 Last Solid Date 03/01/21 Last Solid Time 17:00 Social: Social History: No alcohol and No tobacco Exam: Pre-Anes Outpt Exam: alert, oriented x 3, clear to auscultation bilaterally and regular rate & rhythm Airway: Cervical ROM: WNL MP: 2 Dentition: False Pulmonary: Pulmonary: COPD and SOB CV/HEM: CV/HEM: Afib Comments: Mitral valve repair 2001 GI: GI: GERD Comments: hx hemicolectomy Anesthetic Plan: ASA status: 3 Anesthesia: General Risk of > 500 ml blood loss (7ml/kg in children): No PFSH Anesthesia PFSH: Medical History Abscess of abdominal wall Anemia Colon cancer COPD (chronic obstructive pulmonary disease) Urethral injury Surgical History History of back surgery History of hemorrhoidectomy History of left hemicolectomy History of mitral valve repair Family History Father Accident Mother , IN HER 50'S Cancer Denies family history of Anesthesia complication Bleeding disorder Social History Smoking and tobacco status: never smoked Alcohol intake: never Marital status: Current occupational status: retired History of recent travel: No Data Anesthesia Cardiac Studies: No Data to Display
[2021-03-05] MEDS: acetaminophen 1,000 MG/100 ML PIGGYBACK 400 MG IV (10:24)
[2021-03-05] MEDS: sodium chloride 0.9% 1,000 ML 30 ML IV (10:24)
--- NOTE | 2021-03-05 10:35 | PM.CONSULT ---
Providers/Reason For Consult Consulting Physician/Specialty*: Urology/Nieves Reason for Consult*: Catheter placement and left ureteral stent placement for assistance with intraoperative ureter identification for Dr. Davidson for colonic surgery Attending Physician: Noah Davidson MD Primary Care Provider: Renard Elias DO History of Present Illness History of Present Illness Shabbir Galdamez is a 80 year old male known to me for history of false passage in his urethra discovered during catheter placement from previous colon surgery. He is back now for colostomy takedown and anastomosis and I have been requested to place a left ureteral stent and catheter. Chart reviewed. X-rays reviewed. Will be available for Dr. Davidson intraoperatively as needed Review of Systems Const: Denies: fever(s) or chills Card: Denies: chest pain or palpitations Resp: Denies: dyspnea Psych: Denies: paranoia Mark/Lymph: Denies: tender lymph nodes All/Imm: Denies: urticaria or acute wheezing Meds/Allergies Home Medications and Allergies Home Medications Medication Instructions Recorded Confirmed Last Taken Type budesonide-formoterol HFA 80 2 puff INHALATION BID@0900,2100 08/15/20 03/05/21 03/05/21 06:30 History mcg-4.5 mcg/actuation aerosol inhaler tamsulosin 0.4 mg PO DAILY 02/27/21 03/05/21 03/03/21 History Allergies Allergy/AdvReac Type Severity Reaction Status Date / Time morphine Allergy Unknown Hallucinati Verified 03/05/21 09:43 on Current Medications Current Medications Generic Name Dose Route Start Last Admin Trade Name Freq PRN Reason Stop Dose Admin Sodium Chloride 1,000 mls @ 30 mls/hr 03/05/21 10:15 03/05/21 10:24 Sodium Chloride 0.9% IV 03/06/21 10:14 30 mls/hr .Q24H BALTA Administration PFSH Acute PFSH: Medical History Abscess of abdominal wall Anemia Colon cancer COPD (chronic obstructive pulmonary disease) Urethral injury Surgical History History of back surgery History of hemorrhoidectomy History of left hemicolectomy History of mitral valve repair Family History Father Accident Mother , IN HER 50'S Cancer Denies family history of Anesthesia complication Bleeding disorder Social History Smoking and tobacco status: never smoked Alcohol intake: never Marital status: Current occupational status: retired History of recent travel: No Vitals/I&O/Wt Last Vital Signs Temp 97.8 F 03/05/21 10:10 Pulse 101 H 03/05/21 10:10 Resp 18 03/05/21 10:10 BP 107/78 03/05/21 10:10 Pulse Ox 95 03/05/21 10:10 Physical Exam Const: COMMON NORMALS: no acute distress, alert and well nourished GENERAL APPEARANCE: well kempt and well developed ORIENTATION/CONSCIOUSNESS: not confused HENMT: COMMON NORMALS: normocephalic and atraumatic HEAD & SCALP: normocephalic and atraumatic Neck/C-Spine: COMMON NORMALS: full ROM Resp: COMMON NORMALS: normal respiratory effort EFFORT & INSPECTION: No labored and No Actively coughing Neuro: SENSORIUM/ORIENTATION: Yes alert Psych: COMMON NORMALS: mental status grossly normal APPEARANCE: Yes grossly normal and Yes well kempt ATTITUDE: Yes calm and Yes engaged Skin: COMMON NORMALS: no rashes or lesions noted and no jaundice GENERAL SKIN EXAM: no rashes or lesions noted A&P Assessment and plan (1) Urethral injury: Cystoscopy to evaluate urethra for catheter placed Status: Acute (2) Colostomy status: Status: Acute (3) Colon cancer: General surgeon Dr. Davidson requested left ureteral stent placement for ureteral identification during his colon surgery. Status: Acute Consult Attestations Medical Necessity Statement: See attending Coding Level of Care Code Acute Printing Plate Setter for g Fwd Diagnoses Urethral injury S37.30XA Colostomy status Z93.3 Colon cancer C18.9
--- NOTE | 2021-03-05 11:04 | W.PM.OPSUD ---
Surgery/Procedure H&P Update DATE OF PROCEDURE: March 05, 2021 DATE H&P PERFORMED: 02/06/21 H&P UPDATE INFORMATION: I have reviewed H&P completed within last 30 days, I have examined patient prior to procedure and Changes to prior documentation as noted here (Patient undergone a colonoscopy and polyps were removed with benign findings) PREOP DIAGNOSIS: Colon cancer PRIMARY INDICATION FOR PROCEDURE: The same PLANNED PROCEDURE: Operation Date: 03/05/21 11:00 Proposed Procedures p laparoscopic colostomy reversal and colocolic anastomosis possible open 29306 z93.3 c18.9(Not Applicable) - Noah Davidson MD
--- NOTE | 2021-03-05 12:24 | PM.OP ---
Operative Report Date of procedure: March 05, 2021 Pre-op Diagnosis: Colon cancer, urethral injury Post-op diagnosis: same Procedure Done: 1. Cystoscopy, left ureteral stent placement (8.5 Macanese by 28 cm double-pigtail with string attached distally) 2. Wing catheter placement Pathology: none sent Surgeon: Nieves Anesthesia: General Estimated blood loss: Minimal Urine output: Not measured Complications: None Findings: 8.5 Macanese by 28 cm double-pigtail stent with string attached distally left indwelling Urethra well-healed. Wing catheter placed without difficulty Condition: stable Disposition: other (Turned over to Dr. Davidson for his portion of the procedure) Brief History: Shabbir is a very pleasant 80-year-old white male who I evaluated for the first time previously during the procedure and catheter placement was unsuccessful preoperatively. Was found to have a false passage and a catheter was placed over a wire. Follow-up reveals good healing of the urethra and the catheter was removed my office on outpatient visit. The patient is scheduled now for colostomy takedown and reanastomosis. Because of the concern for potential difficulty in identifying the ureter I was requested to place a stent for assistance with intraoperative ureteral identification Procedure: After routine preoperative evaluation examination and obtaining informed consent he was taken to the operating suite on 03/05/2021 where general anesthesia was administered without difficulty after appropriate timeout was performed, SCDs confirmed to be functioning, preoperative antibiotics administered, beta-lizbeth protocol confirmed. Prepped and draped in usual sterile fashion in dorsolithotomy position paying careful attention to avoiding pressure points. 21 Macanese cystoscope was advanced into the bladder without difficulty. The urethra was confirmed to be well-healed at the previous false passage site on the posterior urethra deep bulbar location. Left ureteral orifice was identified a flexible tip guidewire was then easily advanced up the left ureter and an 8.5 Macanese by 28 cm double-pigtail stent was advanced over the guidewire through the cystoscope into appropriate position as confirmed via fluoroscopy and cystoscopy. Bladder was drained with a 18 Macanese coud? catheter without difficulty. String was left loose emanating from the urethral meatus for ease of removal post procedure. Procedure was completed and the patient was turned over to Dr. Davidson for his portion.
[2021-03-05] MEDS: piperacillin-tazobactam 3.375 GM in sodium chloride 0.9% (plus) 100 ML IV (12:45)
--- NOTE | 2021-03-05 15:57 | SUR.OPER ---
family updated of surgical status
--- NOTE | 2021-03-05 16:37 | P.OP_ITS ---
Operative Report Date of procedure: March 05, 2021 Pre-op Diagnosis: Undesired colostomy, history of colon cancer Post-op diagnosis: other Post-op Diagnosis: Extensive intra-abdominal adhesions Viable bowels No evidence of carcinomatosis or ascites Procedure Done: 1-Diagnostic laparoscopy converted to exploratory laparotomy 2-Colostomy takedown 3-Distal transverse partial colectomy 4-Proximal sigmoid partial colectomy 5-Extensive adhesiolysis exceeding 1 hour of the operative time 4-vuxa-qi-side functional Colocolic anastomosis 7-Partial omentectomy 8-dissection of bilateral subcutaneous flap to allow closure of the fascia Specimens removed/disposition: Transverse partial colectomy's with sutures marked proximal Proximal sigmoid colectomy's with sutures marked proximal Staple line status post colocolic anastomosis [id number] Portion of falciform ligament Partial omentectomy Surgeon: Noah Davidson Surgeon: Supervisor [employer] surgeon Dr. Pickett Supervisor [employer]: Surgical techs Priscilla,Israel and or Enrique surgical pathologist student Shift change Alicia Circulating nurses Mary Andre/Jerri Anesthesia: General (GET[employer] BUSINESS CONTROLLER Terra/Leonor) Estimated blood loss (mL): 100 IV fluids (mL): 2,000 Urine output (mL): 100 Condition: stable Disposition: floor Procedure: After identifying the patient in the holding area, was taken to the operating room, placed in supine position, intubated by anesthesia, prophylactic IV antibiotics were given per protocol.Patient was then placed in lithotomy position. Time-out was done verifying the patient's name/date of /planned procedure and destination after the procedure, all were in agreement. Wing catheter was inserted by Dr. Pickett as well as left ureteric stent (please see separate dictation for urology encounter). Following Dr. Pickett procedure I went back to the operating room where Prep and drape of the abdomen was done under the usual sterile technique and special prep and attention was paid to the colostomy where Betadine prep was done and covered by separate sterile towel., a Hughes trocar technique was used through an supraumbilical skin incision, two stay sutures were applied to the fascia, and safe entrance to the abdominal cavity was achieved, low flow followed by high flow of CO2 gas, started by 0 scope 10 mm, no injuries were detected, upon entrance to the abdominal cavity extensive intra-abdominal adhesions including small bowel loops. An additional 5 mm trocar was introduced under direct visualization towards the right lower quadrant, sharp adhesiolysis was obtained under direct visualization. At some point I decided that conversion to laparotomy would be the safer approach.The pneumoperitoneum was allowed to deflate. I extended the supraumbilical incision caudad,Cautery was used to divide the subcutaneous tissue and the midline fascia and the peritoneal cavity was entered. Extensive Omental adhesions were appreciated upon entrance to the abdominal cavity, adhesions were all taken down by cauterization under direct visualization, as well as using LigaSure device and alternating with sharp adhesiolysis. The [place] self-retaining retractor was used for exposure. Falciform ligament was taken down between 2 clamps and stick ties were applied and distal portion was excised and sent for permanent pathology, also there was extensive adhesions among the small bowel loops and the distal transverse colon as well as lateral abdominal, pelvic wall as well as to the proximal sigmoid colon all adhesions were taken down and extensive adhesiolysis exceeded 1 hour of the operative time. I was able to identify the sigmoid colon from the previously placed Prolene sutures. The transverse colon and the remaining of the viscera maintain to be viable. The dissection to free the sigmoid colon was achieved through the line of Toldt the left ureteric stent was appreciated within the ureter without jeopardizing its integrity. At this point I decided to apply a pursestring suture of the colostomy that was further dissected and taken down, following that a distal transverse partial colectomy was achieved after freeing that part of the colon from adhesions using an [place] 60 mm blue load. Partial omentectomy was done to free that segment of the colon to allow tension-free anastomosis. Another blue load was applied to achieve a proximal partial sigmoid colectomy. I elected to explore the whole abdomen I started at the ligament of Treitz and running the small bowel all the way to the ileocecal junction, found to have no other involved small bowel segments and further adhesiolysis was achieved Noticed that the tattooing of the proximal part of the colon. I decided at this point to perform incidental appendectomy using a blue load [place] stapler followed by LigaSure device to take the mesoappendix down.And a muhtpo-ea-imehp 3-0 silk was applied to secure hemostasis and the mesoappendix. The meaning of the bowel looked viable and extensive and thorough irrigation using about 5 L of warm saline was done ,there was no evidence of bleeding, or injuries. Couple of 3-0 silk sutures were applied to repair superficial seromuscular small bowel tears. There was no evidence of peritoneal carcinomatosis or liver lobe involvement with metastatic disease. A eirp-ue-nitt colocolic anastomosis was achieved after application of 3-0 silk sutures that were applied proximal and distal and enterotomies were created to allow the 2 limbs of the 60 mm blue load [place] stapler to create a sdsx-fn-wcpd functional anastomosis. Proximal to the enterotomy sites. Another 60 mm blue load was fired to remove the enterotomy sites and were sent separate for pathology. Hemostasis was achieved by using 3-0 silk vrmvib-vl-xelkj sutures and the anastomosis maintain to be well patent and intact the anastomosis was checked pinched between my index and left thumb fingers and was patent enough.A rzrniy-cu-nwhui 3-0 silk was applied to approximate the mesentery of both limbs of the colon. To prevent future internal herniation.3-0 silk stitch was placed at the crutch between the 2 limbs. More irrigation was achieved followed by suction, count was then completed. At this point I did asked my circulating nurse to remove the left ureteric stent ex vivo and the ureter in vivo maintain to be intact. Attention was deviated towards closure of the colostomy muscular defect under direct visualization using 0 Vicryl. Bilateral TAP (transversus abdominous plain peripheral nerve block )block using Exparel 20 mL Exparel 40 ml Normal saline 20 ml bupivacaine 0.25% 30 mL on each side injected 20 mL injected the port sites I had to dissect bilateral subcutaneous flaps to allow closure of the fascia. The midline fascia was closed then using a looped #1 PDS under direct visualization. The subcutaneous tissue was extensively irrigated and the skin was then approximated using 2-0 Vicryl using skin candido, followed by dry dressing. Also copious irrigation was done to the colostomy site and was closed by skin candido Patient was then extubated and transferred directly to the PACU area I was present for the whole entire procedure.
[2021-03-05] MEDS: fentaNYL 50 mcg/mL INJ 2mL IVP (17:02)
--- NOTE | 2021-03-05 18:00 | ANE.PACU2 ---
Inpatient post-anesthesia follow up: Airway intact: Yes Vital signs: Temperature 99.2 F Pulse Rate 86 Respiratory Rate 18 Blood Pressure 142/70 Pulse Oximetry 97 Oxygen Delivery Me thod Nasal Cannula Oxygen Flow Rate 1 Fraction of Inspir ed Oxygen Hydration adequate: Yes Nausea and vomiting: No Pain level: 3 Mental status: Baseline
[2021-03-05] MEDS: HYDROmorphone 1 mg/mL INJ 1 mL 0.25 MG IVP ×2 (18:17→20:47)
--- NOTE | 2021-03-05 18:34 | P.CONIM_ITS ---
Providers/Reason For Consult Consulting Physician/Specialty*: Hospitalist Reason for Consult*: COPD Attending Physician: Noah Davidson MD Primary Care Provider: Renard Elias DO History of Present Illness History of Present Illness 80-year-old gentleman with history of COPD, following with pulmonology Dr. Hughes in [place], not usually on supplemental oxygen, with history of mitral valve repair, previously taking aspirin, but this was discontinued prior to surgery in July, with history of hemicolectomy, colostomy secondary to colon cancer, is admitted following exploratory laparotomy, adhesiolysis, colostomy reversal with colocolic anastomosis, also with cystoscopy and ureteral stent placement by urology for identification of ureter intraoperatively. He is waking up following anesthesia. Having abdominal pain. He is accompanied by his in the room on medical surgical floor. She expresses he is a very shallow breather, that during prior hospitalization ended up having pneumonia, requiring admission to ICU. After surgery she is also feeling that his left forearm/hand is feeling cooler to touch compared to the right side. He denies any complaint of pain, numbness in that hand. Is able to squeeze the hand. Noted good radial pulse. They report that prior to surgery he was otherwise at baseline state of health. She states that anytime he started on oxygen it somewhat makes him cough. Otherwise he has not had any fever, chills, any sore throat, runny nose, sneezing, shortness of breath or cough. The only medications he takes at home are Symbicort and tamsulosin. On discussion with surgery, procedure was uneventful, with EBL 100 mL. Received 2 L of fluid intraoperatively. Currently saturation 94% on 1 L nasal cannula. Review of Systems Const: Denies: fever(s), chills, body aches or malaise Eyes: Denies: change in vision or eye redness ENMT: Denies: throat pain, oral sores or ear or mastoid pain Card: Denies: chest pain, edema, pre-syncope or dyspnea on exertion Resp: Denies: dyspnea, productive cough, change in phlegm color or hemoptysis GI: Reports: abdominal pain; Denies: nausea, vomiting, diarrhea, constipation, hematochezia or melena : Denies: flank pain, difficulty urinating, urinary frequency or hematuria Musc: Denies: back pain, joint swelling or joint redness Skin/Breast: Denies: rash, sores or new lesions Neuro: Denies: headache(s), numbness in extremities, weakness in extremities, dizziness, confusion or seizure-like activity Endo: Denies: polyuria or polydipsia Mark/Lymph: Reports: easy bruising; Denies: easy bleeding or purpura All/Imm: Denies: urticaria, throat swelling or tongue swelling Meds/Allergies Home Medications and Allergies Home Medications Medication Instructions Recorded Confirmed Last Taken Type budesonide-formoterol HFA 80 2 puff INHALATION BID@0900,2100 08/15/20 03/05/21 03/05/21 06:30 History mcg-4.5 mcg/actuation aerosol inhaler tamsulosin 0.4 mg PO DAILY 02/27/21 03/05/21 03/03/21 History Allergies Allergy/AdvReac Type Severity Reaction Status Date / Time morphine Allergy Unknown Hallucinati Verified 03/05/21 09:43 on Current Medications Current Medications Generic Name Dose Route Start Last Admin Trade Name Freq PRN Reason Stop Dose Admin Hydromorphone HCl 0.25 mg 03/05/21 17:11 03/05/21 18:17 Hydromorphone 1 Mg/Ml Inj 1 Ml IVP 03/06/21 16:42 0.25 mg Q2H PRN Administration Pain level 4-6 PACU Phase I PFSH Acute PFSH: Medical History Abscess of abdominal wall Anemia Colon cancer COPD (chronic obstructive pulmonary disease) Shallow breathing Urethral injury Surgical History History of back surgery History of hemorrhoidectomy History of left hemicolectomy History of mitral valve repair Family History Father Accident Mother , IN HER 50'S Cancer Denies family history of Anesthesia complication Bleeding disorder Social History Smoking and tobacco status: former smoker Alcohol intake: former Substance/Drug Use: never Household members: spouse Marital status: Current occupational status: retired History of recent travel: No Vitals/I&O/Wt Last Vital Signs Temp 97.7 F 03/05/21 17:25 Pulse 77 03/05/21 17:25 Resp 18 03/05/21 18:17 BP 138/76 03/05/21 17:25 Pulse Ox 94 03/05/21 17:25 03/05/21 03/05/21 03/05/21 06:59 14:59 22:59 Intake Total 200 / 200 200 / 400 Output Total 100 / 100 Balance 200 / 200 100 / 300 Physical Exam Const: COMMON NORMALS: no acute distress and patient oriented x3 GENERAL APPEARANCE: cooperative and frail appearing NUTRITIONAL APPEARANCE: thin ORIENTATION/CONSCIOUSNESS: Yes awake OTHER: is at bedside. HENMT: COMMON NORMALS: oropharynx normal Neck/C-Spine: COMMON NORMALS: no JVD Resp: COMMON NORMALS: normal respiratory effort and clear to auscultation bilaterally AUSCULTATION: clear to auscultation bilaterally Cardio: COMMON NORMALS: no JVD, regular rhythm, S1 normal heart sound present, S2 normal heart sound present and No murmurs present (Cardio) RHYTHM: regular rhythm HEART SOUNDS: S1 normal heart sound present and S2 normal heart sound present GI: COMMON NORMALS: Normal to inspection, nondistended, normoactive bowel sounds present, Soft to palpation and non-tender PALPATION: Yes Soft to palpation OTHER: Midline wound. Mild sero-sang strikethrough. No active bleeding. Extremity: COMMON NORMALS: no joint enlargement and no pedal edema Neuro: COMMON NORMALS: patient oriented x3 and moves all extremities Skin: COMMON NORMALS: no rashes or lesions noted GENERAL SKIN EXAM: no rashes or lesions noted Urinary Catheter Management^: Coude: Cath Placed During This Visit: yes Urinary Catheter Date of Insertion: 03/05/21 Urinary Catheter Time of Insertion: 13:06 A&P Assessment and plan (1) COPD (chronic obstructive pulmonary disease): Not in exacerbation. Not normally on supplemental oxygen. Continue Sy mbicort. Wean off oxygen. Target saturation 92%. Avoid hyperoxia. Status: Acute (2) S/P laparotomy: Status post exploratory laparotomy after cystoscopy, ureteral stenting for identification, adhesiolysis, colostomy reversal, colocolic anastomosis. Management per surgery. Currently n.p.o. Pain management, avoid morphine. notes that he is a very shallow breather. Discussed with him and her importance of incentive spirometry, encouraged him to use it at least several times an hour to help prevent pneumonia. Status: Acute Additional A&P Information Cool left hand: After surgery appears left forearm, hand is cooler to touch compared to the right side. Does not appear dusky. Has good radial pulse. Discussed consideration that may have cooled down during surgery. He does not have any pain, numbness. No trouble squeezing his hand. He will let us know in case there is any change in symptoms. Follow vascular checks for now. BPH: Continue Flomax History of mitral valve repair: Previously on aspirin, but not since having his surgeries. Consider resuming aspirin once it is safe. Consult Attestations Medical Necessity Statement: Continue hospitalization postoperatively after exploratory laparotomy adhesiolysis, colostomy reversal and colocolic anastomosis in a gentleman with underlying COPD. 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
[2021-03-05] MEDS: piperacillin-tazobactam 3.375 GM in sodium chloride 0.9% (plus) 50 ML IV (22:02)
[2021-03-05] MEDS: famotidine 20 mg/2 mL INJ IVP (22:25)
[2021-03-06] VITALS (16 sets, daily range): BP systolic 114–158; BP diastolic 70–75; PULSE 77–101; RESP 17–22; TEMP 36.3–37.3; O2SAT 89–97
[2021-03-06] MEDS: sodium chloride 0.9% 1,000 ML 100 ML IV ×3 (00:26→20:19)
[2021-03-06] MEDS: HYDROmorphone 1 mg/mL INJ 1 mL 0.25 MG IVP ×4 (02:29→15:30)
[2021-03-06] MEDS: piperacillin-tazobactam 3.375 GM in sodium chloride 0.9% (plus) 50 ML IV ×3 (04:17→20:19)
--- NOTE | 2021-03-06 08:09 | P.PN_ITS ---
Subjective Subjective: Interval history: I am hurting little bit,adequate uop,no acute events overnigt. Medications: Reviewed: Yes Vitals/I&O/Wt Last Vital Signs Temp 99.0 F 03/06/21 07:43 Pulse 79 03/06/21 07:50 Resp 20 H 03/06/21 07:50 BP 158/75 03/06/21 07:43 Pulse Ox 93 03/06/21 07:50 03/05/21 03/06/21 03/06/21 22:59 06:59 14:59 Intake Total 200 / 400 50 / 450 Output Total 100 / 100 1000 / 1100 Balance 100 / 300 -950 / -650 Physical Exam Narrative: EXAM NARRATIVE: Patient is conscious alert oriented X3 Mild distress BMI 18.4 Head and neck examination PERRLA no masses no cervical lymphadenopathy no jaundice Cardiac examination audible S1-S2 no murmurs no gallops no arrhythmias Chest is clear bilateral,abscence of Rhonchi or wheezes,no surgical emphysema Abdomen tender at the incision site otherwise nondistended soft no organomegaly guarding or rigidity/no signs of peritonitis Extremities no cyanosis no clubbing no edema Wing catheter in place with clearer urine. Urinary Catheter Management^: Coude: Cath Placed During This Visit: yes Reason for Continuing Indwelling Catheter: Required Immobilization for Trauma or Surgery or Anesthesia Urinary Catheter Date of Insertion: 03/05/21 Urinary Catheter Time of Insertion: 13:06 Data : 03/06/21 08:16 03/06/21 08:16 A&P Assessment and plan (1) Status post exploratory laparotomy: Status post exploratory laparotomy with colostomy takedown and partial colectomy's and omentectomy 03/05/2021 We will continue n.p.o. status We will plan to have adequate pain controlBy increasing Dilaudid 2.5 mg every 2 hours as needed for painAnd adding of Tylenol IV every 8 hours as needed IV fluid resuscitation Will order physical therapy to assist the patient in ambulation Continue Zosyn for 2 more doses Management of Wing catheter I appreciate Dr. Grewal's input with regard to patient's pulmonary condition Encourage incentive spirometer every hour Assurance and education All questions have been answered and all concerns have been addressed to patient's satisfaction. Status: Acute Attestations Medical Necessity Statement*: Inpatient hospitalization passing 2 midnights for perioperative care and awaiting bowel functions Time Spent in Patient Care: (>than 50% of time spent in counselling and/or direct pt care on unit) . Coding Level of Care Code Acute Calibration Laboratory Technician for Chg Fwd Diagnoses Status post exploratory laparotomy Z98.890
[2021-03-06] MEDS: famotidine 20 mg/2 mL INJ IVP ×2 (08:30→20:20)
[2021-03-06] MEDS: tamsulosin 0.4 mg Capsule PO (08:31)
[2021-03-06 08:47] LABS: Hematocrit 40.9 % (42.0-52.0)
[2021-03-06 08:55] LABS: Blood Urea Nitrogen 16 mg/dL (8-23); Calcium 8.1 mg/dL (8.5-10.5); Carbon Dioxide 21 mmol/L (22-29); Chloride 109 mmol/L (98-107); Glucose 140 mg/dL (65-115); Osmolality Calculated 291 mOsm/kg (285-295); Sodium 139 mmol/L (136-145)
--- NOTE | 2021-03-06 10:44 | PC.CHAP ---
Pastoral Care Encounter/Spiritual Assessment Type of Contact [] Declined radio operator visit [] Patient/Family/Request visit [] Outpatient visit [] Follow-up visit [] Physician referral [] Code/Alert [x] Routine visit [] Staff referral [] Actively dying [] Patient sleeping [] Family support [] [] Out of room [] Palliative care [] [x] Receiving care in room [] Pre-surgical visit [] Trauma [x] Long length of stay [] ICU visit [] Other: Relational/Emotional Strength [x] Patient feels connected with others/family/visitors/staff [] Distress [] Loneliness/isolation [] Abandonment Spirituality of Patient [x] Person of Keri [] Attends Nondenominational of their Keri [x] Believes in Prayer [] Reads Bible or Presybeterian materials [] There are Spiritual issues to be addressed Ammunition 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 Interventions [x] Prayer [x] Active listening [x] Non-anxious presence [x] Spiritual/emotional support [] Crisis/trauma care [x] Spiritual counseling [] Bereavement support [] Provided bereavement packet [] Provided Bible/devotional materials [] Provided toy/stuffed animal, coloring book to patient or family member [] Provided Communion [] Anointing/[place] [] Salvation [x] Completed spiritual assessment [] Other: Impact on Illness or Injury [] Angry [] Fearful [] Anxious [] Often cries [x] Exhaustion [x] Unable to work [] Unable to attend sabianist [] Unable to walk/stand [] Unable to read [] Unable to drive [] Unable to eat/drink [] Unable to sleep [] Unable to be with family [] Patient intubated [] Other: Summary unable to communicate in pain Time spent with patient 10 mins
[2021-03-06] MEDS: acetaminophen 1,000 MG/100 ML PIGGYBACK 400 MG IV (18:01)
--- NOTE | 2021-03-06 20:08 | P.PN_ITS ---
Subjective Subjective: Interval history: Abdomen is tender, otherwise denies any complaints. Not short of breath. Denies chest pain or pressure. Encouraged him to use the incentive spirometer. He says he used it once. Vitals/I&O/Wt Last Vital Signs Temp 97.9 F 03/06/21 15:24 Pulse 96 03/06/21 15:24 Resp 17 03/06/21 15:30 BP 119/70 03/06/21 15:24 Pulse Ox 90 03/06/21 15:24 03/06/21 03/06/21 03/06/21 06:59 14:59 22:59 Intake Total 50 / 450 1050 / 1050 150 / 1200 Output Total 1000 / 1100 1300 / 1300 Balance -950 / -650 1050 / 1050 -1150 / -100 Physical Exam Const: COMMON NORMALS: no acute distress, patient oriented x3 and alert GENERAL APPEARANCE: cooperative and frail appearing NUTRITIONAL APPEARANCE: thin ORIENTATION/CONSCIOUSNESS: Yes awake HENMT: COMMON NORMALS: oropharynx normal Neck/C-Spine: COMMON NORMALS: no JVD Resp: COMMON NORMALS: normal respiratory effort and clear to auscultation bilaterally AUSCULTATION: clear to auscultation bilaterally Cardio: COMMON NORMALS: no JVD, regular rhythm, S1 normal heart sound present, S2 normal heart sound present and No murmurs present (Cardio) RHYTHM: regular rhythm HEART SOUNDS: S1 normal heart sound present and S2 normal heart sound present GI: COMMON NORMALS: Normal to inspection, nondistended, normoactive bowel david nds present, Soft to palpation and non-tender PALPATION: Yes Soft to palpation OTHER: Midline wound. Mild sero-sang strikethrough. No active bleeding. Extremity: COMMON NORMALS: no joint enlargement and no pedal edema Neuro: COMMON NORMALS: patient oriented x3 and moves all extremities SENSORIUM/ORIENTATION: Yes alert Skin: COMMON NORMALS: no rashes or lesions noted GENERAL SKIN EXAM: no rashes or lesions noted Urinary Catheter Management^: Coude: Cath Placed During This Visit: yes Reason for Continuing Indwelling Catheter: Required Immobilization for Trauma or Surgery or Anesthesia Urinary Catheter Date of Insertion: 03/05/21 Urinary Catheter Time of Insertion: 13:06 Data : 03/06/21 08:16 03/06/21 08:16 A&P Assessment and plan (1) COPD (chronic obstructive pulmonary disease): Weaned off oxygen today. Target saturation 88-92%. I avoid hyperoxia. Encourage incentive spirometry. Not in exacerbation. Not normally on supplemental oxygen. Continue Symbicort. Status: Acute (2) S/P laparotomy: Status post exploratory laparotomy after cystoscopy, ureteral stenting for identification, adhesiolysis, colostomy reversal, colocolic anastomosis. Management per surgery. Currently n.p.o. Pain management, avoid morphine. noted that he is a very shallow breather. Encouraged him again to use it at least several times an hour to help prevent pneumonia. Status: Acute Additional A&P Information Cool left hand: Appears well perfused. He has had no further problems. Resolved. BPH: Continue Flomax History of mitral valve repair: Previously on aspirin, but not since having his surgeries. Consider resuming aspirin once it is safe. Attestations Medical Necessity Statement*: Continue admission for postoperative management after colostomy takedown after laparotomy with adhesiolysis. Coding Level of Care Code Acute Compress Machine Operator for [facility] Kenji Diagnoses COPD (chronic obstructive pulmonary disease) J44.9 S/P laparotomy Z98.890
[2021-03-07] VITALS (15 sets, daily range): BP systolic 115–136; BP diastolic 70–82; PULSE 88–105; RESP 16–20; TEMP 36.6–37.5; O2SAT 90–96
[2021-03-07] MEDS: HYDROmorphone 1 mg/mL INJ 1 mL 0.5 MG IVP ×2 (00:38→22:35)
[2021-03-07] MEDS: piperacillin-tazobactam 3.375 GM in sodium chloride 0.9% (plus) 50 ML IV ×3 (03:01→22:17)
--- NOTE | 2021-03-07 03:58 | PC.NURSE ---
Addendum entered by Kelly Posey RN 03/07/21 04:18: PT HAS REMAINED NPO THROUGHOUT SHIFT WITH ORAL CARE GIVEN - MULTIPLE ATTEMPTS TO REPOSITION PT THROUGHOUT SHIFT PER THIS NURSE - PT STATES I'M FINE TO REPOSITION MYSELF Original Note: END OF SHIFT SUMMARY PT HAS RESTED WITH IVP PAIN MEDICATION GIVEN X1 - MINIMAL COMPLAINTS OF PAIN THROUGHOUT THIS SHIFT - HAS REMAINED A&o THROUGHOUT - IV PATENT VIA PUMP - BOWDEN HAS PUT OUT GOOD INTAKE WITH YELLOW URINE - BED CHECK SET
[2021-03-07] MEDS: sodium chloride 0.9% 1,000 ML 100 ML IV ×2 (06:01→15:51)
--- NOTE | 2021-03-07 06:27 | P.PN_ITS ---
Subjective Subjective: Interval history: Patient overall had a better night. Pain overall is better controlled now yet he does complain of some soreness at the incision sites. Has been getting out of bed and working on the incentive spirometer. Adequate urine output and Wing catheter was maintained for appropriate measurement of urine output. Patient finished 2 doses of Zosyn postoperatively. Encountered low calcium level yesterday and 2 g of calcium gluconate were given IV. Medications: Reviewed: Yes Vitals/I&O/Wt Last Vital Signs Temp 98.0 F 03/07/21 03:15 Pulse 95 03/07/21 06:00 Resp 18 03/07/21 03:15 BP 115/70 03/07/21 03:15 Pulse Ox 92 03/07/21 03:15 03/06/21 03/06/21 03/07/21 14:59 22:59 06:59 Intake Total 1050 / 1050 1230 / 2280 1020 / 3300 Output Total 1300 / 1300 700 / 2000 Balance 1050 / 1050 -70 / 980 320 / 1300 Physical Exam Narrative: EXAM NARRATIVE: Patient is conscious alert oriented X3 BMI 18.4 Head and neck examination PERRLA no masses no cervical lymphadenopathy no jaundice Cardiac examination audible S1-S2 no murmurs no gallops no arrhythmias Chest is clear bilateral,abscence of Rhonchi or wheezes,no surgical emphysema Abdomen tender at the incision site otherwise nondistended soft no organomegaly guarding or rigidity/no signs of peritonitis/incisions are clean dry and intact and skin candido in place Extremities no cyanosis no clubbing no edema Wing catheter in place with clear urine. Urinary Catheter Management^: Coude: Cath Placed During This Visit: yes Reason for Continuing Indwelling Catheter: Perioperative Use in Selected Heidy geries Urinary Catheter Date of Insertion: 03/05/21 Urinary Catheter Time of Insertion: 13:06 Data : 03/06/21 08:16 03/06/21 08:16 A&P Assessment and plan (1) Status post exploratory laparotomy: Status post exploratory laparotomy with colostomy takedown and partial colectomy's and omentectomy 03/05/2021 We will continue n.p.o. status, patient can have some ice chips Continue pain control IV fluid resuscitation Encourage ambulation with assistance Management of Wing catheter Encourage incentive spirometer every hour Awaiting bowel functions, once patient starts passing gas we will start him slowly on clear liquid diet. Assurance and education All questions have been answered and all concerns have been addressed to patient's satisfaction. Status: Acute Attestations Medical Necessity Statement*: Inpatient hospitalization passing 2 midnights for perioperative care and awaiting bowel functions Time Spent in Patient Care: (>than 50% of time spent in counselling and/or direct pt care on unit) . Coding Level of Care Code Acute Product Marketing Intern for [facility] Fwd Diagnoses Status post exploratory laparotomy Z98.890
[2021-03-07] MEDS: famotidine 20 mg/2 mL INJ IVP ×2 (10:38→22:18)
[2021-03-07] MEDS: tamsulosin 0.4 mg Capsule PO (10:38)
--- NOTE | 2021-03-07 17:16 | PC.RESP ---
PULMONARY REHAB INFORMATION SENT TO PATIENT.
--- NOTE | 2021-03-07 19:21 | PM.PN ---
Subjective Subjective: Interval history: Abdomen is sore but improving. He denies any shortness of breath. His no cough. Not producing phlegm. Overall he feels he is gradually improving. He has not yet passed gas, but feels like things might be headed that way. Vitals/I&O/Wt Last Vital Signs Temp 98.4 F 03/07/21 15:57 Pulse 98 03/07/21 15:57 Resp 18 03/07/21 15:57 BP 126/78 03/07/21 15:57 Pulse Ox 91 03/07/21 15:57 03/07/21 03/07/21 03/07/21 06:59 14:59 22:59 Intake Total 1020 / 3300 50 / 50 1033.333 / 1083.333 Output Total 700 / 2000 1000 / 1000 Balance 320 / 1300 50 / 50 33.333 / 83.333 Physical Exam Const: COMMON NORMALS: no acute distress, patient oriented x3 and alert GENERAL APPEARANCE: cooperative and frail appearing NUTRITIONAL APPEARANCE: thin ORIENTATION/CONSCIOUSNESS: Yes awake HENMT: COMMON NORMALS: oropharynx normal Neck/C-Spine: COMMON NORMALS: no JVD Resp: COMMON NORMALS: normal respiratory effort and clear to auscultation bilaterally AUSCULTATION: clear to auscultation bilaterally Cardio: COMMON NORMALS: no JVD, regular rhythm, S1 normal heart sound present, S2 normal heart sound present and No murmurs present (Cardio) RHYTHM: regular rhythm HEART SOUNDS: S1 normal heart sound present and S2 normal heart sound present GI: COMMON NORMALS: Normal to inspection, nondistended, normoactive bowel sounds present, Soft to palpation and non-tender PALPATION: Yes Soft to palpation OTHER: Dressing off. Midline wound appear clean. No surrounding erythema. No bleeding or exudate. Extremity: COMMON NORMALS: no joint enlargement and no pedal edema Neuro: COMMON NORMALS: patient oriented x3 and moves all extremities SENSORIUM/ORIENTATION: Yes alert Skin: COMMON NORMALS: no rashes or lesions noted GENERAL SKIN EXAM: no rashes or lesions noted Urinary Catheter Management^: Coude: Cath Placed During This Visit: yes Reason for Continuing Indwelling Catheter: Perioperative Use in Selected Surgeries Urinary Catheter Date of Insertion: 03/05/21 Urinary Catheter Time of Insertion: 13:06 Data : 03/06/21 08:16 03/06/21 08:16 A&P Assessment and plan (1) COPD (chronic obstructive pulmonary disease): She has been doing very well on room air, saturating the low 90s. He is not short of breath. No cough, no phlegm production. No COPD exacerbation. Continue follow-up with senior software project manager after discharge. Consider home O2 prior to discharge, although he should not hopefully require any oxygen. Target saturation 88-92%. Discussed with surgery, at this time medicine will sign off. In case of any developing issues or questions feel free to reconsult at any time. Continue Symbicort. Status: Acute (2) S/P laparotomy: Awaiting return of bowel function. Encouraged him again to continue incentive spirometer. He states he is now using it every hour. Status post exploratory laparotomy after cystoscopy, ureteral stenting for identification, adhesiolysis, colostomy reversal, colocolic anastomosis. Management per surgery. Pain management, avoid morphine. noted that he is a very shallow breather. Encouraged him again to use it at least several times an hour to help prevent pneumonia. Status: Acute Additional A&P Information Cool left hand just after surgery: Well perfused. Resolved. He has had no further problems. BPH: Continue Flomax History of mitral valve repair: Previously on aspirin, but not since having his surgeries. Consider resuming aspirin once it is safe. Attestations Medical Necessity Statement*: Continues to be managed by surgery after laparotomy with adhesiolysis, takedown of colostomy, colocolic anastomosis, awaiting return of bowel function. Coding Level of Care Code Acute Director Of Scientific Research for [facility] Diagnoses COPD (chronic obstructive pulmonary disease) J44.9 S/P laparotomy Z98.890
[2021-03-07] MEDS: ipratropium-albuterol 3 mL Neb INHALATION (20:00)
--- NOTE | 2021-03-07 22:41 | PC.NURSE ---
Patient received dilaudid 0.5 mg iv for c/o abdominal pain. This nurse accidently discarded medication vial prior to scanning. Patient verified.
[2021-03-08] VITALS (11 sets, daily range): BP systolic 109–156; BP diastolic 63–93; PULSE 81–100; RESP 12–18; TEMP 36.4–37; O2SAT 90–98
[2021-03-08] MEDS: sodium chloride 0.9% 1,000 ML 100 ML IV ×2 (01:57→11:33)
[2021-03-08 03:16] LABS: Hematocrit 36.6 % (42.0-52.0); Hemoglobin 11.8 g/dL (11.7-16.6)
[2021-03-08 03:47] LABS: Blood Urea Nitrogen 16 mg/dL (8-23); Calcium 7.9 mg/dL (8.5-10.5); Carbon Dioxide 23 mmol/L (22-29); Chloride 109 mmol/L (98-107); Glucose 120 mg/dL (65-115); Osmolality Calculated 298 mOsm/kg (285-295); Sodium 143 mmol/L (136-145)
[2021-03-08] MEDS: piperacillin-tazobactam 3.375 GM in sodium chloride 0.9% (plus) 50 ML IV (04:34)
--- NOTE | 2021-03-08 07:02 | PM.PN ---
Subjective Subjective: Interval history: Patient overall feels better and his pain under better control, no bowel activities yet Medications: Reviewed: Yes Vitals/I&O/Wt Last Vital Signs Temp 97.6 F 03/08/21 03:45 Pulse 93 03/08/21 03:45 Resp 18 03/08/21 03:45 BP 150/88 03/08/21 03:45 Pulse Ox 92 03/08/21 03:45 03/07/21 03/08/21 03/08/21 22:59 06:59 14:59 Intake Total 1033.333 / 7768.288 0812 / 2133.333 Output Total 1000 / 1000 425 / 1425 Balance 33.333 / 83.333 625 / 708.333 Physical Exam Narrative: EXAM NARRATIVE: Patient is conscious alert oriented X3 BMI 18.4 Head and neck examination PERRLA no masses no cervical lymphadenopathy no jaundice Cardiac examination audible S1-S2 no murmurs no gallops no arrhythmias Chest is clear bilateral,abscence of Rhonchi or wheezes,no surgical emphysema Abdomen tender at the incision site otherwise nondistended soft no organomegaly guarding or rigidity/no signs of peritonitis/incisions are clean dry and intact and skin candido in place Extremities no cyanosis no clubbing no edema Wing catheter in place with clear urine. Urinary Catheter Management^: Coude: Cath Placed During This Visit: yes Reason for Continuing Indwelling Catheter: Perioperative Use in Selected Surgeries Urinary Catheter Date of Insertion: 03/05/21 Urinary Catheter Time of Insertion: 13:06 Data : 03/08/21 02:29 03/08/21 02:29 A&P Assessment and plan (1) Status post exploratory laparotomy: Status post exploratory laparotomy with colostomy takedown and partial colectomy's and omentectomy 03/05/2021 Continue pain control Will drop IV fluids to 75 mL/h and start the patient on popsicles Encourage ambulation with assistance DC Wing cath Encourage incentive spirometer every hour Awaiting bowel functions, once patient starts passing gas we will start him slowly on clear liquid diet. Assurance and education All questions have been answered and all concerns have been addressed to patient's satisfaction. Status: Acute Attestations Medical Necessity Statement*: Inpatient hospitalization passing 2 midnights for perioperative care and awaiting bowel functions Time Spent in Patient Care: (>than 50% of time spent in counselling and/or direct pt care on unit). Coding Level of Care Code Acute Contact Center Associate for [facility] Fwd Diagnoses Status post exploratory laparotomy Z98.890
[2021-03-08] MEDS: HYDROmorphone 1 mg/mL INJ 1 mL 0.5 MG IVP ×2 (07:34→18:06)
[2021-03-08] MEDS: famotidine 20 mg/2 mL INJ IVP ×2 (09:39→20:24)
[2021-03-08] MEDS: tamsulosin 0.4 mg Capsule PO (09:39)
--- NOTE | 2021-03-08 09:45 | DCPLANNER ---
Pg 2 of IM presented and explained to pt. He states that he does have medicare so is glad to know this information. Signed by pt. copy provided.
[2021-03-08] MEDS: enoxaparin 30 mg/0.3 mL Syringe SUBCUT (18:08)
[2021-03-09] VITALS (10 sets, daily range): BP systolic 132–144; BP diastolic 70–84; PULSE 77–116; RESP 12–18; TEMP 36.6–36.8; O2SAT 91–96
[2021-03-09] MEDS: sodium chloride 0.9% 1,000 ML 100 ML IV (00:57)
[2021-03-09 03:03] LABS: Hematocrit 35.8 % (42.0-52.0); Hemoglobin 11.6 g/dL (11.7-16.6)
[2021-03-09 03:25] LABS: Alanine Aminotransferase 18 U/L (0-41); Albumin Level 2.7 g/dL (3.5-5.2); Alkaline Phosphatase 50 IU/L (40-130); Anion Gap 12.4 (5-19); Aspartate Amino Transferase 26 U/L (0-40); Blood Urea Nitrogen 14 mg/dL (8-23); Calcium 7.9 mg/dL (8.5-10.5); Carbon Dioxide 27 mmol/L (22-29); Chloride 109 mmol/L (98-107); Globulin 2.4 g/dL (1.3-4.6); Glucose 111 mg/dL (65-115); Osmolality Calculated 301 mOsm/kg (285-295); Potassium 3.4 mmol/L (3.5-5.1); Sodium 145 mmol/L (136-145); Total Bilirubin 0.5 mg/dL (0.15-1.2); Total Protein 5.1 g/dL (6.6-8.7)
--- NOTE | 2021-03-09 06:01 | PC.NURSE ---
Shift Summary Patient has done well throughout the shift, start passing flatus before midnight and states that he feels like he could pass more this AM. Has not had any complaints of pain this shift, requiring no pain medication. Good urine output, approx 900mL. Incisions HUMAN RESOURCES PSYCHOLOGIST, no redness or drainage noted.
[2021-03-09] MEDS: lidocaine 1% 5 ML in potassium chloride premix 100 ML 50 ML IV (08:50)
[2021-03-09] MEDS: famotidine 20 mg/2 mL INJ IVP ×2 (08:50→20:09)
--- NOTE | 2021-03-09 09:17 | P.PN_ITS ---
Subjective Subjective: Interval history: Patient was seen and examined. Started passing gas and having bowel movements liquidy in nature and dark. Patient was started earlier today on liquid diet clear in nature but it seemed that he drank a lot over a small period of time and got distended. Adequate urine output. Potassium is 3.4 and calcium 7.9. Medications: Reviewed: Yes Vitals/I&O/Wt Last Vital Signs Temp 97.9 F 03/09/21 08:00 Pulse 100 03/09/21 08:00 Resp 18 03/09/21 08:00 BP 139/78 03/09/21 08:00 Pulse Ox 91 03/09/21 08:00 03/08/21 03/09/21 03/09/21 22:59 06:59 14:59 Intake Total 1000 / 2080 Output Total 400 / 850 725 / 1575 Balance 600 / 1230 -725 / 505 Physical Exam Narrative: EXAM NARRATIVE: Patient is conscious alert oriented X3 BMI 18.4 Head and neck examination PERRLA no masses no cervical lymphadenopathy no jaundice Abdomen nontender,MILD TO MODERATE distention, otherwise soft no organomegaly guarding or rigidity/no signs of peritonitis Extremities no cyanosis no clubbing no edema Urinary Catheter Management^: Coude: Cath Placed During This Visit: yes, but has since been removed by the nurse Reason for Continuing Indwelling Catheter: Decision to DC Catheter Urinary Catheter Date of Insertion: 03/05/21 Urinary Catheter Time of Insertion: 13:06 Date Urinary Catheter Removed: 03/08/21 Time Urinary Catheter Discontinued: 07:22 Data : 03/09/21 02:26 03/09/21 02:26 A&P Assessment and plan (1) Status post exploratory laparotomy: Status post exploratory laparotomy with colostomy takedown and partial colectomy's and omentectomy 03/05/2021 We will start the patient on hydrocodone 5 325 mg 1 tablet every 6 hours as needed and will wean off IV pain medications Saline lock Will start slowly clear liquid diet, appropriate education was given to the patient about the importance to go slowly on p.o. intake Replacement of electrolytes Encourage ambulation with assistance Encourage incentive spirometer every hour Pending pathology Assurance and education All questions have been answered and all concerns have been addressed to patien t's satisfaction. Status: Acute Attestations Medical Necessity Statement*: Inpatient hospitalization passing 2 midnights for perioperative care. Time Spent in Patient Care: (>than 50% of time spent in counselling and/or direct pt care on unit) . Coding Level of Care Code Acute Insurance Office Supervisor for [employer] Fwd Diagnoses Status post exploratory laparotomy Z98.890
[2021-03-09] MEDS: tamsulosin 0.4 mg Capsule PO (09:29)
[2021-03-09] MEDS: enoxaparin 30 mg/0.3 mL Syringe SUBCUT (17:46)
--- NOTE | 2021-03-09 18:13 | PC.NURSE ---
Shift summary pt has had some distention after meals, at approximately 1600 he had a BM and his distention had went down some and was not as bothersome to the pt. he has had 3 BM's and flatulence, he has been educated on slowing down when eating and drinking and not over doing it on intake, pt verbalized understanding. pt told he was in pain, informed nurse, when this nurse got an order for a new oral pain medication he refused the pain medication and stated he was no longer in pain. pt has gotten up to chair with 1 assist and tolerated transfer to chair well. pt has had no other complaints other then being slightly distended.
[2021-03-10] VITALS (8 sets, daily range): BP systolic 132–153; BP diastolic 77–87; PULSE 77–94; RESP 17–18; TEMP 36.3–36.8; O2SAT 89–95
[2021-03-10 03:17] LABS: Alanine Aminotransferase 23 U/L (0-41); Albumin Level 2.6 g/dL (3.5-5.2); Alkaline Phosphatase 51 IU/L (40-130); Anion Gap 11.2 (5-19); Aspartate Amino Transferase 32 U/L (0-40); Blood Urea Nitrogen 12 mg/dL (8-23); Calcium 8.1 mg/dL (8.5-10.5); Carbon Dioxide 31 mmol/L (22-29); Chloride 107 mmol/L (98-107); Globulin 2.3 g/dL (1.3-4.6); Glucose 97 mg/dL (65-115); Osmolality Calculated 302 mOsm/kg (285-295); Potassium 3.2 mmol/L (3.5-5.1); Sodium 146 mmol/L (136-145); Total Bilirubin 0.4 mg/dL (0.15-1.2); Total Protein 4.9 g/dL (6.6-8.7)
--- NOTE | 2021-03-10 06:08 | PM.PN ---
Subjective Subjective: Interval history: Patient was seen and examined, continues to tolerate p.o. intake, passing gas and having bowel movements. No acute events overnight. Noticed on morning labs potassium of 3.2 and calcium of 8.1. Otherwise stable H&H. Pain is appropriately controlled Medications: Reviewed: Yes Vitals/I&O/Wt Last Vital Signs Temp 98.2 F 03/10/21 04:00 Pulse 94 03/10/21 04:00 Resp 17 03/10/21 04:00 BP 153/82 03/10/21 04:00 Pulse Ox 90 03/10/21 04:00 03/09/21 03/09/21 03/10/21 14:59 22:59 06:59 Intake Total 480 / 480 1655 / 2135 Output Total 400 / 400 Balance 480 / 480 1655 / 2135 -400 / 1735 Physical Exam Narrative: EXAM NARRATIVE: Patient is conscious alert oriented X3 BMI 18.4 Head and neck examination PERRLA no masses no cervical lymphadenopathy no jaundice Cardiac examination audible S1-S2 no murmurs no gallops no arrhythmias Chest is clear bilateral,abscence of Rhonchi or wheezes,no surgical emphysema Abdomen nontender not distended soft no organomegaly guarding or rigidity/no signs of peritonitis, incisions are clean dry and intact and skin candido in Extremities no cyanosis no clubbing no edema Urinary Catheter Management^: Coude: Cath Placed During This Visit: yes, but has since been removed by the nurse Reason for Continuing Indwelling Catheter: Decision to DC Catheter Urinary Catheter Date of Insertion: 03/05/21 Urinary Catheter Time of Insertion: 13:06 Date Urinary Catheter Removed: 03/08/21 Time Urinary Catheter Discontinued: 07:22 Data : 03/09/21 02:26 03/10/21 02:14 A&P Assessment and plan (1) Status post exploratory laparotomy: Status post exploratory laparotomy with colostomy takedown and partial colectomy's and omentectomy 03/05/2021 We will start the patient on hydrocodone 5 325 mg 1 tablet every 6 hours as needed and will will advance to full liquid diet and continue protein shakes with each heavy equipment rental manager to evaluate the patient for potential discharge home today and address his needs at home and will follow on RT recommendations for potential need of oxygen at home which I do not think the patient would need any. Replacement of electrolytes Encourage ambulation with assistance Encourage incentive spirometer every hour Pending pathology Assurance and education All questions have been answered and all concerns have been addressed to patient's satisfaction. Status: Acute Attestations Medical Necessity Statement*: Inpatient hospitalization passing 2 midnights for perioperative care. Time Spent in Patient Care: (>than 50% of time spent in counselling and/or direct pt care on unit). Coding Level of Care Code Acute Integrated Specialist for [facility] Fwd Diagnoses Status post exploratory laparotomy Z98.890
[2021-03-10] MEDS: potassium chloride ER 20 mEq Tablet 40 MEQ PO (06:30)
[2021-03-10] MEDS: tamsulosin 0.4 mg Capsule PO (08:35)
[2021-03-10] MEDS: famotidine 20 mg/2 mL INJ IVP (08:39)
--- NOTE | 2021-03-10 11:09 | PC.SOCIAL ---
IMM Updated Updated pt on Pg 2 IMM. No questions voiced. Provided pt a copy. Initialed, dated, & timed copy in chart.
--- NOTE | 2021-03-10 14:55 | PM.DCS ---
Discharge Providers Date of Admission: 03/05/21 16:59 Date of Discharge: March 10, 2021 Attending Provider at Admission: Noah Davidson MD Attending Provider at Discharge: Noah Davidson MD Primary Care Provider: Renard Elias DO Diagnoses at Discharge Discharge Diagnosis (1) Status post exploratory laparotomy: Status: Resolved Reason for Visit Reason for Visit: laparoscopic colostomy reversal and colocolic anas Hospital Course Hospital Course This is a pleasant 80 years old gentleman status post left hemicolectomy with long Carias's procedure for colon cancer that was done due to obstructive colon mass. Back in July 2020. Patient undergone chemotherapy and the plan was to take the colostomy down at some point. Patient undergone an attempt diagnostic laparoscopy that was converted to exploratory laparotomy 03/05/2021 1-Diagnostic laparoscopy converted to exploratory laparotomy 2-Colostomy takedown 3-Distal transverse partial colectomy 4-Proximal sigmoid partial colectomy 5-Extensive adhesiolysis exceeding 1 hour of the operative time 3-[id number]-side functional Colocolic anastomosis 7-Partial omentectomy 8-dissection of bilateral subcutaneous flap to allow closure of the fascia Patient overall had uneventful postoperative course, pain medications were administered parenterally to have appropriate pain control till the patient started passing gas and then was switched to oral pain medication and his pain overall was under control. Had a Wing catheter that was inserted by urology service in the OR and a ureteric stent. Postoperative day 2 the Wing catheter was taken out and patient was able to void on his own, his oral intake was advanced from clear liquid to full liquid diet in addition to protein shakes. Patient has been passing gas and had multiple bowel movements. Values were stable yet required electrolyte replacements of calcium and potassium p.o. and IV. Patient was also able to without assistance down the godfrey. Patient overall is doing well and maintained to have stable vital signs and adequate urine output and satting 94% at room air. Hospitalist was consulted initially postoperatively to look into patient's pulmonary status and he signed out as there was not much to be done apart from the incentive spirometer and home O2 eval. patient currently meets the appropriate and safe criteria to be discharged home. logistics program manager evaluated and addressed all concerns for patient's at discharge. Physical Exam Narrative: EXAM NARRATIVE: Patient is conscious alert oriented X3 BMI 18.4 Head and neck examination PERRLA no masses no cervical lymphadenopathy no jaundice Cardiac examination audible S1-S2 no murmurs no gallops no arrhythmias Chest is clear bilateral,abscence of Rhonchi or wheezes,no surgical emphysema Abdomen nontender not distended soft no organomegaly guarding or rigidity/no signs of peritonitis, incisions are clean dry and intact and skin candido in Extremities no cyanosis no clubbing no edema Urinary Catheter Management^: Coude: Cath Placed During This Visit: yes, but has since been removed by the nurse Reason for Continuing Indwelling Catheter: Decision to DC Catheter Urinary Catheter Date of Insertion: 03/05/21 Urinary Catheter Time of Insertion: 13:06 Date Urinary Catheter Removed: 03/08/21 Time Urinary Catheter Discontinued: 07:22 Discharge Data Data Completed and Pending: Pending at discharge Category Date Time Status ES surgery / GI i mages Routine Exams 03/05/21 11:57 Ordered Basic Metabolic P kwesi AM LABS Lab 03/07/21 04:00 Uncollected Basic Metabolic P kwesi AM LABS Lab 03/08/21 04:00 Uncollected Hemoglobin and He matocrit AM LABS Lab 03/07/21 04:00 Uncollected Hemoglobin and He matocrit AM LABS Lab 03/08/21 04:00 Uncollected Pathology: Surgic al [PTH] Routine Pth 03/05/21 16:16 Received Labs from last 24 hours 03/10/21 02:14 Sodium 146 H Potassium 3.2 L Chloride 107 Carbon Dioxide 31 H Anion Gap 11.2 BUN 12 Creatinine 0.5 L GFR Calculation Not Reportable Glucose 97 Calculated Osmolal ity 302 H Calcium 8.1 L Total Bilirubin 0.4 AST 32 ALT 23 Alkaline Phosphata se 51 Total Protein 4.9 L Albumin 2.6 L Globulin 2.3 Vitals: Last Vital Signs Temp 97.8 F 03/10/21 11:37 Pulse 94 03/10/21 11:37 Resp 18 03/10/21 11:37 BP 132/79 03/10/21 11:37 Pulse Ox 94 03/10/21 11:37 Discharge Plan Discharge Patient Disposition: Home Condition: Stable Prescriptions: New hydrocodone-acetaminophen 5-325 mg tablet 1 tab PO Q6H PRN (Reason: pain) Qty: 28 RF: 0 potassium chloride 40 mEq/15 mL liquid 40 meq PO DAILY 4 Days Qty: 473 RF: 0 Tums 200 mg calcium (500 mg) tablet,chewable 200 mg PO DAILY 7 Days Qty: 7 RF: 0 Continued budesonide-formoterol [Symbicort] 80-4.5 mcg/actuation HFA aerosol inhaler 2 puff inhalation BID@0900,2100 RF: 0 tamsulosin 0.4 mg capsule 0.4 mg PO DAILY RF: 0 Discharge Orders: Discharge Order (Routine); Ordered 03/10/21 Ordered By: Noah Davidson Referrals: Noah Davidson MD [Physician] - (Return to surgery office in 1 week on Wednesday) Discharge Diet: As Directed Discharge Activity: Limit activity as instructed Patient Instructions: Opioid Safety Activity Restrictions/Additional Instructions: 1. Patient can shower after 48 hours from surgery 2. Remove Dermabond 7 to 10 days after surgery, if there is a secondary dressing can take down after 48 hours. 3. Up and walking as tolerated 4. Do not lift more than 5 pounds first 2 weeks after surgery and not more than 25 pounds 6 to 8 weeks after surgery. 5. Do not operate heavy machinery or drive while using pain medications. 6.Contact the office or return to the ER for worsening nausea vomiting fevers or chills, or noticing any redness around incision sites or discharge. 7. Continue full liquid diet today and advance to soft GI diet tomorrow ~patient comes back and see me at the office in 1 week. Discharge Attestations Time Spent in Discharge Care*: greater than 30 min Specific Discharge Activities: educating patient, educating and/or supporting family/caregiver and discussing with comp field case manager/social workers/dc planners Status at Discharge: Cognitive status at discharge: cognitively intact, Behavioral status at discharge: cooperative, Functional status at discharge: independent ambulation Overall status at discharge: patient is progressing back to baseline Quality Metrics Clinical Quality Measures During this hospital stay, did patient experience: None Coding Level of Care Code Acute Chg FW DC note Diagnoses Status post exploratory laparotomy Z98.890
== END 2021-03-10 16:55 | disposition home health service (06) | DRG 331 ==
LOC: MEDSURG 17:00
PROVIDERS: Urology; Admitting Provider Surgery; PCP Emergency Medicine Emergency Medical Services; Visit Provider Surgery
PROC: 0DBE4ZZ Excision of Large Intestine, Percutaneous Endoscopic Approach (ICD-10-PCS; CPT 44227; principal; 2021-03-05 11:00)
PROC: 0T778DZ Dilation of Left Ureter with Intraluminal Device, Via Natural or Artificial Opening Endoscopic (ICD-10-PCS; CPT 50605; 2021-03-05 11:00)
DX: Z43.3 Encounter for attention to colostomy (principal); Z85.038 Personal history of other malignant neoplasm of large intestine; Z92.21 Personal history of antineoplastic chemotherapy; J44.9 Chronic obstructive pulmonary disease, unspecified; Z90.49 Acquired absence of other specified parts of digestive tract; S37.30XD Unspecified injury of urethra, subsequent encounter; X58.XXXD Exposure to other specified factors, subsequent encounter; K66.0 Peritoneal adhesions (postprocedural) (postinfection)
CPT/HCPCS: 36415; 51702; 76000; 80048; 80053; 85014; 85018; 88304; 88305; 88307; 88309; 94640; 96365; 96372; 97116; 97162; 97530; C2625; C9290; J0610; J1100; J1170; J1644; J1650; J2370; J2405; J2543; J2704; J3010; J3480; J3490; J7030

== ENCOUNTER 2021-09-15 12:53 | Outpatient (CLI) | payer OTHER, MEDICARE, SELFPAY ==
[2021-09-15 13:35] LABS: Basophils # 0.1 10^3/uL (0.0-0.1); Basophils % 0.7 %; Eosinophils # 0.2 10^3/uL (0.0-0.8); Eosinophils % 1.9 %; Hematocrit 41.9 % (42.0-52.0); Hemoglobin 13.5 g/dL (11.7-16.6); Lymphocytes # 2.6 10^3/uL (0.8-4.8); Lymphocytes % 20.1 %; Mean Corpuscular HGB Conc 32.2 g/dL (30.0-36.0); Mean Corpuscular Hemoglobin 26.6 pg (28.0-34.0); Mean Corpuscular Volume 82.6 fl (80-94); Mean Platelet Volume 9.6 fL (7.4-10.4); Monocytes # 1.6 10^3/uL (0.2-0.9); Monocytes % 12.8 %; Neutrophils # 8.15 10^3/uL (1.8-7.7); Neutrophils % 63.9 %; Nucleated Red Blood Cells % 0 %; Platelet Count 427 10^3/cmm (130-400); Red Blood Count 5.07 10^6/uL (4.1-5.3); White Blood Count 12.8 10^3/uL (4.0-10.0)
[2021-09-15 14:11] LABS: Carcinoembryonic Antigen 813.4 ng/mL (0.0-4.7)
[2021-09-15 14:22] LABS: Alanine Aminotransferase 35 U/L (0-41); Albumin Level 3.8 g/dL (3.5-5.2); Alkaline Phosphatase 294 IU/L (40-130); Aspartate Amino Transferase 72 U/L (0-40); Blood Urea Nitrogen 14 mg/dL (8-23); Calcium 8.8 mg/dL (8.5-10.5); Carbon Dioxide 28 mmol/L (22-29); Chloride 94 mmol/L (98-107); Glucose 95 mg/dL (65-115); Osmolality Calculated 274 mOsm/kg (285-295); Sodium 132 mmol/L (136-145); Total Bilirubin 0.3 mg/dL (0.15-1.2); Total Protein 6.8 g/dL (6.6-8.7)
--- NOTE | 2021-09-16 16:18 | ONC FU_ITS ---
Dr. Willard follow up note Patient: Shabbir Galdamez Unit #: [id number]: 1940 Dicatated By: Joshua Willard M.D.Date of Visit:Sep 15, 2021 Onc Med Follow-up/Prog Note History of Present Illness: Mr. Galdamez is a 81-year-old gentleman with history of progressive constipation. He underwent colonoscopy on July 01, 2020 which showed a partially obstructing large sized fungating, friable, malignant appearing 4 cm x 6 cm mass in the distal descending colon. A biopsy was obtained which confirmed invasive adenocarcinoma moderately differentiated. Polyps were also removed from rectum showed tubular adenoma. Subsequently on July 23, 2020 patient underwent left colectomy. The final pathology report reported moderately differentiated invasive adenocarcinoma. The tumor size was 3.5 cm and invaded through muscularis into subserosa. 0 out of 12 lymph node showed metastatic disease and there was no evidence of lymphovascular invasion and perineural invasion, pT3 ,pN0. CT scan of abdomen done on July 21, 2020 showed there is an indeterminate 11 mm nodule in the right lobe of the liver, nonspecific possible metastatic disease. His family reported that he was in the hospital for 17 days and he lost about 40 pounds (e.g. from 147 pounds prior to admission about 107 pounds at the time of discharge). 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 He has had assistance with care of the colostomy by home health. History of smoking in the distant past, quit 35 years ago A follow-up PET/CT on August 31, 2020 reported a left lower quadrant ostomy. It was noted there were at least 4 sites of hepatic metastatic disease, all in the right hepatic lobe with a dominant lesion measured 1.6 cm with SUV of 7.7 and CEA level checked on September 13, 2020 was 21.8. Given the PET CT findings from August 31, 2020, it was recommended that Mr Galdamez pursue treatment with capecitabine. He began his first cycle on October 08, 2020 CT PET scan done After 3 cycles of oral Xeloda on December 14, 2020 shows hepatic metastatic disease seen on prior study done on August 31, 2020 is resolved indicating a complete response of therapy. 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 As per patient since his last visit patient underwent colonoscopy on March 03, 2021 which shows polyp was removed from distal transverse colon which was tubulovillous adenoma, and 2 polyps were removed from rectum one of them was tubular adenoma other one was hyperplastic polyp. As per patient he underwent CT scan of chest on June 30, 2021 which shows multiple lesions involving visualized portion of the liver, having appearance of metastatic disease and ascending thoracic aortic aneurysm and also chronic lung changes., CT PET scan was done on August 30, 2021 shows multifocal, extensive hepatic metastatic disease with SUV of twelve 214.5 and uptake in portal node is consistent with shawnee metastatic disease., As per patient he is being scheduled for liver biopsy on coming Wednesday. Patient denies any jaundice, denies any abdominal pain, denies any diarrhea or constipation, denies any melena or hematochezia, denies any new bony pain Due to off and on near syncopal attack and episode of fall. Patient underwent MRI scan of the brain on August 25, 2021, which showed a small enhancing lesion left side of cerebellum measuring 5 x 3.5 mm suspicious for metastatic lesion there is no significant edema surrounding the lesion. Medications: Beano Tablet Oral, Capecitabine 2 Tablet (of 150 mg) Oral b.i.d., Capecitabine 2 Tablet (of 500 mg) Oral b.i.d., Furosemide 1 - 2 Tablet (of 20 mg) Oral daily PRN, Prochlorperazine Maleate 1 Tablet (of 10 mg) Oral q 4 hours PRN, Tamsulosin HCl 1 Capsule (of 0.4 mg) Oral daily, Vitamin C 1 Capsule (of 500 mg) Oral daily Allergies: No Known Allergies. Review of Systems: Review of Systems is not available for this patient. Vital Signs: Performed on Sep 15, 2021 14:35 Height - 70.00 in Weight - 130.2 lbs (HIGH) BSA - 1.74 sq.m BMI - 18.68 Temperature - 98.0 F (LOW) Pulse - 92 /min Respiration - 18 /min BP - 136/77 mm(hg) O2 Sat - 98 % Pain - 0 Fatigue - 5 Performance Status: 1 - No physically strenuous activity, but ambulatory and able to carry out light or sedentary work (e.g. office work, light house work). (ECOG) Physical Examination: ENMT - No mouth sores, no thrush, Respiratory - Lungs are clear to auscultation, Cardiovascular - Regular rate and rhythm of heart, Abdomen - Soft, bowel sounds present, Extremities - No visible edema. Lab/Imaging: Most recent lab results are not available for this patient. 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 status post left colectomy done on July 23, 2020 showed 3.5 cm mass in the descending colon, moderately differentiated, tumor invades through muscularis propria into pericolorectal tissue, pT3, 12 lymph nodes were examined, 0 lymph node showed metastatic disease pN0, CT scan of abdomen done on July 21, 2020 showed 11 mm nodule in the right lobe of the liver, nonspecific, possible metastasis and there is simple hepatic cyst in the left lobe.Subsequently underwent CT PET scan on August 31, 2020 which showed at least 4 sites of hepatic metastatic disease present, all in the right hepatic lobe and dominant lesion 1.6 cm with SUV of 7.7 CEA checked on September 13, 2020 was 21.8 On October 09, 2020 it was 142, Clinically consistent with metastatic colon cancer 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 due to oral Xeloda which improved with supportive care and Xeloda dose modification ,Patient decided to discontinue chemotherapy AGAINST MEDICAL ADVICE On September 15, 2021, CEA 813.4 compared to 5.4 on December 05, 2020 CT PET scan done on August 30, 2021 shows new widespread hepatic metastatic disease, new FDG positive portal node, consistent with metastatic disease Plan: Discussed with patient regarding his labs white blood count 12.8 hemoglobin 13.5 hematocrit 41.9 platelets 427,000 CMP within normal limit except sodium 132 AST 72 alk phos 294 and CEA 813.4 compared to 5.4 on December 05, 2020 CT PET scan done on August 30, 2021 shows new widespread hepatic metastatic disease, new FDG positive portal node, consistent with metastatic disease Last time patient was seen in office on December 24, 2020, after that he was supposed to come back for follow-up in 3 months but somehow patient lost follow-up and continue to follow with Dr. Davidson and his PMD and now his follow-up CT scan of the chest and PET scan confirmed disease progression, he is here to discuss his treatment options Clinically, patient denies any signs symptom suggestive of disease progression but is follow-up CT scan of chest and then CT PET scan ordered by PMD shows extensive recurrence of liver mets now with josue hepatis lymphadenopathy, his lab work-up done today shows his CEA level has gone up to 813.4 compared to 5.4 in November 2020., Patient is scheduled for liver biopsy, we will request molecular profile to identify targetable mutation, will also draw blood for next generation sequencing to identify targetable mutation. We will also request Port-A-Cath placement. Patient return to clinic in 2 weeks for further discussion. Signed By: Joshua Willard M.D. <<Signature on File>>
== END 2021-09-15 12:54 | disposition home or self-care (01) ==
LOC: ONCMED 13:03
PROVIDERS: PCP Emergency Medicine Emergency Medical Services; Visit Provider Internal Medicine Hematology & Oncology
DX: C18.6 Malignant neoplasm of descending colon (principal); C78.7 Secondary malignant neoplasm of liver and intrahepatic bile duct; Z79.899 Other long term (current) drug therapy; Z87.891 Personal history of nicotine dependence
CPT/HCPCS: 36415; 80053; 82378; 85025; 99214

== ENCOUNTER → 2021-09-25 14:57 | Outpatient (BNVA) | payer OTHER, SELFPAY | PROVIDERS: PCP Emergency Medicine Emergency Medical Services; Referring Provider Internal Medicine Hematology & Oncology; Visit Provider Surgery | DX: C18.6 Malignant neoplasm of descending colon (principal) | CPT/HCPCS: 87635 ==

== ENCOUNTER 2021-09-29 11:52 | Outpatient (CLI) | payer OTHER, SELFPAY ==
[2021-09-29 12:29] LABS: Basophils # 0.1 10^3/uL (0.0-0.1); Basophils % 0.6 %; Eosinophils # 0.1 10^3/uL (0.0-0.8); Hematocrit 42.3 % (42.0-52.0); Hemoglobin 13.7 g/dL (11.7-16.6); Lymphocytes # 2.7 10^3/uL (0.8-4.8); Lymphocytes % 19.1 %; Mean Corpuscular HGB Conc 32.4 g/dL (30.0-36.0); Mean Corpuscular Hemoglobin 26.9 pg (28.0-34.0); Mean Corpuscular Volume 83.1 fl (80-94); Mean Platelet Volume 10.1 fL (7.4-10.4); Monocytes # 1.9 10^3/uL (0.2-0.9); Monocytes % 13.4 %; Neutrophils # 9.26 10^3/uL (1.8-7.7); Neutrophils % 65.3 %; Nucleated Red Blood Cells % 0 %; Platelet Count 347 10^3/cmm (130-400); Red Blood Count 5.09 10^6/uL (4.1-5.3); Red Cell Distribution Width 15.8 % (12.1-15.1); White Blood Count 14.2 10^3/uL (4.0-10.0)
[2021-09-29 13:22] LABS: Alanine Aminotransferase 40 U/L (0-41); Albumin Level 3.8 g/dL (3.5-5.2); Alkaline Phosphatase 363 IU/L (40-130); Anion Gap 16.4 (5-19); Aspartate Amino Transferase 87 U/L (0-40); Blood Urea Nitrogen 13 mg/dL (8-23); Calcium 8.7 mg/dL (8.5-10.5); Carbon Dioxide 26 mmol/L (22-29); Chloride 94 mmol/L (98-107); Globulin 2.9 g/dL (1.3-4.6); Glucose 91 mg/dL (65-115); Osmolality Calculated 274 mOsm/kg (285-295); Potassium 4.4 mmol/L (3.5-5.1); Sodium 132 mmol/L (136-145); Total Bilirubin 0.4 mg/dL (0.15-1.2); Total Protein 6.7 g/dL (6.6-8.7)
--- NOTE | 2021-09-29 17:44 | ONC FU_ITS ---
Dr. Willard follow up note Patient: Shabbir Galdamez Unit #: [id number]: 1940 Dicatated By: Joshua Willadr M.D.Date of Visit:Sep 29, 2021 Onc Med Follow-up/Prog Note History of Present Illness: Mr. Galdamez is a 81-year-old gentleman with history of progressive constipation. He underwent colonoscopy on July 01, 2020 which showed a partially obstructing large sized fungating, friable, malignant appearing 4 cm x 6 cm mass in the distal descending colon. A biopsy was obtained which confirmed invasive adenocarcinoma moderately differentiated. Polyps were also removed from rectum showed tubular adenoma. Subsequently on July 23, 2020 patient underwent left colectomy. The final pathology report reported moderately differentiated invasive adenocarcinoma. The tumor size was 3.5 cm and invaded through muscularis into subserosa. 0 out of 12 lymph node showed metastatic disease and there was no evidence of lymphovascular invasion and perineural invasion, pT3 ,pN0. CT scan of abdomen done on July 21, 2020 showed there is an indeterminate 11 mm nodule in the right lobe of the liver, nonspecific possible metastatic disease. His family reported that he was in the hospital for 17 days and he lost about 40 pounds (e.g. from 147 pounds prior to admission about 107 pounds at the time of discharge). 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 He has had assistance with care of the colostomy by home health. History of smoking in the distant past, quit 35 years ago A follow-up PET/CT on August 31, 2020 reported a left lower quadrant ostomy. It was noted there were at least 4 sites of hepatic metastatic disease, all in the right hepatic lobe with a dominant lesion measured 1.6 cm with SUV of 7.7 and CEA level checked on September 13, 2020 was 21.8. Given the PET CT findings from August 31, 2020, it was recommended that Mr Galdamez pursue treatment with capecitabine. He began his first cycle on October 08, 2020 CT PET scan done After 3 cycles of oral Xeloda on December 14, 2020 shows hepatic metastatic disease seen on prior study done on August 31, 2020 is resolved indicating a complete response of therapy. 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 As per patient since his last visit patient underwent colonoscopy on March 03, 2021 which shows polyp was removed from distal transverse colon which was tubulovillous adenoma, and 2 polyps were removed from rectum one of them was tubular adenoma other one was hyperplastic polyp. As per patient he underwent CT scan of chest on June 30, 2021 which shows multiple lesions involving visualized portion of the liver, having appearance of metastatic disease and ascending thoracic aortic aneurysm and also chronic lung changes., CT PET scan was done on August 30, 2021 shows multifocal, extensive hepatic metastatic disease with SUV of twelve to 14.5 and uptake in portal node is consistent with shawnee metastatic disease., As per patient he is being scheduled for liver biopsy on coming Wednesday.But due to bad weather it was postponed to October 15, 2021 Patient denies any jaundice, denies any abdominal pain, denies any diarrhea or constipation, denies any melena or hematochezia, denies any new bony pain Due to off and on near syncopal attack and episode of fall. Patient underwent MRI scan of the brain on August 25, 2021, which showed a small enhancing lesion left side of cerebellum measuring 5 x 3.5 mm suspicious for metastatic lesion there is no significant edema surrounding the lesion. Came for follow-up, denies any specific complaints, no fever chills, no nausea or vomiting, no diarrhea constipation, no hemoptysis hematemesis, no seizure-like activity, no headaches blurred or double vision but off and on palpitations/lightheadedness, as per patient follow-up with cardiology for portable monitoring is scheduled for October 13, 2021, as per patient he is also scheduled to see Dr. Oliveira, ENT for evaluation regarding thyroid nodule and Port-A-Cath placement in the morning. Patient is here for further discussion regarding device whole blood next generation sequencing report and treatment plan Medications: Beano Tablet Oral, Capecitabine 2 Tablet (of 150 mg) Oral b.i.d., Capecitabine 2 Tablet (of 500 mg) Oral b.i.d., Furosemide 1 - 2 Tablet (of 20 mg) Oral daily PRN, Prochlorperazine Maleate 1 Tablet (of 10 mg) Oral q 4 hours PRN, Tamsulosin HCl 1 Capsule (of 0.4 mg) Oral daily, Vitamin C 1 Capsule (of 500 mg) Oral daily Allergies: No Known Allergies. Review of Systems: Review of Systems is not available for this patient. Vital Signs: Performed on Sep 29, 2021 16:18 Height - 70.00 in Weight - 132.8 lbs (HIGH) BSA - 1.75 sq.m BMI - 19.05 Temperature - 97.4 F (LOW) Pulse - 92 /min Respiration - 20 /min BP - 117/71 mm(hg) O2 Sat - 92 % (LOW) Pain - 0 Fatigue - 3 Performance Status: 0 - Fully active, able to carry on all predisease activities without restrictions. (ECOG) Physical Examination: ENMT - No mouth sores, no thrush, no jaundice, Respiratory - Lungs are clear to auscultation, Cardiovascular - Regular rate and rhythm of heart, Abdomen - Soft, bowel sounds present, Extremities - No visible edema. Lab/Imaging: Most recent lab results are not available for this patient. Impression: [ CT PET scan was done on August 30, 2021 shows multifocal, extensive hepatic metastatic disease with SUV of twelve to 14.5 and uptake in portal node is consistent with shawnee metastatic disease., CEA checked on September 15, 2021 was 813.4 compared to 5.4 on December 05, 2020 ^2, h/o Moderately differentiated invasive adenocarcinoma involving left descending colon status post left colectomy done on July 23, 2020 showed 3.5 cm mass in the descending colon, moderately differentiated, tumor invades through muscularis propria into pericolorectal tissue, pT3, 12 lymph nodes were examined, 0 lymph node showed metastatic disease pN0, CT scan of abdomen done on July 21, 2020 showed 11 mm nodule in the right lobe of the liver, nonspecific, possible metastasis and there is simple hepatic cyst in the left lobe.Subsequently underwent CT PET scan on August 31, 2020 which showed at least 4 sites of hepatic metastatic disease present, all in the right hepatic lobe and dominant lesion 1.6 cm with SUV of 7.7 CEA checked on September 13, 2020 was 21.8 On October 09, 2020 it was 142, Clinically consistent with metastatic colon cancer 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 due to oral Xeloda which improved with supportive care and Xeloda dose modification ,Patient decided to discontinue chemotherapy AGAINST MEDICAL ADVICE On September 15, 2021, CEA 813.4 compared to 5.4 on December 05, 2020 CT PET scan done on August 30, 2021 shows new widespread hepatic metastatic disease, new FDG positive portal node, consistent with metastatic disease Plan: Discussed with patient regarding his 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 And he did not show any MSI H,, His liver biopsy was postponed due to bad weather and now scheduled for October 15, 2021., His CEA checked on September 15, 2021 showed 813.4 compared to 5.4 on December 05, 2020. Indicating recurrence, we will consider molecular testing on liver biopsy specimen to identify targetable therapeutic mutation. In the meantime, discussed with patient regarding Treatment options including but not limited to FOLFOX or FOLFIRI or cetuximab or Capox or single agent Xeloda or Xeloda plus Avastin, as liver biopsy is under consideration we will not consider a Avastin at this point but can be considered in the future. Patient has taken oral Xeloda in the past and tolerated well and completed 3 cycles of oral Xeloda and follow-up CT PET scan showed excellent response but then patient developed mild hand-foot syndrome and decided to discontinue oral Xeloda AGAINST MEDICAL ADVICE but now willing to restart oral Xeloda again. But because of high volume disease e.g. extensive liver involvement and josue hepatis lymph node involvement and CEA being more than 800, will consider oxaliplatin plus oral Xeloda, all the side effect possible benefits associated with oral Xeloda/oxaliplatin including but not limited to bone marrow suppression, hand-foot syndrome, mouth sores, jaundice, diarrhea, skin rash, peripheral neuropathy/intolerance to icy beverages/cold especially with oxaliplatin were mentioned, patient expressed full understanding and agreed, will consider oral Xeloda day 1 through 14 and repeat every 21 days along with 3 weekly oxaliplatin and follow-up with liver biopsy especially molecular profiling. Patient will return to clinic after liver biopsy with CBC CMP and CEA Signed By: Joshua Willard M.D. <<Signature on File>>
== END 2021-09-29 11:53 | disposition home or self-care (01) ==
PROVIDERS: PCP Emergency Medicine Emergency Medical Services; Visit Provider Internal Medicine Hematology & Oncology
DX: C18.9 Malignant neoplasm of colon, unspecified (principal); C78.7 Secondary malignant neoplasm of liver and intrahepatic bile duct; Z79.899 Other long term (current) drug therapy; Z93.3 Colostomy status; Z87.891 Personal history of nicotine dependence
CPT/HCPCS: 36415; 80053; 85025; 99214

== ENCOUNTER 2021-09-30 12:17 | Day surgery (SDC) | payer OTHER, SELFPAY ==
[2021-09-29 16:41] VITALS: BMI 18.3
--- NOTE | 2021-09-30 | SCC_ITS ---
Procedure done: 1. Placement of PowerPort via right subclavian vein 2. Fluoroscopic guidance and interpretation for placement of catheter 22.7 seconds of fluoroscopic guidance, for a cumulative dose of 1.53 mGy, was provided to Dr. Davidson by the radiology department. C-arm images of the chest were saved for the patient's permanent record. [facility]
--- NOTE | 2021-09-30 12:29 | SC_ITS ---
WS: [id number] INTRAOPERATIVE TECHNIQUE: 2 Spot fluoroscopic images for intraoperative purposes. FLUOROSCOPY TIME: 22.7 seconds CLINICAL INFORMATION: Powerport Placement COMPARISON: None. FINDINGS: RIGHT Port-A-Cath with tip in the mid SVC. No visualized pneumothorax. Prior sternotomy. SC/C-arm [place] for CVA [id number] IMPRESSION: Images obtained for intraoperative purposes.
[2021-09-30 12:43] VITALS: BP 151/81; PULSE 97; RESP 18; TEMP 36.3; O2SAT 94
[2021-09-30] MEDS: sodium chloride 0.9% 1,000 ML 30 ML IV (12:49)
--- NOTE | 2021-09-30 13:51 | W.PM.OPSUD ---
Surgery/Procedure H&P Update DATE OF PROCEDURE: September 30, 2021 DATE H&P PERFORMED: 09/25/21 PREOP DIAGNOSIS: Colon cancer with liver metastases PRIMARY INDICATION FOR PROCEDURE: The same PLANNED PROCEDURE: Operation Date: 09/30/21 14:20 Proposed Procedures p Portacath Placement(Not Applicable) - Noah Davidson MD
--- NOTE | 2021-09-30 14:08 | ANES.PREANE2 ---
Documented by User: Shabbir Pineda Jr, CIVIL PREPAREDNESS COORDINATOR 09/30/21 14:10 Pre-Anesthetic Assessment Height/Weight: Height 1.78 m Weight 58.06 kg Temp Pulse Resp BP Pulse Ox 97.4 F L 97 18 151/81 94 09/30/21 12:43 09/30/21 12:43 09/30/21 12:43 09/30/21 12:43 09/30/21 12:43 Preop Diagnosis: Colon cancer with liver metastases Operation Date: 09/30/21 14:20 Proposed Procedures p Portacath Placement(Not Applicable) - Noah Davidson MD Familial anesthetic complications: none Last intake: Intake Last Liquid Date 09/30/21 Last Liquid Time 08:00 Last Solid Date 09/29/21 Last Solid Time 22:00 Social No alcohol and No tobacco Exam alert, oriented x 3, clear to auscultation bilaterally and regular rate & rhythm Airway Submandibular: within normal limits Cervical ROM: within normal limits Mallampati: Class II Dentition: full Pulmonary Chronic Obstructive Pulmonary Disease and Exertional Dyspnea CV/HEM Arrythmia and Hypertension None reported Hepatic None reported GI Gastroesophageal Reflux Disease colon CA Metabolic None reported Musc/skel Lower Back Pain Neuropsych Syncope Anesthetic Plan ASA status: 3 Anesthesia: MAC Medications/Allergies Home Medications Medication Instructions Recorded Confirmed Last Taken Type ascorbate calcium (vitamin C) 500 500 mg PO DAILY 08/25/21 09/29/21 09/29/21 History mg tablet cholecalciferol (vitamin D3) 25 25 mcg PO DAILY 08/25/21 09/29/21 09/29/21 History mcg (1,000 unit) capsule fluticasone 100 mcg-salmeterol 50 1 inh INHALATION BID 09/29/21 09/29/21 09/30/21 History mcg/dose blistr powdr for inhalation (Wixela Inhub) hydrocodone 5 mg-acetaminophen 325 1 tab PO Q6H PRN #14 tab 09/30/21 Unknown Rx mg tablet Allergies Allergy/AdvReac Type Severity Reaction Status Date / Time morphine Allergy Unknown Hallucinati Verified 09/26/21 15:52 on Current Medications Generic Name Dose Route Start Last Admin Trade Name Freq PRN Reason Stop Dose Admin Sodium Chloride 1,000 mls @ 30 mls/hr 09/30/21 12:30 09/30/21 12:49 Sodium Chloride 0.9% IV 10/01/21 12:29 30 mls/hr .Q24H BALTA Administration PFSH Anesthesia Medical History Abscess of abdominal wall Anemia Colon cancer Colon cancer COPD (chronic obstructive pulmonary disease) Malignant neoplasm of descending colon Shallow breathing Urethral injury Surgical History Colostomy status History of back surgery History of hemorrhoidectomy History of left hemicolectomy History of mitral valve repair S/P laparotomy Status post exploratory laparotomy Family History Father Accident Mother , IN HER 50'S Cancer Denies family history of Anesthesia complication Bleeding disorder Social History Smoking and tobacco status: never smoked Alcohol intake: former Household members: spouse Marital status: Current occupational status: retired History of recent travel: No Data Anesthesia Cardiac Studies: No Data to Display
[2021-09-30] MEDS: lidocaine 2% INJ 20 mL INJECTION (14:32)
[2021-09-30] MEDS: heparin, porcine 1,000 unit/mL INJ 10 mL 9000 UNIT XX (14:48)
--- NOTE | 2021-09-30 14:55 | PM.OP ---
Operative Report Date of procedure: September 30, 2021 Pre-op diagnosis: Preop Diagnosis Colon cancer with liver metastases Post-op diagnosis: The same Procedure done: 1. Placement of PowerPort via right subclavian vein 2. Fluoroscopic guidance and interpretation for placement of catheter Implants: Right subclavian vein PowerPort Surgeon: Noah Davidson MD Sole Leveling Machine Operator: Ramez Michaels nurse Jerri Anesthesia: MAC (court orderly Will Smart) Estimated blood loss: 10 Procedure: Patient was identified in the holding area and taken to the operative room and placed in supine position IV propofol was given by the anesthesia provider ,both arms were tucked,Time-out was done verifying the patient's name/date of /planned procedure and destination after the procedure, all were in agreement. SCDs confirmed to be functioning, preoperative antibiotics administered per protocol, and beta lizbeth protocol was confirmed, appropriate positioning of the patient was done by me. Medications were reviewed to assess for anticoagulant usage. Risks and benefits and prevention of central line associated blood stream infection (CLABSI) were discussed with the patient/CPOA, and a consent was obtained. Monitors were in place and monitored throughout the procedure. All necessary supplies were available prior to start. Hand hygiene was completed prior to starting. Maximum barrier technique was utilized including a sterile gown, sterile gloves with a hat and mask. Site was was prepped with [chlorhexidine] and a full body drape was placed. 5 mL of 2% lidocaine was injected into the skin with a 25 gauge needle. Prep& drape was done under the usual sterile technique, lidocaine 2% was injected at the site of the stick, started by right subclavian vein stick that retrieved arterial blood,needle was taken out and appropriate pressure was held for few minutes then second attempt I was able to retrieve venous blood, a guidewire was then threaded and under the guidance of fluoroscopy position was confirmed to be in the IVC and my interpretation, there was no PVC changes, at that point the guidewire was secured to the drapes with a hemostat and the needle was taken out, attention was then deviated towards creation of a pocket for the port were lidocaine 2% was injected using an 15 blade knife skin incision was created dissection using the Bovie to create a pocket for the a Power port to be accommodated, hemostasis was secured, after the port being appropriately flushed it was inserted into the pocket and a tunneler was used to accommodate the catheter of the port catheter to be delivered through the incision first created at the site of the stick, at that point under fluoroscopy an estimated length was measured for the catheter and was cut at the designed level, followed by that a dilator with the sheath introduced onto the guidewire the dilator and the wire were retrieved and the catheter of the port was introduced via the sheath where it was peeled off and the catheter maintained to be in the SVC that was confirmed with fluoroscopy, and the fluoroscopy interpretation was done by me throughout the entire procedure. The port was kept in its pocket,3-0 Vicryl deep subdermal interrupted sutures, skin was then closed by 4-0 Monocryl as subcuticular closure. The port was appropriately flushed with heparin and venous blood was withdrawn without difficulty The stick site was closed by 4-0 Monocryl and Dermabond was used followed by dressing. Patient tolerated the procedure well was taken to the recovery area Count was correct at the end of the procedure I was present for the whole entire procedure Position of the catheter was checked with a postoperative chest x-ray and it was in good position without evidence of pneumothorax
--- NOTE | 2021-09-30 14:57 | XRR_ITS ---
PROCEDURE INFORMATION: Exam: XR Chest Exam date and time: 09/30/2021 2:57 PM Age: 81 years old Clinical indication: Other vascular access device placement or adjustment; Port; Prior surgery; Surgery date: Post-operative (0-2 days); Additional info: Status post placement of right subclavian vein powerport TECHNIQUE: Imaging protocol: XR of the chest. Views: 1 view. COMPARISON: CT chest w con* [id number] 08/04/2021 12:58 PM FINDINGS: Tubes, catheters and devices: Right chest port terminates at the mid SVC. Lungs: Hyperinflated, emphysematous changes of the lungs. No consolidation. Pleural spaces: Unremarkable. No pleural effusion. No pneumothorax. Heart/Mediastinum: No cardiomegaly. Bones/joints: Sternotomy wires noted. Visualized osseous structures are intact. XR/XR chest 1V portable [id number] IMPRESSION: Interval placement of right chest port. Otherwise, stable exam with no acute findings.
[2021-09-30 15:15] VITALS: BP 132/92; PULSE 81; RESP 18; TEMP 36.8; O2SAT 99
[2021-09-30 15:20] VITALS: BP 134/85; PULSE 81; RESP 18; O2SAT 97
[2021-09-30 15:25] VITALS: BP 145/97; PULSE 78; RESP 17; TEMP 37.1; O2SAT 98
[2021-09-30 15:30] VITALS: BP 128/98; PULSE 78; RESP 16; TEMP 36.6; O2SAT 97
[2021-09-30 15:47] VITALS: BP 144/92; PULSE 74; RESP 16; TEMP 36.6; O2SAT 96
--- NOTE | 2021-09-30 16:50 | ANE.PACU2 ---
Inpatient post-anesthesia follow up: Airway intact: Yes Vital signs: Temperature 97.8 F Pulse Rate 74 Respiratory Rate 16 Blood Pressure 144/92 Pulse Oximetry 96 Oxygen Delivery Me thod Room Air Oxygen Flow Rate Fraction of Inspir ed Oxygen Hydration adequate: Yes Nausea and vomiting: No Pain level: 2 Mental status: Baseline
== END 2021-09-30 15:59 | disposition home or self-care (01) ==
PROVIDERS: PCP Emergency Medicine Emergency Medical Services; Visit Provider Surgery
PROC: (CPT 36561; principal; 2021-09-30 14:00)
DX: C18.6 Malignant neoplasm of descending colon (principal); C78.7 Secondary malignant neoplasm of liver and intrahepatic bile duct; J44.9 Chronic obstructive pulmonary disease, unspecified; I10 Essential (primary) hypertension; K21.9 Gastro-esophageal reflux disease without esophagitis; Z93.3 Colostomy status
CPT/HCPCS: 36561; 71045; 76000; 77001; C1788; J0690; J1644; J2704; J3010; J7030

== ENCOUNTER 2021-10-15 07:39 | Outpatient (CLI) | payer OTHER, MEDICARE, SELFPAY ==
[2021-10-13 14:02] VITALS: BMI 18.2
[2021-10-15] VITALS (13 sets, daily range): BP systolic 112–144; BP diastolic 57–90; PULSE 20–83; RESP 12–22; TEMP 36.3–36.5; O2SAT 95–100
--- NOTE | 2021-10-15 07:46 | US_ITS ---
WS: [id number] ULTRASOUND GUIDED BIOPSY LIVER HISTORY: History of colon carcinoma. Multiple metastatic lesions throughout the liver. Procedure, risks, and complications are explained to the patient. Consent was obtained. Skin is clean sed with ChloraPrep and anesthetized with 1% buffered lidocaine. Medications and blood work is review ed. There are multiple lesions throughout the liver consistent with metastatic disease. Lesion within the anterior RIGHT lobe of liver which will be targeted. All core biopsies are performed under sterile t echnique of lesion in the RIGHT lobe. There is a very small amount of bleeding adjacent to the biopsy site. Patient remained stable during this examination and will be observed for 2 hours postprocedure . Specimen is placed in formalin. US/ biopsy liver [id number] IMPRESSION: 1. Uncomplicated liver biopsy of metastatic appearing lesions. Specimen placed in formalin for pathology. 2. Patient will be observed 2 hours postprocedure.
[2021-10-15] MEDS: sodium chloride 0.9% 1,000 ML 30 ML IV (08:20)
[2021-10-15 08:38] LABS: INR 1.15 (0.8-1.2)
[2021-10-15] MEDS: fentaNYL 50 mcg/mL INJ 2mL 25 MCG IVP (09:30)
[2021-10-15] MEDS: midazolam 1 mg/mL INJ 2 mL IVP (09:30)
[2021-10-20 10:35] LABS: Miscellaneous Test See Scanned Lab Rpt
== END 2021-10-15 11:50 | disposition home or self-care (01) ==
PROVIDERS: Radiology Diagnostic Radiology; PCP Emergency Medicine Emergency Medical Services; Visit Provider Emergency Medicine Emergency Medical Services
DX: R93.2 Abnormal findings on diagnostic imaging of liver and biliary tract (principal); Z85.038 Personal history of other malignant neoplasm of large intestine; C78.7 Secondary malignant neoplasm of liver and intrahepatic bile duct
CPT/HCPCS: 36415; 47000; 76942; 85610; 88307; 88341; 88342; 96374; 96375; J2250; J3010; J7030

== ENCOUNTER → 2021-10-19 10:38 | Outpatient (BNVA) | payer OTHER, MEDICARE, SELFPAY | PROVIDERS: PCP Emergency Medicine Emergency Medical Services; Visit Provider Psychiatry & Neurology Neurology | DX: C78.7 Secondary malignant neoplasm of liver and intrahepatic bile duct (principal) | CPT/HCPCS: 80053; 82378; 85025 ==

== ENCOUNTER → 2021-10-27 09:45 | Outpatient (BNVA) | payer OTHER, SELFPAY | PROVIDERS: PCP Emergency Medicine Emergency Medical Services; Referring Provider Nurse Practitioner Family; Visit Provider Nurse Practitioner Family | DX: C18.6 Malignant neoplasm of descending colon (principal); C78.7 Secondary malignant neoplasm of liver and intrahepatic bile duct | CPT/HCPCS: 80053; 85025 ==

== ENCOUNTER → 2021-11-03 00:01 | Outpatient (BNVA) | payer OTHER, MEDICARE, SELFPAY | PROVIDERS: PCP Emergency Medicine Emergency Medical Services; Visit Provider Psychiatry & Neurology Neurology | DX: C18.6 Malignant neoplasm of descending colon (principal); C78.7 Secondary malignant neoplasm of liver and intrahepatic bile duct | CPT/HCPCS: 80053; 85025 ==

== ENCOUNTER → 2021-11-10 09:07 | Outpatient (BNVA) | payer OTHER, MEDICARE, SELFPAY | PROVIDERS: PCP Emergency Medicine Emergency Medical Services; Visit Provider Nurse Practitioner Family | DX: C78.7 Secondary malignant neoplasm of liver and intrahepatic bile duct (principal); C18.6 Malignant neoplasm of descending colon | CPT/HCPCS: 80053; 82378; 85025 ==

== ENCOUNTER 2021-11-11 06:39 | Outpatient (RCR) | payer OTHER, MEDICARE, SELFPAY ==
[2021-10-21] MEDS: dextrose 5% 250 ML IV (12:40)
[2021-10-21] MEDS: palonosetron 0.25 mg/5 mL SDV IV (12:41)
--- NOTE | 2021-10-22 17:29 | ONC FU_ITS ---
Zabrina Nascimento Progress Note Patient: Shabbir Galdamez Unit #: [id number]: [id number] Dicatated By: Zabrina Nascimento N.P.Date of Visit:Oct 21, 2021 Onc MED Follow-up/Prog Note Chief Complaint: Colon cancer History of Present Illness: Mr. Galdamez is a 81-year-old gentleman with history of progressive constipation. He underwent colonoscopy on July 01, 2020 which showed a partially obstructing large sized fungating, friable, malignant appearing 4 cm x 6 cm mass in the distal descending colon. A biopsy was obtained which confirmed invasive adenocarcinoma moderately differentiated. Polyps were also removed from rectum showed tubular adenoma. Subsequently on July 23, 2020 patient underwent left colectomy. The final pathology report reported moderately differentiated invasive adenocarcinoma. The tumor size was 3.5 cm and invaded through muscularis into subserosa. 0 out of 12 lymph node showed metastatic disease and there was no evidence of lymphovascular invasion and perineural invasion, pT3 ,pN0. CT scan of abdomen done on July 21, 2020 showed there is an indeterminate 11 mm nodule in the right lobe of the liver, nonspecific possible metastatic disease. His family reported that he was in the hospital for 17 days and he lost about 40 pounds (e.g. from 147 pounds prior to admission about 107 pounds at the time of discharge). 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 He has had assistance with care of the colostomy by home health. History of smoking in the distant past, quit 35 years ago A follow-up PET/CT on August 31, 2020 reported a left lower quadrant ostomy. It was noted there were at least 4 sites of hepatic metastatic disease, all in the right hepatic lobe with a dominant lesion measured 1.6 cm with SUV of 7.7 and CEA level checked on September 13, 2020 was 21.8. Given the PET CT findings from August 31, 2020, it was recommended that Mr Galdamez pursue treatment with capecitabine. He began his first cycle on October 08, 2020 CT PET scan done After 3 cycles of oral Xeloda on December 14, 2020 shows hepatic metastatic disease seen on prior study done on August 31, 2020 is resolved indicating a complete response of therapy. 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 As per patient since his last visit patient underwent colonoscopy on March 03, 2021 which shows polyp was removed from distal transverse colon which was tubulovillous adenoma, and 2 polyps were removed from rectum one of them was tubular adenoma other one was hyperplastic polyp. As per patient he underwent CT scan of chest on June 30, 2021 which shows multiple lesions involving visualized portion of the liver, having appearance of metastatic disease and ascending thoracic aortic aneurysm and also chronic lung changes., CT PET scan was done on August 30, 2021 shows multifocal, extensive hepatic metastatic disease with SUV of twelve 214.5 and uptake in portal node is consistent with [place] metastatic disease., As per patient he is being scheduled for liver biopsy on coming Wednesday.But due to bad weather it was postponed to October 15, 2021 Patient denies any jaundice, denies any abdominal pain, denies any diarrhea or constipation, denies any melena or hematochezia, denies any new bony pain Due to off and on near syncopal attack and episode of fall. Patient underwent MRI scan of the brain on August 25, 2021, which showed a small enhancing lesion left side of cerebellum measuring 5 x 3.5 mm suspicious for metastatic lesion there is no significant edema surrounding the lesion. Patient presents today for education on oxaliplatin. He is accompanied by his . He will also start Xeloda orally. He daily. No shortness of breath, cough, or chest pain. No GI or problems. No neuropathic pain. Review Of Symptoms: see above. Past Medical History: Chronic obstructive pulmonary disease Hyperglycemia Past Surgical History: Mitral valve repair Left colectomy with Left colostomy in 2019 Allergies: No Known Allergies. Medications: Beano Tablet Oral Capecitabine 2 Tablet (of 150 mg) Oral b.i.d. Capecitabine 2 Tablet (of 500 mg) Oral b.i.d. Furosemide 1 - 2 Tablet (of 20 mg) Oral daily PRN Prochlorperazine Maleate 1 Tablet (of 10 mg) Oral q 4 hours PRN Tamsulosin HCl 1 Capsule (of 0.4 mg) Oral daily Vitamin C 1 Capsule (of 500 mg) Oral daily Family History: There is no documented family history. Social History: Mr. Galdamez is . Mr. Galdamez no longer smokes. He has no history of drinking. Physical Examination: Performed on Oct 21, 2021 11:35: Height - 70.00 in, Weight - 129.4 lbs (LOW), BSA - 1.73 sq.m, BMI - 18.57, Temperature - 97.6 F (LOW), Pulse - 46 /min (LOW), Respiration - 16 /min, BP - 125/75 mm(hg), O2 Sat - 96 %, Pain - 0, and Fatigue - 5. Performance Status: 1 - No physically strenuous activity, but ambulatory and able to carry out light or sedentary work (e.g. office work, light house work). (ECOG) Constitutional Alert, cooperative, oriented. Mood and affect appropriate. Appears close to chronological age. Well nourished. Well developed. Head Normocephalic; no scars. Eyes Conjunctivae and sclerae are clear and without icterus. Pupils are reactive and equal. Respiratory Lungs are clear to auscultation without rhonchi or wheezing. Cardiovascular Regular rate and rhythm of heart without murmurs, gallops or rubs. Abdomen Non-tender, non-distended, no masses, ascites or hepatosplenomegaly. Good bowel sounds. No guarding or rebound tenderness. Extremities No visible deformities, no cyanosis, clubbing or edema. Pulses 3+ and equal bilaterally. Psychiatric Alert and oriented times three. Coherent speech. Verbalizes understanding of our discussions today. Laboratory: Most recent lab results are not available for this patient. 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 status post left colectomy done on July 23, 2020 showed 3.5 cm mass in the descending colon, moderately differentiated, tumor invades through muscularis propria into pericolorectal tissue, pT3, 12 lymph nodes were examined, 0 lymph node showed metastatic disease pN0, CT scan of abdomen done on July 21, 2020 showed 11 mm nodule in the right lobe of the liver, nonspecific, possible metastasis and there is simple hepatic cyst in the left lobe.Subsequently underwent CT PET scan on August 31, 2020 which showed at least 4 sites of hepatic metastatic disease present, all in the right hepatic lobe and dominant lesion 1.6 cm with SUV of 7.7 CEA checked on September 13, 2020 was 21.8 On October 09, 2020 it was 142, Clinically consistent with metastatic colon cancer e.g. 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 due to oral Xeloda which improved with supportive care and Xeloda dose modification ,Patient decided to discontinue chemotherapy AGAINST MEDICAL ADVICE On September 15, 2021, CEA 813.4 compared to 5.4 on December 05, 2020 CT PET scan done on August 30, 2021 shows new widespread hepatic metastatic disease, new FDG positive portal node, consistent with metastatic disease Plan: Discussed with patient regarding his 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 And he did not show any MSI H,, His liver biopsy was postponed due to bad weather and now scheduled for October 15, 2021., His CEA checked on September 15, 2021 showed 813.4 compared to 5.4 on December 05, 2020. Indicating recurrence, we will consider molecular testing on liver biopsy specimen to identify targetable therapeutic mutation. In the meantime, discussed with patient regarding Treatment options including but not limited to FOLFOX or FOLFIRI or cetuximab or Capox or single agent Xeloda or Xeloda plus Avastin, as liver biopsy is under consideration we will not consider a Avastin at this point but can be considered in the future. Education and handouts were provided for oxaliplatin. Side effects were discussed in detail including neuropathy secondary to cold. Indications for oxaliplatin were discussed in detail and all questions were answered. He will receive oxaliplatin every 3 weeks and he will continue Xeloda day 1 through 14 on a 21-day cycle. He will return to the clinic in 1 week with CBC CMP. Signed By: Zabrina Nascimento N.P. <<Signature on File>>
[2021-10-28] MEDS: sodium chloride 0.9% 500 ML 999 ML IV (09:52)
--- NOTE | 2021-10-28 17:24 | ONC FU_ITS ---
Dr. Willard follow up note Patient: Shabbir Galdamez Unit #: [id number]: [id number] Dicatated By: Joshua Willard M.D.Date of Visit:Oct 28, 2021 Onc Med Follow-up/Prog Note History of Present Illness: Mr. Galdamez is a 81-year-old gentleman with history of progressive constipation. He underwent colonoscopy on July 01, 2020 which showed a partially obstructing large sized fungating, friable, malignant appearing 4 cm x 6 cm mass in the distal descending colon. A biopsy was obtained which confirmed invasive adenocarcinoma moderately differentiated. Polyps were also removed from rectum showed tubular adenoma. Subsequently on July 23, 2020 patient underwent left colectomy. The final pathology report reported moderately differentiated invasive adenocarcinoma. The tumor size was 3.5 cm and invaded through muscularis into subserosa. 0 out of 12 lymph node showed metastatic disease and there was no evidence of lymphovascular invasion and perineural invasion, pT3 ,pN0. CT scan of abdomen done on July 21, 2020 showed there is an indeterminate 11 mm nodule in the right lobe of the liver, nonspecific possible metastatic disease. His family reported that he was in the hospital for 17 days and he lost about 40 pounds (e.g. from 147 pounds prior to admission about 107 pounds at the time of discharge). 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 He has had assistance with care of the colostomy by home health. History of smoking in the distant past, quit 35 years ago A follow-up PET/CT on August 31, 2020 reported a left lower quadrant ostomy. It was noted there were at least 4 sites of hepatic metastatic disease, all in the right hepatic lobe with a dominant lesion measured 1.6 cm with SUV of 7.7 and CEA level checked on September 13, 2020 was 21.8. Given the PET CT findings from August 31, 2020, it was recommended that Mr Galdamez pursue treatment with capecitabine. He began his first cycle on October 08, 2020 CT PET scan done After 3 cycles of oral Xeloda on December 14, 2020 shows hepatic metastatic disease seen on prior study done on August 31, 2020 is resolved indicating a complete response of therapy. 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 As per patient, since his last visit ,patient underwent colonoscopy on March 03, 2021 which shows polyp was removed from distal transverse colon which was tubulovillous adenoma, and 2 polyps were removed from rectum one of them was tubular adenoma other one was hyperplastic polyp. As per patient, he underwent CT scan of chest on June 30, 2021 which shows multiple lesions involving visualized portion of the liver, having appearance of metastatic disease and ascending thoracic aortic aneurysm and also chronic lung changes., CT PET scan was done on August 30, 2021 shows multifocal, extensive hepatic metastatic disease with SUV of twelve 214.5 and uptake in portal node is consistent with shawnee metastatic disease., As per patient he was scheduled for liver biopsy o.But due to bad weather it was postponed to October 15, 2021 And liver biopsy was done on October 15, 2021 confirmed metastatic adenocarcinoma, consistent with colonic primary. Patient denies any jaundice, denies any abdominal pain, denies any diarrhea or constipation, denies any melena or hematochezia, denies any new bony pain Due to off and on near syncopal attack and episode of fall. Patient underwent MRI scan of the brain on August 25, 2021, which showed a small enhancing lesion left side of cerebellum measuring 5 x 3.5 mm suspicious for metastatic lesion there is no significant edema surrounding the lesion., Started on oxaliplatin/Xeloda on October 21, 2021. Came for follow-up, complaining of generalized weakness and fatigue, no mouth sores or thrush, no fever chills but poor appetite and intolerance to cold and peripheral neuropathy. But now getting better. As per family, still not eating or drinking enough. No diarrhea or constipation, no jaundice, no abdominal pain, no skin rash but mild erythema involving both palms and soles, nontender. Tolerated dose of oxaliplatin well and now tolerating oral Xeloda well otherwise Medications: Capecitabine 2 Tablet (of 150 mg) Oral b.i.d., Capecitabine 2 Tablet (of 500 mg) Oral b.i.d., Fluticasone-Salmeterol 1 Inhalation (of 100-50 mcg/dose) Aerosol Powder, Breath Activated Inhalation b.i.d., HYDROcodone-Acetaminophen Tablet Oral PRN, Vitamin C 1 Capsule (of 500 mg) Oral daily, Vitamin D3 1 Tablet (of 25 mcg ) Oral daily Allergies: No Known Allergies. Review of Systems: Review of Systems is not available for this patient. Vital Signs: Performed on Oct 28, 2021 08:45 Height - 70.00 in Weight - 123.0 lbs (LOW) BSA - 1.70 sq.m BMI - 17.65 (LOW) Temperature - 97.8 F (LOW) Pulse - 70 /min Respiration - 16 /min BP - 113/63 mm(hg) O2 Sat - 98 % Pain - 0 Fatigue - 6 Performance Status: 2 - Ambulatory/capable of all self-care, unable to perform any work activities. Up and about more than 50% of waking hours. (ECOG) Physical Examination: ENMT - Small showed in the left side of lower lip, no discharge, no thrush, no jaundice, dry oral mucosa, Respiratory - Poor air entry otherwise clear, Cardiovascular - Regular rate and rhythm of heart, Abdomen - Soft, bowel sounds present, Extremities - No visible edema. Lab/Imaging: Test performed on Oct 27, 2021 08:37 Glucose 117 mg/dL BUN 15 mg/dL Creatinine 0.7 mg/dL Cr Clearance (Est) 71.04 mL/min Sodium 133 mmol/L Potassium 4.5 mmol/L Chloride 95 mmol/L CO2 21 mmol/L Calcium 8.5 mg/dL Protein, Total 6.4 g/dL Albumin 4.0 g/dL Globulin 2.4 g/dL Bilirubin, Total 0.6 mg/dL Alkaline Phosphatase 172 International Units/L AST (SGOT) 51 International Units/L ALT (SGPT) 30 International Units/L WBC 20.6 10^9/L RBC 4.84 10^12/L HGB 13.5 g/dL HCT 41.2 % MCV 85.1 fl MCH 27.9 pg MCHC 32.8 g/dL RDW 18.8 % Platelet Count 238 10^9/L MPV 10.1 fL Neutrophils (Gran) 15.55 10^9/L Lymphocytes 1.7716 10^9/L Monocytes 2.9664 10^9/L Eosinophils 0.0206 10^9/L Basophils 0.0618 10^9/L Impression: 1. Biopsy-proven recurrence of colon cancer per liver biopsy done on October 15, 2021, CEA checked on September 15, 2021 was 813.4 compared to 5.4 on December 05 2020 Started on XELOX on October 21, 2021 2. Moderately differentiated invasive adenocarcinoma involving left descending colon status post left colectomy done on July 23, 2020 showed 3.5 cm mass in the descending colon, moderately differentiated, tumor invades through muscularis propria into pericolorectal tissue, pT3, 12 lymph nodes were examined, 0 lymph node showed metastatic disease pN0, CT scan of abdomen done on July 21, 2020 showed 11 mm nodule in the right lobe of the liver, nonspecific, possible metastasis and there is simple hepatic cyst in the left lobe.Subsequently underwent CT PET scan on August 31, 2020 which showed at least 4 sites of hepatic metastatic disease present, all in the right hepatic lobe and dominant lesion 1.6 cm with SUV of 7.7 CEA checked on September 13, 2020 was 21.8 On October 09, 2020 it was 142, Clinically consistent with metastatic colon cancer e.g. 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 due to oral Xeloda which improved with supportive care and Xeloda dose modification ,Patient decided to discontinue chemotherapy AGAINST MEDICAL ADVICE On September 15, 2021, CEA 813.4 compared to 5.4 on December 05, 2020 CT PET scan done on August 30, 2021 shows new widespread hepatic metastatic disease, new FDG positive portal node, consistent with metastatic disease Plan: Discussed with patient regarding his labs white blood count 20.6 hemoglobin 13.5 hematocrit 41.2 platelets 238,000 CMP within normal limit except sodium 133 and AST 51 compared to 87 previously and alk phos 172 compared to 363 previously And his liver biopsy which confirmed metastatic colon cancer Clinically, patient is doing reasonably well, now being treated with oxaliplatin/Xeloda, tolerating reasonably well but with expected side effect e.g. intolerance to cold beverages and cold also complaining of generalized weakness and fatigue, clinically appears dehydrated due to poor intake, patient had episode of nausea but no vomiting., Now being treated with oral Xeloda which she is tolerating well, no mouth sores, on exam he has bilateral palmar erythema. Could be due to chemotherapy, will monitor His follow-up lab work-up shows mild leukocytosis but no evidence of acute infection, we will give him prescription for Levaquin 500 mg p.o. daily, patient was advised to start in case he starts spiking fever. We will also give him Normal saline 500 cc today and then patient was advised to maintain hydration We will continue his systemic therapy with oxaliplatin/Xeloda as long as tolerating, as goal is to obtain maximal response and if his follow-up CT PET scan shows good response and no evidence of extrahepatic disease, then we may consider SBRT to the lung remaining liver lesion followed by observation or maintenance oral Xeloda. On the other hand if patient could not tolerate oxaliplatin, then will switch him to oral Xeloda alone and monitor, patient and family is aware that his disease is not curable. Return to clinic in 1 week with CBC CMP Signed By: Joshua Willard M.D. <<Signature on File>>
--- NOTE | 2021-11-04 19:44 | ONC FU_ITS ---
Zabrina Nascimento Progress Note Patient: Shabbir Galdamez Unit #: [id number]: 1940 Dicatated By: Zabrina Nascimento N.P.Date of Visit:Nov 04, 2021 Onc MED Follow-up/Prog Note Chief Complaint: Colon cancer History of Present Illness: Mr. Galdamez is a 81-year-old gentleman with history of progressive constipation. He underwent colonoscopy on July 01, 2020 which showed a partially obstructing large sized fungating, friable, malignant appearing 4 cm x 6 cm mass in the distal descending colon. A biopsy was obtained which confirmed invasive adenocarcinoma moderately differentiated. Polyps were also removed from rectum showed tubular adenoma. Subsequently on July 23, 2020 patient underwent left colectomy. The final pathology report reported moderately differentiated invasive adenocarcinoma. The tumor size was 3.5 cm and invaded through muscularis into subserosa. 0 out of 12 lymph node showed metastatic disease and there was no evidence of lymphovascular invasion and perineural invasion, pT3 ,pN0. CT scan of abdomen done on July 21, 2020 showed there is an indeterminate 11 mm nodule in the right lobe of the liver, nonspecific possible metastatic disease. His family reported that he was in the hospital for 17 days and he lost about 40 pounds (e.g. from 147 pounds prior to admission about 107 pounds at the time of discharge). 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 He has had assistance with care of the colostomy by home health. History of smoking in the distant past, quit 35 years ago A follow-up PET/CT on August 31, 2020 reported a left lower quadrant ostomy. It was noted there were at least 4 sites of hepatic metastatic disease, all in the right hepatic lobe with a dominant lesion measured 1.6 cm with SUV of 7.7 and CEA level checked on September 13, 2020 was 21.8. Given the PET CT findings from August 31, 2020, it was recommended that Mr Galdamez pursue treatment with capecitabine. He began his first cycle on October 08, 2020 CT PET scan done After 3 cycles of oral Xeloda on December 14, 2020 shows hepatic metastatic disease seen on prior study done on August 31, 2020 is resolved indicating a complete response of therapy. 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 As per patient, since his last visit ,patient underwent colonoscopy on March 03, 2021 which shows polyp was removed from distal transverse colon which was tubulovillous adenoma, and 2 polyps were removed from rectum one of them was tubular adenoma other one was hyperplastic polyp. As per patient, he underwent CT scan of chest on June 30, 2021 which shows multiple lesions involving visualized portion of the liver, having appearance of metastatic disease and ascending thoracic aortic aneurysm and also chronic lung changes., CT PET scan was done on August 30, 2021 shows multifocal, extensive hepatic metastatic disease with SUV of twelve 214.5 and uptake in portal node is consistent with shawnee metastatic disease., As per patient he was scheduled for liver biopsy o.But due to bad weather it was postponed to October 15, 2021 And liver biopsy was done on October 15, 2021 confirmed metastatic adenocarcinoma, consistent with colonic primary. Patient denies any jaundice, denies any abdominal pain, denies any diarrhea or constipation, denies any melena or hematochezia, denies any new bony pain Due to off and on near syncopal attack and episode of fall. Patient underwent MRI scan of the brain on August 25, 2021, which showed a small enhancing lesion left side of cerebellum measuring 5 x 3.5 mm suspicious for metastatic lesion there is no significant edema surrounding the lesion., Started on oxaliplatin/Xeloda on October 21, 2021. Patient presents today for follow-up. He is accompanied by his . He states he has had extreme fatigue since starting current treatment with Xeloda and oxaliplatin. He has 1 pill left of his Xeloda treatment. His appetite is fair. He eats about 6 small meals a day and he has to force himself to eat. He denies fever, chills, night sweats. He denies sinus drainage, cough, shortness of breath. No chest pain. He has some constipation which is controlled with medications. He experienced some cold intolerance related to the oxaliplatin. That is improving. He is having severe pain in his hands and feet. He is not certain that he wants to continue treatment. Review Of Symptoms: See above. Past Medical History: Chronic obstructive pulmonary disease Hyperglycemia Past Surgical History: Mitral valve repair Left colectomy with Left colostomy in 2019 Allergies: No Known Allergies. Medications: Capecitabine 2 Tablet (of 150 mg) Oral b.i.d. Capecitabine 2 Tablet (of 500 mg) Oral b.i.d. Fluticasone-Salmeterol 1 Inhalation (of 100-50 mcg/dose) Aerosol Powder, Breath Activated Inhalation b.i.d. HYDROcodone-Acetaminophen Tablet Oral PRN levETIRAcetam 1 Tablet (of 500 mg) Solution Oral b.i.d. Vitamin C 1 Capsule (of 500 mg) Oral daily Vitamin D3 1 Tablet (of 25 mcg ) Oral daily Family History: There is no documented family history. Social History: Mr. Galdamez is . Mr. Galdamez no longer smokes. He has no history of drinking. Physical Examination: Performed on Nov 04, 2021 15:03: Height - 70.00 in, Weight - 129.6 lbs (HIGH), BSA - 1.74 sq.m, BMI - 18.60, Temperature - 98.0 F (LOW), Pulse - 95 /min, Respiration - 17 /min, BP - 114/76 mm(hg), O2 Sat - 95 % (LOW), Pain - 4, and Fatigue - 6. Performance Status: 2 - Ambulatory/capable of all self-care, unable to perform any work activities. Up and about more than 50% of waking hours. (ECOG) Constitutional Alert, cooperative, oriented. Mood and affect appropriate. Appears close to chronological age. Well nourished. Well developed. Head Normocephalic; no scars. Respiratory Lungs are clear to auscultation without rhonchi or wheezing. Cardiovascular Regular rate and rhythm of heart without murmurs, gallops or rubs. Abdomen Non-tender, non-distended, no masses, ascites or hepatosplenomegaly. Good bowel sounds. No guarding or rebound tenderness. Extremities Palms of hands appear red and inflamed. Tender to touch Musculoskeletal Generalized weakness Psychiatric Alert and oriented times three. Coherent speech. Verbalizes understanding of our discussions today. Laboratory: Test performed on Nov 03, 2021 08:16 WBC 11.8 10^9/L RBC 4.58 10^12/L HGB 12.9 g/dL HCT 38.9 % MCV 84.9 fl MCH 28.2 pg MCHC 33.2 g/dL RDW 18.8 % Platelet Count 18.8 10^9/L MPV 9.4 fL Neutrophils (Gran) 7.44 10^9/L Lymphocytes 2.832 10^9/L Monocytes 1.239 10^9/L Eosinophils 0.177 10^9/L Basophils 0.0236 10^9/L Test performed on Nov 03, 2021 08:12 Glucose 97 mg/dL BUN 14 mg/dL Creatinine 0.6 mg/dL Cr Clearance (Est) 82.88 mL/min Sodium 135 mmol/L Potassium 4.0 mmol/L Chloride 97 mmol/L CO2 21 mmol/L Calcium 9.1 mg/dL Protein, Total 6.3 g/dL Albumin 3.8 g/dL Globulin 2.5 g/dL Bilirubin, Total 0.5 mg/dL Alkaline Phosphatase 133 International Units/L AST (SGOT) 28 International Units/L ALT (SGPT) 16 International Units/L Impression: 1. Biopsy-proven recurrence of colon cancer per liver biopsy done on October 15, 2021, CEA checked on September 15, 2021 was 813.4 compared to 5.4 on December 05 2020 Started on XELOX on October 21, 2021 2. Moderately differentiated invasive adenocarcinoma involving left descending colon status post left colectomy done on July 23, 2020 showed 3.5 cm mass in the descending colon, moderately differentiated, tumor invades through muscularis propria into pericolorectal tissue, pT3, 12 lymph nodes were examined, 0 lymph node showed metastatic disease pN0, CT scan of abdomen done on July 21, 2020 showed 11 mm nodule in the right lobe of the liver, nonspecific, possible metastasis and there is simple hepatic cyst in the left lobe.Subsequently underwent CT PET scan on August 31, 2020 which showed at least 4 sites of hepatic metastatic disease present, all in the right hepatic lobe and dominant lesion 1.6 cm with SUV of 7.7 CEA checked on September 13, 2020 was 21.8 On October 09, 2020 it was 142, Clinically consistent with metastatic colon cancer e.g. 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 due to oral Xeloda which improved with supportive care and Xeloda dose modification ,Patient decided to discontinue chemotherapy AGAINST MEDICAL ADVICE On September 15, 2021, CEA 813.4 compared to 5.4 on December 05, 2020 CT PET scan done on August 30, 2021 shows new widespread hepatic metastatic disease, new FDG positive portal node, consistent with metastatic disease Plan: And his liver biopsy which confirmed metastatic colon cancer Labs were reviewed today with patient WBC 11.8 down from 20.6 at last visit. He was prescribed Levaquin in case signs of infection but he did not require it. He states he does not feel like he is tolerating the Xeloda well. He has a mouth sore in the roof of his mouth he will continue using the salt water and baking soda mixture to prevent further sores. His hands and feet show erythema and are tender to touch. He has 1 dose of Xeloda left before a break from the cycle. He was instructed to stop his Xeloda until next follow-up in 1 week. He does not feel like he is tolerating the chemotherapy regimen with oxaliplatin and Xeloda. We will have him follow-up in [address] Willard to discuss further course of treatment with a CBC, CMP, and CEA. Signed By: Zabrina Nascimento N.P. <<Signature on File>>
[2021-11-11] MEDS: sodium chloride 0.9% 500 ML 999 ML IV (11:30)
[2021-11-11] MEDS: potassium chloride ER 10 mEq Tablet 20 MEQ PO (11:30)
[2021-11-11 12:00] LABS: Magnesium 1.5 mg/dL (1.7-2.3)
--- NOTE | 2021-11-17 07:40 | ONC FU_ITS ---
Dr. Willard follow up note Patient: Shabbir Galdamez Unit #: [id number]: [id number] Dicatated By: Joshua Willard M.D.Date of Visit:Nov 11, 2021 Onc Med Follow-up/Prog Note History of Present Illness: Mr. Galdamez is a 81-year-old gentleman with history of progressive constipation. He underwent colonoscopy on July 01, 2020 which showed a partially obstructing large sized fungating, friable, malignant appearing 4 cm x 6 cm mass in the distal descending colon. A biopsy was obtained which confirmed invasive adenocarcinoma moderately differentiated. Polyps were also removed from rectum showed tubular adenoma. Subsequently on July 23, 2020 patient underwent left colectomy. The final pathology report reported moderately differentiated invasive adenocarcinoma. The tumor size was 3.5 cm and invaded through muscularis into subserosa. 0 out of 12 lymph node showed metastatic disease and there was no evidence of lymphovascular invasion and perineural invasion, pT3 ,pN0. CT scan of abdomen done on July 21, 2020 showed there is an indeterminate 11 mm nodule in the right lobe of the liver, nonspecific possible metastatic disease. His family reported that he was in the hospital for 17 days and he lost about 40 pounds (e.g. from 147 pounds prior to admission about 107 pounds at the time of discharge). 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 He has had assistance with care of the colostomy by home health. History of smoking in the distant past, quit 35 years ago A follow-up PET/CT on August 31, 2020 reported a left lower quadrant ostomy. It was noted there were at least 4 sites of hepatic metastatic disease, all in the right hepatic lobe with a dominant lesion measured 1.6 cm with SUV of 7.7 and CEA level checked on September 13, 2020 was 21.8. Given the PET CT findings from August 31, 2020, it was recommended that Mr Galdamez pursue treatment with capecitabine. He began his first cycle on October 08, 2020 CT PET scan done After 3 cycles of oral Xeloda on December 14, 2020 shows hepatic metastatic disease seen on prior study done on August 31, 2020 is resolved indicating a complete response of therapy. 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 As per patient, since his last visit ,patient underwent colonoscopy on March 03, 2021 which shows polyp was removed from distal transverse colon which was tubulovillous adenoma, and 2 polyps were removed from rectum one of them was tubular adenoma other one was hyperplastic polyp. As per patient, he underwent CT scan of chest on June 30, 2021 which shows multiple lesions involving visualized portion of the liver, having appearance of metastatic disease and ascending thoracic aortic aneurysm and also chronic lung changes., CT PET scan was done on August 30, 2021 shows multifocal, extensive hepatic metastatic disease with SUV of twelve 214.5 and uptake in portal node is consistent with shawnee metastatic disease., As per patient he was scheduled for liver biopsy o.But due to bad weather it was postponed to October 15, 2021 And liver biopsy was done on October 15, 2021 confirmed metastatic adenocarcinoma, consistent with colonic primary. Patient denies any jaundice, denies any abdominal pain, denies any diarrhea or constipation, denies any melena or hematochezia, denies any new bony pain Due to off and on near syncopal attack and episode of fall. Patient underwent MRI scan of the brain on August 25, 2021, which showed a small enhancing lesion left side of cerebellum measuring 5 x 3.5 mm suspicious for metastatic lesion there is no significant edema surrounding the lesion., Started on oxaliplatin/Xeloda on October 21, 2021. Came for follow-up, complaining of generalized weakness and fatigue, persistent diarrhea but no mucus or blood in his stools. Denies any jaundice, no fever or chills, no mouth sores, no nausea or vomiting. Patient said he called Dr. Davidson for his diarrhea and he ordered stool studies but he could not collect sample and also called in for some antidiarrheal medication, which is helping him some. Still has some erythema involving palms and soles but no worsening. Patient said he stopped taking his oral Xeloda on November 04, 2021 as there was a concern as diarrhea could be due to chemotherapy. Overall, he is having hard time tolerating oxaliplatin/Xeloda regimen Medications: Capecitabine 2 Tablet (of 150 mg) Oral b.i.d., Capecitabine 2 Tablet (of 500 mg) Oral b.i.d., Fluticasone-Salmeterol 1 Inhalation (of 100-50 mcg/dose) Aerosol Powder, Breath Activated Inhalation b.i.d., HYDROcodone-Acetaminophen Tablet Oral PRN, levETIRAcetam 1 Tablet (of 500 mg) Solution Oral b.i.d., Vitamin C 1 Capsule (of 500 mg) Oral daily, Vitamin D3 1 Tablet (of 25 mcg ) Oral daily Allergies: No Known Allergies. Review of Systems: Review of Systems is not available for this patient. Vital Signs: Performed on Nov 11, 2021 10:20 Height - 70.00 in Weight - 128 lbs (LOW) BSA - 1.73 sq.m BMI - 18.37 Temperature - 97.7 F (LOW) Pulse - 90 /min Respiration - 19 /min BP - 110/67 mm(hg) O2 Sat - 99 % Pain - 0 Fatigue - 0 Performance Status: 1 - No physically strenuous activity, but ambulatory and able to carry out light or sedentary work (e.g. office work, light house work). (ECOG) Physical Examination: ENMT - Dry oral mucosa, no mouth sores, no thrush, no jaundice, Respiratory - Lungs are clear to auscultation, Cardiovascular - Regular rate and rhythm of heart, Abdomen - Soft, bowel sounds present, Extremities - Mild palmar/plantar erythema but no edema. Lab/Imaging: Test performed on Nov 03, 2021 08:16 WBC 11.8 10^9/L RBC 4.58 10^12/L HGB 12.9 g/dL HCT 38.9 % MCV 84.9 fl MCH 28.2 pg MCHC 33.2 g/dL RDW 18.8 % Platelet Count 18.8 10^9/L MPV 9.4 fL Neutrophils (Gran) 7.44 10^9/L Lymphocytes 2.832 10^9/L Monocytes 1.239 10^9/L Eosinophils 0.177 10^9/L Basophils 0.0236 10^9/L Test performed on Nov 03, 2021 08:12 Glucose 97 mg/dL BUN 14 mg/dL Creatinine 0.6 mg/dL Cr Clearance (Est) 82.88 mL/min Sodium 135 mmol/L Potassium 4.0 mmol/L Chloride 97 mmol/L CO2 21 mmol/L Calcium 9.1 mg/dL Protein, Total 6.3 g/dL Albumin 3.8 g/dL Globulin 2.5 g/dL Bilirubin, Total 0.5 mg/dL Alkaline Phosphatase 133 International Units/L AST (SGOT) 28 International Units/L ALT (SGPT) 16 International Units/L Impression: 1. Biopsy-proven recurrence of colon cancer per liver biopsy done on October 15, 2021, CEA checked on September 15, 2021 was 813.4 compared to 5.4 on December 05 2020 Started on XELOX on October 21, 2021 2. Moderately differentiated invasive adenocarcinoma involving left descending colon status post left colectomy done on July 23, 2020 showed 3.5 cm mass in the descending colon, moderately differentiated, tumor invades through muscularis propria into pericolorectal tissue, pT3, 12 lymph nodes were examined, 0 lymph node showed metastatic disease pN0, CT scan of abdomen done on July 21, 2020 showed 11 mm nodule in the right lobe of the liver, nonspecific, possible metastasis and there is simple hepatic cyst in the left lobe.Subsequently underwent CT PET scan on August 31, 2020 which showed at least 4 sites of hepatic metastatic disease present, all in the right hepatic lobe and dominant lesion 1.6 cm with SUV of 7.7 CEA checked on September 13, 2020 was 21.8 On October 09, 2020 it was 142, Clinically consistent with metastatic colon cancer e.g. 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 Clinically patient is doing reasonably well, now in mild to moderate distress due to persistent but improving diarrhea and also has dehydration due to poor oral intake and diarrhea may be contributing too. His follow-up lab work-up shows significant improvement in his CEA level but patient is having hard time tolerating oxaliplatin/Xeloda regimen because of persistent diarrhea, mild [id number] syndrome, at this point, we will discontinue oxaliplatin/Xeloda regimen and considering switching him to FOLFOX because of better tolerability. All the side effect possible benefits associated with FOLFOX including but not limited to bone marrow suppression, nausea vomiting diarrhea, peripheral neuropathy, mouth sores, jaundice were mentioned, they are similar to one with oxaliplatin/FOLFOX but may be less intense. We will obtain approval from his insurance prior to the treatment and then patient return to clinic in 1 week with CBC CMP and to start first cycle of FOLFOX minus 5-FU bolus. As far as generalized weakness and fatigue is concerned probably due to dehydration, will consider normal saline 500 cc and also given potassium supplement and check his magnesium level, if low consider supplement. Patient was advised to maintain hydration and take antidiarrheal as recommended. Signed By: Joshua Willard M.D. <<Signature on File>>
== END 2021-11-13 23:59 | disposition home or self-care (01) ==
LOC: ONCMED 06:39
PROVIDERS: PCP Emergency Medicine Emergency Medical Services; Visit Provider Internal Medicine Hematology & Oncology
DX: Z51.11 Encounter for antineoplastic chemotherapy (principal); C18.6 Malignant neoplasm of descending colon; C78.7 Secondary malignant neoplasm of liver and intrahepatic bile duct; E86.0 Dehydration; K52.1 Toxic gastroenteritis and colitis; T45.1X5A Adverse effect of antineoplastic and immunosuppressive drugs, initial encounter; L27.1 Localized skin eruption due to drugs and medicaments taken internally; Z79.899 Other long term (current) drug therapy
CPT/HCPCS: 83735; 96360; 96367; 96413; 96415; 99214; 99215; J1100; J2469; J7040; J9263

== ENCOUNTER → 2021-11-17 09:53 | Outpatient (BNVA) | payer OTHER, MEDICARE, SELFPAY | PROVIDERS: PCP Emergency Medicine Emergency Medical Services; Visit Provider Internal Medicine Hematology & Oncology | DX: C18.6 Malignant neoplasm of descending colon (principal); C78.7 Secondary malignant neoplasm of liver and intrahepatic bile duct; E04.1 Nontoxic single thyroid nodule | CPT/HCPCS: 80053; 85025 ==

== ENCOUNTER → 2021-12-01 10:04 | Outpatient (BNVA) | payer OTHER, MEDICARE, SELFPAY | PROVIDERS: PCP Emergency Medicine Emergency Medical Services; Visit Provider Internal Medicine Hematology & Oncology | DX: C78.7 Secondary malignant neoplasm of liver and intrahepatic bile duct (principal) | CPT/HCPCS: 80053; 85025 ==

== ENCOUNTER 2021-12-04 06:45 | Outpatient (RCR) | payer OTHER, MEDICARE, SELFPAY ==
[2021-11-18] MEDS: palonosetron 0.25 mg/5 mL SDV IV (12:13)
[2021-11-18] MEDS: dextrose 5% 250 ML 100 ML IV (12:50)
--- NOTE | 2021-11-21 09:17 | ONC FU_ITS ---
Dr. Willard follow up note Patient: Shabbir Galdamez Unit #: [id number]: [id number] Dicatated By: Joshua Willard M.D.Date of Visit:Nov 18, 2021 Onc Med Follow-up/Prog Note History of Present Illness: Mr. Galdamez is a 81-year-old gentleman with history of progressive constipation. He underwent colonoscopy on July 01, 2020 which showed a partially obstructing large sized fungating, friable, malignant appearing 4 cm x 6 cm mass in the distal descending colon. A biopsy was obtained which confirmed invasive adenocarcinoma moderately differentiated. Polyps were also removed from rectum showed tubular adenoma. Subsequently on July 23, 2020 patient underwent left colectomy. The final pathology report reported moderately differentiated invasive adenocarcinoma. The tumor size was 3.5 cm and invaded through muscularis into subserosa. 0 out of 12 lymph node showed metastatic disease and there was no evidence of lymphovascular invasion and perineural invasion, pT3 ,pN0. CT scan of abdomen done on July 21, 2020 showed there is an indeterminate 11 mm nodule in the right lobe of the liver, nonspecific possible metastatic disease. His family reported that he was in the hospital for 17 days and he lost about 40 pounds (e.g. from 147 pounds prior to admission about 107 pounds at the time of discharge). 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 He has had assistance with care of the colostomy by home health. History of smoking in the distant past, quit 35 years ago A follow-up PET/CT on August 31, 2020 reported a left lower quadrant ostomy. It was noted there were at least 4 sites of hepatic metastatic disease, all in the right hepatic lobe with a dominant lesion measured 1.6 cm with SUV of 7.7 and CEA level checked on September 13, 2020 was 21.8. Given the PET CT findings from August 31, 2020, it was recommended that Mr Galdamez pursue treatment with capecitabine. He began his first cycle on October 08, 2020 CT PET scan done After 3 cycles of oral Xeloda on December 14, 2020 shows hepatic metastatic disease seen on prior study done on August 31, 2020 is resolved indicating a complete response of therapy. 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 As per patient, since his last visit ,patient underwent colonoscopy on March 03, 2021 which shows polyp was removed from distal transverse colon which was tubulovillous adenoma, and 2 polyps were removed from rectum one of them was tubular adenoma other one was hyperplastic polyp. As per patient, he underwent CT scan of chest on June 30, 2021 which shows multiple lesions involving visualized portion of the liver, having appearance of metastatic disease and ascending thoracic aortic aneurysm and also chronic lung changes., CT PET scan was done on August 30, 2021 shows multifocal, extensive hepatic metastatic disease with SUV of twelve 214.5 and uptake in portal node is consistent with shawnee metastatic disease., As per patient he was scheduled for liver biopsy o.But due to bad weather it was postponed to October 15, 2021 And liver biopsy was done on October 15, 2021 confirmed metastatic adenocarcinoma, consistent with colonic primary. Patient denies any jaundice, denies any abdominal pain, denies any diarrhea or constipation, denies any melena or hematochezia, denies any new bony pain Due to off and on near syncopal attack and episode of fall. Patient underwent MRI scan of the brain on August 25, 2021, which showed a small enhancing lesion left side of cerebellum measuring 5 x 3.5 mm suspicious for metastatic lesion there is no significant edema surrounding the lesion., Started on oxaliplatin/Xeloda on October 21, 2021.Because of intolerance chemotherapy was changed to FOLFOX on November 18, 2021 Came for follow-up, denies any specific complaints, no fever chills, no nausea or vomiting, no diarrhea or constipation, no skin rash, no mouth sores, appetite is good Medications: Capecitabine 2 Tablet (of 150 mg) Oral b.i.d., Capecitabine 2 Tablet (of 500 mg) Oral b.i.d., Fluticasone-Salmeterol 1 Inhalation (of 100-50 mcg/dose) Aerosol Powder, Breath Activated Inhalation b.i.d., HYDROcodone-Acetaminophen Tablet Oral PRN, levETIRAcetam 1 Tablet (of 500 mg) Solution Oral b.i.d., Vitamin C 1 Capsule (of 500 mg) Oral daily, Vitamin D3 1 Tablet (of 25 mcg ) Oral daily Allergies: No Known Allergies. Review of Systems: Review of Systems is not available for this patient. Vital Signs: Performed on Nov 18, 2021 11:24 Height - 70.00 in Weight - 127.4 lbs (LOW) BSA - 1.72 sq.m BMI - 18.28 Temperature - 98.0 F (LOW) Pulse - 76 /min Respiration - 20 /min BP - 90/60 mm(hg) O2 Sat - 95 % (LOW) Pain - 0 Fatigue - 5 Performance Status: 1 - No physically strenuous activity, but ambulatory and able to carry out light or sedentary work (e.g. office work, light house work). (ECOG) Physical Examination: ENMT - No mouth sores, no thrush, no jaundice, Respiratory - Lungs are clear to auscultation, Cardiovascular - Regular rate and rhythm of heart, Abdomen - Soft, bowel sounds present, Extremities - No visible edema. Lab/Imaging: Test performed on Nov 17, 2021 12:22 WBC 13.0 10^9/L RBC 4.40 10^12/L HGB 12.3 g/dL HCT 38.5 % MCV 87.5 fl MCH 28.0 pg MCHC 31.9 g/dL RDW 21.2 % Platelet Count 371 10^9/L MPV 9.0 fL Neutrophils (Gran) 7.05 10^9/L Lymphocytes 2.73 10^9/L Monocytes 2.405 10^9/L Eosinophils 0.572 10^9/L Basophils 0.13 10^9/L Test performed on Nov 03, 2021 08:12 Glucose 97 mg/dL BUN 14 mg/dL Creatinine 0.6 mg/dL Cr Clearance (Est) 82.88 mL/min Sodium 135 mmol/L Potassium 4.0 mmol/L Chloride 97 mmol/L CO2 21 mmol/L Calcium 9.1 mg/dL Protein, Total 6.3 g/dL Albumin 3.8 g/dL Globulin 2.5 g/dL Bilirubin, Total 0.5 mg/dL Alkaline Phosphatase 133 International Units/L AST (SGOT) 28 International Units/L ALT (SGPT) 16 International Units/L Impression: 1. Biopsy-proven recurrence of colon cancer per liver biopsy done on October 15, 2021, CEA checked on September 15, 2021 was 813.4 compared to 5.4 on December 05 2020 Started on XELOX on October 21, 2021 2. Moderately differentiated invasive adenocarcinoma involving left descending colon status post left colectomy done on July 23, 2020 showed 3.5 cm mass in the descending colon, moderately differentiated, tumor invades through muscularis propria into pericolorectal tissue, pT3, 12 lymph nodes were examined, 0 lymph node showed metastatic disease pN0, CT scan of abdomen done on July 21, 2020 showed 11 mm nodule in the right lobe of the liver, nonspecific, possible metastasis and there is simple hepatic cyst in the left lobe.Subsequently underwent CT PET scan on August 31, 2020 which showed at least 4 sites of hepatic metastatic disease present, all in the right hepatic lobe and dominant lesion 1.6 cm with SUV of 7.7 CEA checked on September 13, 2020 was 21.8 On October 09, 2020 it was 142, Clinically consistent with metastatic colon cancer e.g. 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 due to oral Xeloda which improved with supportive care and Xeloda dose modification ,Patient decided to discontinue chemotherapy AGAINST MEDICAL ADVICE On September 15, 2021, CEA 813.4 compared to 5.4 on December 05, 2020 CT PET scan done on August 30, 2021 shows new widespread hepatic metastatic disease, new FDG positive portal node, consistent with metastatic disease Plan: Discussed with patient regarding his labs from November 17, 2021, white blood cell 13,000 hemoglobin 12.3 hematocrit 38.5 platelets 371,000 CMP within normal limits Clinically, patient is doing well with no new signs symptoms, patient could not tolerate oxaliplatin/Xeloda because of related toxicity and now being switched to FOLFOX, he will proceed with first dose today, will modify his dose e.g. 20% reduction and skipping 5-FU bolus for better tolerance and if tolerated, will titrate up, and then he will return to clinic in 2 weeks with CBC, CMP and if reasonable next cycle of FOLFOX. Signed By: Joshua Willard M.D. <<Signature on File>>
[2021-12-02] MEDS: dextrose 5% 250 ML 75 ML IV (11:39)
[2021-12-02] MEDS: palonosetron 0.25 mg/5 mL SDV IV (11:39)
--- NOTE | 2021-12-03 09:34 | ONC FU_ITS ---
Dr. Willard follow up note Patient: Shabbir Galdamez Unit #: [id number]: 1940 Dicatated By: Joshua Willard M.D.Date of Visit:Dec 02, 2021 Onc Med Follow-up/Prog Note History of Present Illness: Mr. Galdamez is a 81-year-old gentleman with history of progressive constipation. He underwent colonoscopy on July 01, 2020 which showed a partially obstructing large sized fungating, friable, malignant appearing 4 cm x 6 cm mass in the distal descending colon. A biopsy was obtained which confirmed invasive adenocarcinoma moderately differentiated. Polyps were also removed from rectum showed tubular adenoma. Subsequently on July 23, 2020 patient underwent left colectomy. The final pathology report reported moderately differentiated invasive adenocarcinoma. The tumor size was 3.5 cm and invaded through muscularis into subserosa. 0 out of 12 lymph node showed metastatic disease and there was no evidence of lymphovascular invasion and perineural invasion, pT3 ,pN0. CT scan of abdomen done on July 21, 2020 showed there is an indeterminate 11 mm nodule in the right lobe of the liver, nonspecific possible metastatic disease. His family reported that he was in the hospital for 17 days and he lost about 40 pounds (e.g. from 147 pounds prior to admission about 107 pounds at the time of discharge). 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 He has had assistance with care of the colostomy by home health. History of smoking in the distant past, quit 35 years ago A follow-up PET/CT on August 31, 2020 reported a left lower quadrant ostomy. It was noted there were at least 4 sites of hepatic metastatic disease, all in the right hepatic lobe with a dominant lesion measured 1.6 cm with SUV of 7.7 and CEA level checked on September 13, 2020 was 21.8. Given the PET CT findings from August 31, 2020, it was recommended that Mr Galdamez pursue treatment with capecitabine. He began his first cycle on October 08, 2020 CT PET scan done After 3 cycles of oral Xeloda on December 14, 2020 shows hepatic metastatic disease seen on prior study done on August 31, 2020 is resolved indicating a complete response of therapy. 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 As per patient, since his last visit ,patient underwent colonoscopy on March 03, 2021 which shows polyp was removed from distal transverse colon which was tubulovillous adenoma, and 2 polyps were removed from rectum one of them was tubular adenoma other one was hyperplastic polyp. As per patient, he underwent CT scan of chest on June 30, 2021 which shows multiple lesions involving visualized portion of the liver, having appearance of metastatic disease and ascending thoracic aortic aneurysm and also chronic lung changes., CT PET scan was done on August 30, 2021 shows multifocal, extensive hepatic metastatic disease with SUV of twelve 214.5 and uptake in portal node is consistent with [place] metastatic disease., As per patient he was scheduled for liver biopsy o.But due to bad weather it was postponed to October 15, 2021 And liver biopsy was done on October 15, 2021 confirmed metastatic adenocarcinoma, consistent with colonic primary. Patient denies any jaundice, denies any abdominal pain, denies any diarrhea or constipation, denies any melena or hematochezia, denies any new bony pain Due to off and on near syncopal attack and episode of fall. Patient underwent MRI scan of the brain on August 25, 2021, which showed a small enhancing lesion left side of cerebellum measuring 5 x 3.5 mm suspicious for metastatic lesion there is no significant edema surrounding the lesion., Started on oxaliplatin/Xeloda on October 21, 2021.Because of intolerance chemotherapy was changed to FOLFOX on November 18, 2021 Came for follow-up, denies any specific complaint except peeling of skin from both palms but not much on the soles. No mouth sores, no nausea or vomiting but mild diarrhea, no skin rash, no abdominal pain, no jaundice, no peripheral numbness, tolerated first cycle of therapy with modified dose FOLFOX reasonably well Medications: Capecitabine 2 Tablet (of 150 mg) Oral b.i.d., Capecitabine 2 Tablet (of 500 mg) Oral b.i.d., Fluticasone-Salmeterol 1 Inhalation (of 100-50 mcg/dose) Aerosol Powder, Breath Activated Inhalation b.i.d., HYDROcodone-Acetaminophen Tablet Oral PRN, levETIRAcetam 1 Tablet (of 500 mg) Solution Oral b.i.d., Vitamin C 1 Capsule (of 500 mg) Oral daily, Vitamin D3 1 Tablet (of 25 mcg ) Oral daily Allergies: No Known Allergies. Review of Systems: Review of Systems is not available for this patient. Vital Signs: Performed on Dec 02, 2021 10:30 Height - 70.00 in Weight - 130.4 lbs (HIGH) BSA - 1.74 sq.m BMI - 18.71 Temperature - 98.3 F (LOW) Pulse - 91 /min Respiration - 18 /min BP - 125/86 mm(hg) O2 Sat - 93 % (LOW) Pain - 0 Fatigue - 5 Performance Status: 1 - No physically strenuous activity, but ambulatory and able to carry out light or sedentary work (e.g. office work, light house work). (ECOG) Physical Examination: ENMT - No mouth sores, no thrush, no jaundice, no cervical lymphadenopathy, Respiratory - Lungs are clear to auscultation, Cardiovascular - Regular rate and rhythm of heart, Abdomen - Soft, bowel sounds present, Extremities - No visible edema but skin peeling noted in both palms. Lab/Imaging: Test performed on Nov 17, 2021 12:22 WBC 13.0 10^9/L RBC 4.40 10^12/L HGB 12.3 g/dL HCT 38.5 % MCV 87.5 fl MCH 28.0 pg MCHC 31.9 g/dL RDW 21.2 % Platelet Count 371 10^9/L MPV 9.0 fL Neutrophils (Gran) 7.05 10^9/L Lymphocytes 2.73 10^9/L Monocytes 2.405 10^9/L Eosinophils 0.572 10^9/L Basophils 0.13 10^9/L Test performed on Nov 03, 2021 08:12 Glucose 97 mg/dL BUN 14 mg/dL Creatinine 0.6 mg/dL Cr Clearance (Est) 82.88 mL/min Sodium 135 mmol/L Potassium 4.0 mmol/L Chloride 97 mmol/L CO2 21 mmol/L Calcium 9.1 mg/dL Protein, Total 6.3 g/dL Albumin 3.8 g/dL Globulin 2.5 g/dL Bilirubin, Total 0.5 mg/dL Alkaline Phosphatase 133 International Units/L AST (SGOT) 28 International Units/L ALT (SGPT) 16 International Units/L Impression: 1. Biopsy-proven recurrence of colon cancer per liver biopsy done on October 15, 2021, CEA checked on September 15, 2021 was 813.4 compared to 5.4 on December 05 2020 Started on XELOX on October 21, 2021 2. Moderately differentiated invasive adenocarcinoma involving left descending colon status post left colectomy done on July 23, 2020 showed 3.5 cm mass in the descending colon, moderately differentiated, tumor invades through muscularis propria into pericolorectal tissue, pT3, 12 lymph nodes were examined, 0 lymph node showed metastatic disease pN0, CT scan of abdomen done on July 21, 2020 showed 11 mm nodule in the right lobe of the liver, nonspecific, possible metastasis and there is simple hepatic cyst in the left lobe.Subsequently underwent CT PET scan on August 31, 2020 which showed at least 4 sites of hepatic metastatic disease present, all in the right hepatic lobe and dominant lesion 1.6 cm with SUV of 7.7 CEA checked on September 13, 2020 was 21.8 On October 09, 2020 it was 142, Clinically consistent with metastatic colon cancer e.g. 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 due to oral Xeloda which improved with supportive care and Xeloda dose modification ,Patient decided to discontinue chemotherapy AGAINST MEDICAL ADVICE On September 15, 2021, CEA 813.4 compared to 5.4 on December 05, 2020 CT PET scan done on August 30, 2021 shows new widespread hepatic metastatic disease, new FDG positive portal node, consistent with metastatic disease Plan: Discussed with patient regarding his labs white blood count 11.8 hemoglobin 12.8 hematocrit 40.2 platelets 275,000 CMP within normal limits Clinically, patient doing well with no new signs symptom suggestive of disease progression, tolerated first dose of modified FOLFOX well except with expected side effects like skin peeling involving both palms, 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 Will proceed with next dose of modified FOLFOX today and then he will return to clinic in 2 weeks with CBC CMP and CEA, and will repeat CT PET scan to assess disease response after 4 doses of FOLFOX Signed By: Joshua Willard M.D. <<Signature on File>>
== END 2021-12-13 23:59 | disposition home or self-care (01) ==
LOC: ONCMED 06:45
PROVIDERS: PCP Emergency Medicine Emergency Medical Services; Visit Provider Internal Medicine Hematology & Oncology
DX: Z51.11 Encounter for antineoplastic chemotherapy (principal); C18.6 Malignant neoplasm of descending colon; C78.5 Secondary malignant neoplasm of large intestine and rectum; C78.7 Secondary malignant neoplasm of liver and intrahepatic bile duct; L27.1 Localized skin eruption due to drugs and medicaments taken internally; T45.1X5A Adverse effect of antineoplastic and immunosuppressive drugs, initial encounter; Z79.899 Other long term (current) drug therapy
CPT/HCPCS: 96367; 96368; 96413; 96415; 96416; 96417; 96523; 99215; J0640; J1100; J2469; J9190; J9263

== ENCOUNTER → 2021-12-15 10:19 | Outpatient (BNVA) | payer OTHER, MEDICARE, SELFPAY | PROVIDERS: PCP Emergency Medicine Emergency Medical Services; Visit Provider Internal Medicine Hematology & Oncology | DX: C18.6 Malignant neoplasm of descending colon (principal); C78.7 Secondary malignant neoplasm of liver and intrahepatic bile duct | CPT/HCPCS: 80053; 82378; 85025 ==

== ENCOUNTER → 2021-12-29 09:46 | Outpatient (BNVA) | payer OTHER, SELFPAY | PROVIDERS: PCP Emergency Medicine Emergency Medical Services; Visit Provider Nurse Practitioner Family | DX: C18.6 Malignant neoplasm of descending colon (principal) | CPT/HCPCS: 80053; 85025 ==

== ENCOUNTER → 2022-01-09 09:10 | Outpatient (BNVA) | payer OTHER, SELFPAY | PROVIDERS: PCP Emergency Medicine Emergency Medical Services; Visit Provider Psychiatry & Neurology Neurology | DX: C18.6 Malignant neoplasm of descending colon (principal); C78.7 Secondary malignant neoplasm of liver and intrahepatic bile duct | CPT/HCPCS: 80053; 85025 ==

== ENCOUNTER 2022-01-13 12:00 | Oncology outpatient (recurring) (ONCR) | payer OTHER, SELFPAY ==
[2021-12-16 12:00] VITALS: BMI 18.5
[2021-12-16] MEDS: dextrose 5% 250 ML 100 ML IV (12:40)
[2021-12-16] MEDS: palonosetron 0.25 mg/5 mL SDV IVP (12:45)
[2021-12-16] MEDS: leucovorin 540 MG in dextrose 5% 250 ML 76 MG IV (13:11)
[2021-12-16] MEDS: OXALIPLATIN IV (13:12)
[2021-12-16] MEDS: DEXTROSE 5% IV (13:12)
[2021-12-16] MEDS: fluorouraciL 2,850 MG, elastomeric pump 1 PUMP in sodium chloride 0.9% (100 ml) 35 ML IV (16:44)
[2021-12-16 16:56] VITALS: BP 145/75; PULSE 82; RESP 18; TEMP 36.5; O2SAT 94
[2021-12-16 17:12] VITALS: BP 124/56; PULSE 67; RESP 18; TEMP 36.3; O2SAT 98
[2021-12-18 14:30] VITALS: BP 116/71; PULSE 87; RESP 16; TEMP 36.2; O2SAT 94
[2021-12-30] MEDS: dextrose 5% 250 ML 100 ML IV (11:44)
[2021-12-30] MEDS: palonosetron 0.25 mg/5 mL SDV IVP (11:44)
[2021-12-30] MEDS: leucovorin 540 MG in dextrose 5% 250 ML 76 MG IV (12:26)
[2021-12-30] MEDS: DEXTROSE 5% IV (12:26)
[2021-12-30] MEDS: OXALIPLATIN IV (12:26)
[2021-12-30] MEDS: fluorouraciL 2,850 MG, elastomeric pump 1 PUMP in sodium chloride 0.9% (100 ml) 35 ML IV (16:06)
[2022-01-13] MEDS: dextrose 5% 250 ML 100 ML IV ×2 (12:15→12:25)
[2022-01-13] MEDS: palonosetron 0.25 mg/5 mL SDV IVP (12:25)
[2022-01-13] MEDS: leucovorin 540 MG in dextrose 5% 250 ML 76 MG IV (13:18)
[2022-01-13] MEDS: OXALIPLATIN IV (13:19)
[2022-01-13] MEDS: DEXTROSE 5% IV (13:19)
[2022-01-13] MEDS: fluorouraciL 2,850 MG, elastomeric pump 1 PUMP in sodium chloride 0.9% (100 ml) 35 ML IV (17:21)
[2022-01-13 17:30] VITALS: BP 148/82; PULSE 94; RESP 18; TEMP 36.5; O2SAT 94
== END 2022-01-13 23:59 | disposition home or self-care (01) ==
PROVIDERS: PCP Emergency Medicine Emergency Medical Services; Visit Provider Nurse Practitioner Family
DX: Z51.11 Encounter for antineoplastic chemotherapy (principal); C18.6 Malignant neoplasm of descending colon; C78.7 Secondary malignant neoplasm of liver and intrahepatic bile duct; D64.9 Anemia, unspecified; Z79.899 Other long term (current) drug therapy; Z87.891 Personal history of nicotine dependence
CPT/HCPCS: 96367; 96368; 96375; 96413; 96415; 96416; 96417; 96523; 99215; 99999; J0640; J1100; J2469; J9190; J9263

== ENCOUNTER → 2022-01-20 15:15 | Outpatient (BNVA) | payer OTHER, SELFPAY | PROVIDERS: Visit Provider Orthopaedic Surgery | DX: M75.102 Unspecified rotator cuff tear or rupture of left shoulder, not specified as traumatic (principal); M12.812 Other specific arthropathies, not elsewhere classified, left shoulder | CPT/HCPCS: 20610 ==

== ENCOUNTER → 2022-01-26 10:11 | Outpatient (BNVA) | payer OTHER, SELFPAY | PROVIDERS: PCP Emergency Medicine Emergency Medical Services; Visit Provider Internal Medicine Hematology & Oncology | DX: C18.6 Malignant neoplasm of descending colon (principal) | CPT/HCPCS: 80053; 85025 ==

== ENCOUNTER → 2022-02-09 08:55 | Outpatient (BNVA) | payer OTHER, SELFPAY | PROVIDERS: Visit Provider Nurse Practitioner Family | DX: C18.6 Malignant neoplasm of descending colon (principal) | CPT/HCPCS: 80053; 85025 ==

== ENCOUNTER 2022-02-12 15:30 | Oncology outpatient (recurring) (ONCR) | payer OTHER, SELFPAY ==
[2022-01-15 15:20] VITALS: BP 123/79; PULSE 76; RESP 18; TEMP 36.6
[2022-01-27] MEDS: dextrose 5% 250 ML 75 ML IV (10:55)
[2022-01-27] MEDS: palonosetron 0.25 mg/5 mL SDV IVP (10:56)
[2022-01-27] MEDS: leucovorin 540 MG in dextrose 5% 250 ML 76 MG IV (12:08)
[2022-01-27] MEDS: OXALIPLATIN IV (12:08)
[2022-01-27] MEDS: DEXTROSE 5% IV (12:08)
[2022-01-27] MEDS: fluorouraciL 2,850 MG, elastomeric pump 1 PUMP in sodium chloride 0.9% (100 ml) 35 ML IV (15:39)
[2022-01-27 15:55] VITALS: BP 139/77; PULSE 91; TEMP 36.9; O2SAT 94
[2022-02-10] MEDS: dextrose 5% 250 ML 75 ML IV (11:22)
[2022-02-10] MEDS: palonosetron 0.25 mg/5 mL SDV IVP (11:22)
[2022-02-10] MEDS: OXALIPLATIN IV (12:13)
[2022-02-10] MEDS: leucovorin 540 MG in dextrose 5% 250 ML 76 MG IV (12:13)
[2022-02-10] MEDS: DEXTROSE 5% IV (12:13)
[2022-02-10] MEDS: fluorouraciL 2,850 MG, elastomeric pump 1 PUMP in sodium chloride 0.9% (100 ml) 35 ML IV (15:48)
[2022-02-10 15:53] VITALS: BP 148/69; PULSE 85; TEMP 37.1; O2SAT 98
== END 2022-02-12 23:59 | disposition home or self-care (01) ==
PROVIDERS: PCP Emergency Medicine Emergency Medical Services; Visit Provider Nurse Practitioner Family
DX: Z45.2 Encounter for adjustment and management of vascular access device (principal); C18.6 Malignant neoplasm of descending colon; C78.7 Secondary malignant neoplasm of liver and intrahepatic bile duct; R55 Syncope and collapse; J44.9 Chronic obstructive pulmonary disease, unspecified; K21.9 Gastro-esophageal reflux disease without esophagitis; Z98.890 Other specified postprocedural states; Z87.891 Personal history of nicotine dependence
CPT/HCPCS: 96367; 96368; 96375; 96413; 96415; 96416; 96523; 99204; 99214; 99215; J0640; J1100; J2469; J9190; J9263

== ENCOUNTER → 2022-02-23 09:20 | Outpatient (BNVA) | payer OTHER, BC, SELFPAY | PROVIDERS: PCP Emergency Medicine Emergency Medical Services; Visit Provider Internal Medicine Hematology & Oncology | DX: C18.6 Malignant neoplasm of descending colon (principal); C78.7 Secondary malignant neoplasm of liver and intrahepatic bile duct | CPT/HCPCS: 80053; 82378; 85025 ==

== ENCOUNTER 2022-02-24 10:21 | Oncology outpatient (recurring) (ONCR) | payer OTHER, BC, SELFPAY ==
[2022-02-24] MEDS: dextrose 5% 250 ML 100 ML IV (11:29)
[2022-02-24] MEDS: palonosetron 0.25 mg/5 mL SDV IVP (11:31)
[2022-02-24] MEDS: leucovorin 540 MG in dextrose 5% 250 ML 76 MG IV (12:03)
[2022-02-24] MEDS: DEXTROSE 5% IV (12:04)
[2022-02-24] MEDS: OXALIPLATIN IV (12:04)
[2022-02-24] MEDS: fluorouraciL 2,850 MG, elastomeric pump 1 PUMP in sodium chloride 0.9% (100 ml) 35 ML IV (15:35)
[2022-02-24 15:47] VITALS: BP 120/71; PULSE 80; TEMP 36.9; O2SAT 94
== END 2022-02-24 23:59 | disposition home or self-care (01) ==
PROVIDERS: PCP Emergency Medicine Emergency Medical Services; Visit Provider Nurse Practitioner Family
DX: Z51.11 Encounter for antineoplastic chemotherapy (principal); C78.7 Secondary malignant neoplasm of liver and intrahepatic bile duct; C18.6 Malignant neoplasm of descending colon; Z79.899 Other long term (current) drug therapy; Z90.49 Acquired absence of other specified parts of digestive tract; Z93.3 Colostomy status; Z87.891 Personal history of nicotine dependence; G93.9 Disorder of brain, unspecified; Z79.52 Long term (current) use of systemic steroids
CPT/HCPCS: 96367; 96368; 96375; 96413; 96415; 96416; 99214; 99215; J0640; J1100; J2469; J9190; J9263

== ENCOUNTER → 2022-03-09 09:02 | Outpatient (BNVA) | payer OTHER, BC, SELFPAY | PROVIDERS: PCP Emergency Medicine Emergency Medical Services; Visit Provider Internal Medicine Hematology & Oncology | DX: C18.6 Malignant neoplasm of descending colon (principal); C18.9 Malignant neoplasm of colon, unspecified; C78.7 Secondary malignant neoplasm of liver and intrahepatic bile duct | CPT/HCPCS: 80053; 82378; 85025 ==

== ENCOUNTER 2022-03-12 14:00 | Oncology outpatient (recurring) (ONCR) | payer OTHER, BC, SELFPAY ==
[2022-03-10 11:50] LABS: Basophils # 0.1 10^3/uL (0.0-0.1); Basophils % 0.8 %; Eosinophils # 0.4 10^3/uL (0.0-0.8); Eosinophils % 4.6 %; Hematocrit 40.8 % (42.0-52.0); Hemoglobin 13.1 g/dL (11.7-16.6); Lymphocytes # 2.3 10^3/uL (0.8-4.8); Lymphocytes % 27.5 %; Mean Corpuscular HGB Conc 32.1 g/dL (30.0-36.0); Mean Corpuscular Volume 90.3 fl (80-94); Mean Platelet Volume 10.3 fL (7.4-10.4); Monocytes # 1.4 10^3/uL (0.2-0.9); Monocytes % 17.2 %; Neutrophils # 4.13 10^3/uL (1.8-7.7); Neutrophils % 49.7 %; Nucleated Red Blood Cells % 0 %; Platelet Count 237 10^3/cmm (130-400); Red Blood Count 4.52 10^6/uL (4.1-5.3); Red Cell Distribution Width 18.1 % (12.1-15.1); White Blood Count 8.3 10^3/uL (4.0-10.0)
[2022-03-10] MEDS: dextrose 5% 250 ML 100 ML IV (12:02)
[2022-03-10] MEDS: palonosetron 0.25 mg/5 mL SDV IVP (12:03)
[2022-03-10] MEDS: leucovorin 540 MG in dextrose 5% 250 ML 76 MG IV (12:36)
[2022-03-10] MEDS: DEXTROSE 5% IV (12:36)
[2022-03-10] MEDS: OXALIPLATIN IV (12:36)
[2022-03-10] MEDS: fluorouraciL 2,850 MG, elastomeric pump 1 PUMP in sodium chloride 0.9% (100 ml) 35 ML IV (16:13)
[2022-03-10 16:28] VITALS: BP 144/84; PULSE 79; TEMP 37.1; O2SAT 97
== END 2022-03-15 23:59 | disposition home or self-care (01) ==
PROVIDERS: Internal Medicine Hematology & Oncology; PCP Emergency Medicine Emergency Medical Services; Visit Provider Nurse Practitioner Family
DX: Z45.2 Encounter for adjustment and management of vascular access device (principal); Z53.9 Procedure and treatment not carried out, unspecified reason
CPT/HCPCS: 85025; 96367; 96368; 96375; 96413; 96415; 96416; 96523; 99215; J0640; J1100; J2469; J9190; J9263

== ENCOUNTER → 2022-03-23 09:10 | Outpatient (BNVA) | payer OTHER, BC, SELFPAY | PROVIDERS: PCP Emergency Medicine Emergency Medical Services; Visit Provider Internal Medicine Hematology & Oncology | DX: C18.6 Malignant neoplasm of descending colon (principal) | CPT/HCPCS: 80053; 85025 ==

== ENCOUNTER → 2022-03-30 09:26 | Outpatient (BNVA) | payer OTHER, BC, SELFPAY | PROVIDERS: PCP Emergency Medicine Emergency Medical Services; Visit Provider Nurse Practitioner Family | DX: C18.9 Malignant neoplasm of colon, unspecified (principal); C78.7 Secondary malignant neoplasm of liver and intrahepatic bile duct | CPT/HCPCS: 80053; 85025 ==

== ENCOUNTER → 2022-04-07 11:41 | Outpatient (BNVA) | payer OTHER, BC, SELFPAY | PROVIDERS: PCP Emergency Medicine Emergency Medical Services; Visit Provider Otolaryngology | DX: Z87.891 Personal history of nicotine dependence (principal); E04.1 Nontoxic single thyroid nodule | CPT/HCPCS: 99212; 99213 ==

== ENCOUNTER → 2022-04-13 09:14 | Outpatient (BNVA) | payer OTHER, BC, SELFPAY | PROVIDERS: PCP Emergency Medicine Emergency Medical Services; Visit Provider Internal Medicine Hematology & Oncology | DX: C18.9 Malignant neoplasm of colon, unspecified (principal); C78.7 Secondary malignant neoplasm of liver and intrahepatic bile duct; C18.6 Malignant neoplasm of descending colon | CPT/HCPCS: 80053; 85025; 86301 ==

== ENCOUNTER 2022-04-15 11:00 | Oncology outpatient (recurring) (ONCR) | payer OTHER, SELFPAY ==
[2022-03-31] MEDS: dextrose 5% 250 ML 75 ML IV (11:34)
[2022-03-31] MEDS: palonosetron 0.25 mg/5 mL SDV IVP (11:35)
[2022-03-31] MEDS: OXALIPLATIN IV (11:58)
[2022-03-31] MEDS: DEXTROSE 5% IV (11:58)
[2022-03-31] MEDS: leucovorin 560 MG in dextrose 5% 250 ML 76.5 MG IV (11:58)
[2022-03-31] MEDS: fluorouraciL 2,900 MG, elastomeric pump 1 PUMP in sodium chloride 0.9% (100 ml) 34 ML IV (15:28)
[2022-03-31 15:36] VITALS: BP 131/71; PULSE 70; TEMP 36.9; O2SAT 93
[2022-04-15] MEDS: dextrose 5% 250 ML 100 ML IV (11:29)
[2022-04-15] MEDS: palonosetron 0.25 mg/5 mL SDV IVP (11:30)
[2022-04-15] MEDS: OXALIPLATIN IV (12:05)
[2022-04-15] MEDS: DEXTROSE 5% IV (12:05)
[2022-04-15] MEDS: leucovorin 560 MG in dextrose 5% 250 ML 76.5 MG IV (12:08)
[2022-04-15] MEDS: fluorouraciL 2,900 MG, elastomeric pump 1 PUMP in sodium chloride 0.9% (100 ml) 34 ML IV (15:35)
[2022-04-15 15:44] VITALS: BP 140/79; PULSE 84; TEMP 37; O2SAT 93
== END 2022-04-15 23:59 | disposition home or self-care (01) ==
PROVIDERS: PCP Emergency Medicine Emergency Medical Services; Visit Provider Internal Medicine Hematology & Oncology
DX: Z51.11 Encounter for antineoplastic chemotherapy (principal); Z53.9 Procedure and treatment not carried out, unspecified reason; C78.7 Secondary malignant neoplasm of liver and intrahepatic bile duct; Z85.038 Personal history of other malignant neoplasm of large intestine; Z90.49 Acquired absence of other specified parts of digestive tract; Z79.899 Other long term (current) drug therapy; Z79.52 Long term (current) use of systemic steroids
CPT/HCPCS: 96367; 96368; 96375; 96413; 96415; 96416; 96523; 99214; 99215; J0640; J1100; J2469; J9190; J9263

== ENCOUNTER → 2022-04-22 14:59 | Outpatient (BNVA) | payer OTHER, MEDICARE, SELFPAY | PROVIDERS: PCP Emergency Medicine Emergency Medical Services; Visit Provider Nurse Practitioner Family | DX: M75.102 Unspecified rotator cuff tear or rupture of left shoulder, not specified as traumatic (principal) | CPT/HCPCS: 20610; 99213; J1100; J2795; J3301 ==

== ENCOUNTER → 2022-04-27 09:05 | Outpatient (BNVA) | payer OTHER, MEDICARE, SELFPAY | PROVIDERS: PCP Emergency Medicine Emergency Medical Services; Referring Provider Internal Medicine Hematology & Oncology; Visit Provider Internal Medicine Hematology & Oncology | DX: C18.6 Malignant neoplasm of descending colon (principal); C78.7 Secondary malignant neoplasm of liver and intrahepatic bile duct; C18.9 Malignant neoplasm of colon, unspecified | CPT/HCPCS: 80053; 82378; 85025 ==

== ENCOUNTER → 2022-05-11 09:02 | Outpatient (BNVA) | payer OTHER, MEDICARE, SELFPAY | PROVIDERS: PCP Emergency Medicine Emergency Medical Services; Visit Provider Psychiatry & Neurology Neurology | DX: C18.9 Malignant neoplasm of colon, unspecified (principal); C78.7 Secondary malignant neoplasm of liver and intrahepatic bile duct; C18.6 Malignant neoplasm of descending colon | CPT/HCPCS: 80053; 85025 ==

== ENCOUNTER 2022-05-14 14:00 | Oncology outpatient (recurring) (ONCR) | payer OTHER, SELFPAY ==
[2022-04-28] MEDS: dextrose 5% 250 ML 100 ML IV (12:00)
[2022-04-28] MEDS: palonosetron 0.25 mg/5 mL SDV IVP (12:03)
[2022-04-28] MEDS: DEXTROSE 5% IV (12:22)
[2022-04-28] MEDS: OXALIPLATIN IV (12:22)
[2022-04-28] MEDS: leucovorin 560 MG in dextrose 5% 250 ML 76.5 MG IV (12:23)
[2022-04-28] MEDS: fluorouraciL 2,900 MG, elastomeric pump 1 PUMP in sodium chloride 0.9% (100 ml) 34 ML IV (15:53)
[2022-04-28 16:04] VITALS: BP 123/78; PULSE 93; TEMP 37.2; O2SAT 92
[2022-05-12] MEDS: palonosetron 0.25 mg/5 mL SDV IVP (11:55)
[2022-05-12] MEDS: dextrose 5% 250 ML 100 ML IV (11:55)
[2022-05-12] MEDS: DEXTROSE 5% IV (12:38)
[2022-05-12] MEDS: leucovorin 560 MG in dextrose 5% 250 ML 76.5 MG IV (12:38)
[2022-05-12] MEDS: OXALIPLATIN IV (12:38)
[2022-05-12] MEDS: fluorouraciL 2,900 MG, elastomeric pump 1 PUMP in sodium chloride 0.9% (100 ml) 34 ML IV (15:56)
== END 2022-05-15 23:59 | disposition home or self-care (01) ==
PROVIDERS: PCP Emergency Medicine Emergency Medical Services; Visit Provider Internal Medicine Hematology & Oncology
DX: Z45.2 Encounter for adjustment and management of vascular access device (principal)
CPT/HCPCS: 96367; 96368; 96375; 96413; 96415; 96416; 96523; 99214; J0640; J1100; J2469; J9190; J9263

== ENCOUNTER → 2022-06-01 08:52 | Outpatient (BNVA) | payer OTHER, SELFPAY | PROVIDERS: PCP Emergency Medicine Emergency Medical Services; Visit Provider Internal Medicine Hematology & Oncology | DX: C18.6 Malignant neoplasm of descending colon (principal); C78.7 Secondary malignant neoplasm of liver and intrahepatic bile duct | CPT/HCPCS: 80053; 82378; 85025 ==

== ENCOUNTER 2022-06-04 13:30 | Oncology outpatient (recurring) (ONCR) | payer OTHER, SELFPAY ==
[2022-06-02] MEDS: palonosetron 0.25 mg/5 mL SDV IVP (11:16)
[2022-06-02] MEDS: dextrose 5% 250 ML 100 ML IV (11:16)
[2022-06-02] MEDS: OXALIPLATIN IV (11:47)
[2022-06-02] MEDS: DEXTROSE 5% IV ×2 (11:47→11:48)
[2022-06-02] MEDS: LEUCOVORIN IV (11:48)
[2022-06-02] MEDS: fluorouraciL 2,900 MG, elastomeric pump 1 PUMP in sodium chloride 0.9% (100 ml) 34 ML IV (16:01)
[2022-06-02 16:11] VITALS: BP 126/78; PULSE 64; RESP 18; TEMP 36.5; O2SAT 96
== END 2022-06-15 23:59 | disposition home or self-care (01) ==
PROVIDERS: PCP Emergency Medicine Emergency Medical Services; Visit Provider Internal Medicine Hematology & Oncology
DX: Z45.2 Encounter for adjustment and management of vascular access device (principal); C78.7 Secondary malignant neoplasm of liver and intrahepatic bile duct
CPT/HCPCS: 96367; 96368; 96375; 96413; 96415; 96416; 96523; 99214; J0640; J1100; J2469; J9190; J9263

== ENCOUNTER → 2022-07-14 09:09 | Outpatient (BNVA) | payer OTHER, SELFPAY | PROVIDERS: PCP Emergency Medicine Emergency Medical Services; Referring Provider Internal Medicine Hematology & Oncology; Visit Provider Internal Medicine Hematology & Oncology | DX: C18.9 Malignant neoplasm of colon, unspecified (principal); C78.7 Secondary malignant neoplasm of liver and intrahepatic bile duct; R79.89 Other specified abnormal findings of blood chemistry | CPT/HCPCS: 80053; 82378; 85025 ==

== ENCOUNTER 2022-07-15 11:03 | Oncology outpatient (recurring) (ONCR) | payer OTHER, SELFPAY ==
[2022-07-15] MEDS: dextrose 5% 250 ML 100 ML IV (12:47)
[2022-07-15] MEDS: palonosetron 0.25 mg/5 mL SDV IVP (12:48)
[2022-07-15] MEDS: OXALIPLATIN IV (13:14)
[2022-07-15] MEDS: DEXTROSE 5% IV (13:14)
[2022-07-15] MEDS: leucovorin 560 MG in dextrose 5% 250 ML 76.5 MG IV (13:14)
[2022-07-15] MEDS: fluorouraciL 2,900 MG, elastomeric pump 1 PUMP in sodium chloride 0.9% (100 ml) 34 ML IV (16:26)
[2022-07-15 16:42] VITALS: BP 123/73; PULSE 60; TEMP 36.8; O2SAT 95
== END 2022-07-15 23:59 | disposition home or self-care (01) ==
PROVIDERS: PCP Emergency Medicine Emergency Medical Services; Visit Provider Internal Medicine Hematology & Oncology
DX: Z45.2 Encounter for adjustment and management of vascular access device (principal); C78.7 Secondary malignant neoplasm of liver and intrahepatic bile duct; Z51.11 Encounter for antineoplastic chemotherapy; C18.6 Malignant neoplasm of descending colon; C77.8 Secondary and unspecified malignant neoplasm of lymph nodes of multiple regions; C79.51 Secondary malignant neoplasm of bone; Z93.3 Colostomy status; Z87.891 Personal history of nicotine dependence; Z86.010 Personal history of colon polyps; Z79.899 Other long term (current) drug therapy; C78.5 Secondary malignant neoplasm of large intestine and rectum
CPT/HCPCS: 96367; 96368; 96375; 96413; 96415; 96416; 99214; J0640; J1100; J2469; J7060; J9190; J9263

== ENCOUNTER → 2022-07-22 12:54 | Outpatient (BNVA) | payer OTHER, SELFPAY | PROVIDERS: PCP Emergency Medicine Emergency Medical Services; Visit Provider Orthopaedic Surgery | DX: M75.102 Unspecified rotator cuff tear or rupture of left shoulder, not specified as traumatic (principal) | CPT/HCPCS: 20610; J3301; J3490 ==

== ENCOUNTER → 2022-07-27 08:58 | Outpatient (BNVA) | payer OTHER, SELFPAY | PROVIDERS: PCP Emergency Medicine Emergency Medical Services; Visit Provider Internal Medicine Hematology & Oncology | DX: C18.6 Malignant neoplasm of descending colon (principal) | CPT/HCPCS: 80053; 85025 ==

== ENCOUNTER 2022-08-13 13:31 | Oncology outpatient (recurring) (ONCR) | payer OTHER, SELFPAY ==
[2022-07-28] MEDS: dextrose 5% 250 ML 100 ML IV (12:19)
[2022-07-28] MEDS: palonosetron 0.25 mg/5 mL SDV IVP (12:20)
[2022-07-28] MEDS: OXALIPLATIN IV (12:38)
[2022-07-28] MEDS: DEXTROSE 5% IV (12:38)
[2022-07-28] MEDS: leucovorin 540 MG in dextrose 5% 250 ML 62.5 MG IV (12:40)
[2022-07-28] MEDS: fluorouraciL 2,850 MG, elastomeric pump 1 PUMP in sodium chloride 0.9% (100 ml) 35 ML IV (15:52)
[2022-07-28 16:00] VITALS: BP 123/71; PULSE 80; TEMP 36.9; O2SAT 96
[2022-08-11 10:52] LABS: Basophils # 0.1 10^3/uL (0.0-0.1); Basophils % 0.8 %; Eosinophils # 0.2 10^3/uL (0.0-0.8); Eosinophils % 2.2 %; Hematocrit 41.7 % (42.0-52.0); Hemoglobin 13.7 g/dL (11.7-16.6); Lymphocytes # 1.3 10^3/uL (0.8-4.8); Lymphocytes % 17.1 %; Mean Corpuscular HGB Conc 32.9 g/dL (30.0-36.0); Mean Corpuscular Volume 94.3 fl (80-94); Mean Platelet Volume 10.2 fL (7.4-10.4); Monocytes # 1.5 10^3/uL (0.2-0.9); Monocytes % 20.1 %; Neutrophils % 59.3 %; Nucleated Red Blood Cells % 0 %; Platelet Count 145 10^3/cmm (130-400); Red Blood Count 4.42 10^6/uL (4.1-5.3); White Blood Count 7.6 10^3/uL (4.0-10.0)
[2022-08-11 11:35] LABS: Carcinoembryonic Antigen 37.4 ng/mL (0.0-4.7)
[2022-08-11 11:49] LABS: Alanine Aminotransferase 41 U/L (0-41); Albumin Level 3.4 g/dL (3.5-5.2); Alkaline Phosphatase 208 U/L (40-130); Aspartate Amino Transferase 57 U/L (0-40); Blood Urea Nitrogen 12 mg/dL (8-23); Calcium 8.9 mg/dL (8.5-10.5); Carbon Dioxide 25 mmol/L (22-29); Chloride 100 mmol/L (98-107); Globulin 3.5 g/dL (1.3-4.6); Glucose 87 mg/dL (65-115); Osmolality Calculated 279 mOsm/kg (285-295); Sodium 135 mmol/L (136-145); Total Bilirubin 0.5 mg/dL (0.15-1.2); Total Protein 6.9 g/dL (6.6-8.7)
[2022-08-11 11:50] LABS: Anion Gap 14.3 (5-19); Potassium 4.3 mmol/L (3.5-5.1)
[2022-08-11] MEDS: dextrose 5% 250 ML 100 ML IV (12:49)
[2022-08-11] MEDS: palonosetron 0.25 mg/5 mL SDV IVP (12:49)
[2022-08-11] MEDS: leucovorin 560 MG in dextrose 5% 250 ML 62.5 MG IV (13:59)
[2022-08-11] MEDS: DEXTROSE 5% IV (13:59)
[2022-08-11] MEDS: OXALIPLATIN IV (13:59)
[2022-08-11] MEDS: fluorouraciL 2,900 MG, elastomeric pump 1 PUMP in sodium chloride 0.9% (100 ml) 34 ML IV (16:35)
[2022-08-11 16:46] VITALS: BP 123/70; PULSE 76; TEMP 36.6; O2SAT 94
== END 2022-08-15 23:59 | disposition home or self-care (01) ==
PROVIDERS: PCP Emergency Medicine Emergency Medical Services; Visit Provider Internal Medicine Hematology & Oncology
DX: C78.7 Secondary malignant neoplasm of liver and intrahepatic bile duct; C18.6 Malignant neoplasm of descending colon
CPT/HCPCS: 80053; 82378; 85025; 96367; 96368; 96375; 96413; 96415; 96416; 96417; 96523; 99213; 99214; J0640; J1100; J2469; J7060; J9190; J9263

== ENCOUNTER → 2022-08-24 09:16 | Outpatient (BNVA) | payer OTHER, SELFPAY | PROVIDERS: PCP Emergency Medicine Emergency Medical Services; Visit Provider Internal Medicine Hematology & Oncology | DX: C18.6 Malignant neoplasm of descending colon (principal); C78.7 Secondary malignant neoplasm of liver and intrahepatic bile duct | CPT/HCPCS: 80053; 85025 ==

== ENCOUNTER → 2022-08-25 10:45 | Outpatient (BNVA) | payer OTHER, SELFPAY | PROVIDERS: PCP Emergency Medicine Emergency Medical Services; Visit Provider Internal Medicine Hematology & Oncology | DX: C18.9 Malignant neoplasm of colon, unspecified (principal) | CPT/HCPCS: 99214 ==

== ENCOUNTER → 2022-08-26 12:31 | Outpatient (BNVA) | payer OTHER, SELFPAY | PROVIDERS: PCP Emergency Medicine Emergency Medical Services; Referring Provider Emergency Medicine Emergency Medical Services; Visit Provider Nurse Practitioner | DX: G40.909 Epilepsy, unspecified, not intractable, without status epilepticus (principal); Z79.899 Other long term (current) drug therapy; C18.6 Malignant neoplasm of descending colon; Z87.891 Personal history of nicotine dependence; R93.0 Abnormal findings on diagnostic imaging of skull and head, not elsewhere classified | CPT/HCPCS: 99203 ==

== ENCOUNTER → 2022-09-02 14:42 | Outpatient (BNVA) | payer OTHER, SELFPAY | PROVIDERS: PCP Emergency Medicine Emergency Medical Services; Referring Provider Nurse Practitioner; Visit Provider Specialist | DX: G40.109 Localization-related (focal) (partial) symptomatic epilepsy and epileptic syndromes with simple partial seizures, not intractable, without status epilepticus (principal); G40.409 Other generalized epilepsy and epileptic syndromes, not intractable, without status epilepticus | CPT/HCPCS: 95812; 95816 ==

== ENCOUNTER → 2022-09-07 09:03 | Outpatient (BNVA) | payer OTHER, SELFPAY | PROVIDERS: PCP Emergency Medicine Emergency Medical Services; Visit Provider Psychiatry & Neurology Neurology | DX: C18.6 Malignant neoplasm of descending colon (principal); C18.9 Malignant neoplasm of colon, unspecified; C78.7 Secondary malignant neoplasm of liver and intrahepatic bile duct | CPT/HCPCS: 80053; 85025 ==

== ENCOUNTER 2022-09-10 14:00 | Oncology outpatient (recurring) (ONCR) | payer OTHER, SELFPAY ==
[2022-08-25 12:35] LABS: Basophils # 0.1 10^3/uL (0.0-0.1); Basophils % 0.9 %; Eosinophils # 0.2 10^3/uL (0.0-0.8); Eosinophils % 2.4 %; Hematocrit 42.1 % (42.0-52.0); Hemoglobin 13.8 g/dL (11.7-16.6); Lymphocytes # 1.2 10^3/uL (0.8-4.8); Mean Corpuscular HGB Conc 32.8 g/dL (30.0-36.0); Mean Corpuscular Hemoglobin 30.7 pg (28.0-34.0); Mean Corpuscular Volume 93.8 fl (80-94); Mean Platelet Volume 10.3 fL (7.4-10.4); Monocytes # 1.5 10^3/uL (0.2-0.9); Monocytes % 22.2 %; Neutrophils # 3.74 10^3/uL (1.8-7.7); Neutrophils % 56.2 %; Nucleated Red Blood Cells % 0 %; Platelet Count 164 10^3/cmm (130-400); Red Blood Count 4.49 10^6/uL (4.1-5.3); Red Cell Distribution Width 15.2 % (12.1-15.1); White Blood Count 6.7 10^3/uL (4.0-10.0)
[2022-08-25] MEDS: dextrose 5% 250 ML 100 ML IV (12:36)
[2022-08-25] MEDS: palonosetron 0.25 mg/5 mL SDV IVP (12:37)
[2022-08-25 12:59] LABS: Alanine Aminotransferase 38 U/L (0-41); Albumin Level 3.4 g/dL (3.5-5.2); Alkaline Phosphatase 218 U/L (40-130); Anion Gap 16.8 (5-19); Aspartate Amino Transferase 51 U/L (0-40); Blood Urea Nitrogen 14 mg/dL (8-23); Calcium 8.9 mg/dL (8.5-10.5); Carbon Dioxide 24 mmol/L (22-29); Chloride 100 mmol/L (98-107); Globulin 3.5 g/dL (1.3-4.6); Glucose 80 mg/dL (65-115); Osmolality Calculated 283 mOsm/kg (285-295); Potassium 3.8 mmol/L (3.5-5.1); Sodium 137 mmol/L (136-145); Total Bilirubin 0.6 mg/dL (0.15-1.2); Total Protein 6.9 g/dL (6.6-8.7)
[2022-08-25] MEDS: OXALIPLATIN IV (13:01)
[2022-08-25] MEDS: DEXTROSE 5% IV ×2 (13:01)
[2022-08-25] MEDS: LEUCOVORIN IV (13:01)
[2022-08-25] MEDS: fluorouraciL 2,900 MG, elastomeric pump 1 PUMP in sodium chloride 0.9% (100 ml) 34 ML IV (16:00)
[2022-08-25 16:16] VITALS: BP 118/62; PULSE 79; TEMP 36.9; O2SAT 94
[2022-09-08] MEDS: dextrose 5% 250 ML 100 ML IV (12:05)
[2022-09-08] MEDS: palonosetron 0.25 mg/5 mL SDV IVP (12:06)
[2022-09-08] MEDS: OXALIPLATIN IV (12:37)
[2022-09-08] MEDS: DEXTROSE 5% IV (12:37)
[2022-09-08] MEDS: leucovorin 560 MG in dextrose 5% 250 ML 62.5 MG IV (12:38)
[2022-09-08] MEDS: fluorouraciL 2,900 MG, elastomeric pump 1 PUMP in sodium chloride 0.9% (100 ml) 34 ML IV (15:37)
[2022-09-08 15:55] VITALS: BP 135/81; PULSE 93; TEMP 36.8; O2SAT 96
== END 2022-09-15 23:59 | disposition home or self-care (01) ==
PROVIDERS: PCP Emergency Medicine Emergency Medical Services; Visit Provider Internal Medicine Hematology & Oncology
DX: C18.6 Malignant neoplasm of descending colon (principal); C78.7 Secondary malignant neoplasm of liver and intrahepatic bile duct; Z93.3 Colostomy status; C77.8 Secondary and unspecified malignant neoplasm of lymph nodes of multiple regions; C79.51 Secondary malignant neoplasm of bone; Z79.899 Other long term (current) drug therapy
CPT/HCPCS: 80053; 85025; 96367; 96368; 96375; 96413; 96415; 96416; 96523; 99214; J0640; J1100; J2469; J7060; J9190; J9263

== ENCOUNTER → 2022-09-21 09:09 | Outpatient (BNVA) | payer OTHER, SELFPAY | PROVIDERS: PCP Emergency Medicine Emergency Medical Services; Visit Provider Internal Medicine Hematology & Oncology | DX: C78.7 Secondary malignant neoplasm of liver and intrahepatic bile duct (principal); C18.9 Malignant neoplasm of colon, unspecified; R79.89 Other specified abnormal findings of blood chemistry; C18.6 Malignant neoplasm of descending colon | CPT/HCPCS: 80053; 82378; 85025 ==

== ENCOUNTER → 2022-09-22 09:46 | Outpatient (BNVA) | payer OTHER, SELFPAY | PROVIDERS: PCP Emergency Medicine Emergency Medical Services; Visit Provider Internal Medicine Hematology & Oncology | DX: C18.6 Malignant neoplasm of descending colon (principal) | CPT/HCPCS: 99214 ==

== ENCOUNTER 2022-10-03 05:39 | Outpatient (CLI) | payer OTHER, SELFPAY ==
--- NOTE | 2022-10-03 11:00 | PETR_ITS ---
PROCEDURE INFORMATION: Exam: PET/CT Skull Base to Mid-thigh Exam date and time: 10/03/2022 11:35 AM Age: 82 years old Clinical indication: Condition or disease; Follow-up oncological assessment; Condition/disease: Colon CA w mets to brain and body, initial dx 2+ yrs ago. Moderately differentiated invasive adenocarcinoma. Liver biopsy was done on October 15, 2021 confirmed metastatic adenocarcinoma, consistent with colonic primary. August 25, 2021, which showed a small enhancing lesion left side of cerebellum measuring 5 x 3.5 mm suspicious for metastatic lesion there is no significant edema surrounding the lesion. , . Patient underwent y 90 therapy in the first week of June 2022, his systemic therapy with folfox was put on hold after dose given on June 02, 2022 and resumed on July 15, 2022; Prior surgery; Surgery date: 6+ months; Surgery type: July 23, 2020 patient underwent left colectomy. ; Additional info: Follow up, to be completed prior to next oncology visit LABS AND CLINICAL REPORTS: Glucose: 77 mg/dl Treatment strategy for malignancy (PET staging): Restaging (PS) TECHNIQUE: Imaging protocol: Following at least four-hour fasting and following the injection of F-18-FDG, low dose CT images were obtained. Then, PET images were obtained. Attenuation corrected images were constructed using the CT scan. Fused images of PET and CT were reviewed. The standardized uptake values (SUV) reported below are maximum values within a region of interest, expressed in gm/ml. Exam includes orbital meatal line to mid-thigh. Radiopharmaceutical: 13.15 mCi F-18 FDG (Fluorodeoxyglucose), IV. Time of imaging post radiopharmaceutical administration: 1 hour Injection site: Right antecubital vein COMPARISON: PT PET Scan 03/28/2022 11:09 AM FINDINGS: Catheters, tubes and devices: Port catheter placed via the right internal jugular vein terminates in the superior vena cava. Brain: 1.3 cm left cerebellar lesion on image 26 measures 11.3 SUV which is higher than normal activity in the carvajal matter not exceeding 8.8 SUV representing known brain metastasis. There is mild surrounding hypodensities suggestive of vasogenic edema. Paranasal sinuses: No abnormal uptake. Nearly complete opacification of the right maxillary sinus with no air-fluid level is new since prior exam. Pharynx: No abnormal uptake. Larynx: No abnormal uptake. Lungs, pleura and trachea: No abnormal uptake. No suspicious nodules or masses. Severe centrilobular emphysema particularly in the upper lobes. No pleural effusion. Heart: Normal physiologic uptake. There is no cardiomegaly. Coronary artery calcification is present. There is no pericardial effusion. Mediastinal space: No abnormal uptake. Liver: Metastases in the segment 4 increased from 1 cm to 3 cm and increased in uptake from 4.4 SUV to 14.7 SUV. Large about 7 cm conglomerate of metastases in the right hepatic lobe remains predominantly non FDG avid with only small linear increased uptake along the anterior margin measuring currently 6.1 SUV decreased from 9.7 SUV on the prior exam. Gallbladder and bile ducts: No abnormal uptake. Increased density in the dependent area of the gallbladder on image 130 questionably represents gallstones. Pancreas: No abnormal uptake. Stable atrophy. Spleen: No abnormal uptake. No splenomegaly. Adrenal glands: No abnormal uptake. No nodules. Kidneys and ureters: Normal physiologic uptake. No hydronephrosis. Stomach and bowel: No abnormal uptake. Stable changes after right hemicolectomy. No bowel obstruction. Intraperitoneal and retroperitoneal spaces: No abnormal uptake. No ascites. Bladder: Normal physiologic uptake. Reproductive: No abnormal uptake. The prostate is mildly enlarged. Vasculature: No abnormal uptake. Stable dilatation of the ascending aorta to 4.3 cm. No abdominal aortic aneurysm. Lymph nodes: No abnormal uptake. No lymphadenopathy in the head, neck, chest, abdomen, pelvis, and extremities. Bones/joints: In comparison with the prior exam there are 2 new FDG avid lesions with no corresponding lytic or sclerotic finding on CT compatible with metastases. This includes about 1.4 cm focus measuring 7.5 SUV in the right posterior arch of C6 on image 47, and about 2 cm focus measuring 11.7 SUV in the left aspect of L3 vertebral body on image 128. Status post sternotomy. Stable increased uptake of 3.6 SUV within the right sternoclavicular joint on image 59 is compatible with benign finding. Soft tissues: No abnormal uptake in the visualized head, neck, chest, abdomen, pelvis, and extremities. [id number] IMPRESSION: In comparison with 03/28/2022 there is progressive disease with increase in size and uptake of left hepatic metastasis and interval appearance of 2 new bone metastases. The left cerebellar metastasis is more FDG avid than normal brain parenchyma suggestive of viable disease, was not conspicuous on the previous exam. At the same time, there is partial metabolic response in the largest conglomerate of right hepatic metastasis.
== END 2022-10-03 05:40 | disposition home or self-care (01) ==
LOC: RAD 10-05 05:39
PROVIDERS: PCP Emergency Medicine Emergency Medical Services; Visit Provider Internal Medicine Hematology & Oncology
DX: C18.9 Malignant neoplasm of colon, unspecified (principal); C78.7 Secondary malignant neoplasm of liver and intrahepatic bile duct
CPT/HCPCS: 78815; A9552

== ENCOUNTER → 2022-10-07 09:45 | Outpatient (BNVA) | payer OTHER, SELFPAY | PROVIDERS: PCP Emergency Medicine Emergency Medical Services; Visit Provider Internal Medicine Hematology & Oncology | DX: C18.6 Malignant neoplasm of descending colon (principal) | CPT/HCPCS: 99214 ==

== ENCOUNTER 2022-10-09 11:00 | Oncology outpatient (recurring) (ONCR) | payer OTHER, SELFPAY ==
[2022-09-22] MEDS: dextrose 5% 250 ML 100 ML IV (11:52)
[2022-09-22] MEDS: palonosetron 0.25 mg/5 mL SDV IVP (11:52)
[2022-09-22] MEDS: leucovorin 560 MG in dextrose 5% 250 ML 62.5 MG IV (12:10)
[2022-09-22] MEDS: OXALIPLATIN IV (12:11)
[2022-09-22] MEDS: DEXTROSE 5% IV (12:11)
[2022-09-22] MEDS: fluorouraciL 2,900 MG, elastomeric pump 1 PUMP in sodium chloride 0.9% (100 ml) 34 ML IV (15:43)
[2022-09-22 15:53] VITALS: BP 117/76; PULSE 83; TEMP 36.7; O2SAT 94
[2022-10-07] MEDS: dextrose 5% 250 ML 100 ML IV (11:46)
[2022-10-07] MEDS: palonosetron 0.25 mg/5 mL SDV IVP (11:48)
[2022-10-07] MEDS: DEXTROSE 5% IV ×2 (12:12)
[2022-10-07] MEDS: OXALIPLATIN IV (12:12)
[2022-10-07] MEDS: LEUCOVORIN IV (12:12)
[2022-10-07] MEDS: fluorouraciL 2,900 MG, elastomeric pump 1 PUMP in sodium chloride 0.9% (100 ml) 34 ML IV (15:46)
[2022-10-07 16:03] VITALS: BP 106/66; PULSE 56; TEMP 37.1; O2SAT 94
== END 2022-10-13 23:59 | disposition home or self-care (01) ==
PROVIDERS: PCP Emergency Medicine Emergency Medical Services; Visit Provider Internal Medicine Hematology & Oncology
DX: C18.6 Malignant neoplasm of descending colon (principal)
CPT/HCPCS: 80053; 82378; 85025; 96366; 96367; 96375; 96413; 96415; 96416; 96523; 99213; 99214; J0640; J1100; J2469; J7060; J9190; J9263

== ENCOUNTER → 2022-10-22 12:43 | Outpatient (BNVA) | payer OTHER, SELFPAY | PROVIDERS: PCP Emergency Medicine Emergency Medical Services; Visit Provider Nurse Practitioner Family | DX: M12.812 Other specific arthropathies, not elsewhere classified, left shoulder (principal) | CPT/HCPCS: 20610; 99213; J1100; J2795; J3301 ==

== ENCOUNTER → 2022-11-09 09:11 | Outpatient (BNVA) | payer OTHER, SELFPAY | PROVIDERS: PCP Emergency Medicine Emergency Medical Services; Referring Provider Internal Medicine Hematology & Oncology; Visit Provider Internal Medicine Hematology & Oncology | DX: C18.6 Malignant neoplasm of descending colon (principal); C18.9 Malignant neoplasm of colon, unspecified; C78.7 Secondary malignant neoplasm of liver and intrahepatic bile duct | CPT/HCPCS: 80053; 82565; 84520; 85025 ==

== ENCOUNTER 2022-11-10 11:00 | Outpatient (CLI) | payer OTHER, SELFPAY ==
--- NOTE | 2022-11-10 11:00 | MR_ITS ---
WS: [id number] MRI BRAIN WITH AND WITHOUT CONTRAST HISTORY: Special attention to left cerebellar lesion shown on PET, history of colon cancer. COMPARISON: PET CT 10/03/2022 TECHNIQUE: Multiplanar imaging performed through the brain with MultiHance 15 ml's IV. No acute infarct. Numerous T2 and FLAIR signal hyperintensities throughout the white matter from small vessel ischemic disease. No hemorrhage. No susceptibility artifacts or prior lacunar infarcts. Mild atrophy. Mild prominence of the ventricles based on the atrophy. Clivus and pituitary gland are normal. There are 3 enhancing mass is identified within the brain consistent with metastatic disease. The lar gest centered within the LEFT cerebellum corresponds to the abnormality seen on the recent PET CT. It is difficult to compare different imaging modalities but the lesion does appear larger by MRI. This moderately enhancing mass measures 2.9 x 2.3 cm and extends over a length of 2.0 cm. There is a large amount of edema within the LEFT cerebellum which extends to the midline and also into the middle cer ebellar peduncle. Slight mass effect upon the midline structures but there is no hydrocephalus. Addit ional enhancing metastatic lesion in the LEFT temporal lobe measures 0.7 cm. Subcortical metastatic l esion posterior LEFT parietal lobe measures 0.8 cm. No signal abnormality within the dural venous sinuses. Paranasal sinuses: Heterogeneity throughout the entire RIGHT maxillary sinus. Complete opacification of the RIGHT maxillary sinus. Mastoid air cells: Normal. Calvarium and scalp: Normal. MR/MR head wo/w con [id number] IMPRESSION: 1. Metastatic brain disease is identified. 3 metastatic sites are identified. The largest metastatic site in the LEFT cerebellum corresponds to the mass seen on the recent PET/CT. Mass measures 2.9 x 2.3 cm and extends over a length of 2.0 cm. It is difficult to compare between these different modalities but the l esion does appear larger in size by MRI as compared to the PET/CT. 2. Smaller subcentimeter metastatic lesions in the LEFT temporal and LEFT subc ortical parietal lobe. 3. Moderate small vessel ischemic disease. 4. RIGHT maxillary sinusitis.
[2022-11-10] MEDS: gadobenate dimeglumine 20 mL vial IV (12:27)
== END 2022-11-10 11:01 | disposition home or self-care (01) ==
LOC: RAD 11:01
PROVIDERS: PCP Emergency Medicine Emergency Medical Services; Visit Provider Internal Medicine Hematology & Oncology
DX: C18.6 Malignant neoplasm of descending colon (principal); C78.7 Secondary malignant neoplasm of liver and intrahepatic bile duct; G93.89 Other specified disorders of brain; I67.82 Cerebral ischemia; J32.0 Chronic maxillary sinusitis
CPT/HCPCS: 70553; A9577

== ENCOUNTER → 2022-11-16 09:03 | Outpatient (BNVA) | payer OTHER, SELFPAY | PROVIDERS: PCP Emergency Medicine Emergency Medical Services; Visit Provider Psychiatry & Neurology Neurology | DX: C18.6 Malignant neoplasm of descending colon (principal); C78.7 Secondary malignant neoplasm of liver and intrahepatic bile duct | CPT/HCPCS: 80053; 82378; 85025 ==

== ENCOUNTER → 2022-12-07 09:17 | Outpatient (BNVA) | payer OTHER, SELFPAY | PROVIDERS: PCP Emergency Medicine Emergency Medical Services; Visit Provider Internal Medicine Hematology & Oncology | DX: C18.6 Malignant neoplasm of descending colon (principal); C78.7 Secondary malignant neoplasm of liver and intrahepatic bile duct | CPT/HCPCS: 80053; 82378; 85025 ==

== ENCOUNTER 2022-12-08 10:36 | Oncology outpatient (recurring) (ONCR) | payer OTHER, SELFPAY ==
--- NOTE | 2022-11-19 | CT_ITS ---
Radiation Therapy Planning CT images; total exam DLP: 338.66 mGy-cm MTDD
--- NOTE | 2022-11-19 14:29 | N.ONRAD NP_ITS ---
Radiation Oncology Consultation Patient Name: Shabbir Galdamez Date of : 1940 Date of Service: 11/19/2022 Attending Physician: Yoel Cui M.D. Shabbir Galdamez was seen in consultation this morning at the request of Lisa Willard M.D. for consideration of palliative cranial radiotherapy in the management of metastatic colon cancer. He was diagnosed in June of 2020 following an evaluation of the patient. A colonoscopy identified a partially obstructing mass in the descending colon. A left colectomy was performed in July 2020 with histological analysis diagnosing a daughter-differentiated invasive adenocarcinoma (pT3). A total of 12 lymph nodes were harvested without metastatic disease. A staging PET scan obtained in August of 2020 demonstrated liver metastases. Capecitabine was prescribed. Repeat imaging in December of that year reported resolution of the liver disease. A surveillance PET scan completed in August of 2021 described extensive hepatic disease. A liver biopsy confirmed metastatic adenocarcinoma. An MRI of the brain ordered in August 2021 identified a 5 mm left cerebellar lesion. He was prescribed oxaliplatin and capecitabine in October of 2021. On account of intolerance, FOLFOX was instituted. Follow-up imaging discerned stable disease. SIRT was performed in June 2022. The patient's CEA level continued to rise. A PET scan ordered in September of 2022 confirmed progressive disease in the liver and bone metastases. Yttrium-90 therapy was repeated. A repeat MRI of the brain (independently reviewed in [facility]) ordered on November 10, 2022 documented a 2.9 cm x 2.3 cm enhancing mass within the left cerebellum, a 7 mm left temporal lobe lesion, and a subcortical left parietal lobe lesion measuring 8 mm. The patient was evaluated for palliative cranial radiotherapy. Following a discussion concerning Mr. Galdamez???s MRI scan, The National Comprehensive Cancer Network Guidelines for extensive brain metastases and the role of hypothalamic- avoidance whole brain radiotherapy and memantine, cranial radiotherapy with or without memantine, and stereotactic radiosurgery for the management of cranial metastases. I anticipate a 1-week course of treatment. The potential toxicities of cranial radiotherapy were reviewed. The patient has verbalized understanding would like to proceed as recommended. The patient???s treatment plan was discussed with Joshua Willard M.D. Signed by: Yoel Cui 11/25/2022 2:54:56 PM
--- NOTE | 2022-11-27 10:32 | N.ONRD TS_ITS ---
Radiation OncologyTreatment Summary Patient Name: Shabbir Galdamez Date of : 1940 Date of Service: 11/27/2022 Attending Physician: Yoel Cui M.D. Shabbir Galdamez has completed cranial radiotherapy for the management of metastatic colon cancer. He was diagnosed in June of 2020 following an evaluation of the patient. A colonoscopy identified a partially obstructing mass in the descending colon. A left colectomy was performed in July 2020 with histological analysis diagnosing a daughter-differentiated invasive adenocarcinoma (pT3). A total of 12 lymph nodes were harvested without metastatic disease. A staging PET scan obtained in August of 2020 demonstrated liver metastases. Capecitabine was prescribed. Repeat imaging in December of that year reported resolution of the liver disease. A surveillance PET scan completed in August of 2021 described extensive hepatic disease. A liver biopsy confirmed metastatic adenocarcinoma. An MRI of the brain ordered in August 2021 identified a 5 mm left cerebellar lesion. He was prescribed oxaliplatin and capecitabine in October of 2021. On account of intolerance, FOLFOX was instituted. Follow-up imaging discerned stable disease. SIRT was performed in June 2022. The patient's CEA level continued to rise. A PET scan ordered in September of 2022 confirmed progressive disease in the liver and bone metastases. Yttrium-90 therapy was repeated. A repeat MRI of the brain ordered on November 10, 2022 documented a 2.9 cm x 2.3 cm enhancing mass within the left cerebellum, a 7 mm left temporal lobe lesion, and a subcortical left parietal lobe lesion measuring 8 mm. Daily radiotherapy was administered between the dates November 23, 2022 through November 27, 2022. A prescribed dose of 20 Gy was delivered in 5 fractions encompassing 5 elapsed days. The cranial fossa was treated utilizing a 3-dimensional conformal radiotherapy plan with an opposed lateral portal field design and a half-beam treatment technique. The left lateral port employed a gantry angle of 90??? and a collimator angle of 327???. The field size measured 12 cm x 12 cm within X-direction and 0 cm x 17 cm within the Y-direction. The measured SSD was 93.3 cm with the field allocating 198 monitor units. The right lateral field utilized a 270??? gantry angle with a collimator angle of 33???. The field size spanned 12 cm x 12 cm within the X-direction and 17 cm x 0 cm within the Y-direction. The SSD measured 92.7 cm with the port delivering 200 monitor units. All treatments were performed with the Quri iX linear accelerator and an isocentric technique. The dose was calculated by Anisotropic Analytic Algorithm. Photon energies of 15 MV were prescribed with the plan normalized to deliver 100% of the prescription dose to 99% of the planning target volume. Signed by: Yoel Cui 11/27/2022 10:31:24 AM
--- NOTE | 2022-11-27 10:47 | ONCRAD TMN_ITS ---
Radiation Oncology Treatment Management Note Patient Name: Shabbir Galdamez Date of : 1940 Date of Service: 11/27/2022 Attending Physician: Yoel Cui M.D. Shabbir Galdamez is an 82 year old white male diagnosed with metastatic colon cancer. He was diagnosed in June of 2020 following an evaluation of the patient. A colonoscopy identified a partially obstructing mass in the descending colon. A left colectomy was performed in July 2020 with histological analysis diagnosing a daughter-differentiated invasive adenocarcinoma (pT3). A total of 12 lymph nodes were harvested without metastatic disease. A staging PET scan obtained in August of 2020 demonstrated liver metastases. Capecitabine was prescribed. Repeat imaging in December of that year reported resolution of the liver disease. A surveillance PET scan completed in August of 2021 described extensive hepatic disease. A liver biopsy confirmed metastatic adenocarcinoma. An MRI of the brain ordered in August 2021 identified a 5 mm left cerebellar lesion. He was prescribed oxaliplatin and capecitabine in October of 2021. On account of intolerance, FOLFOX was instituted. Follow-up imaging discerned stable disease. SIRT was performed in June 2022. The patient's CEA level continued to rise. A PET scan ordered in September of 2022 confirmed progressive disease in the liver and bone metastases. Yttrium-90 therapy was repeated. A repeat MRI of the brain ordered on November 10, 2022 documented a 2.9 cm x 2.3 cm enhancing mass within the left cerebellum, a 7 mm left temporal lobe lesion, and a subcortical left parietal lobe lesion measuring 8 mm. The patient has received 20 Gy of a prescribed 20 Lorenzo with a 3-dimensional conformal radiotherapy plan utilizing a half-beam block treatment technique with opposed lateral portal hillman. Upon review of systems, he denied neurological symptoms. On physical examination, the patient weighed 127 lbs. His temperature was 97.5 ???F and the blood pressure was 118/68 mmHg. His pulse was 87 bpm and the respiratory rate was 18. Cranial nerves were intact. Cranial radiotherapy completed today. Signed by: Yoel Cui 11/27/2022 10:45:55 AM
== END 2022-12-13 23:59 | disposition home or self-care (01) ==
PROVIDERS: PCP Emergency Medicine Emergency Medical Services; Visit Provider Radiology Radiation Oncology
DX: C18.6 Malignant neoplasm of descending colon (principal); C78.7 Secondary malignant neoplasm of liver and intrahepatic bile duct; C79.51 Secondary malignant neoplasm of bone; C79.31 Secondary malignant neoplasm of brain; R97.0 Elevated carcinoembryonic antigen [CEA]; Z90.49 Acquired absence of other specified parts of digestive tract; Z93.3 Colostomy status; Z79.899 Other long term (current) drug therapy; Z87.891 Personal history of nicotine dependence
CPT/HCPCS: 77280; 77290; 77295; 77300; 77334; 77336; 77412; 99024; 99205; 99214